=== PATIENT | male | born 1945 | race Caucasian/White ===

== ENCOUNTER 2016-11-13 12:10 | Inpatient (IN) | payer MEDICARE, OTHER ==
[~2016-11-13] VITALS: Ht 172.7 cm; Wt 65.0 kg
[~2016-11-13 12:10] MED LIST changes: -MECL25TA3 PO
[2016-11-13 13:09] LABS: BASO % 0 % (0-3); EOS % 0 % (0-3); HEMATOCRIT 39.2 % (39.0-53.0); HEMOGLOBIN 12.9 g/dL (13.0-17.5); LYMPH # 0.5 x10^3/uL (1.0-4.8); LYMPH % 6 % (24-48); MEAN CORPUSCULAR HEMOGLOBIN 29 pg (25-35); MEAN CORPUSCULAR HGB CONC 33 g/dL (31-37); MEAN CORPUSCULAR VOLUME 87 fL (79-100); MONO % 12 % (0-9); NEUT % 82 % (31-73); PLATELET COUNT 230 x10^3/uL (140-400); RED BLOOD COUNT 4.52 x10^6/uL (4.30-5.70); RED CELL DISTRIBUTION WIDTH 14.5 % (11.5-14.5)
[2016-11-13] MEDS ORDERED: MECLIZINE HCL 12.5 MG TABLET. PO ONE (13:15)
[2016-11-13 13:23] LABS: CALCIUM 8.6 mg/dL (8.5-10.1); CREATININE 1.3 mg/dL (0.7-1.3); GFR 54.3; POTASSIUM 3.5 mmol/L (3.5-5.1)
--- NOTE | 2016-11-13 13:33 | EKG ---
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
--- NOTE | 2016-11-13 13:36 | RAD ---
Indication: Dizziness. Axial imaging through the brain and cervical spine was performed without contrast. Sagittal and coronal reformations of the cervical spine were also performed. CT brain: The ventricles and sulci are within normal limits. No sulcal effacement, midline shift or hemorrhage is detected. The cisterns are patent. The visualized paranasal sinuses are clear. Impression: No acute intracranial process is detected. CT cervical spine: Curvature and alignment is normal. The prevertebral tissues are normal. No fracture or subluxation is identified. The odontoid is intact. Impression: No acute bony abnormality is detected. PQRS Compliance Statement: One or more of the following individualized dose reduction techniques were utilized for this examination: 1. Automated exposure control 2. Adjustment of the mA and/or kV according to patient size 3. Use of iterative reconstruction technique
--- NOTE | 2016-11-13 15:05 | PHYS DOC ---
Past Medical History Past Medical History: Diabetes-Type II, MS, Other Additional Past Medical Histor: back pain Past Surgical History: Angioplasty, Other Additional Past Surgical Histo: hernia surgery x 6, wrist surgery, hiatal hernia surgery Alcohol Use: None Drug Use: None Adult General Chief Complaint Chief Complaint: HYPOTENSION HPI HPI Patient is a 71 year old male who presents with severe intermittent dizziness/ lightheadedness has been worsening over the past 2 weeks. States that he is using hand crutches to assist ambulation today. His symptoms are sudden in onset , worse with sitting up or head movements, lasting seconds to minutes, improves with being still. He has spinning sensation and his blurry vision when he is symptomatic. He notes mild headache over the past 3 days. He also has recent rhinorrhea, nasal congestion, and dry cough. He denies fever or chills, numbness , tingling, weakness, nausea or vomiting, diarrhea, dysuria. Review of Systems Review of Systems Constitutional: Denies fever or chills [] Eyes: Denies change in visual acuity, redness, or eye pain [] HENT: Denies nasal congestion or sore throat [] Respiratory: Denies shortness of breath [] Cardiovascular: No additional information not addressed in HPI [] GI: Denies abdominal pain, nausea, vomiting, bloody stools or diarrhea [] : Denies dysuria or hematuria [] Musculoskeletal: Denies back pain or joint pain [] Integument: Denies rash or skin lesions [] Neurologic: Denies focal weakness or sensory changes [] Endocrine: Denies polyuria or polydipsia [] Current Medications Current Medications Current Medications Medications (Trade) Dose Ordered Sig/Ifeanyi Start Time Stop Time Status Last Admin Dose Admin Meclizine HCl (Antivert) 12.5 mg 1X ONCE 11/13/16 13:15 11/13/16 13:16 DC 11/13/16 13:32 12.5 MG Allergies Allergies Allergies Coded Allergies Type Severity Reaction Last Updated Verified ether Allergy Severe "N/V" 03/14/14 Yes Physical Exam Physical Exam Constitutional: Well developed, well nourished, no acute distress, non-toxic appearance. [] HENT: Normocephalic, atraumatic, bilateral external ears normal, oropharynx moist, no oral exudates, nose normal. [] Eyes: PERRLA, EOMI. [] Neck: Normal range of motion, supple. [] Cardiovascular:Heart rate regular rhythm [] Lungs & Thorax: Bilateral breath sounds clear to auscultation [] Abdomen: Bowel sounds normal, soft, no tenderness. [] Skin: Warm, dry, no erythema, no rash. [] Back: No tenderness, no CVA tenderness. [] Extremities: No tenderness, ROM intact, no edema. Ambulatory with a unsteady gait [] Neurologic: Alert and oriented X 3, normal motor function, normal sensory function, no focal deficits noted, cranial nerves II through XII intact, no nystagmus, no limb ataxia. [] Psychologic: Affect normal, judgement normal, mood normal. [] Current Patient Data Vital Signs Vital Signs Date Time Temp Pulse Resp B/P Pulse Ox O2 Delivery O2 Flow Rate FiO2 11/13/16 14:00 90 18 97/65 99 Room Air 11/13/16 12:19 97.9 97.9 Lab Values Laboratory Tests Test 11/13/16 12:28 White Blood Count 8.0x10^3/uL (4.0-11.0) Red Blood Count 4.52x10^6/uL (4.30-5.70) Hemoglobin 12.9g/dL (13.0-17.5) L Hematocrit 39.2% (39.0-53.0) Mean Corpuscular Volume 87fL (79-100) Mean Corpuscular Hemoglobin 29pg (25-35) Mean Corpuscular Hemoglobin Concent 33g/dL (31-37) Red Cell Distribution Width 14.5% (11.5-14.5) Platelet Count 230x10^3/uL (140-400) Neutrophils (%) (Auto) 82% (31-73) H Lymphocytes (%) (Auto) 6% (24-48) L Monocytes (%) (Auto) 12% (0-9) H Eosinophils (%) (Auto) 0% (0-3) Basophils (%) (Auto) 0% (0-3) Neutrophils # (Auto) 6.6x10^3uL (1.8-7.7) Lymphocytes # (Auto) 0.5x10^3/uL (1.0-4.8) L Monocytes # (Auto) 0.9x10^3/uL (0.0-1.1) Eosinophils # (Auto) 0.0x10^3/uL (0.0-0.7) Basophils # (Auto) 0.0x10^3/uL (0.0-0.2) Sodium Level 142mmol/L (136-145) Potassium Level 3.5mmol/L (3.5-5.1) Chloride Level 103mmol/L (98-107) Carbon Dioxide Level 28mmol/L (21-32) Anion Gap 11 (6-14) Blood Urea Nitrogen 14mg/dL (8-26) Creatinine 1.3mg/dL (0.7-1.3) Estimated GFR (Cockcroft-Gault) 54.3 Glucose Level 99mg/dL (70-99) Calcium Level 8.6mg/dL (8.5-10.1) Laboratory Tests 11/13/16 12:28 Laboratory Tests 11/13/16 12:28 EKG EKG EKG as interpreted by me as normal sinus rhythm, rate 94, no ST-T changes, normal intervals, no ectopy Radiology/Procedures Radiology/Procedures Chest xray as interpreted by me with no acute cardiopulmonary disease process Head CT without contrast Impression: No acute intracranial process is detected. CT cervical spine: Impression: No acute bony abnormality is detected. DICTATED and SIGNED BY: FLORY CARRERO MD DATE: 11/13/16 3218 Course & Med Decision Making Course & Med Decision Making Pertinent Labs and Imaging studies reviewed. (See chart for details) Workup is unremarkable. Still has symptoms of severe vertigo with trial of ambulation. He does not feel he can ambulate safely to return home. Will admit for symptom control and neurology evaluation. He was seen and examined with Dr. Mckeon at bedside, who agrees to admit. Dragon Disclaimer Dragon Disclaimer This electronic medical record was generated, in whole or in part, using a voice recognition dictation system. Departure Departure Impression: Primary Impression: Vertigo Disposition: ADMITTED INPATIENT Condition: STABLE Referrals: VICKY ACUNA Jr, MD (PCP) Roseanna TORRES MD Nov 13, 2016 15:05
[2016-11-13] MEDS ORDERED: ONDANSETRON PF 4 MG/2 ML VIAL. IV PRN (15:30)
[2016-11-13 16:15] VITALS: BP 114/91
--- NOTE | 2016-11-13 17:25 | ACF ---
Admission Forms Criteria VERTIGO Clinical Indications for Admission to Inpatient Care (Place 'X' for any and all applicable criteria): Admission is indicated for ANY ONE of the following(1)(2)(3)(4): [ ]I. Acute bacterial labyrinthitis [ ]II. A suspected etiology that requires admission for treatment [X]III. Inpatient admission required rather than observation care (Also use Vertigo: Observation Care as appropriate) because of ANY ONE of the following: [ ]a) Hemodynamic instability that is severe or persistent [X]b) Signs or symptoms that are severe or persistent (eg, vomiting , orthostasis, inability to ambulate) [ ]c) Cardiac arrhythmias of immediate concern [ ]d) Severe (new) neurologic findings requiring inpatient care as indicated by ANY ONE of the following(6)(7) [ ]1) Cerebral bleeding, ischemia, or vasospasm(8)(9) [ ]2) Increased intracranial pressure or hydrocephalus(10) (11)(12) [ ]3) Papilledema [ ]4) Cerebral edema [ ]5) Mass effect on CT scan [ ]e) Vomiting that is severe or persistent [ ]f) Continuous IV infusion of anticoagulation, platelet inhibitor, vasoactive, or antiarrhythmic medication [ ]g) Cerebral bleeding, hydrocephalus, or vasospasm monitoring(14) [ ]h) Increased intracranial pressure or cerebral edema monitoring [ ]i) Other condition, treatment or monitoring requiring inpatient admission [ ]IV. Cerebellar, brainstem, or cerebral ischemia or hemorrhage(5) Extended stay beyond goal length of stay may be needed for evaluating and treating a specific cause of dizziness, including(26): [ ]a) Head injury (27) ( Also use Traumatic Brain Injury, Nonsurgical Treatment guideline) [ ]b) New-onset vertebrobasilar vascular insufficiency(23) [ ]c) Acute Meniere disease with intractable symptoms [ ]d) Cardiac arrhythmias or conduction defects [ ]e) Acute neurologic event causing dizziness [ ]f) Myocardial ischemia [ ]g) Acute bacterial labyrinthitis(1) [ ]h) Severe acute vestibular neuronitis(18) The original [employer] content created by Dudley [employer] has been revised. The portions of the content which have been revised are identified through the use of italic text or in bold, and [employer] has neither reviewed nor approved the modified material. All other unmodified content is copyright [facility]. Please see references footnoted in the original [facility] edition 2016 Admission Criteria Met?: Yes NELLY SORIANO Nov 13, 2016 17:25
[2016-11-13 17:30] VITALS: BP 114/91
--- NOTE | 2016-11-13 17:56 | PDOC2 ---
NEUROLOGY CONSULT Date of Admission Date of Admission DATE: 11/13/16 TIME: 17:47 Reason for Consult Reason for Consult: IMPRESSION: Blurred vision. Dizziness. Light headedness. Gait instability. Headaches CAD Hx of [place] s/p angioplasty RECOMMENDATIONS/PLAN: ASA daily. Brain MRI w/o contrast. Lab: see orders. OT/PT Discussed with his at bedside. HISTORY OF THE PRESENT ILLNESS: 71-y-old male patient with above medical diseases developed symptoms of blurred vision, dizziness, light headedness, gait instability and headaches for about 3 days. His symptoms not resolving, but became more obvious especially trouble walking. PAST MEDICAL HISTORY: Please see above. PAST SURGERY HISTORY: Angioplasty Hernia Repair ALLERGY: Reviewed. MEDICATIONS: Refer to [facility] FAMILY HISTORY: Non contributory. SOCIAL HISTORY: Lives at home. Denies smoking, drinking, and illicit drug use. He stated he worked in [employer] for 40 years. REVIEW OF SYSTEMS: Constitutional: No malnutrition, weight loss, cachexia. Head: No traumatic brain or head injury. Skin: No edema, or rash. Ear: No infection, tinnitus. Eyes: No vision loss or color blindness. Nose: No bleeding or purulent discharges. Hearing: Hearing decrease. Neck: No injury. Cardiac: CAD, angioplasty Pulmonary: No COPD. GI: No GI ulcer, GI bleeding. Urinary/genital: No dysuria, hematuria, incontinence, urinary retention. Endocrinologic: No cousin face, craniofacial dysmorphism, polydactyly, goiter. Skeletomuscular: No muscular atrophy, deformity. Neurological: see HP. Psychiatric: Denies drug use/abuse. Otherwise, not [id number] review of systems. PHYSICAL EXAMINATION: General appearance is in mild acute distress. HEENT: Normocephalic and nontraumatic. Eyes, nose, ears, and throat are unremarkable. Neck is supple. No lymphadenopathy. No bruits are heard over the carotid artery. No crepitus. Cardiovascular: S1, S2, regular rate and rhythm. Pulmonary: Clear to auscultation bilaterally. Abdomen: Bowel sounds are positive. Extremities: No rash, lesions, or edema. No restriction of range of motion NEUROLOGICAL EXAMINATION: Alert Oriented to time, place and person. PERRL. EOMI. CN: no focal findings. Muscle tone: within normal. Muscle strength: 5 DTR: 2 Plantar reflex: Flexor response bilaterally Gait: not examined in bed. Sensory exam: no abnormal findings. No cerebellar signs elicited. F-T-N test fine. Current Medications Current Medications Current Medications Meclizine HCl (Antivert) 12.5 mg 1X ONCE PO Last administered on 11/13/16t 13: 32; Start 11/13/16 at 13:15; Stop 11/13/16 at 13:16; Status DC Ondansetron HCl (Zofran) 4 mg PRN Q8HRS PRN IV NAUSEA/VOMITING; Start 11/13/16 at 15:30; Stop 11/14/16 at 15:29 Acetaminophen (Tylenol) 650 mg PRN Q4HRS PRN PO FEVER; Start 11/13/16 at 15:30 ; Stop 11/14/16 at 15:29 Active Scripts Active Reported Aspirin 325 Mg Tablet 1 Tab PO DAILY [none] Allergies Allergies: Coded Allergies: ether (Verified Allergy, Severe, "N/V", 03/14/14) Vitals VITALS Vital Signs Date Time Temp Pulse Resp B/P Pulse Ox O2 Delivery O2 Flow Rate FiO2 11/13/16 17:32 Room Air 11/13/16 17:30 101.4 99 114/91 95 101.4 11/13/16 16:15 18 Labs Labs Laboratory Tests Test 11/13/16 12:28 White Blood Count 8.0x10^3/uL (4.0-11.0) Red Blood Count 4.52x10^6/uL (4.30-5.70) Hemoglobin 12.9g/dL (13.0-17.5) Hematocrit 39.2% (39.0-53.0) Mean Corpuscular Volume 87fL (79-100) Mean Corpuscular Hemoglobin 29pg (25-35) Mean Corpuscular Hemoglobin Concent 33g/dL (31-37) Red Cell Distribution Width 14.5% (11.5-14.5) Platelet Count 230x10^3/uL (140-400) Neutrophils (%) (Auto) 82% (31-73) Lymphocytes (%) (Auto) 6% (24-48) Monocytes (%) (Auto) 12% (0-9) Eosinophils (%) (Auto) 0% (0-3) Basophils (%) (Auto) 0% (0-3) Neutrophils # (Auto) 6.6x10^3uL (1.8-7.7) Lymphocytes # (Auto) 0.5x10^3/uL (1.0-4.8) Monocytes # (Auto) 0.9x10^3/uL (0.0-1.1) Eosinophils # (Auto) 0.0x10^3/uL (0.0-0.7) Basophils # (Auto) 0.0x10^3/uL (0.0-0.2) Sodium Level 142mmol/L (136-145) Potassium Level 3.5mmol/L (3.5-5.1) Chloride Level 103mmol/L (98-107) Carbon Dioxide Level 28mmol/L (21-32) Anion Gap 11 (6-14) Blood Urea Nitrogen 14mg/dL (8-26) Creatinine 1.3mg/dL (0.7-1.3) Estimated GFR (Cockcroft-Gault) 54.3 Glucose Level 99mg/dL (70-99) Calcium Level 8.6mg/dL (8.5-10.1) Creatine Kinase 74U/L (39-308) Thyroid Stimulating Hormone (TSH) 1.173uIU/mL (0.358-3.74) Laboratory Tests Test 11/13/16 12:28 White Blood Count 8.0x10^3/uL (4.0-11.0) Red Blood Count 4.52x10^6/uL (4.30-5.70) Hemoglobin 12.9g/dL (13.0-17.5) Hematocrit 39.2% (39.0-53.0) Mean Corpuscular Volume 87fL (79-100) Mean Corpuscular Hemoglobin 29pg (25-35) Mean Corpuscular Hemoglobin Concent 33g/dL (31-37) Red Cell Distribution Width 14.5% (11.5-14.5) Platelet Count 230x10^3/uL (140-400) Neutrophils (%) (Auto) 82% (31-73) Lymphocytes (%) (Auto) 6% (24-48) Monocytes (%) (Auto) 12% (0-9) Eosinophils (%) (Auto) 0% (0-3) Basophils (%) (Auto) 0% (0-3) Neutrophils # (Auto) 6.6x10^3uL (1.8-7.7) Lymphocytes # (Auto) 0.5x10^3/uL (1.0-4.8) Monocytes # (Auto) 0.9x10^3/uL (0.0-1.1) Eosinophils # (Auto) 0.0x10^3/uL (0.0-0.7) Basophils # (Auto) 0.0x10^3/uL (0.0-0.2) Sodium Level 142mmol/L (136-145) Potassium Level 3.5mmol/L (3.5-5.1) Chloride Level 103mmol/L (98-107) Carbon Dioxide Level 28mmol/L (21-32) Anion Gap 11 (6-14) Blood Urea Nitrogen 14mg/dL (8-26) Creatinine 1.3mg/dL (0.7-1.3) Estimated GFR (Cockcroft-Gault) 54.3 Glucose Level 99mg/dL (70-99) Calcium Level 8.6mg/dL (8.5-10.1) Creatine Kinase 74U/L (39-308) Thyroid Stimulating Hormone (TSH) 1.173uIU/mL (0.358-3.74) ALEXANDRA ONEIL MD Nov 13, 2016 17:56
[2016-11-13 19:10] VITALS: BP 105/39
[2016-11-13] MEDS: ASPIRIN 81 MG TAB.CHEW PO SCH (19:58)
[2016-11-13 23:44] VITALS: BP 111/65
[2016-11-14] VITALS (9 sets, daily range): BP systolic 93–128; BP diastolic 54–80
[2016-11-14] MEDS: ACETAMINOPHEN 325 MG TABLET. PO PRN ×2 (00:01→12:02)
--- NOTE | 2016-11-14 09:22 | RAD ---
BRAIN W/O CONTRAST Indication: HEADACHES, BLURRED VISION, UNSTEADY GAIT, NO SX HX, NO PRIORS Reason: Blurred vision. headache, gait problems, OK FOR A.M. PER DR ONEIL / Spl. Instructions: / History: TECHNIQUE: Axial diffusion weighted imaging was obtained. Additional sagittal T1, axial T1, axial FLAIR, and axial T2 weighted imaging of the brain was also performed. FINDINGS: There are scattered foci of FLAIR signal hyperintensity in the periventricular white matter which are nonspecific but most likely related to sequelae of chronic small vessel ischemic disease. No evidence of acute intracranial hemorrhage. No restricted diffusion to indicate acute infarct. No extra-axial fluid collections. No midline shift or mass effect. Ventricular size is appropriate. Midline structures have a normal anatomic configuration. Basal cisterns are patent. Arterial flow voids at the skull base and major dural venous sinuses are maintained. Globes and orbits are unremarkable. Paranasal sinuses and mastoid air cells are clear. IMPRESSION: Negative for acute or recent infarct. No acute intracranial abnormality. Electronically signed by: Ha Washburn (Nov 14, 2016 09:21:20)
[2016-11-14] MEDS: ASPIRIN 81 MG TAB.CHEW PO SCH (10:17)
[2016-11-14] MEDS: CALCIUM CARBONATE 500 MG TAB.CHEW PO SCH ×2 (11:30→16:51)
[2016-11-14] MEDS: CHOLECALCIFEROL (VITAMIN D3) 5,000 UNIT CAPSULE PO SCH (12:02)
--- NOTE | 2016-11-14 12:41 | PDOC1 ---
History and Physical Date of Admission Date of Admission DATE: 11/13/16 TIME: 14:20 Identification/Chief Complaint Chief Complaint Vertigo Source Source: Chart review, Patient History of Present Illness History of Present Illness Patient is a pleasant 71 year old male with history of CAD and DDD who presented from my office with hypotension and dizziness. He has been having episodes of dizziness that can last anywhere from 30 seconds to 1 hour for the past 2-3 weeks. Describes episodes as lightheadedness and spinning, worse with flexion and extension of the neck. He denies syncope, but frequently has to crawl on the floor and is unable to stand due to the severity of dizziness. He is using a wheelchair at home. Has had a bout of vertigo in the past. Since 11/12, he also notes having rhinorrhea and a dry, hacking cough occasionally productive of white sputum. Denies chest pain, dyspnea, nausea, vomiting, diarrhea. In the ED, a head and neck CT was performed, both were negative for acute abnormalities. Patient was having significant dizziness on ambulation and was admitted for further workup of dizziness. Past Medical History Cardiovascular: CAD, [place] Musculoskeletal: Other (DDD) Past Surgical History Past Surgical History angioplasty, hernia repair Current Problem List Problem List Problems Medical Problems: (1) Vertigo Status: Acute Problems: Current Medications Current Medications Current Medications Meclizine HCl (Antivert) 12.5 mg 1X ONCE PO Last administered on 11/13/16 13: 32; Start 11/13/16 at 13:15; Stop 11/13/16 at 13:16; Status DC Ondansetron HCl (Zofran) 4 mg PRN Q8HRS PRN IV NAUSEA/VOMITING; Start 11/13/16 at 15:30; Stop 11/14/16 at 15:29 Acetaminophen (Tylenol) 650 mg PRN Q4HRS PRN PO FEVER Last administered on 11/14 12:02; Start 11/13/16 at 15:30; Stop 11/14/16 at 15:29 Aspirin (Children'S Aspirin) 81 mg DAILYWBKFT PO Last administered on 10:17; Start 11/13/16 at 19:00 Vitamin D (Vitamin D3) 5,000 unit DAILY PO Last administered on 11/14/16 12:02 ; Start 11/14/16 at 11:00 Calcium Carbonate/ Glycine (Tums) 500 mg BIDWMEALS PO ; Start 11/14/16 at 11:30 Active Scripts Active Reported Aspirin 325 Mg Tablet 1 Tab PO DAILY [none] Allergies Allergies: Coded Allergies: ether (Verified Allergy, Severe, "N/V", 03/14/14) Physical Exam Physical Exam General: AAOx3, no acute distress HEENT: PERRLA, EOMI, no effusions behind TMs Heart: regular rate, normal S1, normal S2 Lungs: Diffuse mid glynn crackles Abdomen: soft, nontender, nondistended, bowel sounds present Neuro: CNII-XII intact, no ataxia noted Extremities: no pretibial edema, pulses +2/4 bilaterally all extremities Vitals Vitals Vital Signs Date Time Temp Pulse Resp B/P Pulse Ox O2 Delivery O2 Flow Rate FiO2 11/14/16 10:58 101.3 89 18 128/70 93 Room Air 101.3 Labs Labs Laboratory Tests Test 11/13/16 12:28 White Blood Count 8.0x10^3/uL (4.0-11.0) Red Blood Count 4.52x10^6/uL (4.30-5.70) Hemoglobin 12.9g/dL (13.0-17.5) Hematocrit 39.2% (39.0-53.0) Mean Corpuscular Volume 87fL (79-100) Mean Corpuscular Hemoglobin 29pg (25-35) Mean Corpuscular Hemoglobin Concent 33g/dL (31-37) Red Cell Distribution Width 14.5% (11.5-14.5) Platelet Count 230x10^3/uL (140-400) Neutrophils (%) (Auto) 82% (31-73) Lymphocytes (%) (Auto) 6% (24-48) Monocytes (%) (Auto) 12% (0-9) Eosinophils (%) (Auto) 0% (0-3) Basophils (%) (Auto) 0% (0-3) Neutrophils # (Auto) 6.6x10^3uL (1.8-7.7) Lymphocytes # (Auto) 0.5x10^3/uL (1.0-4.8) Monocytes # (Auto) 0.9x10^3/uL (0.0-1.1) Eosinophils # (Auto) 0.0x10^3/uL (0.0-0.7) Basophils # (Auto) 0.0x10^3/uL (0.0-0.2) Sodium Level 142mmol/L (136-145) Potassium Level 3.5mmol/L (3.5-5.1) Chloride Level 103mmol/L (98-107) Carbon Dioxide Level 28mmol/L (21-32) Anion Gap 11 (6-14) Blood Urea Nitrogen 14mg/dL (8-26) Creatinine 1.3mg/dL (0.7-1.3) Estimated GFR (Cockcroft-Gault) 54.3 Glucose Level 99mg/dL (70-99) Calcium Level 8.6mg/dL (8.5-10.1) Creatine Kinase 74U/L (39-308) Vitamin B12 Level 299pg/mL (211-946) 25-Hydroxy Vitamin D Total 21.0ng/mL (30.0-100.0) Thyroid Stimulating Hormone (TSH) 1.173uIU/mL (0.358-3.74) Laboratory Tests Test 11/13/16 12:28 White Blood Count 8.0x10^3/uL (4.0-11.0) Red Blood Count 4.52x10^6/uL (4.30-5.70) Hemoglobin 12.9g/dL (13.0-17.5) Hematocrit 39.2% (39.0-53.0) Mean Corpuscular Volume 87fL (79-100) Mean Corpuscular Hemoglobin 29pg (25-35) Mean Corpuscular Hemoglobin Concent 33g/dL (31-37) Red Cell Distribution Width 14.5% (11.5-14.5) Platelet Count 230x10^3/uL (140-400) Neutrophils (%) (Auto) 82% (31-73) Lymphocytes (%) (Auto) 6% (24-48) Monocytes (%) (Auto) 12% (0-9) Eosinophils (%) (Auto) 0% (0-3) Basophils (%) (Auto) 0% (0-3) Neutrophils # (Auto) 6.6x10^3uL (1.8-7.7) Lymphocytes # (Auto) 0.5x10^3/uL (1.0-4.8) Monocytes # (Auto) 0.9x10^3/uL (0.0-1.1) Eosinophils # (Auto) 0.0x10^3/uL (0.0-0.7) Basophils # (Auto) 0.0x10^3/uL (0.0-0.2) Sodium Level 142mmol/L (136-145) Potassium Level 3.5mmol/L (3.5-5.1) Chloride Level 103mmol/L (98-107) Carbon Dioxide Level 28mmol/L (21-32) Anion Gap 11 (6-14) Blood Urea Nitrogen 14mg/dL (8-26) Creatinine 1.3mg/dL (0.7-1.3) Estimated GFR (Cockcroft-Gault) 54.3 Glucose Level 99mg/dL (70-99) Calcium Level 8.6mg/dL (8.5-10.1) Creatine Kinase 74U/L (39-308) Vitamin B12 Level 299pg/mL (211-946) 25-Hydroxy Vitamin D Total 21.0ng/mL (30.0-100.0) Thyroid Stimulating Hormone (TSH) 1.173uIU/mL (0.358-3.74) VTE Prophylaxis Ordered VTE Prophylaxis Devices: No VTE Pharmacological Prophylaxi: Yes Assessment/Plan Assessment/Plan Likely peripheral vertigo with negative head/neck CT and history of upper respiratory symptoms. Will consult neurology for further workup. Patient febrile and with a productive cough . Will start on Levaquin 500mg IV Q 24 hours. RAQUEL JACKSON MD Nov 14, 2016 12:40
--- NOTE | 2016-11-14 14:30 | PDOC ---
PROGRESS NOTES Assessment Assessment Blurred vision. Dizziness. Light headedness. Gait instability. Headaches CAD Hx of [place] s/p angioplasty Vit D deficiency. No evidence of acute CVA this time. RECOMMENDATIONS/PLAN: ASA daily. Vit D and Ca++ supplement, further management per his PCP. Fasting lipids in a.m. Orths HR and BP. OT/PT Discussed with his at bedside on 11/13/16. HISTORY OF THE PRESENT ILLNESS: 71-y-old male patient with above medical diseases developed symptoms of blurred vision, dizziness, light headedness, gait instability and headaches for about 3 days. His symptoms not resolving, but became more obvious especially trouble walking. PAST MEDICAL HISTORY: Please see above. PAST SURGERY HISTORY: Angioplasty Hernia Repair ALLERGY: Reviewed. MEDICATIONS: Refer to [facility] FAMILY HISTORY: Non contributory. SOCIAL HISTORY: Lives at home. Denies smoking, drinking, and illicit drug use. He stated he worked in [employer] for 40 years. REVIEW OF SYSTEMS: Constitutional: No malnutrition, weight loss, cachexia. Head: No traumatic brain or head injury. Skin: No edema, or rash. Ear: No infection, tinnitus. Eyes: No vision loss or color blindness. Nose: No bleeding or purulent discharges. Hearing: Hearing decrease. Neck: No injury. Cardiac: CAD, angioplasty Pulmonary: No COPD. GI: No GI ulcer, GI bleeding. Urinary/genital: No dysuria, hematuria, incontinence, urinary retention. Endocrinologic: No cousin face, craniofacial dysmorphism, polydactyly, goiter. Skeletomuscular: No muscular atrophy, deformity. Neurological: see HP. Psychiatric: Denies drug use/abuse. Otherwise, not [id number] review of systems. PHYSICAL EXAMINATION: General appearance is in no acute distress. HEENT: Normocephalic and nontraumatic. Eyes, nose, ears, and throat are unremarkable. Neck is supple. No lymphadenopathy. No bruits are heard over the carotid artery. No crepitus. Cardiovascular: S1, S2, regular rate and rhythm. Pulmonary: Clear to auscultation bilaterally. Abdomen: Bowel sounds are positive. Extremities: No rash, lesions, or edema. No restriction of range of motion NEUROLOGICAL EXAMINATION: Alert Oriented to time, place and person. PERRL. EOMI. CN: no focal findings. Muscle tone: within normal. Muscle strength: 5- to 5 DTR: 2 Plantar reflex: Flexor response bilaterally Gait: not examined in bed. Sensory exam: no abnormal findings. No cerebellar signs elicited. F-T-N test fine. Objective Objective Vital Signs Date Time Temp Pulse Resp B/P Pulse Ox O2 Delivery O2 Flow Rate FiO2 11/14/16 10:58 101.3 89 18 128/70 93 Room Air 101.3 Intake and Output 11/14/16 07:00 Intake Total 200 ml Output Total 500 ml Balance -300 ml Intake Oral 200 ml Output Urine Total 500 ml Vitals Signs Vitals VS - Last 72 Hours, by Label Date Time Temp Pulse Resp B/P Pulse Ox O2 Delivery O2 Flow Rate FiO2 11/14/16 10:58 101.3 89 18 128/70 93 Room Air 101.3 11/14/16 07:30 Room Air 11/14/16 07:20 101.5 94 20 122/67 95 Room Air 101.5 11/14/16 03:30 98.9 86 20 103/64 94 Room Air 98.9 11/13/16 23:44 102.1 103 20 111/65 92 Room Air 102.1 11/13/16 20:00 Room Air 11/13/16 19:10 102.9 101 20 105/39 91 Room Air 102.9 11/13/16 17:32 Room Air 11/13/16 17:30 101.4 99 114/91 95 Room Air 101.4 11/13/16 16:15 101.4 99 18 114/91 95 Room Air 101.4 11/13/16 15:30 96 22 109/54 95 Room Air 11/13/16 15:00 92 20 99/51 95 Room Air 11/13/16 14:00 90 18 97/65 99 Room Air 11/13/16 13:30 90 18 119/79 98 Room Air 11/13/16 13:00 94 18 135/62 99 Room Air 11/13/16 12:19 97.9 101 22 121/60 96 Room Air 97.9 Medication Medications Current Medications Acetaminophen (Tylenol) 650 mg PRN Q4HRS PRN PO FEVER Last administered on 11/14t 12:02; Start 11/13/16 at 15:30; Stop 11/14/16 at 15:29 Aspirin (Children'S Aspirin) 81 mg DAILYWBKFT PO Last administered on 10:17; Start 11/13/16 at 19:00 Calcium Carbonate/ Glycine (Tums) 500 mg BIDWMEALS PO ; Start 11/14/16 at 11:30 Ondansetron HCl (Zofran) 4 mg PRN Q8HRS PRN IV NAUSEA/VOMITING; Start 11/13/16 at 15:30; Stop 11/14/16 at 15:29 Vitamin D (Vitamin D3) 5,000 unit DAILY PO Last administered on 11/14/16 12:02 ; Start 11/14/16 at 11:00 Comment Review of Relevant I have reviewed the following items rai (where applicable) has been applied. ALEXANDRA ONEIL MD Nov 14, 2016 14:30
[2016-11-15 03:40] VITALS: BP 106/73
[2016-11-15 07:10] LABS: CHOLESTEROL/HDL RATIO 2.5
[2016-11-15 07:36] VITALS: BP 114/67
[2016-11-15] MEDS: CALCIUM CARBONATE 500 MG TAB.CHEW PO SCH ×2 (09:38→16:34)
[2016-11-15] MEDS: ASPIRIN 81 MG TAB.CHEW PO SCH (09:38)
[2016-11-15] MEDS: CHOLECALCIFEROL (VITAMIN D3) 5,000 UNIT CAPSULE PO SCH (09:38)
[2016-11-15 11:42] VITALS: BP 128/75
--- NOTE | 2016-11-15 13:46 | PDOC ---
PROGRESS NOTES Subjective Subjective Patient has no new cardiac complaints. Objective Objective Vital Signs Date Time Temp Pulse Resp B/P Pulse Ox O2 Delivery O2 Flow Rate FiO2 11/15/16 11:42 98.1 98 20 128/75 97 Room Air 98.1 Intake and Output 11/15/16 07:00 Intake Total 1760 ml Output Total 1350 ml Balance 410 ml Intake Oral 1760 ml Output Urine Total 1350 ml Physical Exam Physical Exam No significant changes in cardiac exam. Assessment Assessment Problems Medical Problems: (1) Vertigo Status: Acute Plan Plan of Care Continue [facility]. Patient stable from a cardiac standpoint. The patient wants to go home today. I agreed with discharging the patient today. Comment Review of Relevant I have reviewed the following items rai (where applicable) has been applied. Labs Laboratory Tests Test 11/15/16 05:50 Triglycerides Level 55mg/dL (0-150) Cholesterol Level 127mg/dL (0-200) LDL Cholesterol, Calculated 65mg/dL (0-100) VLDL Cholesterol, Calculated 11mg/dL (0-40) HDL Cholesterol 51mg/dL (40-60) Cholesterol/HDL Ratio 2.5 Laboratory Tests Test 11/15/16 05:50 Triglycerides Level 55mg/dL (0-150) Cholesterol Level 127mg/dL (0-200) LDL Cholesterol, Calculated 65mg/dL (0-100) VLDL Cholesterol, Calculated 11mg/dL (0-40) HDL Cholesterol 51mg/dL (40-60) Cholesterol/HDL Ratio 2.5 Medications Current Medications Meclizine HCl (Antivert) 12.5 mg 1X ONCE PO Last administered on 11/13/16 13: 32; Start 11/13/16 at 13:15; Stop 11/13/16 at 13:16; Status DC Ondansetron HCl (Zofran) 4 mg PRN Q8HRS PRN IV NAUSEA/VOMITING; Start 11/13/16 at 15:30; Stop 11/14/16 at 15:29; Status DC Acetaminophen (Tylenol) 650 mg PRN Q4HRS PRN PO FEVER Last administered on 11/14 12:02; Start 11/13/16 at 15:30; Stop 11/14/16 at 15:29; Status DC Aspirin (Children'S Aspirin) 81 mg DAILYWBKFT PO Last administered on 09:38; Start 11/13/16 at 19:00 Vitamin D (Vitamin D3) 5,000 unit DAILY PO Last administered on 11/15/16 09:38 ; Start 11/14/16 at 11:00 Calcium Carbonate/ Glycine 500 mg 500 mg BIDWMEALS PO Last administered on 11/15 09:38; Start 11/14/16 at 11:30 Levofloxacin/ Dextrose (LEVAQUIN 500mg PREMIX) 100 ml @ 100 mls/hr Q24H IV Last administered on 11/14/16 16:51; Start 11/14/16 at 16:00 Active Scripts Active Reported Aspirin 325 Mg Tablet 1 Tab PO DAILY [none] Vitals/I & O Vital Sign - Last 24 Hours 11/14/16 11/14/16 11/14/16 11/14/16 14:58 16:00 16:02 16:04 Temp 98.5 98.5 Pulse 72 89 93 89 Resp 16 B/P 93/57 104/54 123/62 124/59 Pulse Ox 96 97 96 96 O2 Delivery Room Air 11/14/16 11/14/16 11/14/16 11/15/16 19:05 20:00 23:41 03:40 Temp 102.1 100.3 99.6 102.1 100.3 99.6 Pulse 94 99 96 Resp 20 20 20 B/P 124/80 107/64 106/73 Pulse Ox 93 91 91 O2 Delivery Room Air Room Air Room Air Room Air 11/15/16 11/15/16 11/15/16 07:36 08:00 11:42 Temp 99.7 98.1 99.7 98.1 Pulse 97 98 Resp 20 20 B/P 114/67 128/75 Pulse Ox 96 97 O2 Delivery Room Air Room Air Room Air Intake and Output 11/14/16 11/14/16 11/15/16 15:00 23:00 07:00 Intake Total 320 ml 1000 ml 440 ml Output Total 800 ml 550 ml Balance 320 ml 200 ml -110 ml RAQUEL JACKSON MD Nov 15, 2016 13:45
[2016-11-15 15:00] VITALS: BP 96/54
--- NOTE | 2016-11-15 15:45 | PDOC ---
PROGRESS NOTES Assessment Assessment Blurred vision. Dizziness. Light headedness. Gait instability. Headaches CAD Hx of [place] s/p angioplasty Vit D deficiency. No evidence of acute CVA this time. RECOMMENDATIONS/PLAN: Meclizine 25 mg tid Continue ASA daily. Vit D and Ca++ supplement, further management per his PCP. MRA or CTA if symptoms worse. See ENT See Dr. Ramos as outpatient for vertigo battery tests. OT/PT Discussed with his at bedside on 11/13/16. HISTORY OF THE PRESENT ILLNESS: 71-y-old male patient with above medical diseases developed symptoms of blurred vision, dizziness, light headedness, gait instability and headaches for about 3 days. His symptoms not resolving, but became more obvious especially trouble walking. PAST MEDICAL HISTORY: Please see above. PAST SURGERY HISTORY: Angioplasty Hernia Repair ALLERGY: Reviewed. MEDICATIONS: Refer to [facility] FAMILY HISTORY: Non contributory. SOCIAL HISTORY: Lives at home. Denies smoking, drinking, and illicit drug use. He stated he worked in [employer] for 40 years. REVIEW OF SYSTEMS: Constitutional: No malnutrition, weight loss, cachexia. Head: No traumatic brain or head injury. Skin: No edema, or rash. Ear: No infection, tinnitus. Eyes: No vision loss or color blindness. Nose: No bleeding or purulent discharges. Hearing: Hearing decrease. Neck: No injury. Cardiac: CAD, angioplasty Pulmonary: No COPD. GI: No GI ulcer, GI bleeding. Urinary/genital: No dysuria, hematuria, incontinence, urinary retention. Endocrinologic: No cousin face, craniofacial dysmorphism, polydactyly, goiter. Skeletomuscular: No muscular atrophy, deformity. Neurological: see HP. Psychiatric: Denies drug use/abuse. Otherwise, not -oyvjd review of systems. PHYSICAL EXAMINATION: General appearance is in no acute distress. HEENT: Normocephalic and nontraumatic. Eyes, nose, ears, and throat are unremarkable. Neck is supple. No lymphadenopathy. No bruits are heard over the carotid artery. No crepitus. Cardiovascular: S1, S2, regular rate and rhythm. Pulmonary: Clear to auscultation bilaterally. Abdomen: Bowel sounds are positive. Extremities: No rash, lesions, or edema. No restriction of range of motion NEUROLOGICAL EXAMINATION: Alert Oriented to time, place and person. PERRL. EOMI. CN: no focal findings. Muscle tone: within normal. Muscle strength: 5- to 5 DTR: 2 Plantar reflex: Flexor response bilaterally Gait: not examined in bed. Sensory exam: no abnormal findings. No cerebellar signs elicited. F-T-N test fine. Objective Objective Vital Signs Date Time Temp Pulse Resp B/P Pulse Ox O2 Delivery O2 Flow Rate FiO2 11/15/16 11:42 98.1 98 20 128/75 97 Room Air 98.1 Intake and Output 11/15/16 07:00 Intake Total 1760 ml Output Total 1350 ml Balance 410 ml Intake Oral 1760 ml Output Urine Total 1350 ml Vitals Signs Vitals VS - Last 72 Hours, by Label Date Time Temp Pulse Resp B/P Pulse Ox O2 Delivery O2 Flow Rate FiO2 11/15/16 11:42 98.1 98 20 128/75 97 Room Air 98.1 11/15/16 08:00 Room Air 11/15/16 07:36 99.7 97 20 114/67 96 Room Air 99.7 11/15/16 03:40 99.6 96 20 106/73 91 Room Air 99.6 11/14/16 23:41 100.3 99 20 107/64 91 Room Air 100.3 11/14/16 20:00 Room Air 11/14/16 19:05 102.1 94 20 124/80 93 Room Air 102.1 11/14/16 16:04 89 124/59 96 11/14/16 16:02 93 123/62 96 11/14/16 16:00 89 104/54 97 11/14/16 14:58 98.5 72 16 93/57 96 Room Air 98.5 11/14/16 10:58 101.3 89 18 128/70 93 Room Air 101.3 11/14/16 07:30 Room Air 11/14/16 07:20 101.5 94 20 122/67 95 Room Air 101.5 Laboratory Laboratory Laboratory Tests Test 11/15/16 05:50 Triglycerides Level 55mg/dL (0-150) Cholesterol Level 127mg/dL (0-200) LDL Cholesterol, Calculated 65mg/dL (0-100) VLDL Cholesterol, Calculated 11mg/dL (0-40) HDL Cholesterol 51mg/dL (40-60) Cholesterol/HDL Ratio 2.5 Medication Medications Current Medications Levofloxacin/ Dextrose (LEVAQUIN 500mg PREMIX) 100 ml @ 100 mls/hr Q24H IV Last administered on 11/14/16t 16:51; Start 11/14/16 at 16:00 Comment Review of Relevant I have reviewed the following items rai (where applicable) has been applied. ALEXANDRA ONEIL MD Nov 15, 2016 15:45
[2016-11-15] MEDS ORDERED: MECLIZINE HCL 12.5 MG TABLET. PO SCH (16:30)
[2016-11-15] MEDS ORDERED: MECL25TA3 PO (17:56)
--- NOTE | 2016-11-15 18:25 | PDOC3 ---
Discharge Summary* Date of Admission: Nov 13, 2016 Date of Discharge: Nov 15, 2016 Admitting Diagnosis Left-sided weakness Problems Medical Problems: (1) Vertigo Status: Acute Final Diagnosis Left-sided weakness Problems Medical Problems: (1) Vertigo Status: Acute CONSULTS Neurology Brief Hospital Course This patient is a 71-year-old gentleman with a known history of hypertension and heart disease that has had a previous CVA. The patient was at home and he had been having severe dizziness for over 3 days this To the point that he could not walk and he decided to go to my office and when he arrived there he was hypotensive and unable to walk complaining of left sided weakness therefore the patient was transferred emergently to the ER. After the patient arrived in the ER he was seen and evaluated and it was decided to admit him. The patient had a CT done which did not show any evidence of an acute CVA. Multiple tests were done please see the chart for that report. The neurologists were consulted and they saw the patient and ordered further tests. The patient was started on meclizine which helped with the dizziness and the neurologist felt that the patient had significant vertigo but no apparent evidence of an acute CVA. He had been coughing and the cough was productive and he had also been having a fever therefore the patient was started on Levaquin. Today the patient is doing better and I will discharge the patient at this time we'll send him home on his home meds and in addition to that we are going to send him home on meclizine and will continue to complete 7 days of the Levaquin 500 milligrams by mouth daily. The patient has been instructed with regards to diet activity medications and follow-up Scheduled Aspirin (Aspirin) 1 TAB PO DAILY (Reported) Meclizine Hcl (Meclizine Hcl) 1 TAB PO TID (Reported) Miscellaneous Medications ([none]) (Reported) Time Spent Total time spent with patient [] minutes for coordination of care, counseling, and education. RAQUEL JACKSON MD Nov 15, 2016 18:25
== END 2016-11-15 20:15 | disposition home or self-care (01) | DRG 149 ==
LOC: ER 12:10 → 6 SOUTH 14:20
PROVIDERS: ADMIT Internal Medicine Cardiovascular Disease; ATTEND Internal Medicine Cardiovascular Disease
DX: H81.399 Other peripheral vertigo, unspecified ear (principal); E11.9 Type 2 diabetes mellitus without complications; I10 Essential (primary) hypertension; I25.10 Atherosclerotic heart disease of native coronary artery without angina pectoris; E55.9 Vitamin D deficiency, unspecified; I95.9 Hypotension, unspecified; R51 Headache; M19.90 Unspecified osteoarthritis, unspecified site; M54.9 Dorsalgia, unspecified; I25.2 Old myocardial infarction; Z86.73 Personal history of transient ischemic attack (TIA), and cerebral infarction without residual deficits; Z98.61 Coronary angioplasty status; Z88.8 Allergy status to other drugs, medicaments and biological substances; Z79.82 Long term (current) use of aspirin
CPT/HCPCS: 36415; 70450; 70551; 72125; 80048; 80061; 82306; 82550; 82607; 84443; 85027; 93005; 93306; J1956; J8597; 99285-25

== ENCOUNTER → 2016-11-13 | Outpatient (CLI) | payer MEDICARE, OTHER ==
[2014-03-14 15:17] VITALS: BP 158/88
[~2016-11-13] MED LIST: AMOX1TAB61 PO; ASPI325T4 PO; BENZ100C PO; MECL25TA3 PO
--- NOTE | 2016-11-13 14:50 | CARD ---
APPROVED REPORT EXAM: Two-dimensional and M-mode echocardiogram with Doppler and color Doppler. Other Information Quality : GoodHR: 104bpm Rhythm : Tachycardia INDICATION Dizziness and Vertigo Dyspnea ADAIR 2D DIMENSIONS RVDd2.4 (2.9-3.5cm)Left Atrium(2D)2.5 (1.6-4.0cm) IVSd1.0 (0.7-1.1cm)Aortic Root(2D)2.9 (2.0-3.7cm) LVDd3.8 (3.9-5.9cm)LVOT Diameter2.4 (1.8-2.4cm) PWd1.0 (0.7-1.1cm)LVDs2.5 (2.5-4.0cm) FS (%) 34.3 %SV40.5 ml LVEF(%)64.0 (>50%) Aortic Valve AoV Peak Chang.137.9cm/sAoV VTI23.8cm AO Peak GR.7.6mmHgLVOT Peak Chang.113.7cm/s AO Mean GR.4mmHgAVA (VMAX)3.71cm2 Mitral Valve MV E Qmvvlwpl23.2cm/sMV E Peak Gr.5mmHg MV DECEL [id number] A Jatpuwjk443.4cm/s MV E Mean Gr.2mmHgE/A Ratio0.7 MV A [id number] Pulmonary Valve PV Peak Bojkliol29.6cm/s Pulmonary Vein S1 Jwuxzpat70.0cm/sD2 Bkfvwxhh08.3cm/s PVa [id number] LEFT VENTRICLE The left ventricle is normal size. There is normal left ventricular wall thickness. The left ventricu lar systolic function is normal and the ejection fraction is within normal range. The Ejection Fracti on is 64%. There is normal LV segmental wall motion. Transmitral Doppler flow pattern is Grade I-abno rmal relaxation pattern. RIGHT VENTRICLE The right ventricle is normal size. There is normal right ventricular wall thickness. The right ventr icular systolic function is normal. ATRIA The left atrium is moderately dilated. The right atrium size is normal. The interatrial septum is int act with no evidence for an atrial septal defect or patent foramen ovale as noted on 2-D or Doppler i maging. AORTIC VALVE The aortic valve is trileaflet and mildly sclerotic. Doppler and Color Flow revealed no significant a ortic valve regurgitation or stenosis. MITRAL VALVE Mitral annular calcification is mild. The mitral valve leaflets are thickened. There is no evidence o f mitral valve prolapse or stenosis. Doppler and Color Flow revealed trace mitral regurgitation. TRICUSPID VALVE The tricuspid valve is normal in structure and function. Doppler and Color Flow revealed no tricuspid valve regurgitation noted. PULMONIC VALVE The pulmonary valve is normal in structure and function. Doppler and Color Flow revealed no pulmonic valvular regurgitation. GREAT VESSELS The aortic root is normal in size. The ascending aorta is normal in size. The pulmonary artery is nor mal. The IVC is normal in size and collapses >50% with inspiration. PERICARDIAL EFFUSION There is no evidence of significant pericardial effusion. Critical Notification Critical Value: No <Conclusion> The left ventricular systolic function is normal and the ejection fraction is within normal range. The Ejection Fraction is 64%. Transmitral Doppler flow pattern is Grade I-abnormal relaxation pattern. The right ventricular systolic function is normal. The left atrium is moderately dilated. The right atrium size is normal. The aortic valve is trileaflet and mildly sclerotic. Doppler and Color Flow revealed no significant aortic valve regurgitation or stenosis. Doppler and Color Flow revealed trace mitral regurgitation. Mitral annular calcification is mild. The mitral valve leaflets are thickened. The tricuspid valve is normal in structure and function. The pulmonary valve is normal in structure and function. There is no evidence of significant pericardial effusion.
== END | disposition home or self-care (01) ==
LOC: ECHO 10:37
PROVIDERS: ATTEND Internal Medicine Cardiovascular Disease
DX: I25.119 Atherosclerotic heart disease of native coronary artery with unspecified angina pectoris (principal); R42 Dizziness and giddiness; R06.09 Other forms of dyspnea; I34.0 Nonrheumatic mitral (valve) insufficiency
CPT/HCPCS: 93306

== ENCOUNTER 2018-03-30 09:15 | Inpatient (IN) | payer MEDICARE, OTHER ==
[2018-03-30 09:31] LABS: POC GLUCOSE 93 mg/dL (70-99)
[2018-03-30] MEDS: IV NORMAL SALINE 1000ML BAG 1,000 ML IV ×3 (10:06→21:29)
[2018-03-30 10:27] LABS: ADD MAN DIFF? NO
[2018-03-30 10:37] LABS: ANION GAP 8 (6-14); BLOOD UREA NITROGEN 16 mg/dL (8-26); CARBON DIOXIDE 29 mmol/L (21-32); CHLORIDE 104 mmol/L (98-107); CREATININE 1.1 mg/dL (0.7-1.3); GFR 65.6; GLUCOSE 83 mg/dL (70-99); POTASSIUM 3.8 mmol/L (3.5-5.1); SODIUM 141 mmol/L (136-145)
[2018-03-30 10:52] LABS: BASO # 0.1 x10^3/uL (0.0-0.2); BASO % 1 % (0-3); EOS # 0.1 x10^3/uL (0.0-0.7); EOS % 1 % (0-3); HEMATOCRIT 39.2 % (39.0-53.0); HEMOGLOBIN 12.9 g/dL (13.0-17.5); LYMPH # 1.4 x10^3/uL (1.0-4.8); LYMPH % 19 % (24-48); MEAN CORPUSCULAR HEMOGLOBIN 28 pg (25-35); MEAN CORPUSCULAR HGB CONC 33 g/dL (31-37); MEAN CORPUSCULAR VOLUME 86 fL (79-100); MONO # 0.7 x10^3/uL (0.0-1.1); MONO % 9 % (0-9); NEUT # 5.1 x10^3uL (1.8-7.7); NEUT % 70 % (31-73); PLATELET COUNT 253 x10^3/uL (140-400); RED BLOOD COUNT 4.55 x10^6/uL (4.30-5.70); RED CELL DISTRIBUTION WIDTH 15.5 % (11.5-14.5); WHITE BLOOD COUNT 7.3 x10^3/uL (4.0-11.0)
[2018-03-30 11:18] LABS: INR 1.2 (0.8-1.1); PARTIAL THROMBOPLASTIN TIME 27 SEC (24-38); PROTHROMBIN TIME PATIENT 14.2 SEC (11.7-14.0)
[2018-03-30] MEDS: ONDANSETRON PF 4 MG/2 ML VIAL. IV ×2 (11:30→11:34)
[2018-03-30] MEDS: ASPIRIN CHEWABLE 81 MG TABLET. PO (11:30)
[2018-03-30] MEDS: MORPHINE SULFATE 2 MG/ML DISP.SYRIN. IV ×2 (11:31→11:36)
[2018-03-30] MEDS: ASPIRIN ENTERIC COATED 325 MG TABLET.DR. PO (12:00)
[2018-03-30] MEDS ORDERED: ACETAMINOPHEN 325 MG TABLET. PO (12:15)
[2018-03-30] MEDS ORDERED: ACETAMINOPHEN 650 MG SUPP.RECT. PR (12:15)
[2018-03-30] MEDS ORDERED: ASPIRIN 300 MG SUPP.RECT PR (12:15)
[2018-03-30] MEDS ORDERED: ACETAMINOPHEN 500 MG TABLET PO (13:00)
[2018-03-30] MEDS ORDERED: ONDANSETRON PF 4 MG/2 ML VIAL. IV (13:00)
[2018-03-30] MEDS: MECLIZINE HCL 12.5 MG TABLET. PO ×3 (14:00→21:00)
[2018-03-30] MEDS: ENOXAPARIN 40 MG/0.4 ML SYRINGE. SQ (15:27)
[2018-03-31 05:39] LABS: ADD MAN DIFF? NO
[2018-03-31 05:42] LABS: BASO # 0.1 x10^3/uL (0.0-0.2); BASO % 1 % (0-3); EOS # 0.1 x10^3/uL (0.0-0.7); EOS % 2 % (0-3); HEMATOCRIT 33.3 % (39.0-53.0); HEMOGLOBIN 11.2 g/dL (13.0-17.5); LYMPH # 1.5 x10^3/uL (1.0-4.8); LYMPH % 28 % (24-48); MEAN CORPUSCULAR HEMOGLOBIN 29 pg (25-35); MEAN CORPUSCULAR HGB CONC 34 g/dL (31-37); MEAN CORPUSCULAR VOLUME 86 fL (79-100); MONO # 0.5 x10^3/uL (0.0-1.1); MONO % 9 % (0-9); NEUT # 3.2 x10^3uL (1.8-7.7); NEUT % 60 % (31-73); PLATELET COUNT 195 x10^3/uL (140-400); RED BLOOD COUNT 3.89 x10^6/uL (4.30-5.70); RED CELL DISTRIBUTION WIDTH 15.6 % (11.5-14.5); WHITE BLOOD COUNT 5.4 x10^3/uL (4.0-11.0)
[2018-03-31 06:07] LABS: ANION GAP 9 (6-14); BLOOD UREA NITROGEN 16 mg/dL (8-26); CALCIUM 7.9 mg/dL (8.5-10.1); CARBON DIOXIDE 26 mmol/L (21-32); CHLORIDE 107 mmol/L (98-107); CHOLESTEROL 130 mg/dL (0-200); CREATININE 1.1 mg/dL (0.7-1.3); GFR 65.6; GLUCOSE 107 mg/dL (70-99); HDLC 39 mg/dL (40-60); LDLC 73 mg/dL (0-100); NON-HDL CHOLESTEROL 91 mg/dL (0-129); POTASSIUM 4.1 mmol/L (3.5-5.1); SODIUM 142 mmol/L (136-145); TRIGLYCERIDES 90 mg/dL (0-150); VLDLC 18 mg/dL (0-40)
[2018-03-31 06:20] LABS: CHOLESTEROL/HDL RATIO 3.3
[2018-03-31] MEDS: IV NORMAL SALINE 1000ML BAG 1,000 ML IV (07:19)
[2018-03-31] MEDS: ENOXAPARIN 40 MG/0.4 ML SYRINGE. SQ (08:35)
[2018-03-31] MEDS: ASPIRIN ENTERIC COATED 325 MG TABLET.DR. PO (08:35)
[2018-03-31] MEDS: MECLIZINE HCL 12.5 MG TABLET. PO ×3 (08:35→21:00)
[2018-04-01] MEDS: MECLIZINE HCL 12.5 MG TABLET. PO ×3 (09:00→12:54)
[2018-04-01] MEDS: ASPIRIN ENTERIC COATED 325 MG TABLET.DR. PO (10:05)
[2018-04-01] MEDS: BARIUM SULFATE 40% (APPLE) 148 GM PWD. PO (13:45)
[2018-04-01] MEDS: ENOXAPARIN 40 MG/0.4 ML SYRINGE. SQ (17:59)
[2018-04-01 22:04] LABS: POC GLUCOSE 106 mg/dL (70-99)
[2018-04-02] MEDS: ASPIRIN ENTERIC COATED 325 MG TABLET.DR. PO (10:39)
[2018-04-02] MEDS: ENOXAPARIN 40 MG/0.4 ML SYRINGE. SQ (12:42)
== END 2018-04-02 13:30 | disposition home or self-care (01) | DRG 65 ==
LOC: ER 09:15 → 6 SOUTH 11:25
PROVIDERS: Internal Medicine
DX: I63.9 Cerebral infarction, unspecified (principal); I69.354 Hemiplegia and hemiparesis following cerebral infarction affecting left non-dominant side; E78.00 Pure hypercholesterolemia, unspecified; K21.9 Gastro-esophageal reflux disease without esophagitis; I25.2 Old myocardial infarction; N40.0 Benign prostatic hyperplasia without lower urinary tract symptoms; I25.10 Atherosclerotic heart disease of native coronary artery without angina pectoris; I10 Essential (primary) hypertension; H93.19 Tinnitus, unspecified ear; E11.9 Type 2 diabetes mellitus without complications; R13.10 Dysphagia, unspecified; Z98.49 Cataract extraction status, unspecified eye; Z98.61 Coronary angioplasty status; Z82.49 Family history of ischemic heart disease and other diseases of the circulatory system; Z79.82 Long term (current) use of aspirin; Z87.891 Personal history of nicotine dependence
CPT/HCPCS: 36415; 70450; 70551; 72040; 74230; 80048; 80061; 82962; 85025; 85610; 85730; 92610-GN; 92611-GN; 93005; 93306; 93880; 96361; 96374; 96375; 96376; 97163-GP; 97166-GO; 97530-GP; 97535-GO; 99285; 99285-25; J1650; J2270; J2405; J7030; J8597

== ENCOUNTER → 2018-05-13 | Outpatient (CLI) | payer MEDICARE, OTHER ==
[2018-05-13 11:05] LABS: BLOOD UREA NITROGEN 20 mg/dL (8-26)
[2018-05-13 11:05] LABS: CREATININE 1.1 mg/dL (0.7-1.3); GFR 65.6
[2018-05-13] MEDS: GADOBUTROL 7.5 MMOL/7.5 ML VIAL IV (11:49)
== END | disposition home or self-care (01) ==
LOC: MRI 10:21
DX: M47.892 Other spondylosis, cervical region (principal); M48.02 Spinal stenosis, cervical region; M12.88 Other specific arthropathies, not elsewhere classified, other specified site; M25.78 Osteophyte, vertebrae; I67.82 Cerebral ischemia; E55.9 Vitamin D deficiency, unspecified; I10 Essential (primary) hypertension; E11.9 Type 2 diabetes mellitus without complications; E78.00 Pure hypercholesterolemia, unspecified; I25.10 Atherosclerotic heart disease of native coronary artery without angina pectoris; K21.9 Gastro-esophageal reflux disease without esophagitis; Z87.891 Personal history of nicotine dependence
CPT/HCPCS: 36415; 70553; 72141; 82565; 84520; A9585

== ENCOUNTER → 2018-05-28 | Outpatient (CLI) | payer MEDICARE, OTHER ==
[2018-04-02 11:00] VITALS: BP 131/72
[~2018-05-28] MED LIST changes: +ASPI-630 PO; -ASPI325T4 PO; +ASPI325T8 PO; +HEPARIN for IV BOLUS 10,000 UNIT/10 ML VIAL. ONE; +MECL25TA3 PO; +MIDAZOLAM HCL/PF 2 MG/2 ML VIAL. ONE; +NITROGLYCERIN 200 MCG/2 ML SYRINGE FOR CATH/VASC LAB. ONE; +OMEP20TA63 PO; +PROAIR HFA8.5 GM INH; +VERAPAMIL 5 MG/2 ML VIAL. ONE; +fentaNYL PF VIAL 100 MCG/2 ML VIAL ONE
--- NOTE | 2018-06-03 14:02 | EEG ---
DATE OF SERVICE: 05/28/2018 EEG NUMBER: [id number] OBJECTIVE: This is a 72-year-old male patient with history of seizure or seizure-like activity. EEG was requested to evaluate seizure activity. METHODS: Twenty electrodes were applied according to the international 10-20 electrode placement system. EKG monitoring, hyperventilation, intermittent photic stimulation, monopolar and bipolar montages are routinely utilized. The record was obtained on a digital system with video monitoring. FINDINGS: 1. Background: The patient was recorded in the awake, drowsy, and sleep states. The overall background amplitude is 5-15 microvolts. A posterior dominant rhythm of 8 Hz is observed with superimposed fast activity in the beta frequency. 2. Abnormalities: No specific epileptiform discharge or electrographic seizure is seen. No focal or diffuse slowing. 3. Activation: Hyperventilation was performed with good efforts and normal response. Intermittent photic stimulation was performed with photic driving. Photoparoxysmal response noted. No specific epileptiform discharge or electrographic seizure induced by hyperventilation or intermittent photic stimulation. IMPRESSION: This EEG is a borderline study for the awake, drowsy and sleep states. There is a superimposed fast activity in the beta frequency. Photoparoxysmal response noted. No focal, lateralizing, specific epileptiform discharge or electrographic seizure is seen. ALEXANDRA ONEIL MD DR: TREVOR/donald JOB#: [id number] / [id number] KATH
== END | disposition home or self-care (01) ==
LOC: RT 08:49
PROVIDERS: ATTEND Psychiatry & Neurology Neurology
DX: R56.9 Unspecified convulsions (principal); I25.2 Old myocardial infarction; E55.9 Vitamin D deficiency, unspecified; I10 Essential (primary) hypertension; E11.9 Type 2 diabetes mellitus without complications; E78.00 Pure hypercholesterolemia, unspecified; I25.10 Atherosclerotic heart disease of native coronary artery without angina pectoris; K21.9 Gastro-esophageal reflux disease without esophagitis; Z86.73 Personal history of transient ischemic attack (TIA), and cerebral infarction without residual deficits; Z82.49 Family history of ischemic heart disease and other diseases of the circulatory system
CPT/HCPCS: 95816

== ENCOUNTER → 2018-07-28 | Outpatient (CLI) | payer MEDICARE, OTHER ==
[2018-04-02 11:00] VITALS: BP 131/72
[~2018-07-28] MED LIST changes: -HEPARIN for IV BOLUS 10,000 UNIT/10 ML VIAL. ONE; -MIDAZOLAM HCL/PF 2 MG/2 ML VIAL. ONE; -NITROGLYCERIN 200 MCG/2 ML SYRINGE FOR CATH/VASC LAB. ONE; -VERAPAMIL 5 MG/2 ML VIAL. ONE; -fentaNYL PF VIAL 100 MCG/2 ML VIAL ONE
--- NOTE | 2018-07-29 09:46 | SLEEP ---
DATE OF STUDY: 07/28/2018 ATTENDING PHYSICIAN: Dr. Aditya Joseph. REFERRING PHYSICIAN: Dr. Therese Brown. The patient is 73 years old who weighs 135 pounds with a BMI of 22. The patient had a previous sleep study at [facility] 8 years ago and was positive for REENA, but could not wear CPAP. Another split night study was performed at [facility]. During the night study, the patient spent 431 minutes in bed and slept for 393 minutes with a sleep efficiency of 91%. Sleep latency was 8 minutes with a REM latency of 68 minutes. Overall, sleep architecture showed increased stage 1 and stage 2 sleep, normal slow wave and slightly reduced REM sleep, which was 13% of the total sleep time. During the initial diagnostic portion of the study, the patient slept for 158 minutes. During that time, there were 4 obstructive apneas, no mixed or central apneas and 86 hypopneas. The patient's apnea hypopnea index was 34 per hour, supine index 41 per hour and the REM index of 42 per hour. EKG monitoring revealed normal sinus rhythm, average heart rate was 69 beats per minute, no sustained arrhythmias were observed. PLMS were not seen. Nocturnal oximetry study revealed a mean oxygen saturation of 95% with the lowest of 86%. 1.8% of time oxygen saturation remained between 80% and 89%. The patient met the criteria for CPAP initiation. It was started at 5 cm water and titrated up to 7 cm water. At the final pressure, the patient slept for 136 minutes. The patient had supine sleep throughout and a short REM period was observed. The patient's AHI was reduced to 4 per hour due to few central apneas. The patient's oxygen saturation remained above 92%. The patient used small sized nasal pillows. IMPRESSION: 1. Severe sleep apnea-hypopnea syndrome at an AHI of 34 per hour. 2. No clinically significant nocturnal hypoxia. 3. No clinically significant PLMS. RECOMMENDATIONS: 1. CPAP at 7 cm water completely eliminated the patient's sleep apnea and should be used on a nightly basis. 2. Follow up in 4-6 weeks to assess compliance with CPAP and to document clinical improvement. 3. Avoid [employer] depressants. 4. Caution regarding driving until symptoms of sleep apnea resolve with the use of CPAP. YUNI ROBERTSON MD DR: VANDANA/donald JOB#: [id number] / [id number] THERESE Shetty MD, WILLIAM MD
== END | disposition home or self-care (01) ==
LOC: SLPLAB 18:31
PROVIDERS: ATTEND Internal Medicine Pulmonary Disease
DX: G47.33 Obstructive sleep apnea (adult) (pediatric) (principal); K21.9 Gastro-esophageal reflux disease without esophagitis; E11.9 Type 2 diabetes mellitus without complications; F17.200 Nicotine dependence, unspecified, uncomplicated; Z72.89 Other problems related to lifestyle; Z79.82 Long term (current) use of aspirin; Z79.899 Other long term (current) drug therapy
CPT/HCPCS: 95810

== ENCOUNTER → 2019-12-01 | Outpatient (CLI) | payer MEDICARE, OTHER ==
[2018-04-02 11:00] VITALS: BP 131/72
[~2019-12-01] MED LIST changes: +ALBU2.5V8 INH; +MECL-75 PO; -MECL25TA3 PO; -PROAIR HFA8.5 GM INH
--- NOTE | 2019-12-01 13:44 | RAD ---
CT HEAD WO CONTRAST Date: 12/01/2019 11:00 AM Clinical Indication: Headache Comparison: MRI 05/13/2018. CT 03/30/2018. Technique: 5 mm axial tomographic images were obtained of the head without contrast. These were viewed on brain and bone windows. One or more of the following dose reduction techniques were utilized: Automated exposure control (AEC), Adjustment of mA and/or kV according to patient size, Use of iterative reconstruction technique such as ASiR, CT scan done according to ALARA and image gently/image wisely Findings: Mild generalized cerebral and cerebellar volume loss. Mild nonspecific periventricular hypoattenuation, most commonly seen with chronic small vessel ischemic disease. Calcified atherosclerosis of the bilateral cavernous and paraclinoid internal carotid arteries and intracranial vertebral arteries. No intra- or extra-axial mass or fluid collection. No acute hemorrhage. The ventricles are normal in size, shape, and morphology. The baumann-white matter junction is normal. The subarachnoid cisterns are patent. The visualized paranasal sinuses are normal. The visualized portions of the orbits and globes are normal. The mastoid air cells are clear. The public relations topogram shows no lytic lesion or fracture. Impression: No acute intracranial process. Mild cerebral volume loss. Mild chronic small vessel ischemic disease. Electronically signed by: Linden Edwards MD (12/01/2019 1:41 PM) [id number]
== END | disposition home or self-care (01) ==
LOC: CT 14:14
PROVIDERS: ATTEND Family Medicine
DX: I67.82 Cerebral ischemia (principal); I65.23 Occlusion and stenosis of bilateral carotid arteries
CPT/HCPCS: 70450

== ENCOUNTER 2021-02-21 07:01 | Emergency (ER) | payer MEDICARE, OTHER ==
[2018-04-02 11:00] VITALS: BP 131/72
[~2021-02-21] VITALS: Ht 165.1 cm; Wt 160.0 kg
[2021-02-21] MEDS ORDERED: KETOROLAC 60 MG/2 ML VIAL. IM ONE (08:00)
[2021-02-21] MEDS ORDERED: METHOCARBAMOL 750 MG TABLET PO ONE (08:00)
--- NOTE | 2021-02-21 08:30 | ED.ADGEN ---
Past Medical History Past Medical History: GERD, High Cholesterol, [place], Vascular Disease Additional Past Medical Histor: ENLARGED PROSTATE WITH SURGERY Past Surgical History: Angioplasty Additional Past Surgical Histo: HIATAL HERNIA Smoking Status: Former Smoker Alcohol Use: None Drug Use: None General Adult EDM: Chief Complaint: BACK PAIN - NO INJURY HPI: HPI: Patient is a 75-year-old male who presents to the emergency room complaining of severe lower back pain that moves all the way through his back and into his legs . He states that it starts at his lower to mid back and moves all the way down. He states that he had an episode of this on Friday and Friday this week. He states that it went away on its own. He states it woke him from his sleep today. He has not been able to go back to sleep. He has been trying to get comfortable without any success. He denies any associated symptoms. He denies any bowel or bladder difficulties. He denies any kind of fevers. Review of Systems: Review of Systems: Complete ROS is negative unless otherwise documented in HPI Current Medications: Current Medications Medications (Trade) Dose Ordered Sig/Ifeanyi Start Time Stop Time Status Last Admin Dose Admin Ketorolac Tromethamine (Toradol Im) 60 mg 1X ONCE 02/21/21 08:00 02/21/21 08:01 DC 02/21/21 08:04 60 MG Methocarbamol (Robaxin) 750 mg 1X ONCE 02/21/21 08:00 02/21/21 08:01 DC 02/21/21 08:01 750 MG Allergies: Allergies: Allergies Coded Allergies Type Severity Reaction Last Updated Verified ether Allergy Severe "N/V" 03/14/14 Yes Physical Exam: PE: General: Awake, alert, NAD. Well Nourished, well hydrated. Cooperative HEENT: Atraumatic, EOMI, PERRL, airway patent, moist oral mucosa Neck: Supple, trachea midline Respiratory: CTA bilaterally, normal effort, no wheezing/crackles CV: RRR, no murmur, cap refill <2 GI: Soft, nondistended, nontender, no masses MSK: Lower thoracic through lumbar spine tenderness on palpation, no swelling, no skin changes Skin: Warm, dry, intact Neuro: A&O x3, speech NL, sensory and motor grossly intact, no focal deficits Psych: Normal affect, normal mood, not suicidal or homicidal Current Patient Data: Labs: Complete ROS is negative unless otherwise documented in HPI Vital Signs: Vital Signs Date Time Temp Pulse Resp B/P (MAP) Pulse Ox O2 Delivery O2 Flow Rate FiO2 02/21/21 07:08 98.6 80 16 114/68 (83) Room Air 98.6 EKG: EKG: [] Heart Score: C/O Chest Pain: N/A Risk Factors: Risk Factors: DM, Current or recent (<one month) smoker, HTN, HLP, family history of CAD, obesity. Risk Scores: Score 0 - 3: 2.5% MACE over next 6 weeks - Discharge Home Score 4 - 6: 20.3% MACE over next 6 weeks - Admit for Clinical Observation Score 7 - 10: 72.7% MACE over next 6 weeks - Early Invasive Strategies Radiology/Procedures: Radiology/Procedures: [] Course & Med Decision Making: Course & Med Decision Making Pertinent Labs and Imaging studies reviewed. (See chart for details) Patient is 75-year-old male presents to the emergency room complaining of new onset lower back pain. Patient does have a history of multiple strokes and heart attacks. Given this history there is concern that patient is a vasculopath and that his pain could be from a AAA. CT abdomen pelvis will be ordered to rule out a AAA and to evaluate the spine. Patient does not have any fever that would be suggestive of a spinal cord compression. He does not have any signs of cauda equina at this time. Patient will be given symptomatic care. CT is negative. Patient is feeling significantly better after medications. Patient's test results and vitals while in the ED were fully reviewed and discussed with the patient. Patient is stable and at this time does not need admission to the hospital. We have discussed strict return precautions and the importance of following up with their Primary Care Physician. Patient stated understanding and was given an opportunity to ask any questions. Patient is in agreement with plan. Edmund Disclaimer: Edmund Disclaimer: This electronic medical record was generated, in whole or in part, using a voice recognition dictation system. Departure Departure Impression: Primary Impression: Sciatica Disposition: HOME / SELF CARE / HOMELESS Condition: STABLE Referrals: UNKNOWN PCP NAME (PCP) Patient Instructions: Back Pain, Adult Scripts Methocarbamol (METHOCARBAMOL) 500 Mg Tablet 500 MG PO QID PRN for MUSCLE PAIN for 5 Days, #20 TAB Prov: GIANNA MCWILLIAMS MD 02/21/21 GIANNA MCWILLIAMS MD February 21, 2021 08:29
--- NOTE | 2021-02-21 10:00 | RAD ---
PQRS Compliance Statement: One or more of the following individualized dose reduction techniques were utilized for this examinat ion: 1. Automated exposure control 2. Adjustment of the mA and/or kV according to patient size 3. Use of iterative reconstruction technique CT ABDOMEN+PELVIS WO Clinical Indication: Reason: severe back pain, Comparison: CTA abdomen November 19, 2010. Technique: Helical CT imaging of the abdomen and pelvis is performed without IV or oral contrast. Findings: Evaluation of solid organs and bowel is limited without oral and IV contrast, decreasing sensitivity for detection of pathology. There is a 4 mm noncalcified nodule in the left lower lobe. There is a 5 mm noncalcified nodule in th e right middle lobe, image 10. There is coronary artery disease. Cardiac size is normal. There is a m oderate sized hiatal hernia, incompletely imaged. Calcified granulomas in the spleen. The liver, gallbladder, pancreas, and adrenal glands are normal. Moderate atherosclerotic calcification of the abdominal aorta and iliac arteries. There is no aneurys m. There is no hydronephrosis. There is no small bowel obstruction. The appendix is normal. There is scattered stool in the colon. M oderate descending and sigmoid colon diverticulosis. No colon wall thickening is identified. There is no abdominal adenopathy or free fluid. There is probable right inguinal hernia mesh. The urinary bladder is distended, otherwise normal. No pelvic free fluid is seen. Prostate and seminal vesicles are normal. There is old compression deformity at the superior endplate of T12. No significant central canal sten osis is identified. Lumbar spine alignment is maintained. IMPRESSION: 1. No acute abdominal or pelvic abnormality. 2. Moderate-sized hiatal hernia. 3. Moderate distal colon diverticulosis. 4. There are 2 subcentimeter noncalcified pulmonary nodules. Consider CT chest follow-up in 12 month s if patient has risk factors for lung malignancy, otherwise no follow-up is required per Fleischner Society guidelines. Electronically signed by: Jesus Burnett MD (02/21/2021 9:57 AM) [id number]
[2021-02-21] MEDS ORDERED: MAG HYDROX/ALUMINUM HYD/SIMETH 30 ML ORAL.SUSP PO ONE (10:15)
[2021-02-21] MEDS ORDERED: METH-561 PO (10:18)
== END 2021-02-21 10:35 | disposition home or self-care (01) ==
LOC: ER 07:01
DX: M54.40 Lumbago with sciatica, unspecified side (principal); E78.00 Pure hypercholesterolemia, unspecified; K21.9 Gastro-esophageal reflux disease without esophagitis; I25.2 Old myocardial infarction; Z87.891 Personal history of nicotine dependence; Z95.5 Presence of coronary angioplasty implant and graft; Z98.890 Other specified postprocedural states; Z88.8 Allergy status to other drugs, medicaments and biological substances
CPT/HCPCS: 74176; 96372; 99284; J1885

== ENCOUNTER 2022-01-29 17:53 | Inpatient (IN) | payer MEDICARE, OTHER ==
[~2022-01-29] VITALS: Ht 167.6 cm; Wt 50.9 kg
[~2022-01-29 17:53] MED LIST changes: +APIX5TAB PO; +ATOR20TA58 PO; +CARB1DRO9 OU; +FLUT16SP NS; +FURO40TA4 PO; +IPRA30SP NS; +METH-561 PO; +METH4TAB2 PO; +METO-239 PO; +MINE3.5O2 OU; +OMEP20CA16 PO
[2022-01-29] MEDS ORDERED: ASPIRIN CHEWABLE 81 MG TABLET. PO ONE (18:15)
--- NOTE | 2022-01-29 18:15 | PHYS DOC ---
Past Medical History Past Medical History: CAD, CHF, COPD, CVA, GERD, High Cholesterol, Hypert ension, [place], Vascular Disease Additional Past Medical Histor: SUDDEN CARDIAC Past Surgical History: Other Additional Past Surgical Histo: HERNIA, CATARACTS Smoking Status: Former Smoker Alcohol Use: None Drug Use: None General Adult EDM: Chief Complaint: SHORTNESS OF BREATH HPI: HPI: Patient is a 76-year-old male who presents today with shortness of air and chest pain. When I asked patient how long symptoms have been ongoing he said since the last time he was admitted to the hospital he has been having increased shortness of breath. After reviewing medical records from [facility] he was admitted in November 2021 with A. fib RVR and congestive heart failure, patient did bring comprehensive list of his medications with him he is on Eliquis on a daily basis for his atrial fib. Patient states he was also admitted to the [facility] and December 2021 for congestive heart failure. Patient's room air sat while I was in the room was 92% but he is quite tachypneic and has to stop frequently during the [id number] session to catch his breath. Review of Systems: Review of Systems: Constitutional: Denies fever or chills. [] Eyes: Denies change in visual acuity. [] HENT: Denies nasal congestion or sore throat. [] Respiratory: Shortness of breath denies cougH [] Cardiovascular: chest pain, denies edema. [] GI: Denies abdominal pain, nausea, vomiting, bloody stools or diarrhea. [] : Denies dysuria. [] Musculoskeletal: Denies back pain or joint pain. [] Integument: Denies rash. [] Neurologic: Denies headache, focal weakness or sensory changes. [] Endocrine: Denies polyuria or polydipsia. [] Lymphatic: Denies swollen glands. [] Psychiatric: Denies depression or anxiety. [] Heart Score: C/O Chest Pain: Yes HEART Score for Chest Pain: HEART Score for Chest Pain Response (Comments) Value History Highly Suspicious 2 ECG Normal 0 Age > 65 2 Risk Factors >3 Risk Factors or Hx CAD 2 Troponin < Normal Limit 0 Total 6 Risk Factors: Risk Factors: DM, Current or recent (<one month) smoker, HTN, HLP, family history of CAD, obesity. Risk Scores: Score 0 - 3: 2.5% MACE over next 6 weeks - Discharge Home Score 4 - 6: 20.3% MACE over next 6 weeks - Admit for Clinical Observation Score 7 - 10: 72.7% MACE over next 6 weeks - Early Invasive Strategies Current Medications: Home medications Albuterol nebulizer every 6 hours as needed Flomax 0.4 mg 2 times daily Albuterol inhaler every 4 hours as needed 2 puffs Eliquis 5 mg twice daily Aspirin 325 mg daily Atorvastatin 40 mg at bedtime Flonase nasal spray Lasix 40 mg daily Metoprolol half a tablet daily Prilosec 20 mg daily Spiriva daily Lisinopril daily Allergies: Allergies: Allergies Coded Allergies Type Severity Reaction Last Updated Verified ether Adverse Reaction Severe "N/V" 11/23/21 Yes Physical Exam: PE: Constitutional: Well developed, well nourished, moderate distress, non-toxic appearance. [] HENT: Normocephalic, atraumatic, bilateral external ears normal, oropharynx moist, no oral exudates, nose normal. [] Eyes: PERRLA, EOMI, conjunctiva normal, no discharge. [] Neck: Normal range of motion, no tenderness, supple, Cardiovascular:Heart rate irregular rhythm, 1+ pedal pulses Lungs & Thorax: Bilateral breath sounds diminished bilaterally, increased work of breathing Abdomen: Bowel sounds normal, soft, no tenderness, no masses, no pulsatile masses. [] Skin: Warm, dry, no erythema, no rash. [] Back: No tenderness, no CVA tenderness. [] Extremities: No tenderness, no cyanosis, no clubbing, ROM intact, no pedal edema Neurologic: Alert and oriented X 3, normal motor function, normal sensory function, no focal deficits noted. [] Psychologic: Affect normal, judgement normal, mood normal. [] Current Patient Data: Labs: Laboratory Tests Test 01/29/22 18:39 White Blood Count 10.6 x10^3/uL Red Blood Count 3.52 x10^6/uL Hemoglobin 9.7 g/dL Hematocrit 29.2 % Mean Corpuscular Volume 83 fL Mean Corpuscular Hemoglobin 28 pg Mean Corpuscular Hemoglobin Concent 33 g/dL Red Cell Distribution Width 16.0 % Platelet Count 274 x10^3/uL Neutrophils (%) (Auto) 79 % Lymphocytes (%) (Auto) 10 % Monocytes (%) (Auto) 9 % Eosinophils (%) (Auto) 1 % Basophils (%) (Auto) 1 % Neutrophils # (Auto) 8.4 x10^3/uL Lymphocytes # (Auto) 1.1 x10^3/uL Monocytes # (Auto) 1.0 x10^3/uL Eosinophils # (Auto) 0.1 x10^3/uL Basophils # (Auto) 0.1 x10^3/uL Prothrombin Time 15.9 SEC Prothromb Time International Ratio 1.3 Activated Partial Thromboplast Time 31 SEC Sodium Level 141 mmol/L Potassium Level 3.9 mmol/L Chloride Level 104 mmol/L Carbon Dioxide Level 26 mmol/L Anion Gap 11 Blood Urea Nitrogen 22 mg/dL Creatinine 1.3 mg/dL Estimated GFR (Cockcroft-Gault) 53.5 BUN/Creatinine Ratio 17 Glucose Level 139 mg/dL Calcium Level 8.6 mg/dL Magnesium Level 2.0 mg/dL Total Bilirubin 0.3 mg/dL Aspartate Amino Transf (AST/SGOT) 14 U/L Alanine Aminotransferase (ALT/SGPT) 19 U/L Alkaline Phosphatase 110 U/L Troponin I High Sensitivity 9 ng/L RF-Iuc-X-Type Natriuretic Peptide 2784 pg/mL Total Protein 6.8 g/dL Albumin 3.5 g/dL Albumin/Globulin Ratio 1.1 Current Medications Medications (Trade) Dose Ordered Sig/Ifeanyi Route PRN Reason Start Time Stop Time Status Last Admin Dose Admin Aspirin (Aspirin Chewable) 324 mg 1X ONCE PO 01/29/22 18:15 01/29/22 18:16 DC 01/29/22 18:30 Albuterol/ Ipratropium (Duoneb) 3 ml 1X ONCE NEB 01/29/22 19:45 01/29/22 19:46 DC 01/29/22 20:08 Iohexol (Omnipaque 350 Mg/ml) 75 ml 1X ONCE IV 01/29/22 19:45 01/29/22 19:46 DC 01/29/22 19:45 Vital Signs: Vital Signs Date Time Temp Pulse Resp B/P (MAP) Pulse Ox O2 Delivery O2 Flow Rate FiO2 01/29/22 20:09 97 Nasal Cannula 2.0 01/29/22 20:01 109 24 104/58 (73) 98 Nasal Cannula 4.0 01/29/22 19:31 113 24 112/68 (83) 95 Nasal Cannula 4.0 01/29/22 19:01 108 24 116/69 (85) 99 Nasal Cannula 4.0 01/29/22 18:31 116 24 125/71 (89) 95 Nasal Cannula 4.0 01/29/22 17:53 98.2 113 22 124/84 (97) 90 Room Air 98.2 Vital Signs Date Time Temp Pulse Resp B/P (MAP) Pulse Ox O2 Delivery O2 Flow Rate FiO2 01/29/22 17:53 98.2 113 22 124/84 (97) 90 Room Air 98.2 EKG: EKG: EKG done at [address] Billingsley at 1805 showed sinus tachycardia with PACs and PVCs noted, VT interval of 168 ms with a QTC of 456 ms at a rate of 113 no STEMI [] Radiology/Procedures: Radiology/Procedures: REASON: SOA PROCEDURE: PORTABLE CHEST 1V XR CHEST 1V Clinical Indication: Reason: SOA / Spl. Instructions: / History: Comparison: AP chest 11/23/2021. Findings: Cardiac size is stable. There is hiatal hernia. There are bilateral perihilar airspace and interstitial opacities that are worsened on the prior study. There are bibasilar airspace opacities. There is pulmonary vascular indistinctness. There is no pneumothorax. There are moderate bilateral pleural effusions, similar to prior study. No acute bone abnormality. IMPRESSION: 1. There are bilateral perihilar and basilar interstitial and alveolar opacities that may be pulmonary edema or pneumonia. 2. Moderate bilateral pleural effusions. Electronically signed by: Jesus Burnett MD (01/29/2022 8:07 PM) [facility] Course & Med Decision Making: Course & Med Decision Making Pertinent Labs and Imaging studies reviewed. (See chart for details) [address] Lambert and consulted with him regarding the patient's laboratory and radiological findings and he is agreeable to admitting the patient for CHF exacerbation and bilateral pleural effusions and shortness of air. I did speak to patient he is agreeable to being admitted as well. Dragon Disclaimer: Dragon Disclaimer: This electronic medical record was generated, in whole or in part, using a voice recognition dictation system. Departure Departure Impression: Primary Impression: Shortness of breath Additional Impressions: Congestive heart failure (CHF) Bilateral pleural effusion Disposition: 09 ADMITTED INPATIENT Admitting Physician: CECELIA Condition: GUARDED Referrals: UNKNOWN PCP NAME (PCP) PAYTON CARUSO APRN Jan 29, 2022 18:15
[2022-01-29 18:47] LABS: BASO # 0.1 x10^3/uL (0.0-0.2); BASO % 1 % (0-3); EOS # 0.1 x10^3/uL (0.0-0.7); EOS % 1 % (0-3); HEMATOCRIT 29.2 % (39.0-53.0); HEMOGLOBIN 9.7 g/dL (13.0-17.5); LYMPH # 1.1 x10^3/uL (1.0-4.8); LYMPH % 10 % (24-48); MEAN CORPUSCULAR HEMOGLOBIN 28 pg (25-35); MEAN CORPUSCULAR HGB CONC 33 g/dL (31-37); MEAN CORPUSCULAR VOLUME 83 fL (79-100); MONO % 9 % (0-9); NEUT # 8.4 x10^3/uL (1.8-7.7); NEUT % 79 % (31-73); PLATELET COUNT 274 x10^3/uL (140-400); RED BLOOD COUNT 3.52 x10^6/uL (4.30-5.70); WHITE BLOOD COUNT 10.6 x10^3/uL (4.0-11.0)
--- NOTE | 2022-01-29 18:48 | EKG ---
[facility] [address] [place] [address] Test Date: 2022-01-29 Test Time: 18:34:00 Pat Name: AMY BLANCAS Department: Room: Gender: M Resources Representative: : 1945 Requested By: PAYTON CARUSO Order Number: [id number] Reading MD: Alejandro Fowler Measurements Intervals [place] Rate: 113 P: 26 HI: 166 QRS: -22 QRSD: 100 T: 88 QT: 332 QTc: 455 Interpretive Statements SINUS TACHYCARDIA LEFTWARD AXIS LOW LIMB LEAD VOLTAGE T ABNORMALITY IN HIGH LATERAL LEADS ABNORMAL ECG Electronically Signed On 02-01-2022 13:39:02 CDT by Alejandro Fowler
[2022-01-29 18:59] LABS: PROTHROMBIN TIME PATIENT 15.9 SEC (11.7-14.0)
[2022-01-29 19:01] LABS: CALCIUM 8.6 mg/dL (8.5-10.1); CREATININE 1.3 mg/dL (0.7-1.3); GFR 53.5; POTASSIUM 3.9 mmol/L (3.5-5.1)
[2022-01-29 19:06] LABS: ALBUMIN 3.5 g/dL (3.4-5.0); ALBUMIN/GLOBULIN RATIO 1.1 (1.0-1.7); TOTAL BILIRUBIN 0.3 mg/dL (0.2-1.0); TOTAL PROTEIN 6.8 g/dL (6.4-8.2)
[2022-01-29] MEDS ORDERED: IOHEXOL 350 MG/ML 100 ML VIAL. IV ONE (19:45)
[2022-01-29] MEDS ORDERED: IPRATRPIUM/ALBUTEROL 0.5/2.5MG 3 ML NEBU. NEB ONE (19:45)
--- NOTE | 2022-01-29 20:09 | RAD ---
XR CHEST 1V Clinical Indication: Reason: SOA / Spl. Instructions: / History: Comparison: AP chest 11/23/2021. Findings: Cardiac size is stable. There is hiatal hernia. There are bilateral perihilar airspace and interstitial opacities that are wo rsened on the prior study. There are bibasilar airspace opacities. There is pulmonary vascular indist inctness. There is no pneumothorax. There are moderate bilateral pleural effusions, similar to prior study. No acute bone abnormality. IMPRESSION: 1. There are bilateral perihilar and basilar interstitial and alveolar opacities that may be pulmona ry edema or pneumonia. 2. Moderate bilateral pleural effusions. Electronically signed by: Jesus Burnett MD (01/29/2022 8:07 PM) [facility]
--- NOTE | 2022-01-29 20:59 | RAD ---
Exam: CT of chest with contrast INDICATION: Short of air TECHNIQUE: Sequential axial images through the chest obtained following the administration of 75 mL o f Isovue-370 IV contrast. Sagittal and coronal reformatted images were reconstructed from the axial d franki and reviewed. Exposure: One or more of the following in the visualized dose reduction techniques were utilized for this examination: 1. Automated exposure control 2. Adjustment of the MA and/or KV according to patient size 3. Use of iterative of reconstructive technique Comparisons: Chest x-ray same day FINDINGS: Visualized portions of the thyroid are unremarkable. Prominent and mildly enlarged bilateral hilar ly mph nodes are noted. Heart size is normal. No pericardial effusion. Mild coronary artery calcification. Thoracic aorta has normal course caliber. Pulmonary artery is not enlarged. No pulmonary embolus identified within the main, lobar or segmental pulmonary arteries. Airways are patent. Patchy consolidative changes noted at the lungs bilaterally. No pneumothorax. Moderate bilateral pleural effusions. Visualized upper abdomen is unremarkable. No suspicious osseous lesions or acute fractures. IMPRESSION: 1. No pulmonary embolus identified within the main, lobar or segmental pulmonary arteries. 2. Moderate bilateral pleural effusions. 3. Patchy consolidative changes lungs bilaterally favored to be infectious or inflammatory in etiolo gy. This appears improved in the upper lobes but increased in the lower lobes compared to study in [facility]. Electronically signed by: Ortiz Jaeger MD (01/29/2022 8:56 PM) YUN
[2022-01-29] MEDS ORDERED: guaiFENesin DM 200MG/20MG 10 ML SYRUP PO PRN (21:15)
[2022-01-29] MEDS ORDERED: ONDANSETRON PF 4 MG/2 ML VIAL. IVP PRN (21:15)
[2022-01-29] MEDS ORDERED: ACETAMINOPHEN 325 MG TABLET. PO PRN (21:15)
[2022-01-29] MEDS ORDERED: FUROSEMIDE 40 MG/4 ML VIAL. IVP ONE (21:30)
[2022-01-29 23:40] VITALS: BP 110/63
--- NOTE | 2022-01-29 23:54 | EKG ---
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
--- NOTE | 2022-01-29 23:58 | NUR ---
pt c/o chest pain dr gordon notified new orders received, will cont to monitor pt status and safety.pnrn
[2022-01-30] MEDS: MORPHINE SULFATE 2 MG/ML INJ. IVP PRN ×4 (00:07→13:11)
[2022-01-30 02:43] VITALS: BP 91/50
[2022-01-30 07:00] VITALS: BP 114/59
--- NOTE | 2022-01-30 08:50 | PDOC1 ---
History and Physical Date of Service: DOS: DATE: 01/30/22 TIME: 08:42 Chief Complaint: Chief Complain: Shortness of breath History of Present Illness: HPI: 76-year-old male with multiple comorbidities who comes in with shortness of breath and chest pain. Shortness of breath has been going on for for few days.Patient's room air sat while I was in the room was 92% but he is quite tachypneic and has to stop frequently during the [id number] session to catch his breath. Denies any fevers, abdominal pain, diarrhea, dysuria or syncope. Past Medical/Surgical History: PMH/PSH: Past Medical History: Diabetes mellitus type 2, REENA on CPAP, CAD, CHF, COPD, CVA, GERD, High Cholesterol, Hypertension, SD, Vascular Disease, sudden cardiac arrest Past Surgical History: HERNIA, CATARACTS Allergies: Allergies: Coded Allergies: ether (Verified Adverse Reaction, Severe, "N/V", 11/23/21) Family History: Family History: Reviewed and no relative findings in the chart Social History: Social History: Smoking Status: Former Smoker Alcohol Use: None Drug Use: None Current Medications: Current Medications Current Medications Aspirin (Aspirin Chewable) 324 mg 1X ONCE PO Last administered on 01/29/22at 18:30; Start 01/29/22 at 18:15; Stop 01/29/22 at 18:16; Status DC Albuterol/ Ipratropium (Duoneb) 3 ml 1X ONCE NEB Last administered on 01/29/22at 20:08; Start 01/29/22 at 19:45; Stop 01/29/22 at 19:46; Status DC Iohexol (Omnipaque 350 Mg/ml) 75 ml 1X ONCE IV Last administered on 01/29/22at 19:45; Start 01/29/22 at 19:45; Stop 01/29/22 at 19:46; Status DC Acetaminophen (Tylenol) 650 mg PRN Q6HRS PRN PO MILD PAIN / TEMP > 100.3'F; Start 01/29/22 at 21:15 Ondansetron HCl (Zofran) 4 mg PRN Q4HRS PRN IVP NAUSEA/VOMITING 1st choice; Start 01/29/22 at 21:15 Guaifenesin (Robitussin Dm) 10 ml PRN Q6HRS PRN PO COUGH; Start 01/29/22 at 21:15 Furosemide (Lasix) 40 mg 1X ONCE IVP Last administered on 01/29/22at 21:30; Start 01/29/22 at 21:30; Stop 01/29/22 at 21:31; Status DC Morphine Sulfate (Morphine Sulfate) 2 mg PRN Q6HRS PRN IVP SEVERE PAIN 7-10 Last administered on 01/30/22at 07:22; Start 01/30/22 at 00:00 Active Scripts Active Furosemide 40 Mg Tablet 1 Tab PO DAILY 30 Days Metoprolol Succinate ( Xl ) (Metoprolol Succinate) 25 Mg Tab.er.24h 25 Mg PO DAILY 30 Days Eliquis (Apixaban) 5 Mg Tablet 5 Mg PO BID 30 Days Reported Refresh Lacri-Lube Ointment (Mineral Oil/Petrolatum,White) 3.5 Gm Oint...g. 3.5 Gm OU DAILY Atorvastatin Calcium 20 Mg Tablet 2 Tab PO HS Omeprazole 20 Mg Capsule.dr 1 Cap PO DAILY Lubricating Plus (Carboxymethylcellulose Sodium) 1 Each Droperette 1 OU DAILY Fluticasone Propionate Nasal Roosevelt (Fluticasone Propionate) 16 Gm Roosevelt.susp 1 Sprays NS BID Proair Hfa Inhaler (Albuterol Sulfate) 8.5 Gm Hfa.aer.ad 1 Puff INH PRN Q6HRS PRN Aspirin 325 Mg Tablet 1 Tab PO DAILY ROS: Review of Systems Review of System REVIEW OF SYSTEMS: GENERAL: Denies weakness SKIN: No bruising, hair changes or rashes. EYES: No blurred, double or loss of vision. NOSE AND THROAT: No history of nosebleeds, hoarseness or sore throat. HEART: No history of palpitations, chest pain or shortness of breath on exertion. LUNGS: Positive for shortness of breath GASTROINTESTINAL: Denies changes in appetite, nausea, vomiting, diarrhea or constipation. GENITOURINARY: No history of frequency, urgency, hesitancy or nocturia. NEUROLOGIC: Denies history of numbness, tingling, or tremor. PSYCHIATRIC: No history of panic, anxiety or depression. ENDOCRINE: No history of heat or cold intolerance, polyuria or polydipsia. EXTREMITIES: Denies joint pain, pain on walking or stiffness. Physical Exam: Vital Signs: Vital Signs Date Time Temp Pulse Resp B/P (MAP) Pulse Ox O2 Delivery O2 Flow Rate FiO2 01/30/22 07:52 96 Nasal Cannula 2.0 01/30/22 07:00 98.7 112 17 114/59 (77) 98.7 Physcial Exam: General: Well developed, well nourished, no acute distress, well appearing HEENT: Pupils equally round and reactive to light, EOMI, no discharge, normal conjunctiva Neck: Supple, no nuchal rigidity, no JVD, trachea midline, no tenderness Cardiac: RRR, no murmurs, no gallops, no rubs Chest/Lungs: CTAB, no wheeze, no rhonchi, no crackles Abdomen: soft, non-distended, no guarding, no peritoneal signs, non-tender Back: No tenderness Extremities: no edema, pulses intact, non-tender,capillary refill <3 sec bilateral upper and lower extremities, Neuro: Alert and oriented x 4, no focal deficits, normal speech Labs: Labs: Laboratory Tests Test 01/29/22 18:39 01/29/22 20:53 01/30/22 01:15 White Blood Count 10.6 x10^3/uL (4.0-11.0) Red Blood Count 3.52 x10^6/uL (4.30-5.70) Hemoglobin 9.7 g/dL (13.0-17.5) Hematocrit 29.2 % (39.0-53.0) Mean Corpuscular Volume 83 fL (79-100) Mean Corpuscular Hemoglobin 28 pg (25-35) Mean Corpuscular Hemoglobin Concent 33 g/dL (31-37) Red Cell Distribution Width 16.0 % (11.5-14.5) Platelet Count 274 x10^3/uL (140-400) Neutrophils (%) (Auto) 79 % (31-73) Lymphocytes (%) (Auto) 10 % (24-48) Monocytes (%) (Auto) 9 % (0-9) Eosinophils (%) (Auto) 1 % (0-3) Basophils (%) (Auto) 1 % (0-3) Neutrophils # (Auto) 8.4 x10^3/uL (1.8-7.7) Lymphocytes # (Auto) 1.1 x10^3/uL (1.0-4.8) Monocytes # (Auto) 1.0 x10^3/uL (0.0-1.1) Eosinophils # (Auto) 0.1 x10^3/uL (0.0-0.7) Basophils # (Auto) 0.1 x10^3/uL (0.0-0.2) Prothrombin Time 15.9 SEC (11.7-14.0) Prothromb Time International Ratio 1.3 (0.8-1.1) Activated Partial Thromboplast Time 31 SEC (24-38) Sodium Level 141 mmol/L (136-145) Potassium Level 3.9 mmol/L (3.5-5.1) Chloride Level 104 mmol/L (98-107) Carbon Dioxide Level 26 mmol/L (21-32) Anion Gap 11 (6-14) Blood Urea Nitrogen 22 mg/dL (8-26) Creatinine 1.3 mg/dL (0.7-1.3) Estimated GFR (Cockcroft-Gault) 53.5 BUN/Creatinine Ratio 17 (6-20) Glucose Level 139 mg/dL (70-99) Calcium Level 8.6 mg/dL (8.5-10.1) Magnesium Level 2.0 mg/dL (1.8-2.4) Total Bilirubin 0.3 mg/dL (0.2-1.0) Aspartate Amino Transf (AST/SGOT) 14 U/L (15-37) Alanine Aminotransferase (ALT/SGPT) 19 U/L (16-63) Alkaline Phosphatase 110 U/L (46-116) Troponin I High Sensitivity 9 ng/L (4-75) 10 ng/L (4-75) 15 ng/L (4-75) GU-Vgw-U-Type Natriuretic Peptide 2784 pg/mL (0-449) Total Protein 6.8 g/dL (6.4-8.2) Albumin 3.5 g/dL (3.4-5.0) Albumin/Globulin Ratio 1.1 (1.0-1.7) Laboratory Tests Test 01/29/22 18:39 01/29/22 20:53 01/30/22 01:15 White Blood Count 10.6 x10^3/uL (4.0-11.0) Red Blood Count 3.52 x10^6/uL (4.30-5.70) Hemoglobin 9.7 g/dL (13.0-17.5) Hematocrit 29.2 % (39.0-53.0) Mean Corpuscular Volume 83 fL (79-100) Mean Corpuscular Hemoglobin 28 pg (25-35) Mean Corpuscular Hemoglobin Concent 33 g/dL (31-37) Red Cell Distribution Width 16.0 % (11.5-14.5) Platelet Count 274 x10^3/uL (140-400) Neutrophils (%) (Auto) 79 % (31-73) Lymphocytes (%) (Auto) 10 % (24-48) Monocytes (%) (Auto) 9 % (0-9) Eosinophils (%) (Auto) 1 % (0-3) Basophils (%) (Auto) 1 % (0-3) Neutrophils # (Auto) 8.4 x10^3/uL (1.8-7.7) Lymphocytes # (Auto) 1.1 x10^3/uL (1.0-4.8) Monocytes # (Auto) 1.0 x10^3/uL (0.0-1.1) Eosinophils # (Auto) 0.1 x10^3/uL (0.0-0.7) Basophils # (Auto) 0.1 x10^3/uL (0.0-0.2) Prothrombin Time 15.9 SEC (11.7-14.0) Prothromb Time International Ratio 1.3 (0.8-1.1) Activated Partial Thromboplast Time 31 SEC (24-38) Sodium Level 141 mmol/L (136-145) Potassium Level 3.9 mmol/L (3.5-5.1) Chloride Level 104 mmol/L (98-107) Carbon Dioxide Level 26 mmol/L (21-32) Anion Gap 11 (6-14) Blood Urea Nitrogen 22 mg/dL (8-26) Creatinine 1.3 mg/dL (0.7-1.3) Estimated GFR (Cockcroft-Gault) 53.5 BUN/Creatinine Ratio 17 (6-20) Glucose Level 139 mg/dL (70-99) Calcium Level 8.6 mg/dL (8.5-10.1) Magnesium Level 2.0 mg/dL (1.8-2.4) Total Bilirubin 0.3 mg/dL (0.2-1.0) Aspartate Amino Transf (AST/SGOT) 14 U/L (15-37) Alanine Aminotransferase (ALT/SGPT) 19 U/L (16-63) Alkaline Phosphatase 110 U/L (46-116) Troponin I High Sensitivity 9 ng/L (4-75) 10 ng/L (4-75) 15 ng/L (4-75) NK-Qhd-T-Type Natriuretic Peptide 2784 pg/mL (0-449) Total Protein 6.8 g/dL (6.4-8.2) Albumin 3.5 g/dL (3.4-5.0) Albumin/Globulin Ratio 1.1 (1.0-1.7) Images: Images PROCEDURE: PORTABLE CHEST 1V XR CHEST 1V Clinical Indication: Reason: SOA / Spl. Instructions: / History: Comparison: AP chest 11/23/2021. Findings: Cardiac size is stable. There is hiatal hernia. There are bilateral perihilar airspace and interstitial opacities that are worsened on the prior study. There are bibasilar airspace opacities. There is pulmonary vascular indistinctness. There is no pneumothorax. There are moderate bilateral pleural effusions, similar to prior study. No acute bone abnormality. IMPRESSION: 1. There are bilateral perihilar and basilar interstitial and alveolar opacities that may be pulmonary edema or pneumonia. 2. Moderate bilateral pleural effusions. PROCEDURE: CT ANGIOGRAPHY CHEST Exam: CT of chest with contrast INDICATION: Short of air TECHNIQUE: Sequential axial images through the chest obtained following the administration of 75 mL of Isovue-370 IV contrast. Sagittal and coronal reformatted images were reconstructed from the axial data and reviewed. Exposure: One or more of the following in the visualized dose reduction techniques were utilized for this examination: 1. Automated exposure control 2. Adjustment of the MA and/or KV according to patient size 3. Use of iterative of reconstructive technique Comparisons: Chest x-ray same day FINDINGS: Visualized portions of the thyroid are unremarkable. Prominent and mildly enl arged bilateral hilar lymph nodes are noted. Heart size is normal. No pericardial effusion. Mild coronary artery calcification. Thoracic aorta has normal course caliber. Pulmonary artery is not enlarged. No pulmonary embolus identified within the main, lobar or segmental pulmonary arteries. Airways are patent. Patchy consolidative changes noted at the lungs bilaterally. No pneumothorax. Moderate bilateral pleural effusions. Visualized upper abdomen is unremarkable. No suspicious osseous lesions or acute fractures. IMPRESSION: 1. No pulmonary embolus identified within the main, lobar or segmental pulmonary arteries. 2. Moderate bilateral pleural effusions. 3. Patchy consolidative changes lungs bilaterally favored to be infectious or inflammatory in etiology. This appears improved in the upper lobes but increased in the lower lobes compared to study in November. Assessment/Plan Assessment/Plan Acute hypoxic respiratory failure Bilateral pleural effusions Acute on chronic CHF exacerbation Costochondritis History of CHF with LVEF of 15 to 20% on echo 11/26/2021 History of CAD History of REENA History of dyslipidemia History of hypertension History of atrial fibrillation on Eliquis Admit to hospitalist service for further management Cardiology consult for CHF management Pulmonology consult for possible thoracentesis Hold anticoagulation for now patient's chart, labs, images were reviewed and discussed with RN Fluid and sodium restriction Lovenox for DVT prophylaxis Protonix GI prophylaxis ADA diet CODE STATUS full Discussed with RN and SW Disposition inpatient management as above DPOA: Shana Suazo Justifications for Admission Other Justification HENOK DE LA CRUZ MD Jan 30, 2022 08:50
[2022-01-30] MEDS ORDERED: LORazepam 0.5 MG TABLET PO PRN (09:00)
[2022-01-30] MEDS ORDERED: ONDANSETRON PF 4 MG/2 ML VIAL. IVP PRN (09:00)
[2022-01-30] MEDS ORDERED: PROCHLORPERAZINE 10 MG/2 ML VIAL. IV PRN (09:00)
[2022-01-30] MEDS ORDERED: DOCUSATE SODIUM 100 MG CAPSULE. PO PRN (09:00)
[2022-01-30] MEDS ORDERED: ENOXAPARIN 40 MG/0.4 ML SYRINGE. SQ SCH (09:00)
[2022-01-30] MEDS ORDERED: ACETAMINOPHEN 325 MG TABLET. PO PRN (09:00)
[2022-01-30] MEDS ORDERED: ZOLPIDEM 5 MG TABLET. PO PRN (09:00)
[2022-01-30] MEDS ORDERED: SENNOSIDES 8.6 MG TABLET PO PRN (09:00)
[2022-01-30] MEDS ORDERED: diphenhydrAMINE HCL 25 MG CAPSULE PO PRN (09:00)
[2022-01-30] MEDS ORDERED: DEXTROSE 50% 25 GM / 50ML DISP.SYRIN. IV PRN (09:00)
[2022-01-30] MEDS ORDERED: diphenhydrAMINE 50 MG/ML VIAL IVP PRN (09:00)
--- NOTE | 2022-01-30 10:04 | PDOC2 ---
EMILIE BENJAMIN WALKING DRAGLINE OPERATOR 01/30/22 1004: CARDIAC CONSULT DATE OF CONSULT Date of Consult DATE: 01/30/22 TIME: 09:51 REASON FOR CONSULT Reason for Consult: Acute CHF REFERRING PHYSICIAN Referring Physician: Dr. Connor SOURCE Source: Chart review, Patient HISTORY OF PRESENT ILLNESS HISTORY OF PRESENT ILLNESS This is a 76 yo male, with a history of severe CMP, who presented secondary to increasing shortness of breath and chest pain. Reports chronic dyspnea. Has progressively worsened. Reports intermittent pressure in his central chest and pain across his shoulder blades for which he attributes to arthritis. He denies any palpitations, dizziness, diaphoresis, or palpitations. Was seen by our service in November for acute on chronic systolic CHF. Was also admitted to the [facility] in early December for same. Reports primary rounding and backing machine operator, Dr. Mckeon is planning AICD implantation in the near future. PAST MEDICAL HISTORY Past Medical History Cardiovascular: AFIB, CAD, CHF, HTN, NE, Hyperlipidemia, Other (Possible cardiac arrest) Pulmonary: COPD GI: GERD Musculoskeletal: low back pain, arthritis Renal/: Benign prostatic enlarg. Endocrine: Diabetes PAST SURGICAL HISTORY Past Surgical History Cataract Removal, Hernia Repair, Other (Coronary stenting) FAMILY HISTORY Family History Heart Disease, High Cholesterol, Hypertension SOCIAL HISTORY Smoke: Quit ALCOHOL: none Drugs: None Lives: with Family CURRENT MEDICATIONS CURRENT MEDICATIONS Current Medications Medications (Trade) Dose Ordered Sig/Ifeanyi Route PRN Reason Start Time Stop Time Status Last Admin Dose Admin Aspirin (Aspirin Chewable) 324 mg 1X ONCE PO 01/29/22 18:15 01/29/22 18:16 DC 01/29/22 18:30 Albuterol/ Ipratropium (Duoneb) 3 ml 1X ONCE NEB 01/29/22 19:45 01/29/22 19:46 DC 01/29/22 20:08 Iohexol (Omnipaque 350 Mg/ml) 75 ml 1X ONCE IV 01/29/22 19:45 01/29/22 19:46 DC 01/29/22 19:45 Furosemide (Lasix) 40 mg 1X ONCE IVP 01/29/22 21:30 01/29/22 21:31 DC 01/29/22 21:30 Morphine Sulfate (Morphine Sulfate) 2 mg PRN Q6HRS PRN IVP SEVERE PAIN 7-10 01/30/22 00:00 01/30/22 07:22 ALLERGIES ALLERGIES: Coded Allergies: ether (Verified Adverse Reaction, Severe, "N/V", 11/23/21) ROS Review of System 14 point ROS conducted with pertinent positives noted above in HPI PHYSICAL EXAM General: Alert, Oriented X3, Cooperative, mild distress HEENT: Atraumatic Lungs: Other (diminished bases, upper crackles ) Heart: Other (sinus tachycardia ) Abdomen: Soft, No tenderness Extremities: No edema Skin: No significant lesion Neuro: Normal speech, Sensation intact Psych/Mental Status: Mental status NL, Mood NL MUSCULOSKELETAL: Osteoarthritic changes both hands VITALS/I&O VITALS/I&O: Vital Signs Date Time Temp Pulse Resp B/P (MAP) Pulse Ox O2 Delivery O2 Flow Rate FiO2 01/30/22 07:52 96 Nasal Cannula 2.0 01/30/22 07:00 98.7 112 17 114/59 (77) 98.7 I & O 01/29/22 01/29/22 01/30/22 15:00 23:00 07:00 Intake Total 200 ml Output Total 700 ml Balance -500 ml LABS Lab: Laboratory Tests Test 01/29/22 18:39 01/29/22 20:53 01/30/22 01:15 White Blood Count 10.6 x10^3/uL (4.0-11.0) Red Blood Count 3.52 x10^6/uL (4.30-5.70) L Hemoglobin 9.7 g/dL (13.0-17.5) L Hematocrit 29.2 % (39.0-53.0) L Mean Corpuscular Volume 83 fL (79-100) Mean Corpuscular Hemoglobin 28 pg (25-35) Mean Corpuscular Hemoglobin Concent 33 g/dL (31-37) Red Cell Distribution Width 16.0 % (11.5-14.5) H Platelet Count 274 x10^3/uL (140-400) Neutrophils (%) (Auto) 79 % (31-73) H Lymphocytes (%) (Auto) 10 % (24-48) L Monocytes (%) (Auto) 9 % (0-9) Eosinophils (%) (Auto) 1 % (0-3) Basophils (%) (Auto) 1 % (0-3) Neutrophils # (Auto) 8.4 x10^3/uL (1.8-7.7) H Lymphocytes # (Auto) 1.1 x10^3/uL (1.0-4.8) Monocytes # (Auto) 1.0 x10^3/uL (0.0-1.1) Eosinophils # (Auto) 0.1 x10^3/uL (0.0-0.7) Basophils # (Auto) 0.1 x10^3/uL (0.0-0.2) Prothrombin Time 15.9 SEC (11.7-14.0) H Prothrombin Time INR 1.3 (0.8-1.1) H Activated Partial Thromboplast Time 31 SEC (24-38) Sodium Level 141 mmol/L (136-145) Potassium Level 3.9 mmol/L (3.5-5.1) Chloride Level 104 mmol/L (98-107) Carbon Dioxide Level 26 mmol/L (21-32) Anion Gap 11 (6-14) Blood Urea Nitrogen 22 mg/dL (8-26) Creatinine 1.3 mg/dL (0.7-1.3) Estimated GFR (Cockcroft-Gault) 53.5 BUN/Creatinine Ratio 17 (6-20) Glucose Level 139 mg/dL (70-99) H Calcium Level 8.6 mg/dL (8.5-10.1) Magnesium Level 2.0 mg/dL (1.8-2.4) Total Bilirubin 0.3 mg/dL (0.2-1.0) Aspartate Amino Transferase (AST) 14 U/L (15-37) L Alanine Aminotransferase (ALT) 19 U/L (16-63) Alkaline Phosphatase 110 U/L (46-116) Troponin I High Sensitivity 9 ng/L (4-75) 10 ng/L (4-75) 15 ng/L (4-75) UB-Fnc-F-Type Natriuretic Peptide 2784 pg/mL (0-449) H Total Protein 6.8 g/dL (6.4-8.2) Albumin 3.5 g/dL (3.4-5.0) Albumin/Globulin Ratio 1.1 (1.0-1.7) Laboratory Tests 01/29/22 18:39 Laboratory Tests 01/29/22 18:39 ECHOCARDIOGRAM ECHOCARDIOGRAM <Conclusion> The Left Ventricle is borderline dilated. The ejection fraction is severely impaired. LV ejection fraction is 15-20%. There is severe global hypokinesis of the left ventricle. Doppler and Color Flow revealed no significant aortic regurgitation. There is no significant aortic valvular stenosis. Doppler and Color-flow revealed mild mitral regurgitation. Doppler and Color Flow revealed trace to mild tricuspid regurgitation. Estimated PAP 42 mmHg. The aortic root is mildly enlarged. DATE: 11/26/21 [id number] ASSESSMENT/PLAN ASSESSMENT/PLAN 1. Acute on chronic respiratory failure with a/c CHF and bilateral pleural effusion. ? PNA 2. Chest pain, mixed features; AMI ruled out. 3. Acute on chronic systolic CHF; s/p IV Lasix 4. Cardiomyopathy; Echo with severe LV dysfunction with EF 15-20%. Follows with [place] cardiology, Dr. Mckeon. Outpatient AICD reportedly planned 5. PAFIB with RVR; on metoprolol for rate control and Eliquis for stroke prophylaxis. 6. CAD s/p PCI 2007. No recent ischemic evaluation reported 7. Hypertension; low end 8. Hyperlipidemia; statin 9. Diabetes, II 10. Peripheral vascular disease. Patient denies claudication symptoms. 11. H/o CVA 12. Fevers Recommendations Diuresis with monitoring of renal function Resume metoprolol for rate control Hold Eliquis for possible thoracentesis HF optimization No ACEi/ARB for now with low end blood pressure Secondary prevention ASA/statin therapy Ongoing pulmonary optimization Discussed need for ischemic evaluation given history/risk factors, presentation, and recurrent CHF. Patient would like to consider through primary rounding and backing machine operator, Dr. Mckeon Supportive care ROSMERY VICKERS MD 01/30/22 2572: CARDIAC CONSULT ASSESSMENT/PLAN ASSESSMENT/PLAN Patient seen and examined. Agree with MACHINE SETTER SUPERVISOR's assessment and plan Continue diuresis for ac on chr systolic HF AF with RVR - agree with metoprolol for rate control - eliquis on hold for possible thoracentesis CP with atypical features - CAD clinically stable Consider ischemic evaluation as outpatient PAD stable Thank you for your consultation EMILIE BENJAMIN APRN Jan 30, 2022 10:04 ROSMERY VICKERS MD Jan 30, 2022 21:48
[2022-01-30 11:00] VITALS: BP 100/57
[2022-01-30] MEDS: DICLOFENAC SODIUM 1% TOPICAL GEL 100GM TUBE. TP SCH ×3 (11:00→23:01)
--- NOTE | 2022-01-30 11:12 | CONS ---
DATE OF CONSULTATION: 01/30/2022 ATTENDING PHYSICIAN: Sheldon Connor MD REASON FOR CONSULTATION: Respiratory failure. HISTORY OF PRESENT ILLNESS: The patient is a 76-year-old male with a history of cardiomyopathy with an ejection fraction of 15-20%. He is not on home oxygen. He has 30-40 years of tobacco use. He also used to drink alcohol as well, but has stayed away from it for the past 25 years. He was brought into the hospital with increasing shortness of breath. He denies any chest pain. He said he uses nebulizer 6 times without any improvement. No leg edema. No chest pain, no cough, no fever, no chills. The patient underwent evaluation in the Emergency Room and a CTA chest was performed, which was reviewed by me. There is moderate bilateral pleural effusions. They have been present since November and slightly increased on the left side. There is some compressive atelectasis of the lower lobes. Findings are all suggestive of congestive heart failure. The upper lobe infiltrates have improved since November. He is currently on oxygen at 2 liters. PAST MEDICAL HISTORY: History of atrial fibrillation, severe cardiomyopathy with an EF of 15-20%, history of CHF, hypertension, AR and history of cardiac arrest. History of COPD, GERD, BPH, and diabetes. PAST SURGICAL HISTORY: Cataracts and hernia repair. FAMILY HISTORY: Dyslipidemia. SOCIAL HISTORY: Smoked for 30-40 years before quitting 30 years ago. REVIEW OF SYSTEMS: A 12-point review of system obtained. Pertinent positives discussed in my present illness, otherwise noncontributory. All systems that were negative were reviewed as well. MEDICATIONS: All reviewed as listed in the MRAD including Lovenox as well as supportive meds. PHYSICAL EXAMINATION: VITAL SIGNS: Reviewed. T-max of 100.1. Blood pressure is 114/59, afebrile today, pulse ox 96% on 2 liters. NECK: Supple. LUNGS: With diminished breath sounds bilaterally. CARDIOVASCULAR: With a regular rate. ABDOMEN: Soft, obese. EXTREMITIES: With no pitting edema. LABORATORY DATA: Reviewed. White cell count 10.6, hemoglobin 9.7 and platelets are 274. BUN 22 and creatinine of 1.3. IMPRESSION: 1. Acute hypoxic respiratory failure secondary to acute on chronic systolic heart failure with bilateral pleural effusions. 2. Low-grade fever. Needs to rule out influenza and COVID. 3. Abnormal CT chest with bilateral pleural effusion, which has been persistent and moderate. The patient would benefit from thoracentesis. The effusion may have increased slightly since November CT chest. 4. 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 RECOMMENDATIONS: 1. Discussed with the patient that at this time, I would recommend doing thoracentesis, he is agreeable to that. Currently, Eliquis will be held today and Lovenox will be held as well. We will schedule his procedure tomorrow. 2. Continue present oxygen. 3. Rule out influenza and COVID. 4. Monitor fever curve. 5. Diuresis. 6. Cardiology recommendations. 7. Discussed with RN and Cardiology DELIMER. BRIAN DR: Tamera TID: [id number]
[2022-01-30] MEDS: METOPROLOL SUCC 24HR ER 25 MG TAB.ER.24H. PO SCH ×2 (11:27→13:11)
[2022-01-30] MEDS ORDERED: FUROSEMIDE 40 MG/4 ML VIAL. IVP ONE (11:30)
[2022-01-30] MEDS ORDERED: POTASSIUM CHLORIDE 20 MEQ TABLET.ER. PO ONE (11:30)
--- NOTE | 2022-01-30 13:29 | EKG ---
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
[2022-01-30 13:41] LABS: INFLUENZA A PATIENT NEGATIVE (NEGATIVE); INFLUENZA B PATIENT NEGATIVE (NEGATIVE)
[2022-01-30 15:00] VITALS: BP 97/59
--- NOTE | 2022-01-30 15:35 | NUR ---
SS following for discharge planning. SS reviewed pt chart and discussed with pt RN. Pt is from home with spouse and is currently requiring oxygen at two liters nasal canula. COVID19 negative. Pt has no home oxygen. Thoracentesis tomorrow. SS will continue to follow for discharge planning.
[2022-01-30] MEDS ORDERED: TAMS0.4C97 PO (18:31)
[2022-01-30 19:00] VITALS: BP 103/62
[2022-01-30] MEDS: FLUTICASONE 50MCG/NASAL SPRAY 16GM BOTTLE. NS SCH (21:50)
[2022-01-30] MEDS: ATORVASTATIN CALCIUM 20 MG TABLET PO SCH (21:50)
[2022-01-30] MEDS: TAMSULOSIN 0.4 MG CAP.ER.24H. PO SCH (21:52)
[2022-01-30 23:00] VITALS: BP 107/63
[2022-01-31] VITALS (16 sets, daily range): BP systolic 63–101; BP diastolic 45–60
[2022-01-31 06:01] LABS: CALCIUM 8.8 mg/dL (8.5-10.1); CREATININE 1.5 mg/dL (0.7-1.3); GFR 45.4; MAGNESIUM 2.1 mg/dL (1.8-2.4); PHOSPHORUS 3.7 mg/dL (2.6-4.7); POTASSIUM 3.9 mmol/L (3.5-5.1)
[2022-01-31 06:04] LABS: BASO # 0.1 x10^3/uL (0.0-0.2); BASO % 1 % (0-3); EOS # 0.1 x10^3/uL (0.0-0.7); EOS % 1 % (0-3); HEMATOCRIT 26.1 % (39.0-53.0); HEMOGLOBIN 8.5 g/dL (13.0-17.5); LYMPH # 1.3 x10^3/uL (1.0-4.8); LYMPH % 12 % (24-48); MEAN CORPUSCULAR HEMOGLOBIN 27 pg (25-35); MEAN CORPUSCULAR HGB CONC 33 g/dL (31-37); MEAN CORPUSCULAR VOLUME 83 fL (79-100); MONO # 1.3 x10^3/uL (0.0-1.1); MONO % 12 % (0-9); NEUT % 75 % (31-73); PLATELET COUNT 235 x10^3/uL (140-400); RED BLOOD COUNT 3.14 x10^6/uL (4.30-5.70); RED CELL DISTRIBUTION WIDTH 15.9 % (11.5-14.5); WHITE BLOOD COUNT 10.7 x10^3/uL (4.0-11.0)
[2022-01-31] MEDS: TAMSULOSIN 0.4 MG CAP.ER.24H. PO SCH ×2 (08:22→20:15)
[2022-01-31] MEDS: METOPROLOL SUCC 24HR ER 25 MG TAB.ER.24H. PO SCH (08:23)
[2022-01-31] MEDS: FLUTICASONE 50MCG/NASAL SPRAY 16GM BOTTLE. NS SCH ×2 (09:00→20:16)
[2022-01-31] MEDS: DICLOFENAC SODIUM 1% TOPICAL GEL 100GM TUBE. TP SCH ×2 (09:00→20:21)
--- NOTE | 2022-01-31 09:21 | PDOC ---
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 01/31/22 0921: CARDIO Progress Notes Date and Time Date of Service 01/31/22 Time of Evaluation 0920 Subjective Subjective: No Chest Pain, No Palpitations, No Dizziness, Other (breathing improved ) Vitals Vitals Vital Signs Date Time Temp Pulse Resp B/P (MAP) Pulse Ox O2 Delivery O2 Flow Rate FiO2 01/31/22 08:23 108 101/58 01/31/22 07:00 98.6 16 99 Nasal Cannula 2.0 98.6 Weight Weight [ ] Input and Output Intake and Output Intake and Output 01/31/22 07:00 Intake Total 605 ml Output Total 1350 ml Balance -745 ml Intake Oral 605 ml Output Urine Total 1350 ml # Voids 1 Laboratory Labs Laboratory Tests Test 01/30/22 13:06 01/31/22 04:15 Influenza Type A Antigen Negative (NEGATIVE) Influenza Type B Antigen Negative (NEGATIVE) SARS-CoV-2 Antigen (Rapid) Negative (NEGATIVE) White Blood Count 10.7 x10^3/uL (4.0-11.0) Red Blood Count 3.14 x10^6/uL (4.30-5.70) Hemoglobin 8.5 g/dL (13.0-17.5) Hematocrit 26.1 % (39.0-53.0) Mean Corpuscular Volume 83 fL (79-100) Mean Corpuscular Hemoglobin 27 pg (25-35) Mean Corpuscular Hemoglobin Concent 33 g/dL (31-37) Red Cell Distribution Width 15.9 % (11.5-14.5) Platelet Count 235 x10^3/uL (140-400) Neutrophils (%) (Auto) 75 % (31-73) Lymphocytes (%) (Auto) 12 % (24-48) Monocytes (%) (Auto) 12 % (0-9) Eosinophils (%) (Auto) 1 % (0-3) Basophils (%) (Auto) 1 % (0-3) Neutrophils # (Auto) 8.0 x10^3/uL (1.8-7.7) Lymphocytes # (Auto) 1.3 x10^3/uL (1.0-4.8) Monocytes # (Auto) 1.3 x10^3/uL (0.0-1.1) Eosinophils # (Auto) 0.1 x10^3/uL (0.0-0.7) Basophils # (Auto) 0.1 x10^3/uL (0.0-0.2) Sodium Level 139 mmol/L (136-145) Potassium Level 3.9 mmol/L (3.5-5.1) Chloride Level 102 mmol/L (98-107) Carbon Dioxide Level 29 mmol/L (21-32) Anion Gap 8 (6-14) Blood Urea Nitrogen 29 mg/dL (8-26) Creatinine 1.5 mg/dL (0.7-1.3) Estimated GFR (Cockcroft-Gault) 45.4 Glucose Level 120 mg/dL (70-99) Calcium Level 8.8 mg/dL (8.5-10.1) Phosphorus Level 3.7 mg/dL (2.6-4.7) Magnesium Level 2.1 mg/dL (1.8-2.4) Physical Exam HEENT: Neck Supple W Full Motion Chest: Symmetric LUNGS: Other (diminished bases) Heart: RRR (ST) Abdomen: Soft N/T Extremities: No Edema Neurology: alert, oriented, follow commands Assessment Assessment 1. Acute on chronic respiratory failure with a/c CHF and bilateral pleural e ffusion. improved s/p thoracentesis with 800cc off bilaterally. 2. Chest pain, mixed features; AMI ruled out. 3. Acute on chronic systolic CHF; s/p IV Lasix 4. Cardiomyopathy; Echo with severe LV dysfunction with EF 15-20%. Follows with [place] cardiology, Dr. Mckeon. Outpatient AICD reportedly planned 5. PAFIB with RVR; on metoprolol for rate control and Eliquis for stroke pr ophylaxis. 6. CAD s/p PCI 2007. No recent ischemic evaluation reported 7. Hypertension; low end 8. Hyperlipidemia; statin 9. Diabetes, II 10. Peripheral vascular disease. Patient denies claudication symptoms. 11. H/o CVA 12. ELVIS ; Cr ^ 1.5 13. Low-grade fevers Recommendations Will hold off on further aggressive diuresis with ^ Cr Continue metoprolol for rate control Resume Eliquis s/p thoracentesis HF optimization No ACEi/ARB for now with low end blood pressure Secondary prevention ASA/statin therapy Ongoing pulmonary optimization D/w Dr. Mckeon- he will arrange outpatient ischemic evaluation in near future. Supportive care Justicifation of Admission Dx: Justifications for Admission: Justification of Admission Dx: Yes ROSMERY VICKERS MD 01/31/221934: CARDIO Progress Notes Assessment Assessment Patient seen and examined. Agree with TUBING TESTER's assessment and plan Ac on chr systolic HF better compensated s/p thoracentesis with improvement in symptoms AF with RVR - agree with metoprolol for rate control and eliquis for stroke prophylaxis CP with atypical features - CAD clinically stable Consider ischemic evaluation as outpatient PAD stable EMILIE BENJAMIN APRN Jan 31, 2022 09:21 ROSMERY VICKERS MD Jan 31, 2022 19:35
--- NOTE | 2022-01-31 10:49 | RAD ---
Bilateral Thoracentesis 01/31/2022 9:42 AM Clinical History: Bilateral pleural effusion. Technique: Relative benefits risks and alternatives were discussed with the patient and/or their rep resentative. Written informed consent was obtained. The patient was placed in seated position. A lexa eout procedure was performed. Sonographic assessment demonstrates a large pleural effusion. A site for skin entry was selected, and subsequently prepped and draped using sterile barrier technique. 1% lidocaine without epinepherine was administered for local anesthesia to the skin and subcutaenous tissues. A 5 Amharic sheathed needle was passed into the right pleural space. Fluid was aspirated and the cath eter was connected to a vacuum. Approximately 800 cc of fluid were drained. The catheter was removed and adequate hemostasis was obtained. This process was performed and essentially identical fashion on the contralateral side and again 800 cc of fluid was removed. A sterile dressings were applied. The patient tolerated the procedure well, without complications. Impression: Bilateral thoracentesis, ultrasound-guided. 800 cc removed from each pleural space. Electronically signed by: Jose Francisco Farmer MD (01/31/2022 10:47 AM) [id number]
--- NOTE | 2022-01-31 11:51 | PDOC ---
[facility] PROGRESS NOTE Date of Service DOS: DATE: 01/31/22 TIME: 11:50 Chief Complaint Chief Complaint Assessment/Plan Acute hypoxic respiratory failure Bilateral pleural effusions status post thoracentesis 01/31/2022 Acute on chronic CHF exacerbation Costochondritis History of CHF with LVEF of 15 to 20% on echo 11/26/2021 History of CAD History of REENA History of dyslipidemia History of hypertension History of atrial fibrillation on Eliquis Admit to hospitalist service for further management Cardiology consult for CHF management Pulmonology consult for possible thoracentesis Hold anticoagulation for now patient's chart, labs, images were reviewed and discussed with RN Fluid and sodium restriction Lovenox for DVT prophylaxis Protonix GI prophylaxis ADA diet CODE STATUS full Discussed with RN and SW Disposition inpatient management as above DPOA: Shana Suazo History of Present Illness History of Present Illness 76-year-old male with multiple comorbidities who comes in with shortness of breath and chest pain. Shortness of breath has been going on for for few days.Patient's room air sat while I was in the room was 92% but he is quite tachypneic and has to stop frequently during the [id number] session to catch his breath. Denies any fevers, abdominal pain, diarrhea, dysuria or syncope. 01/31/2022 No acute events overnight. Patient seen examined bedside. Saturating 99% on 2 L nasal cannula. Patient had thoracentesis done this morning with 800 cc of fluid removed. Will await for fluid analysis. Patient's chart, labs, images were reviewed and discussed with RN Vitals/I&O Vitals/I&O: Vital Signs Date Time Temp Pulse Resp B/P (MAP) Pulse Ox O2 Delivery O2 Flow Rate FiO2 01/31/22 10:17 74 19 97/60 (72) 99 Nasal Cannula 2.0 01/31/22 07:00 98.6 98.6 I & O 01/30/22 01/30/22 01/31/22 15:00 23:00 07:00 Intake Total 0 ml 405 ml 200 ml Output Total 500 ml 850 ml Balance -500 ml -445 ml 200 ml Physical Exam General: Alert, Oriented X3, Cooperative, mild distress Heart: Other (sinus tachycardia ) Lungs: Clear Abdomen: Soft, No tenderness Extremities: No edema Skin: No significant lesion Labs Labs: Laboratory Tests Test 01/30/22 13:06 01/31/22 04:15 Influenza Type A Antigen Negative (NEGATIVE) Influenza Type B Antigen Negative (NEGATIVE) SARS-CoV-2 Antigen (Rapid) Negative (NEGATIVE) White Blood Count 10.7 x10^3/uL (4.0-11.0) Red Blood Count 3.14 x10^6/uL (4.30-5.70) Hemoglobin 8.5 g/dL (13.0-17.5) Hematocrit 26.1 % (39.0-53.0) Mean Corpuscular Volume 83 fL (79-100) Mean Corpuscular Hemoglobin 27 pg (25-35) Mean Corpuscular Hemoglobin Concent 33 g/dL (31-37) Red Cell Distribution Width 15.9 % (11.5-14.5) Platelet Count 235 x10^3/uL (140-400) Neutrophils (%) (Auto) 75 % (31-73) Lymphocytes (%) (Auto) 12 % (24-48) Monocytes (%) (Auto) 12 % (0-9) Eosinophils (%) (Auto) 1 % (0-3) Basophils (%) (Auto) 1 % (0-3) Neutrophils # (Auto) 8.0 x10^3/uL (1.8-7.7) Lymphocytes # (Auto) 1.3 x10^3/uL (1.0-4.8) Monocytes # (Auto) 1.3 x10^3/uL (0.0-1.1) Eosinophils # (Auto) 0.1 x10^3/uL (0.0-0.7) Basophils # (Auto) 0.1 x10^3/uL (0.0-0.2) Sodium Level 139 mmol/L (136-145) Potassium Level 3.9 mmol/L (3.5-5.1) Chloride Level 102 mmol/L (98-107) Carbon Dioxide Level 29 mmol/L (21-32) Anion Gap 8 (6-14) Blood Urea Nitrogen 29 mg/dL (8-26) Creatinine 1.5 mg/dL (0.7-1.3) Estimated GFR (Cockcroft-Gault) 45.4 Glucose Level 120 mg/dL (70-99) Calcium Level 8.8 mg/dL (8.5-10.1) Phosphorus Level 3.7 mg/dL (2.6-4.7) Magnesium Level 2.1 mg/dL (1.8-2.4) Assessment and Plan Assessmemt and Plan Problems Medical Problems: (1) Bilateral pleural effusion Status: Acute (2) Congestive heart failure (CHF) Status: Acute (3) Shortness of breath Status: Acute Comment Review of Relevant I have reviewed the following items rai (where applicable) has been applied. Medications: Current Medications Medications (Trade) Dose Ordered Sig/Ifeanyi Route PRN Reason Start Time Stop Time Status Last Admin Dose Admin Atorvastatin Calcium (Lipitor) 40 mg HS PO 01/30/22 21:00 01/30/22 21:50 Fluticasone Propionate (Flonase) 1 spray BID NS 01/30/22 21:00 01/30/22 21:50 Tamsulosin HCl (Flomax) 0.4 mg BID PO 01/30/22 21:00 01/31/22 08:22 Justifications for Admission Other Justification CHF exacerbation HENOK DE LA CRUZ MD Jan 31, 2022 11:51
--- NOTE | 2022-01-31 12:03 | PDOC ---
PULMONARY PROGRESS NOTES DATE: 01/31/22 TIME: 12:00 Subjective Denies any increased shortness of breath. Thoracentesis scheduled for today. Vitals Vital Signs Date Time Temp Pulse Resp B/P (MAP) Pulse Ox O2 Delivery O2 Flow Rate FiO2 01/31/22 10:17 74 19 97/60 (72) 99 Nasal Cannula 2.0 01/31/22 07:00 98.6 98.6 General: Alert, Oriented X4, No acute distress Lungs: Other (Decreased at the bases.) Cardiovascular: S1, S2 Abdomen: Soft, Non-tender Extremities: No Edema Labs Laboratory Tests Test 01/29/22 18:39 01/29/22 20:53 01/30/22 01:15 01/30/22 13:06 White Blood Count 10.6 x10^3/uL (4.0-11.0) Red Blood Count 3.52 x10^6/uL (4.30-5.70) Hemoglobin 9.7 g/dL (13.0-17.5) Hematocrit 29.2 % (39.0-53.0) Mean Corpuscular Volume 83 fL (79-100) Mean Corpuscular Hemoglobin 28 pg (25-35) Mean Corpuscular Hemoglobin Concent 33 g/dL (31-37) Red Cell Distribution Width 16.0 % (11.5-14.5) Platelet Count 274 x10^3/uL (140-400) Neutrophils (%) (Auto) 79 % (31-73) Lymphocytes (%) (Auto) 10 % (24-48) Monocytes (%) (Auto) 9 % (0-9) Eosinophils (%) (Auto) 1 % (0-3) Basophils (%) (Auto) 1 % (0-3) Neutrophils # (Auto) 8.4 x10^3/uL (1.8-7.7) Lymphocytes # (Auto) 1.1 x10^3/uL (1.0-4.8) Monocytes # (Auto) 1.0 x10^3/uL (0.0-1.1) Eosinophils # (Auto) 0.1 x10^3/uL (0.0-0.7) Basophils # (Auto) 0.1 x10^3/uL (0.0-0.2) Prothrombin Time 15.9 SEC (11.7-14.0) Prothromb Time International Ratio 1.3 (0.8-1.1) Activated Partial Thromboplast Time 31 SEC (24-38) Sodium Level 141 mmol/L (136-145) Potassium Level 3.9 mmol/L (3.5-5.1) Chloride Level 104 mmol/L (98-107) Carbon Dioxide Level 26 mmol/L (21-32) Anion Gap 11 (6-14) Blood Urea Nitrogen 22 mg/dL (8-26) Creatinine 1.3 mg/dL (0.7-1.3) Estimated GFR (Cockcroft-Gault) 53.5 BUN/Creatinine Ratio 17 (6-20) Glucose Level 139 mg/dL (70-99) Calcium Level 8.6 mg/dL (8.5-10.1) Magnesium Level 2.0 mg/dL (1.8-2.4) Total Bilirubin 0.3 mg/dL (0.2-1.0) Aspartate Amino Transf (AST/SGOT) 14 U/L (15-37) Alanine Aminotransferase (ALT/SGPT) 19 U/L (16-63) Alkaline Phosphatase 110 U/L (46-116) Troponin I High Sensitivity 9 ng/L (4-75) 10 ng/L (4-75) 15 ng/L (4-75) MG-Wcx-Z-Type Natriuretic Peptide 2784 pg/mL (0-449) Total Protein 6.8 g/dL (6.4-8.2) Albumin 3.5 g/dL (3.4-5.0) Albumin/Globulin Ratio 1.1 (1.0-1.7) Influenza Type A Antigen Negative (NEGATIVE) Influenza Type B Antigen Negative (NEGATIVE) SARS-CoV-2 Antigen (Rapid) Negative (NEGATIVE) Test 01/31/22 04:15 White Blood Count 10.7 x10^3/uL (4.0-11.0) Red Blood Count 3.14 x10^6/uL (4.30-5.70) Hemoglobin 8.5 g/dL (13.0-17.5) Hematocrit 26.1 % (39.0-53.0) Mean Corpuscular Volume 83 fL (79-100) Mean Corpuscular Hemoglobin 27 pg (25-35) Mean Corpuscular Hemoglobin Concent 33 g/dL (31-37) Red Cell Distribution Width 15.9 % (11.5-14.5) Platelet Count 235 x10^3/uL (140-400) Neutrophils (%) (Auto) 75 % (31-73) Lymphocytes (%) (Auto) 12 % (24-48) Monocytes (%) (Auto) 12 % (0-9) Eosinophils (%) (Auto) 1 % (0-3) Basophils (%) (Auto) 1 % (0-3) Neutrophils # (Auto) 8.0 x10^3/uL (1.8-7.7) Lymphocytes # (Auto) 1.3 x10^3/uL (1.0-4.8) Monocytes # (Auto) 1.3 x10^3/uL (0.0-1.1) Eosinophils # (Auto) 0.1 x10^3/uL (0.0-0.7) Basophils # (Auto) 0.1 x10^3/uL (0.0-0.2) Sodium Level 139 mmol/L (136-145) Potassium Level 3.9 mmol/L (3.5-5.1) Chloride Level 102 mmol/L (98-107) Carbon Dioxide Level 29 mmol/L (21-32) Anion Gap 8 (6-14) Blood Urea Nitrogen 29 mg/dL (8-26) Creatinine 1.5 mg/dL (0.7-1.3) Estimated GFR (Cockcroft-Gault) 45.4 Glucose Level 120 mg/dL (70-99) Calcium Level 8.8 mg/dL (8.5-10.1) Phosphorus Level 3.7 mg/dL (2.6-4.7) Magnesium Level 2.1 mg/dL (1.8-2.4) Laboratory Tests Test 01/30/22 13:06 01/31/22 04:15 Influenza Type A Antigen Negative (NEGATIVE) Influenza Type B Antigen Negative (NEGATIVE) SARS-CoV-2 Antigen (Rapid) Negative (NEGATIVE) White Blood Count 10.7 x10^3/uL (4.0-11.0) Red Blood Count 3.14 x10^6/uL (4.30-5.70) Hemoglobin 8.5 g/dL (13.0-17.5) Hematocrit 26.1 % (39.0-53.0) Mean Corpuscular Volume 83 fL (79-100) Mean Corpuscular Hemoglobin 27 pg (25-35) Mean Corpuscular Hemoglobin Concent 33 g/dL (31-37) Red Cell Distribution Width 15.9 % (11.5-14.5) Platelet Count 235 x10^3/uL (140-400) Neutrophils (%) (Auto) 75 % (31-73) Lymphocytes (%) (Auto) 12 % (24-48) Monocytes (%) (Auto) 12 % (0-9) Eosinophils (%) (Auto) 1 % (0-3) Basophils (%) (Auto) 1 % (0-3) Neutrophils # (Auto) 8.0 x10^3/uL (1.8-7.7) Lymphocytes # (Auto) 1.3 x10^3/uL (1.0-4.8) Monocytes # (Auto) 1.3 x10^3/uL (0.0-1.1) Eosinophils # (Auto) 0.1 x10^3/uL (0.0-0.7) Basophils # (Auto) 0.1 x10^3/uL (0.0-0.2) Sodium Level 139 mmol/L (136-145) Potassium Level 3.9 mmol/L (3.5-5.1) Chloride Level 102 mmol/L (98-107) Carbon Dioxide Level 29 mmol/L (21-32) Anion Gap 8 (6-14) Blood Urea Nitrogen 29 mg/dL (8-26) Creatinine 1.5 mg/dL (0.7-1.3) Estimated GFR (Cockcroft-Gault) 45.4 Glucose Level 120 mg/dL (70-99) Calcium Level 8.8 mg/dL (8.5-10.1) Phosphorus Level 3.7 mg/dL (2.6-4.7) Magnesium Level 2.1 mg/dL (1.8-2.4) Medications Active Scripts Medications Dose Route/Sig Max Daily Dose Days Date Category Flomax (Tamsulosin Hcl) 0.4 Mg Cap.er.24h 1 Cap PO BID 01/30/22 Reported Furosemide 40 Mg Tablet 1 Tab PO DAILY 30 11/26/21 Rx Metoprolol Succinate ( Xl ) (Metoprolol Succinate) 25 Mg Tab.er.24h 25 Mg PO DAILY 30 11/26/21 Rx Eliquis (Apixaban) 5 Mg Tablet 5 Mg PO BID 30 11/26/21 Rx Refresh Lacri-Lube Ointment (Mineral Oil/Petrolatum,White) 3.5 Gm Oint...g. 3.5 Gm OU DAILY 11/23/21 Reported Atorvastatin Calcium 20 Mg Tablet 2 Tab PO HS 11/23/21 Reported Omeprazole 20 Mg Capsule.dr 1 Cap PO DAILY 11/23/21 Reported Lubricating Plus (Carboxymethylcellulose Sodium) 1 Each Droperette 1 OU DAILY 11/23/21 Reported Fluticasone Propionate Nasal [place] (Fluticasone Propionate) 16 Gm [place].susp 1 Sprays NS BID 11/23/21 Reported Proair Hfa Inhaler (Albuterol Sulfate) 8.5 Gm Hfa.aer.ad 1 Puff INH PRN Q6HRS PRN 05/13/18 Reported Aspirin 325 Mg Tablet 1 Tab PO DAILY 05/22/15 Reported Impression . 1. Acute hypoxic respiratory failure secondary to acute on chronic systolic heart failure with bilateral pleural effusions. 2. Low-grade fever. Influenza and Covid negative. Likely secondary to pneumonia. 3. Abnormal CT chest with bilateral pleural effusion, which has been persistent and moderate. The patient would benefit from thoracentesis. The effusion may have increased slightly since November CT chest. 4. 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 Plan . RECOMMENDATIONS: 1. Scheduled for thoracentesis today. Anticoagulation with Eliquis on hold. 2. Continue present oxygen. 3. Ruled out for influenza and COVID. Bilateral lower lobe consolidation likely source of fever 4. Monitor fever curve. We will add empiric antibiotics. 5. Diuresis. 6. Cardiology recommendations. 7. Discussed with RN and Cardiology [employer]. YUNI ROBERTSON MD Jan 31, 2022 12:03
--- NOTE | 2022-01-31 12:57 | NUR ---
SS following up with discharge planning. SS reviewed pt chart and discussed with pt RN. Pt is currently requiring oxygen at two liters nasal canula. COVID19 negative. Pt has no home oxygen. Pulmonology and Cardiology following. Thoracentesis today. Pt on IV Rocephin. PT/OT recommended home independent. SS will continue to follow for discharge planning.
[2022-01-31] MEDS ORDERED: cefTRIAXone IV Push 1 GM VIAL. IVP SCH (13:00)
[2022-01-31] MEDS ORDERED: ANTI-COAG MONITOR BY PHARMACY. MC PRN (14:15)
[2022-01-31] MEDS: FUROSEMIDE 40 MG TABLET. PO SCH (16:25)
[2022-01-31] MEDS: LACTOBACILLUS RHAMNOSUS GG 1 CAPSULE. PO SCH (20:15)
[2022-01-31] MEDS: ATORVASTATIN CALCIUM 20 MG TABLET PO SCH (20:15)
[2022-01-31] MEDS ORDERED: APIXABAN 5 MG TABLET. PO SCH (21:00)
--- NOTE | 2022-01-31 23:09 | RAD ---
PQRS Compliance Statement: One or more of the following individualized dose reduction techniques were utilized for this examinat ion: 1. Automated exposure control 2. Adjustment of the mA and/or kV according to patient size 3. Use of iterative reconstruction technique CT HEAD WITHOUT CONTRAST History: Reason: code stroke;UNRESPONSIVE Comparison: CT head without contrast, December 01, 2019. Technique: Axial images are obtained of the head from the skull base through the vertex without IV co ntrast. Findings: No mass-effect, midline shift, extra-axial fluid collection, hemorrhage, or obvious acute infarction is identified. Basilar cisterns are patent. The ventricles and sulci are prominent, consistent with generalized cerebral atrophy. There is perive ntricular white matter hypoattenuation. This is a nonspecific finding but is commonly due to chronic small vessel ischemic disease. Bone windows demonstrate no acute calvarial abnormality. The visualized paranasal sinuses are clear. Mastoid air cells are well aerated. IMPRESSION: 1. No acute intracranial abnormality. 2. Generalized cerebral atrophy and periventricular white matter changes probably due to chronic sma ll vessel ischemic disease. FOR INTERNAL CODING PURPOSES Critical result: Findings discussed with patient's nurse on 6 S. at 01/31/2022 11:07 PM. RESULT CODE: (C) 1. Electronically signed by: Jesus Burnett MD (01/31/2022 11:07 PM) [facility]
[2022-01-31 23:35] LABS: CALCIUM 8.8 mg/dL (8.5-10.1); CREATININE 1.7 mg/dL (0.7-1.3); GFR 39.3; POTASSIUM 3.7 mmol/L (3.5-5.1)
[2022-02-01] VITALS (33 sets, daily range): BP systolic 66–158; BP diastolic 50–87
[2022-02-01] MEDS: NOREPINEPHRINE VIAL 8 MG in IV DEXTROSE 5% 250 ML IV PRN ×3 (00:30→21:21)
--- NOTE | 2022-02-01 01:06 | RAD ---
EXAM: AP View of the chest DATE: 01/31/2022 11:56 PM INDICATION: Reason: Sudden SOA / Spl. Instructions: / History: COMPARISON: 01/29/2022 FINDINGS: Mild cardiomegaly. Aorta is tortuous. Diffuse bilateral parenchymal airspace opacities, progressed co mpared to 01/29/2022. Trace pleural effusions. No pneumothorax. IMPRESSION: 1. Progressing bilateral parenchymal opacities compared to 01/29/2022 Electronically signed by: Garo Miller MD (02/01/2022 1:03 AM) EDUARDO
--- NOTE | 2022-02-01 01:19 | NUR ---
Rapid Response: While walking to rapid response 6S staff called a code stroke on the same pt. Upon arrival to room pt not responding to staff, or noxious stimuli. Eyes are open and pt having long periods of apnea. Initial BP 66/51 HR 114, SPO2 98%. This nurse and RT took pt to CT. Radiologist called results with nothing acute noted. Pt back in room and he became alert asking what happened and c/o chest pain. EKG ordered, and labs. EKG nothing acute, Troponin 79. Dr. Knutson notified of pts condition orders received to give a fluid bolus and to transfer to ICU if bp not better for pressors. Pt continues to go in and out of consciousness and stops breathing each time. Pt bagged several times and he would wake up during bagging and ask what is going on. Bipap placed on pt to help with respiratory rate. Dr Salazar also notified of code stroke called and pt condition. No new orders received. Pt transferred to room 114. Addendum: 02/01/22 at 0139 by DAVID LOCK RN Amended: Links added.
--- NOTE | 2022-02-01 01:47 | NUR ---
At approx. 2300 this nurse checked on pt. Pt was sitting up in his bed, watching tv. When asked, pt stated he was "doing fine". 5-10 minutes later, pt used call button to summon nsg. Pt stated that he could not breathe and had removed his nasal cannula. Nsg then put his nasal cannula back on and took pt's vital signs. Pt suddenly slumped down and became non responsive. Nsg immediately called for assistance from the charge nurse and a code stroke was called. Pt was taken to CT which resulted negative for acute changes. Pt would repeatedly lose conciousness, stop breathing for approximately 10-20 seconds, then gasp for air. Nsg contacted Dr. Knutson. Orders placed for 500mls NS bolus X2 (if 1st not effective), then transfer to ICU if condition does not improve. Dr. Salazar consulted and no further orders given. Pt was placed on bipap. Pt's was contacted and kept updated on pt's status. After 1000mls of NS pt had not improved. BP was 65/45, hr- 115. Pt transferred to ICU, report given. Pt's was contacted and informed of transfer.
[2022-02-01 02:17] LABS: BASE EXCESS ABG -2 mmol/L (-3-3); HCO3 ABG 21 mmol/L (21-28); PCO2 ABG 30 mmHg (35-46); PO2 ABG 127 mmHg (65-108); SAT O2 ABG 98 % (92-99)
[2022-02-01 02:18] LABS: FIO2 ABG 40 (5L NC)
[2022-02-01 02:58] LABS: BASO % 0 % (0-3); EOS % 0 % (0-3); HEMATOCRIT 27.4 % (39.0-53.0); HEMOGLOBIN 8.8 g/dL (13.0-17.5); LYMPH # 0.7 x10^3/uL (1.0-4.8); LYMPH % 5 % (24-48); MEAN CORPUSCULAR HEMOGLOBIN 27 pg (25-35); MEAN CORPUSCULAR HGB CONC 32 g/dL (31-37); MEAN CORPUSCULAR VOLUME 84 fL (79-100); MONO # 0.9 x10^3/uL (0.0-1.1); MONO % 7 % (0-9); NEUT # 11.9 x10^3/uL (1.8-7.7); NEUT % 88 % (31-73); PLATELET COUNT 286 x10^3/uL (140-400); RED BLOOD COUNT 3.28 x10^6/uL (4.30-5.70); RED CELL DISTRIBUTION WIDTH 16.2 % (11.5-14.5); WHITE BLOOD COUNT 13.6 x10^3/uL (4.0-11.0)
[2022-02-01 03:09] LABS: CALCIUM 8.4 mg/dL (8.5-10.1); CREATININE 1.8 mg/dL (0.7-1.3); GFR 36.8; MAGNESIUM 2.2 mg/dL (1.8-2.4); POTASSIUM 4.3 mmol/L (3.5-5.1)
[2022-02-01] MEDS ORDERED: HEPARIN 25,000UTS/250ML PREMIX 250 ML IV PRN (04:15)
[2022-02-01] MEDS ORDERED: HEPARIN for IV BOLUS 10,000 UNIT/10 ML VIAL. IV PRN ×2 (04:15→04:30)
[2022-02-01] MEDS: HEPARIN 25,000UTS/250ML PREMIX 250 ML IV PRN (04:43)
[2022-02-01] MEDS: MORPHINE SULFATE 2 MG/ML INJ. IVP PRN (04:50)
--- NOTE | 2022-02-01 05:22 | EKG ---
[facility] [address] [place] [address] Test Date: 2022-02-01 Test Time: 05:22:02 Pat Name: AMY BLANCAS Department: Room: 114 1 Gender: M Line Repairer: YANIV : 1945 Requested By: HENOK DE LA CRUZ Order Number: [id number] Reading MD: Melquiades Bertrand MD Measurements Intervals [place] Rate: 110 P: 41 SC: 164 QRS: -28 QRSD: 98 T: 75 QT: 340 QTc: 466 Interpretive Statements SINUS TACHYCARDIA PAC INFERIOR INFARCT, OLD Electronically Signed On 02-01-2022 12:03:09 CDT by Melquiades Bertrand MD
--- NOTE | 2022-02-01 07:15 | NUR ---
Pt brought to ICU at 0007 from 6S. Pt was brought up on 6L NC, going in and out of apnea several times and gasping for air when breathing resumed after sternal rubs. Pt was put on bipap and Levo was started, pt did not lose consciousness once levo was started. Pt alert to self at time of admission but within the hour pt became more alert and responsive . Pt sats maintained >95% and pt was put on 3L with Etco2 monitor for apnea. Troponin of [address] Knutson who ordered a repeat EKG and heparin gtt.
--- NOTE | 2022-02-01 07:25 | PDOC ---
PULMONARY PROGRESS NOTES DATE: 02/01/22 TIME: 07:20 Subjective Status post bilateral thoracentesis at 01/31/2022 Patient became lethargic and less responsive and was having apneic episodes last night. Code stroke was called. CT head reportedly negative. Patient also became hypotensive. Currently on low-dose Levophed. Responds to commands. Vitals Vital Signs Date Time Temp Pulse Resp B/P (MAP) Pulse Ox O2 Delivery O2 Flow Rate FiO2 02/01/22 06:00 109 21 66/52 (57) 100 Nasal Cannula 3.0 02/01/22 04:00 97.7 97.7 General: No acute distress, Lethargic Lungs: Other (Decreased at the bases.) Cardiovascular: S1, S2 Abdomen: Soft, Non-tender Extremities: No Edema Skin: Warm Labs Laboratory Tests Test 01/30/22 13:06 01/31/22 04:15 01/31/22 22:27 01/31/22 23:15 Influenza Type A Antigen Negative (NEGATIVE) Influenza Type B Antigen Negative (NEGATIVE) SARS-CoV-2 Antigen (Rapid) Negative (NEGATIVE) White Blood Count 10.7 x10^3/uL (4.0-11.0) Red Blood Count 3.14 x10^6/uL (4.30-5.70) Hemoglobin 8.5 g/dL (13.0-17.5) Hematocrit 26.1 % (39.0-53.0) Mean Corpuscular Volume 83 fL (79-100) Mean Corpuscular Hemoglobin 27 pg (25-35) Mean Corpuscular Hemoglobin Concent 33 g/dL (31-37) Red Cell Distribution Width 15.9 % (11.5-14.5) Platelet Count 235 x10^3/uL (140-400) Neutrophils (%) (Auto) 75 % (31-73) Lymphocytes (%) (Auto) 12 % (24-48) Monocytes (%) (Auto) 12 % (0-9) Eosinophils (%) (Auto) 1 % (0-3) Basophils (%) (Auto) 1 % (0-3) Neutrophils # (Auto) 8.0 x10^3/uL (1.8-7.7) Lymphocytes # (Auto) 1.3 x10^3/uL (1.0-4.8) Monocytes # (Auto) 1.3 x10^3/uL (0.0-1.1) Eosinophils # (Auto) 0.1 x10^3/uL (0.0-0.7) Basophils # (Auto) 0.1 x10^3/uL (0.0-0.2) Sodium Level 139 mmol/L (136-145) 135 mmol/L (136-145) Potassium Level 3.9 mmol/L (3.5-5.1) 3.7 mmol/L (3.5-5.1) Chloride Level 102 mmol/L (98-107) 100 mmol/L (98-107) Carbon Dioxide Level 29 mmol/L (21-32) 27 mmol/L (21-32) Anion Gap 8 (6-14) 8 (6-14) Blood Urea Nitrogen 29 mg/dL (8-26) 36 mg/dL (8-26) Creatinine 1.5 mg/dL (0.7-1.3) 1.7 mg/dL (0.7-1.3) Estimated GFR (Cockcroft-Gault) 45.4 39.3 Glucose Level 120 mg/dL (70-99) 190 mg/dL (70-99) Calcium Level 8.8 mg/dL (8.5-10.1) 8.8 mg/dL (8.5-10.1) Phosphorus Level 3.7 mg/dL (2.6-4.7) Magnesium Level 2.1 mg/dL (1.8-2.4) Glucose (Fingerstick) 161 mg/dL (70-99) Lactic Acid Level 2.8 mmol/L (0.4-2.0) Troponin I High Sensitivity 79 ng/L (4-75) Test 02/01/22 02:10 02/01/22 02:45 O2 Saturation 98 % (92-99) Arterial Blood pH 7.47 (7.35-7.45) Arterial Blood pCO2 at Patient Temp 30 mmHg (35-46) Arterial Blood pO2 at Patient Temp 127 mmHg (65-108) Arterial Blood HCO3 21 mmol/L (21-28) Arterial Blood Base Excess -2 mmol/L (-3-3) FiO2 40 (5l nc) White Blood Count 13.6 x10^3/uL (4.0-11.0) Red Blood Count 3.28 x10^6/uL (4.30-5.70) Hemoglobin 8.8 g/dL (13.0-17.5) Hematocrit 27.4 % (39.0-53.0) Mean Corpuscular Volume 84 fL (79-100) Mean Corpuscular Hemoglobin 27 pg (25-35) Mean Corpuscular Hemoglobin Concent 32 g/dL (31-37) Red Cell Distribution Width 16.2 % (11.5-14.5) Platelet Count 286 x10^3/uL (140-400) Neutrophils (%) (Auto) 88 % (31-73) Lymphocytes (%) (Auto) 5 % (24-48) Monocytes (%) (Auto) 7 % (0-9) Eosinophils (%) (Auto) 0 % (0-3) Basophils (%) (Auto) 0 % (0-3) Neutrophils # (Auto) 11.9 x10^3/uL (1.8-7.7) Lymphocytes # (Auto) 0.7 x10^3/uL (1.0-4.8) Monocytes # (Auto) 0.9 x10^3/uL (0.0-1.1) Eosinophils # (Auto) 0.0 x10^3/uL (0.0-0.7) Basophils # (Auto) 0.0 x10^3/uL (0.0-0.2) Sodium Level 136 mmol/L (136-145) Potassium Level 4.3 mmol/L (3.5-5.1) Chloride Level 101 mmol/L (98-107) Carbon Dioxide Level 23 mmol/L (21-32) Anion Gap 12 (6-14) Blood Urea Nitrogen 39 mg/dL (8-26) Creatinine 1.8 mg/dL (0.7-1.3) Estimated GFR (Cockcroft-Gault) 36.8 Glucose Level 181 mg/dL (70-99) Lactic Acid Level 2.1 mmol/L (0.4-2.0) Calcium Level 8.4 mg/dL (8.5-10.1) Magnesium Level 2.2 mg/dL (1.8-2.4) Troponin I High Sensitivity 616 ng/L (4-75) Laboratory Tests Test 01/31/22 22:27 01/31/22 23:15 4/15/22 02:10 02/01/22 02:45 Glucose (Fingerstick) 161 mg/dL (70-99) Sodium Level 135 mmol/L (136-145) 136 mmol/L (136-145) Potassium Level 3.7 mmol/L (3.5-5.1) 4.3 mmol/L (3.5-5.1) Chloride Level 100 mmol/L (98-107) 101 mmol/L (98-107) Carbon Dioxide Level 27 mmol/L (21-32) 23 mmol/L (21-32) Anion Gap 8 (6-14) 12 (6-14) Blood Urea Nitrogen 36 mg/dL (8-26) 39 mg/dL (8-26) Creatinine 1.7 mg/dL (0.7-1.3) 1.8 mg/dL (0.7-1.3) Estimated GFR (Cockcroft-Gault) 39.3 36.8 Glucose Level 190 mg/dL (70-99) 181 mg/dL (70-99) Lactic Acid Level 2.8 mmol/L (0.4-2.0) 2.1 mmol/L (0.4-2.0) Calcium Level 8.8 mg/dL (8.5-10.1) 8.4 mg/dL (8.5-10.1) Troponin I High Sensitivity 79 ng/L (4-75) 616 ng/L (4-75) O2 Saturation 98 % (92-99) Arterial Blood pH 7.47 (7.35-7.45) Arterial Blood pCO2 at Patient Temp 30 mmHg (35-46) Arterial Blood pO2 at Patient Temp 127 mmHg (65-108) Arterial Blood HCO3 21 mmol/L (21-28) Arterial Blood Base Excess -2 mmol/L (-3-3) FiO2 40 (5l nc) White Blood Count 13.6 x10^3/uL (4.0-11.0) Red Blood Count 3.28 x10^6/uL (4.30-5.70) Hemoglobin 8.8 g/dL (13.0-17.5) Hematocrit 27.4 % (39.0-53.0) Mean Corpuscular Volume 84 fL (79-100) Mean Corpuscular Hemoglobin 27 pg (25-35) Mean Corpuscular Hemoglobin Concent 32 g/dL (31-37) Red Cell Distribution Width 16.2 % (11.5-14.5) Platelet Count 286 x10^3/uL (140-400) Neutrophils (%) (Auto) 88 % (31-73) Lymphocytes (%) (Auto) 5 % (24-48) Monocytes (%) (Auto) 7 % (0-9) Eosinophils (%) (Auto) 0 % (0-3) Basophils (%) (Auto) 0 % (0-3) Neutrophils # (Auto) 11.9 x10^3/uL (1.8-7.7) Lymphocytes # (Auto) 0.7 x10^3/uL (1.0-4.8) Monocytes # (Auto) 0.9 x10^3/uL (0.0-1.1) Eosinophils # (Auto) 0.0 x10^3/uL (0.0-0.7) Basophils # (Auto) 0.0 x10^3/uL (0.0-0.2) Magnesium Level 2.2 mg/dL (1.8-2.4) Medications Active Scripts Medications Dose Route/Sig Max Daily Dose Days Date Category Flomax (Tamsulosin Hcl) 0.4 Mg Cap.er.24h 1 Cap PO BID 01/30/22 Reported Furosemide 40 Mg Tablet 1 Tab PO DAILY 30 11/26/21 Rx Metoprolol Succinate ( Xl ) (Metoprolol Succinate) 25 Mg Tab.er.24h 25 Mg PO DAILY 30 11/26/21 Rx Eliquis (Apixaban) 5 Mg Tablet 5 Mg PO BID 30 11/26/21 Rx Refresh Lacri-Lube Ointment (Mineral Oil/Petrolatum,White) 3.5 Gm Oint...g. 3.5 Gm OU DAILY 11/23/21 Reported Atorvastatin Calcium 20 Mg Tablet 2 Tab PO HS 11/23/21 Reported Omeprazole 20 Mg Capsule.dr 1 Cap PO DAILY 11/23/21 Reported Lubricating Plus (Carboxymethylcellulose Sodium) 1 Each Droperette 1 OU DAILY 11/23/21 Reported Fluticasone Propionate Nasal [place] (Fluticasone Propionate) 16 Gm [place].susp 1 Sprays NS BID 11/23/21 Reported Proair Hfa Inhaler (Albuterol Sulfate) 8.5 Gm Hfa.aer.ad 1 Puff INH PRN Q6HRS PRN 05/13/18 Reported Aspirin 325 Mg Tablet 1 Tab PO DAILY 05/22/15 Reported Comments Chest x-ray reviewed 02/01/2022. Diffuse bilateral interstitial infiltrates Impression . 1. Acute hypoxic respiratory failure secondary to acute on chronic systolic heart failure with bilateral pleural effusions. 2. Low-grade fever. Influenza and Covid negative. Likely secondary to pneumonia. Currently on Rocephin. Would benefit from broadening the antibiotic. 3. Abnormal CT chest with bilateral pleural effusion, which has been persistent and moderate. Status post bilateral thoracentesis 01/31/2022 4. 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 5. Hypertension. Status post 1 L of IV fluid. With chest x-ray worsening, would avoid further IV fluids. 6. Encephalopathy, likely contributed by hypotension. CT head negative. Patient also received 1 dose of IV morphine which may have contributed as well. Plan . RECOMMENDATIONS: 1. Status post thoracentesis. Follow pleural fluid analysis. Restarted on Eliquis. 2. Continue present oxygen. As needed BiPAP. 3. Ruled out for influenza and COVID. Pneumonia is likely possibility for the source of fever. Started on Rocephin. Will broaden the antibiotic and changed to Zosyn. 4. Avoid any benzos and narcotics. 5. Hold off diuresis. Obtain proBNP. Obtain pro calcitonin as well 6. Cardiology recommendations. 7. Discussed with resident care manager rn time 30 minutes YUNI ROBERTSON MD Feb 01, 2022 07:25
[2022-02-01] MEDS ORDERED: PIP/TAZO PER PHARMACY MC PRN (07:30)
--- NOTE | 2022-02-01 07:36 | EKG ---
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
[2022-02-01] MEDS: PIPERACILLIN/TAZOBACTAM 3.375 GM in IV NORMAL SALINE 50ML 50 ML IV SCH ×4 (07:58→23:24)
[2022-02-01] MEDS: TAMSULOSIN 0.4 MG CAP.ER.24H. PO SCH ×2 (09:00→21:19)
[2022-02-01] MEDS: DICLOFENAC SODIUM 1% TOPICAL GEL 100GM TUBE. TP SCH ×2 (09:00→21:20)
[2022-02-01] MEDS: LACTOBACILLUS RHAMNOSUS GG 1 CAPSULE. PO SCH ×2 (09:00→21:19)
[2022-02-01] MEDS: FLUTICASONE 50MCG/NASAL SPRAY 16GM BOTTLE. NS SCH ×2 (09:00→21:20)
[2022-02-01] MEDS: FUROSEMIDE 40 MG TABLET. PO SCH (09:00)
[2022-02-01] MEDS: METOPROLOL SUCC 24HR ER 25 MG TAB.ER.24H. PO SCH (09:00)
--- NOTE | 2022-02-01 10:18 | PDOC2 ---
NEUROLOGY CONSULT Date of Service DOS: DATE: 02/01/22 TIME: 10:09 Reason for Consult Reason for Consult: Possible seizure/stroke symptoms Referring Physician Referring Physician: Dr. Knutson Source Source: Chart review, Patient History of Present Illness History of Present Illness The patient is a 76-year-old right-handed male admitted 01/29 for heart failure and pleural effusion. He had thoracentesis yesterday. Last night he became lethargic and kept having apneic episodes. He also had hypotension. The nurse called me. Patient had had a normal head CT. He was not having any convulsive activity. On the other hand, his troponin was markedly elevated. Patient has a history of sleep apnea and a history of posttraumatic stress disorder causing severe nightmares. I saw him in [address] Burkett saw him in 2018 for syncopal episodes. At that time she worked him up with brain MRI, 05/13/18 and EEG, 05/28/18, both negative. Cervical MRI showed degenerative changes. He feels back to himself this morning. Past Medical History Cardiovascular: AFIB, CAD, CHF, HTN, Hyperlipidemia Pulmonary: Other (Sleep apnea) Psych: Anxiety, Other (Post traumatic stress disorder) Musculoskeletal: low back pain ENT: Other (Tinnitus) Renal/: Benign prostatic enlarg. Endocrine: Diabetes Past Surgical History Past Surgical History: Cataract Removal, Hernia Repair ([facility]), Other (Coronary angioplasty, wrist) Family History Family History: CAD Social History Social History , ex-smoker, no alcohol Current Medications Current Medications Current Medications Aspirin (Aspirin Chewable) 324 mg 1X ONCE PO Last administered on 01/29/22at 18:30; Start 01/29/22 at 18:15; Stop 01/29/22 at 18:16; Status DC Albuterol/ Ipratropium (Duoneb) 3 ml 1X ONCE NEB Last administered on 01/29/22at 20:08; Start 01/29/22 at 19:45; Stop 01/29/22 at 19:46; Status DC Iohexol (Omnipaque 350 Mg/ml) 75 ml 1X ONCE IV Last administered on 01/29/22at 19:45; Start 01/29/22 at 19:45; Stop 01/29/22 at 19:46; Status DC Acetaminophen (Tylenol) 650 mg PRN Q6HRS PRN PO MILD PAIN / TEMP > 100.3'F; Start 01/29/22 at 21:15 Ondansetron HCl (Zofran) 4 mg PRN Q4HRS PRN IVP NAUSEA/VOMITING 1st choice; Start 01/29/22 at 21:15 Guaifenesin (Robitussin Dm) 10 ml PRN Q6HRS PRN PO COUGH; Start 01/29/22 at 21:15 Furosemide (Lasix) 40 mg 1X ONCE IVP Last administered on 01/29/22at 21:30; Start 01/29/22 at 21:30; Stop 01/29/22 at 21:31; Status DC Morphine Sulfate (Morphine Sulfate) 2 mg PRN Q6HRS PRN IVP SEVERE PAIN 7-10 Last administered on 02/01/22at 04:50; Start 01/30/22 at 00:00 Sennosides (Senna) 17.2 mg PRN BID PRN PO CONSTIPATION; Start 01/30/22 at 09:00 Docusate Sodium (Colace) 100 mg PRN DAILY PRN PO HARD STOOLS; Start 01/30/22 at 09:00 Ondansetron HCl (Zofran) 4 mg PRN Q6HRS PRN IVP NAUSEA/VOMITING, 1st CHOICE; Start 01/30/22 at 09:00 Dextrose (Dextrose 50%-Water Syringe) 12.5 gm PRN Q15MIN PRN IV SEE COMMENTS; Start 01/30/22 at 09:00 Acetaminophen (Tylenol) 650 mg PRN Q4HRS PRN PO TEMP OVER 100.4F OR MILD PAIN; Start 01/30/22 at 09:00 Lorazepam (Ativan) 0.5 mg PRN Q6HRS PRN PO ANXIETY / AGITATION; Start 01/30/22 at 09:00 Lorazepam (Ativan Inj) 0.25 mg PRN Q4HRS PRN IV ANXIETY / AGITATION; Start 01/30/22 at 09:00 Enoxaparin Sodium (Lovenox 40mg Syringe) 40 mg Q24H SQ ; Start 01/30/22 at 09:00; Stop 01/30/22 at 11:01; Status DC Prochlorperazine Edisylate (Compazine) 10 mg PRN Q6HRS PRN IV NAUSEA/VOMITING, 2nd CHOICE; Start 01/30/22 at 09:00 Diphenhydramine HCl (Benadryl) 25 mg PRN Q6HRS PRN IVP ITCHING; Start 01/30/22 at 09:00 Diphenhydramine HCl (Benadryl) 25 mg PRN Q6HRS PRN PO ITCHING; Start 01/30/22 at 09:00 Diphenhydramine HCl (Benadryl) 25 mg PRN QHS PRN PO INSOMNIA, 1st CHOICE; Sta rt 01/30/22 at 09:00 Zolpidem Tartrate (Ambien) 2.5 mg PRN QHS PRN PO INSOMNIA, 2nd CHOICE; Start 01/30/22 at 09:00 Atorvastatin Calcium (Lipitor) 40 mg HS PO Last administered on 01/31/22at 20:15; Start 01/30/22 at 21:00 Metoprolol Succinate (Toprol Xl) 25 mg DAILY PO Last administered on 01/31/22at 08:23; Start 01/30/22 at 10:30 Diclofenac Sodium (Voltaren) 1 karey BID TP Last administered on 01/31/22at 20:21; Start 01/30/22 at 11:00 Furosemide (Lasix) 40 mg 1X ONCE IVP Last administered on 01/30/22at 11:33; Start 01/30/22 at 11:30; Stop 01/30/22 at 11:31; Status DC Potassium Chloride (Klor-Con) 20 meq 1X ONCE PO Last administered on 01/30/22at 11:33; Start 01/30/22 at 11:30; Stop 01/30/22 at 11:31; Status DC Fluticasone Propionate (Flonase) 1 spray BID NS Last administered on 01/31/22at 20:16; Start 01/30/22 at 21:00 Tamsulosin HCl (Flomax) 0.4 mg BID PO Last administered on 01/31/22at 20:15; Start 01/30/22 at 21:00 Ceftriaxone Sodium (Rocephin) 1 gm Q24H IVP Last administered on 01/31/22at 12:44; Start 01/31/22 at 13:00; Stop 02/01/22 at 07:17; Status DC Apixaban (Eliquis) 5 mg BID PO ; Start 01/31/22 at 21:00 Furosemide (Lasix) 40 mg DAILY PO Last administered on 01/31/22at 16:25; Start 01/31/22 at 14:00 Info (Anti-Coagulation Monitoring By Pharmacy) 1 each PRN DAILY PRN MC PER PROTOCOL; Start 01/31/22 at 14:15 Lactobacillus Rhamnosus (Culturelle) 1 cap BID PO Last administered on 01/31/22at 20:15; Start 01/31/22 at 21:00 Norepinephrine Bitartrate 8 mg/ Dextrose 258 ml @ 11.262 mls/ hr CONT PRN IV PER PROTOCOL Last administered on 02/01/22at 00:30; Start 02/01/22 at 00:00 Heparin Sodium/ Dextrose 250 ml @ 6.984 mls/ hr CONT PRN IV PER PROTOCOL; Start 02/01/22 at 04:15; Stop 02/01/22 at 04:28; Status DC Heparin Sodium (Porcine) (Heparin Sodium) 1,450 unit PRN Q6HRS PRN IV FOR UFH LEVEL LESS THAN 0.2; Start 02/01/22 at 04:15; Stop 02/01/22 at 04:28; Status DC Heparin Sodium/ Dextrose 250 ml @ 6.984 mls/ hr CONT PRN IV PER PROTOCOL Last administered on 02/01/22at 04:43; Start 02/01/22 at 04:30 Heparin Sodium (Porcine) (Heparin Sodium) 1,450 unit PRN Q6HRS PRN IV FOR PTT < 40; Start 02/01/22 at 04:30 Piperacillin Sod/ Tazobactam Sod (Zosyn Per Pharmacy) 1 each PRN DAILY PRN MC SEE COMMENTS; Start 02/01/22 at 07:30 Piperacillin Sod/ Tazobactam Sod 3.375 gm/Sodium Chloride 50 ml @ 100 mls/hr Q6HRS IV Last administered on 02/01/22at 07:58; Start 02/01/22 at 07:30 Active Scripts Active Furosemide 40 Mg Tablet 1 Tab PO DAILY 30 Days Metoprolol Succinate ( Xl ) (Metoprolol Succinate) 25 Mg Tab.er.24h 25 Mg PO DAILY 30 Days Eliquis (Apixaban) 5 Mg Tablet 5 Mg PO BID 30 Days Reported Flomax (Tamsulosin Hcl) 0.4 Mg Cap.er.24h 1 Cap PO BID Refresh Lacri-Lube Ointment (Mineral Oil/Petrolatum,White) 3.5 Gm Oint...g. 3.5 Gm OU DAILY Atorvastatin Calcium 20 Mg Tablet 2 Tab PO HS Omeprazole 20 Mg Capsule.dr 1 Cap PO DAILY Lubricating Plus (Carboxymethylcellulose Sodium) 1 Each Droperette 1 OU DAILY Fluticasone Propionate Nasal [place] (Fluticasone Propionate) 16 Gm [place].susp 1 Sprays NS BID Proair Hfa Inhaler (Albuterol Sulfate) 8.5 Gm Hfa.aer.ad 1 Puff INH PRN Q6HRS PRN Aspirin 325 Mg Tablet 1 Tab PO DAILY Allergies Allergies: Coded Allergies: ether (Verified Adverse Reaction, Severe, "N/V", 11/23/21) ROS Review of System Negative for fever, chills, weight loss, chest pain, indigestion, hematochezia, melena. Positive for dyspnea and dysuria. Full 14-point review of systems is negative. Physical Exam Physical Examination General: Well-developed, well-nourished white male in no acute distress HEENT: Normocephalic andatraumatic. Temporal arteriespulsatile and nontender. Neck: Supple without bruit, no meningismus Musculoskeletal: Stability:see neurologic. Gait exam:see neurologic. Tone:see neurologic.Strength:see neurologic. Neurological: Mental Status:intact, orientation, memory, attention span/concentration, language, fund of knowledge normal. Cranial Nerves:Pupils equal and reactive to light, extraocular movements areintact, visual glynn are full to confrontation. Facial sensation is normal. There is no facial asymmetry. Vestibulo-ocular reflex is intact. Palate elevates and tongue protrudes in mi dline. All other cranial related problems are negative except as mentioned before.Reflexes:2+ and symmetric with flexor plantar responses. Motor:5/5 strength with normal tone and bulk. Coordination:Finger-nose finger is normal. Rapid alternating movements and fine finger movements are intact. Gait:not tested. Sensory:Normal pinprick, vibration, light touch, proprioception. Vitals VITALS Vital Signs Date Time Temp Pulse Resp B/P (MAP) Pulse Ox O2 Delivery O2 Flow Rate FiO2 02/01/22 08:34 100 Nasal Cannula 2.0 02/01/22 06:00 109 21 66/52 (57) 02/01/22 04:00 97.7 97.7 Labs Labs Laboratory Tests Test 01/30/22 13:06 01/31/22 04:15 01/31/22 22:27 01/31/22 23:15 Influenza Type A Antigen Negative (NEGATIVE) Influenza Type B Antigen Negative (NEGATIVE) SARS-CoV-2 Antigen (Rapid) Negative (NEGATIVE) White Blood Count 10.7 x10^3/uL (4.0-11.0) Red Blood Count 3.14 x10^6/uL (4.30-5.70) Hemoglobin 8.5 g/dL (13.0-17.5) Hematocrit 26.1 % (39.0-53.0) Mean Corpuscular Volume 83 fL (79-100) Mean Corpuscular Hemoglobin 27 pg (25-35) Mean Corpuscular Hemoglobin Concent 33 g/dL (31-37) Red Cell Distribution Width 15.9 % (11.5-14.5) Platelet Count 235 x10^3/uL (140-400) Neutrophils (%) (Auto) 75 % (31-73) Lymphocytes (%) (Auto) 12 % (24-48) Monocytes (%) (Auto) 12 % (0-9) Eosinophils (%) (Auto) 1 % (0-3) Basophils (%) (Auto) 1 % (0-3) Neutrophils # (Auto) 8.0 x10^3/uL (1.8-7.7) Lymphocytes # (Auto) 1.3 x10^3/uL (1.0-4.8) Monocytes # (Auto) 1.3 x10^3/uL (0.0-1.1) Eosinophils # (Auto) 0.1 x10^3/uL (0.0-0.7) Basophils # (Auto) 0.1 x10^3/uL (0.0-0.2) Sodium Level 139 mmol/L (136-145) 135 mmol/L (136-145) Potassium Level 3.9 mmol/L (3.5-5.1) 3.7 mmol/L (3.5-5.1) Chloride Level 102 mmol/L (98-107) 100 mmol/L (98-107) Carbon Dioxide Level 29 mmol/L (21-32) 27 mmol/L (21-32) Anion Gap 8 (6-14) 8 (6-14) Blood Urea Nitrogen 29 mg/dL (8-26) 36 mg/dL (8-26) Creatinine 1.5 mg/dL (0.7-1.3) 1.7 mg/dL (0.7-1.3) Estimated GFR (Cockcroft-Gault) 45.4 39.3 Glucose Level 120 mg/dL (70-99) 190 mg/dL (70-99) Calcium Level 8.8 mg/dL (8.5-10.1) 8.8 mg/dL (8.5-10.1) Phosphorus Level 3.7 mg/dL (2.6-4.7) Magnesium Level 2.1 mg/dL (1.8-2.4) Glucose (Fingerstick) 161 mg/dL (70-99) Lactic Acid Level 2.8 mmol/L (0.4-2.0) Troponin I High Sensitivity 79 ng/L (4-75) Test 02/01/22 02:10 02/01/22 02:45 O2 Saturation 98 % (92-99) Arterial Blood pH 7.47 (7.35-7.45) Arterial Blood pCO2 at Patient Temp 30 mmHg (35-46) Arterial Blood pO2 at Patient Temp 127 mmHg (65-108) Arterial Blood HCO3 21 mmol/L (21-28) Arterial Blood Base Excess -2 mmol/L (-3-3) FiO2 40 (5l nc) White Blood Count 13.6 x10^3/uL (4.0-11.0) Red Blood Count 3.28 x10^6/uL (4.30-5.70) Hemoglobin 8.8 g/dL (13.0-17.5) Hematocrit 27.4 % (39.0-53.0) Mean Corpuscular Volume 84 fL (79-100) Mean Corpuscular Hemoglobin 27 pg (25-35) Mean Corpuscular Hemoglobin Concent 32 g/dL (31-37) Red Cell Distribution Width 16.2 % (11.5-14.5) Platelet Count 286 x10^3/uL (140-400) Neutrophils (%) (Auto) 88 % (31-73) Lymphocytes (%) (Auto) 5 % (24-48) Monocytes (%) (Auto) 7 % (0-9) Eosinophils (%) (Auto) 0 % (0-3) Basophils (%) (Auto) 0 % (0-3) Neutrophils # (Auto) 11.9 x10^3/uL (1.8-7.7) Lymphocytes # (Auto) 0.7 x10^3/uL (1.0-4.8) Monocytes # (Auto) 0.9 x10^3/uL (0.0-1.1) Eosinophils # (Auto) 0.0 x10^3/uL (0.0-0.7) Basophils # (Auto) 0.0 x10^3/uL (0.0-0.2) Sodium Level 136 mmol/L (136-145) Potassium Level 4.3 mmol/L (3.5-5.1) Chloride Level 101 mmol/L (98-107) Carbon Dioxide Level 23 mmol/L (21-32) Anion Gap 12 (6-14) Blood Urea Nitrogen 39 mg/dL (8-26) Creatinine 1.8 mg/dL (0.7-1.3) Estimated GFR (Cockcroft-Gault) 36.8 Glucose Level 181 mg/dL (70-99) Lactic Acid Level 2.1 mmol/L (0.4-2.0) Calcium Level 8.4 mg/dL (8.5-10.1) Magnesium Level 2.2 mg/dL (1.8-2.4) Troponin I High Sensitivity 616 ng/L (4-75) Laboratory Tests Test 01/31/22 22:27 01/31/22 23:15 02/01/22 02:10 02/01/22 02:45 Glucose (Fingerstick) 161 mg/dL (70-99) Sodium Level 135 mmol/L (136-145) 136 mmol/L (136-145) Potassium Level 3.7 mmol/L (3.5-5.1) 4.3 mmol/L (3.5-5.1) Chloride Level 100 mmol/L (98-107) 101 mmol/L (98-107) Carbon Dioxide Level 27 mmol/L (21-32) 23 mmol/L (21-32) Anion Gap 8 (6-14) 12 (6-14) Blood Urea Nitrogen 36 mg/dL (8-26) 39 mg/dL (8-26) Creatinine 1.7 mg/dL (0.7-1.3) 1.8 mg/dL (0.7-1.3) Estimated GFR (Cockcroft-Gault) 39.3 36.8 Glucose Level 190 mg/dL (70-99) 181 mg/dL (70-99) Lactic Acid Level 2.8 mmol/L (0.4-2.0) 2.1 mmol/L (0.4-2.0) Calcium Level 8.8 mg/dL (8.5-10.1) 8.4 mg/dL (8.5-10.1) Troponin I High Sensitivity 79 ng/L (4-75) 616 ng/L (4-75) O2 Saturation 98 % (92-99) Arterial Blood pH 7.47 (7.35-7.45) Arterial Blood pCO2 at Patient Temp 30 mmHg (35-46) Arterial Blood pO2 at Patient Temp 127 mmHg (65-108) Arterial Blood HCO3 21 mmol/L (21-28) Arterial Blood Base Excess -2 mmol/L (-3-3) FiO2 40 (5l nc) White Blood Count 13.6 x10^3/uL (4.0-11.0) Red Blood Count 3.28 x10^6/uL (4.30-5.70) Hemoglobin 8.8 g/dL (13.0-17.5) Hematocrit 27.4 % (39.0-53.0) Mean Corpuscular Volume 84 fL (79-100) Mean Corpuscular Hemoglobin 27 pg (25-35) Mean Corpuscular Hemoglobin Concent 32 g/dL (31-37) Red Cell Distribution Width 16.2 % (11.5-14.5) Platelet Count 286 x10^3/uL (140-400) Neutrophils (%) (Auto) 88 % (31-73) Lymphocytes (%) (Auto) 5 % (24-48) Monocytes (%) (Auto) 7 % (0-9) Eosinophils (%) (Auto) 0 % (0-3) Basophils (%) (Auto) 0 % (0-3) Neutrophils # (Auto) 11.9 x10^3/uL (1.8-7.7) Lymphocytes # (Auto) 0.7 x10^3/uL (1.0-4.8) Monocytes # (Auto) 0.9 x10^3/uL (0.0-1.1) Eosinophils # (Auto) 0.0 x10^3/uL (0.0-0.7) Basophils # (Auto) 0.0 x10^3/uL (0.0-0.2) Magnesium Level 2.2 mg/dL (1.8-2.4) Images Images CT HEAD WITHOUT CONTRAST, 01/31 History: Reason: code stroke;UNRESPONSIVE Comparison: CT head without contrast, December 01, 2019. Technique: Axial images are obtained of the head from the skull base through the vertex without IV contrast. Findings: No mass-effect, midline shift, extra-axial fluid collection, hemorrhage, or obvious acute infarction is identified. Basilar cisterns are patent. The ventricles and sulci are prominent, consistent with generalized cerebral atrophy. There is periventricular white matter hypoattenuation. This is a nonspecific finding but is commonly due to chronic small vessel ischemic dis ease. Bone windows demonstrate no acute calvarial abnormality. The visualized paranasal sinuses are clear. Mastoid air cells are well aerated. IMPRESSION: 1. No acute intracranial abnormality. 2. Generalized cerebral atrophy and periventricular white matter changes probably due to chronic small vessel ischemic disease. Assessment/Plan Assessment/Plan Impression: Based on the nurse's description, the patient was most likely having Bernard- Barraza respiration from his heart failure and hypotension. Add to this his history of sleep apnea. Also interesting is his history of nightmares and sleep issues, he says that he has had trouble like this before when he is falling asleep. I do not see any evidence that he has had a stroke, transient ischemic attack, or seizure. He has been fully worked up for this in the past. Recommendations: No additional neurological studies needed Treatment of medical issues. Thank you for letting me help with the patient's care. SHYANN JOHNSON MD Feb 01, 2022 10:18
--- NOTE | 2022-02-01 12:07 | PDOC ---
CARDIOLOGY PROGRESS NOTE SUBJECTIVE: Overnight had resp problems. Concern for stroke, negative CT head, evaluated by neuro Today denies any dyspnea but requiring significant pressors. Trop increased to 14 OBJECTIVE: Vital Signs/I&O: Vital Signs Date Time Temp Pulse Resp B/P (MAP) Pulse Ox O2 Delivery O2 Flow Rate FiO2 02/01/22 08:34 100 Nasal Cannula 2.0 02/01/22 06:00 109 21 66/52 (57) 02/01/22 04:00 97.7 97.7 I & O 01/31/22 01/31/22 02/01/22 14:59 22:59 06:59 Intake Total 180 ml 100 ml 73.17 ml Output Total 1600 ml Balance -1420 ml 100 ml 73.17 ml Objective: a/o x 3. NAD No edema. RRR, no m/r/g. 2+ radial pulses. Non-focal neuro exam. CURRENT MEDICATIONS: Eliquis held Hep gtt Lasix IV Levophed gtt Atorvastatin Toprol - Held DIAGNOSTIC TESTING: EKG demonstrates SR with LBBB, prior inferior infarct Tele with frequent PVC's and NSVT Lab reviewed, Cr 1.8, Hgb stable Labs: Laboratory Tests 02/01/22 02:45 Laboratory Tests Test 01/31/22 22:27 01/31/22 23:15 02/01/22 02:10 02/01/22 02:45 Glucose (Fingerstick) 161 mg/dL (70-99) H Sodium Level 135 mmol/L (136-145) L 136 mmol/L (136-145) Potassium Level 3.7 mmol/L (3.5-5.1) 4.3 mmol/L (3.5-5.1) Chloride Level 100 mmol/L (98-107) 101 mmol/L (98-107) Carbon Dioxide Level 27 mmol/L (21-32) 23 mmol/L (21-32) Anion Gap 8 (6-14) 12 (6-14) Blood Urea Nitrogen 36 mg/dL (8-26) H 39 mg/dL (8-26) H Creatinine 1.7 mg/dL (0.7-1.3) H 1.8 mg/dL (0.7-1.3) H Estimated GFR (Cockcroft-Gault) 39.3 36.8 Glucose Level 190 mg/dL (70-99) H 181 mg/dL (70-99) H Lactic Acid Level 2.8 mmol/L (0.4-2.0) H 2.1 mmol/L (0.4-2.0) H Calcium Level 8.8 mg/dL (8.5-10.1) 8.4 mg/dL (8.5-10.1) L Troponin I High Sensitivity 79 ng/L (4-75) H 616 ng/L (4-75) H O2 Saturation 98 % (92-99) Arterial Blood pH 7.47 (7.35-7.45) H Arterial Blood pCO2 at Patient Temp 30 mmHg (35-46) L Arterial Blood pO2 at Patient Temp 127 mmHg (65-108) H Arterial Blood HCO3 21 mmol/L (21-28) Arterial Blood Base Excess -2 mmol/L (-3-3) FiO2 40 (5l nc) White Blood Count 13.6 x10^3/uL (4.0-11.0) H Red Blood Count 3.28 x10^6/uL (4.30-5.70) L Hemoglobin 8.8 g/dL (13.0-17.5) L Hematocrit 27.4 % (39.0-53.0) L Mean Corpuscular Volume 84 fL (79-100) Mean Corpuscular Hemoglobin 27 pg (25-35) Mean Corpuscular Hemoglobin Concent 32 g/dL (31-37) Red Cell Distribution Width 16.2 % (11.5-14.5) H Platelet Count 286 x10^3/uL (140-400) Neutrophils (%) (Auto) 88 % (31-73) H Lymphocytes (%) (Auto) 5 % (24-48) L Monocytes (%) (Auto) 7 % (0-9) Eosinophils (%) (Auto) 0 % (0-3) Basophils (%) (Auto) 0 % (0-3) Neutrophils # (Auto) 11.9 x10^3/uL (1.8-7.7) H Lymphocytes # (Auto) 0.7 x10^3/uL (1.0-4.8) L Monocytes # (Auto) 0.9 x10^3/uL (0.0-1.1) Eosinophils # (Auto) 0.0 x10^3/uL (0.0-0.7) Basophils # (Auto) 0.0 x10^3/uL (0.0-0.2) Procalcitonin 0.74 ng/mL (0.00-0.10) H Test 02/01/22 10:59 Activated Partial Thromboplast Time 36 SEC (24-38) Troponin I High Sensitivity 04469 ng/L (4-75) H ASSESSMENT: 1. Ischemic CMP 2. Cardiogenic shock 3. NSTEMI, trop of 14 4. Acute on chronic resp failure PLAN: 1. Continue present therapy 2. Plan for microbiology laboratory manager to evaluate his coronary anatomy and right heart cath given significant troponin elevation. Justicifation of Admission Dx: Justifications for Admission: Justification of Admission Dx: Yes PRIYA MATSON MD Feb 01, 2022 12:07
[2022-02-01] MEDS ORDERED: HEPARIN for ARTERIAL LINE 1,500 ML ONE (12:13)
[2022-02-01] MEDS ORDERED: IODIXANOL 320 MG/ML 100 ML VIAL. ONE (12:13)
[2022-02-01] MEDS ORDERED: LIDOCAINE 1% PF 2 ML VIAL. ONE (12:13)
--- NOTE | 2022-02-01 12:32 | RAD ---
XR CHEST 1V History: Reason: CENTRAL LINE PLACEMENT. WILL CALL WHEN READY / Spl. Instructions: / History: Comparison: February 01, 2022 Findings: Interval placement right IJ central line with tip projecting over the right atrium. Diffuse interstit ial thickening with ill-defined opacities, decreased compared to prior. Small bilateral pleural effus ions, unchanged. No pneumothorax. Impression: 1. Interval placement right IJ central line. No pneumothorax. 2. Diffuse interstitial thickening with ill-defined opacities, decreased compared to prior. Electronically signed by: Champ Izaguirre DO (02/01/2022 12:29 PM) [id number]
[2022-02-01] MEDS ORDERED: HEPARIN for IV BOLUS 10,000 UNIT/10 ML VIAL. ONE (12:40)
[2022-02-01] MEDS ORDERED: NITROGLYCERIN 200 MCG/2 ML SYRINGE FOR CATH/VASC LAB. ONE (12:40)
[2022-02-01] MEDS ORDERED: MIDAZOLAM HCL/PF 2 MG/2 ML VIAL. ONE (12:40)
[2022-02-01] MEDS ORDERED: fentaNYL PF VIAL 100 MCG/2 ML VIAL ONE (12:40)
[2022-02-01] MEDS ORDERED: VERAPAMIL 5 MG/2 ML VIAL. ONE (12:40)
--- NOTE | 2022-02-01 12:49 | RAD ---
Procedure: Placement of right internal jugular triple-lumen central venous catheter with ultrasound meredith amador. Sterility: All elements of maximal sterile barrier technique including the use of a cap, mask, steril e gown, sterile gloves, large sterile sheet, appropriate hand hygiene, and 2% chlorhexidine for cutan eous antisepsis (or acceptable alternative antiseptic per current guidelines) were followed for this procedure. Consent: The procedure was explained in its entirety to the patient or the patients designated repres entative by a member of the treatment team, including a discussion of the risks, benefits and commonl y accepted alternatives to the procedure, as well as the expected consequences of no therapy whatsoev er. Discussion of the risks included, but was not limited to, those that are most frequent and thos e that are rare but possibly severe or life-threatening, as well as the possibility of unforeseen com plications. Technique and Findings: Following informed consent, the patient was prepped and draped in the usual s terile fashion. Ultrasound interrogation of the right neck revealed patency and compressibility of t he right internal jugular vein. A 21-gauge micropuncture was then used to gain access to this vein u nder ultrasound guidance. A hard copy ultrasound image was recorded. A guidewire was advanced centra lly over which, following dilatation a triple-lumen central venous catheter was placed. The new dave ter was found to flush and aspirate normally. The catheter was secured in place. Sterile dressings we re applied. No immediate complications were identified. IMPRESSION: Placement of a a right internal jugular triple-lumen central venous catheter Electronically signed by: Jose Francisco Farmer MD (02/01/2022 12:47 PM) [id number]
[2022-02-01] MEDS ORDERED: LIDOCAINE 1% PF 2 ML VIAL. INJ ONE (13:00)
[2022-02-01] MEDS ORDERED: HEPARIN for IV BOLUS 10,000 UNIT/10 ML VIAL. IART ONE (13:00)
[2022-02-01] MEDS ORDERED: IODIXANOL 320 MG/ML 100 ML VIAL. IART ONE (13:00)
[2022-02-01] MEDS ORDERED: VERAPAMIL 5 MG/2 ML VIAL. IART ONE (13:00)
[2022-02-01] MEDS ORDERED: NITROGLYCERIN 200 MCG/2 ML SYRINGE FOR CATH/VASC LAB. IART ONE (13:00)
[2022-02-01] MEDS ORDERED: CONTRAST GIVEN. MC PRN (13:00)
[2022-02-01] MEDS ORDERED: LIDOCAINE 1% Multi-Dose 20 ML VIAL. ONE (13:06)
[2022-02-01] MEDS ORDERED: LIDOCAINE 1% Multi-Dose 20 ML VIAL. INJ ONE (13:45)
--- NOTE | 2022-02-01 14:16 | PDOC ---
[facility] PROGRESS NOTE Date of Service DOS: DATE: 02/01/22 TIME: 14:14 Chief Complaint Chief Complaint Assessment/Plan Acute hypoxic respiratory failure Bilateral pleural effusions status post thoracentesis 01/31/2022 Acute on chronic CHF exacerbation Costochondritis History of CHF with LVEF of 15 to 20% on echo 11/26/2021 History of CAD History of REENA History of dyslipidemia History of hypertension History of atrial fibrillation on Eliquis Admit to hospitalist service for further management Cardiology consult for CHF management Pulmonology consult for possible thoracentesis Hold anticoagulation for now patient's chart, labs, images were reviewed and discussed with RN Fluid and sodium restriction Lovenox for DVT prophylaxis Protonix GI prophylaxis ADA diet CODE STATUS full Discussed with RN and SW Disposition inpatient management as above DPOA: Shana Gabriele History of Present Illness History of Present Illness 76-year-old male with multiple comorbidities who comes in with shortness of breath and chest pain. Shortness of breath has been going on for for few days.Patient's room air sat while I was in the room was 92% but he is quite tachypneic and has to stop frequently during the [id number] session to catch his breath. Denies any fevers, abdominal pain, diarrhea, dysuria or syncope. 01/31/2022 No acute events overnight. Patient seen examined bedside. Saturating 99% on 2 L nasal cannula. Patient had thoracentesis done this morning with 800 cc of fluid removed. Will await for fluid analysis. Patient's chart, labs, images were reviewed and discussed with RN 02/01: Afebrile. S/P bilateral thoracentesis yesterday. Patient was moved down to the ICU after having apneic event. Code stroke was was called and neurology consulted. No concerns for CVA, per neurology. Patient will be taken to the [facility] today to have been intra-aortic balloon pump placed. Discussed with RN. Vitals/I&O Vitals/I&O: Vital Signs Date Time Temp Pulse Resp B/P (MAP) Pulse Ox O2 Delivery O2 Flow Rate FiO2 02/01/22 13:56 90 23 100 Nasal Cannula 3.0 02/01/22 13:40 159/110 02/01/22 04:00 97.7 97.7 I & O 01/31/22 01/31/22 02/01/22 15:00 23:00 07:00 Intake Total 180 ml 100 ml 73.17 ml Output Total 1600 ml Balance -1420 ml 100 ml 73.17 ml Physical Exam General: Alert, Oriented X3, Cooperative, mild distress Heart: Other (sinus tachycardia ) Lungs: Other (Decreased at the bases.) Abdomen: Soft, No tenderness Extremities: No edema Skin: No significant lesion Labs Labs: Laboratory Tests Test 01/31/22 22:27 01/31/22 23:15 02/01/22 02:10 02/01/22 02:45 Glucose (Fingerstick) 161 mg/dL (70-99) Sodium Level 135 mmol/L (136-145) 136 mmol/L (136-145) Potassium Level 3.7 mmol/L (3.5-5.1) 4.3 mmol/L (3.5-5.1) Chloride Level 100 mmol/L (98-107) 101 mmol/L (98-107) Carbon Dioxide Level 27 mmol/L (21-32) 23 mmol/L (21-32) Anion Gap 8 (6-14) 12 (6-14) Blood Urea Nitrogen 36 mg/dL (8-26) 39 mg/dL (8-26) Creatinine 1.7 mg/dL (0.7-1.3) 1.8 mg/dL (0.7-1.3) Estimated GFR (Cockcroft-Gault) 39.3 36.8 Glucose Level 190 mg/dL (70-99) 181 mg/dL (70-99) Lactic Acid Level 2.8 mmol/L (0.4-2.0) 2.1 mmol/L (0.4-2.0) Calcium Level 8.8 mg/dL (8.5-10.1) 8.4 mg/dL (8.5-10.1) Troponin I High Sensitivity 79 ng/L (4-75) 616 ng/L (4-75) O2 Saturation 98 % (92-99) Arterial Blood pH 7.47 (7.35-7.45) Arterial Blood pCO2 at Patient Temp 30 mmHg (35-46) Arterial Blood pO2 at Patient Temp 127 mmHg (65-108) Arterial Blood HCO3 21 mmol/L (21-28) Arterial Blood Base Excess -2 mmol/L (-3-3) FiO2 40 (5l nc) White Blood Count 13.6 x10^3/uL (4.0-11.0) Red Blood Count 3.28 x10^6/uL (4.30-5.70) Hemoglobin 8.8 g/dL (13.0-17.5) Hematocrit 27.4 % (39.0-53.0) Mean Corpuscular Volume 84 fL (79-100) Mean Corpuscular Hemoglobin 27 pg (25-35) Mean Corpuscular Hemoglobin Concent 32 g/dL (31-37) Red Cell Distribution Width 16.2 % (11.5-14.5) Platelet Count 286 x10^3/uL (140-400) Neutrophils (%) (Auto) 88 % (31-73) Lymphocytes (%) (Auto) 5 % (24-48) Monocytes (%) (Auto) 7 % (0-9) Eosinophils (%) (Auto) 0 % (0-3) Basophils (%) (Auto) 0 % (0-3) Neutrophils # (Auto) 11.9 x10^3/uL (1.8-7.7) Lymphocytes # (Auto) 0.7 x10^3/uL (1.0-4.8) Monocytes # (Auto) 0.9 x10^3/uL (0.0-1.1) Eosinophils # (Auto) 0.0 x10^3/uL (0.0-0.7) Basophils # (Auto) 0.0 x10^3/uL (0.0-0.2) Magnesium Level 2.2 mg/dL (1.8-2.4) KM-Lpv-T-Type Natriuretic Peptide 58287 pg/mL (0-449) Procalcitonin 0.74 ng/mL (0.00-0.10) Test 02/01/22 10:59 Activated Partial Thromboplast Time 36 SEC (24-38) Troponin I High Sensitivity 85541 ng/L (4-75) Assessment and Plan Assessmemt and Plan Problems Medical Problems: (1) Bilateral pleural effusion Status: Acute (2) Congestive heart failure (CHF) Status: Acute (3) Shortness of breath Status: Acute Comment Review of Relevant I have reviewed the following items rai (where applicable) has been applied. Medications: Current Medications Medications (Trade) Dose Ordered Sig/Ifeanyi Route PRN Reason Start Time Stop Time Status Last Admin Dose Admin Lactobacillus Rhamnosus (Culturelle) 1 cap BID PO 01/31/22 21:00 01/31/22 20:15 Norepinephrine Bitartrate 8 mg/ Dextrose 258 ml @ 11.262 mls/ hr CONT PRN IV PER PROTOCOL 02/01/22 00:00 02/01/22 13:11 Heparin Sodium/ Dextrose 250 ml @ 6.984 mls/ hr CONT PRN IV PER PROTOCOL 02/01/22 04:30 02/01/22 04:43 Piperacillin Sod/ Tazobactam Sod 3.375 gm/Sodium Chloride 50 ml @ 100 mls/hr Q6HRS IV 02/01/22 07:30 02/01/22 07:58 Nitroglycerin (Nitroglycerin) 200 mcg 1X ONCE IART 02/01/22 13:00 02/01/22 13:01 DC 02/01/22 13:39 Verapamil HCl (Verapamil) 2.5 mg 1X ONCE IART 02/01/22 13:00 02/01/22 13:01 DC 02/01/22 13:40 Heparin Sodium (Porcine) (Heparin Sodium) 2,500 unit 1X ONCE IART 02/01/22 13:00 02/01/22 13:01 DC 02/01/22 13:38 Heparin Sodium/ Sodium Chloride (HEPARIN for ARTERIAL LINE FLUSH) 1,000 unit 1X ONCE IART 02/01/22 13:00 02/01/22 13:01 DC 02/01/22 13:33 Heparin Sodium/ Sodium Chloride (HEPARIN for ARTERIAL LINE FLUSH) 1,000 unit 1X ONCE IART 02/01/22 13:00 02/01/22 13:01 DC 02/01/22 13:33 Iodixanol (Visipaque 320) 100 ml 1X ONCE IART 02/01/22 13:00 02/01/22 13:01 DC 02/01/22 13:33 Lidocaine HCl (Xylocaine-Mpf 1% 2ml Vial) 2 ml 1X ONCE INJ 02/01/22 13:00 02/01/22 13:01 DC 02/01/22 13:34 Heparin Sodium (Porcine) (Heparin 5,000 Units/1,000ml NS) 5,000 unit 1X ONCE IV 02/01/22 13:15 02/01/22 13:16 DC 02/01/22 13:15 Lidocaine HCl (Lidocaine 1% 20ml Vial) 20 ml 1X ONCE INJ 02/01/22 13:45 02/01/22 13:46 DC 02/01/22 13:45 Justifications for Admission Other Justification CHF exacerbation VIJI OSEI MD Feb 01, 2022 14:16
[2022-02-01] MEDS ORDERED: TIOT4MIS3 IH (15:21)
--- NOTE | 2022-02-01 16:52 | NUR ---
This RN called Dr. Baires to discuss heparin gtt and aPTT levels. Patient still having bleeding issues from radial access site and according to titration protocol patients heparing gtt was to be bolused and rate increased. Dr. baires instructed this rn not to follow protocol at this time and recheck aptt in 6 hours and reevaluate at that time.
--- NOTE | 2022-02-01 17:50 | CARD ---
MR#: [id number] Date of Study: 02/01/2022 Ordering Physician: PRIYA MATSON, Referring Physician: PRIYA MATSON, Tech: RT Amelia(R) APPROVED REPORT Technologist: RT Amelia(R) Nurse: May Lyons RN Procedure(s) performed: Fluoro time: 3.4 min dose: 23 gycm2 contrast: 20cc visi no sedation Left heart catheterization, coronary angiography Intra-aortic balloon pump placement for cardiogenic shock INDICATION The indication(s) include : non-STEMI . [facility] Clinical Frailty Scale [facility] Clinical Frailty Scale: Severely Frail Heart Failure Heart Failure: Yes If Yes, Newly Diagnosed: No If Yes, HF Type: Diastolic Systolic If Yes, NYHA Class: Class III CASE TECHNIQUE IV conscious sedation was used throughout procedure with appropriate monitoring and was performed in the presence of a registered nurse who was an independent trained observer other than the physician p erforming the procedure. During this case, Fluoroscopy and low osmolar contrast were used for imaging . Specimen(s) Removed: N/A Estimated Blood loss: 10 cc's. PROCEDURE NARRATIVE Clinical information: 76-year-old male presented to the hospital with heart failure and underwent diuresis and removal of f luid via thoracenteses. Earlier this afternoon he was found to have worsening cardiogenic shock, non sustained VT, chest discomfort and an elevated troponin of 14. In this setting he was urgently taken to the catheterization laboratory for further evaluation and treatment. Procedure details: The right groin and right wrist were prepped and draped in usual sterile fashion. Under 1% lidocaine local anesthesia a 6 Marshallese sheath was placed in the right radial artery. Next diagnostic angiograp hy was performed with a 6 Marshallese TIG catheter. Left ventricular end-diastolic pressure was obtained with a pigtail catheter and a pullback was performed. Findings: Aorta 80/60 LVEDP 35 mmHg No LV to aortic pullback gradient Coronary angiography: Left main is a moderate caliber vessel with mild luminal irregularities LAD is a heavily calcified small caliber vessel with a proximal to mid sequential 90% stenosis. Left circumflex is a moderate caliber nondominant vessel with mild diffuse irregularities OM1 is a small caliber vessel with normal angiographic appearance OM 2 is a small caliber vessel with long proximal to mid 70% stenosis RCA is a large-caliber dominant vessel with sequential proximal to mid 50 to 90% stenoses. Intervertebral pump placement: Given the patient's cardiac shock, requirement of vasopressor therapy and severe three-vessel coronar y artery disease a decision was made to place a mechanical circulatory support device to help augment cardiac flow. The right groin was infiltrated with 1% lidocaine local anesthesia and via ultrasound guidance a 6 Marshallese sheath was placed in the right common femoral artery. Next, a 7.5 Marshallese intra- aortic balloon pump sheath was placed through which a 7.5 Marshallese balloon pump was placed in the desce nding thoracic aorta with appropriate one-to-one augmentation. The patient was continued on Levophed and heparin drips. At case completion the right groin sheath was sutured to the skin and the radial sheath was removed a nd hemostasis was achieved via a Ermias radial band. No acute complications. Conclusion 1. Cardiogenic shock with acute on chronic systolic and diastolic heart failure 2. Severe three-vessel coronary artery disease 3. Successful placement of a 7.5 Marshallese 40 cc Intermedic balloon pump for cardiac shock Recommendations 1. Continue medication optimization. Given the patient's renal failure and significant cardiomyopat hy with three-vessel coronary artery disease further intervention was deferred today in an effort to discuss the risks and benefits of high risk PCI with the patient's family and the patient's primary c ardiologist Dr. Mckeon Signed by : Priya Matson, Electronically Approved : 02/01/2022 17:49:28
[2022-02-01] MEDS: diphenhydrAMINE HCL 25 MG CAPSULE PO PRN (21:20)
[2022-02-01] MEDS: ATORVASTATIN CALCIUM 20 MG TABLET PO SCH (21:20)
[2022-02-02] VITALS (28 sets, daily range): BP systolic 102–146; BP diastolic 44–81
[2022-02-02] MEDS: PIPERACILLIN/TAZOBACTAM 3.375 GM in IV NORMAL SALINE 50ML 50 ML IV SCH ×3 (05:30→18:30)
[2022-02-02] MEDS: MORPHINE SULFATE 2 MG/ML INJ. IVP PRN (05:30)
[2022-02-02 06:32] LABS: BASO # 0.1 x10^3/uL (0.0-0.2); BASO % 1 % (0-3); EOS # 0.3 x10^3/uL (0.0-0.7); EOS % 3 % (0-3); HEMATOCRIT 25.9 % (39.0-53.0); HEMOGLOBIN 8.4 g/dL (13.0-17.5); LYMPH # 1.4 x10^3/uL (1.0-4.8); LYMPH % 13 % (24-48); MEAN CORPUSCULAR HEMOGLOBIN 27 pg (25-35); MEAN CORPUSCULAR HGB CONC 32 g/dL (31-37); MEAN CORPUSCULAR VOLUME 82 fL (79-100); MONO # 1.1 x10^3/uL (0.0-1.1); MONO % 11 % (0-9); NEUT # 7.3 x10^3/uL (1.8-7.7); NEUT % 72 % (31-73); PLATELET COUNT 243 x10^3/uL (140-400); RED BLOOD COUNT 3.14 x10^6/uL (4.30-5.70); RED CELL DISTRIBUTION WIDTH 16.1 % (11.5-14.5); WHITE BLOOD COUNT 10.2 x10^3/uL (4.0-11.0)
[2022-02-02 06:37] LABS: CALCIUM 8.3 mg/dL (8.5-10.1); CREATININE 1.6 mg/dL (0.7-1.3); GFR 42.1; MAGNESIUM 2.1 mg/dL (1.8-2.4); POTASSIUM 3.4 mmol/L (3.5-5.1)
[2022-02-02] MEDS ORDERED: POTASSIUM CHLORIDE 20 MEQ TABLET.ER. PO ONE (07:30)
[2022-02-02] MEDS: METOPROLOL SUCC 24HR ER 25 MG TAB.ER.24H. PO SCH (07:34)
[2022-02-02] MEDS: LACTOBACILLUS RHAMNOSUS GG 1 CAPSULE. PO SCH ×2 (07:59→21:02)
[2022-02-02] MEDS: FUROSEMIDE 40 MG TABLET. PO SCH (08:00)
[2022-02-02] MEDS: FLUTICASONE 50MCG/NASAL SPRAY 16GM BOTTLE. NS SCH ×2 (08:01→21:02)
[2022-02-02] MEDS: DICLOFENAC SODIUM 1% TOPICAL GEL 100GM TUBE. TP SCH ×2 (08:03→21:03)
[2022-02-02] MEDS: TAMSULOSIN 0.4 MG CAP.ER.24H. PO SCH ×2 (09:00→21:02)
--- NOTE | 2022-02-02 10:30 | PDOC ---
CARDIOLOGY PROGRESS NOTE SUBJECTIVE: Patient remains in good spirits. He denies any current chest pain or dyspnea. I am unclear if he has insight into his severe cardiomyopathy and medical problems. OBJECTIVE: Vital Signs/I&O: Vital Signs Date Time Temp Pulse Resp B/P (MAP) Pulse Ox O2 Delivery O2 Flow Rate FiO2 02/02/22 10:00 107 19 131/74 100 Nasal Cannula 2.0 02/02/22 08:00 98.5 98.5 I & O 02/01/22 02/01/22 02/02/22 15:00 23:00 07:00 Intake Total 0 ml 170 ml 819 ml Output Total 0 ml 0 ml Balance 0 ml 170 ml 819 ml Objective: GEN.: No apparent distress. Alert and oriented. HEENT: Head is normocephalic, atraumatic NECK: Supple. LUNGS: Clear to auscultation. HEART: RRR, S1, S2 present. Peripheral pulses intact ABDOMEN: Soft, nontender. Positive bowel sounds. EXTREMITIES: Without any cyanosis. Dopplerable pulses bilaterally NEUROLOGIC: Normal speech, normal tone PSYCHIATRIC: Normal affect, normal mood. SKIN: No ulcerations Right groin access site is clean, dry and intact. CURRENT MEDICATIONS: Heparin drip, Levophed drip, atorvastatin DIAGNOSTIC TESTING: Laboratory studies reviewed, creatinine 1.6 and stable Hemoglobin 8.4 Labs: Laboratory Tests 02/02/22 05:25 Laboratory Tests Test 02/01/22 10:59 02/01/22 16:00 02/01/22 22:05 02/02/22 05:25 Activated Partial Thromboplast Time 36 SEC (24-38) 37 SEC (24-38) 35 SEC (24-38) 35 SEC (24-38) Troponin I High Sensitivity 81397 ng/L (4-75) H White Blood Count 10.2 x10^3/uL (4.0-11.0) Red Blood Count 3.14 x10^6/uL (4.30-5.70) L Hemoglobin 8.4 g/dL (13.0-17.5) L Hematocrit 25.9 % (39.0-53.0) L Mean Corpuscular Volume 82 fL (79-100) Mean Corpuscular Hemoglobin 27 pg (25-35) Mean Corpuscular Hemoglobin Concent 32 g/dL (31-37) Red Cell Distribution Width 16.1 % (11.5-14.5) H Platelet Count 243 x10^3/uL (140-400) Neutrophils (%) (Auto) 72 % (31-73) Lymphocytes (%) (Auto) 13 % (24-48) L Monocytes (%) (Auto) 11 % (0-9) H Eosinophils (%) (Auto) 3 % (0-3) Basophils (%) (Auto) 1 % (0-3) Neutrophils # (Auto) 7.3 x10^3/uL (1.8-7.7) Lymphocytes # (Auto) 1.4 x10^3/uL (1.0-4.8) Monocytes # (Auto) 1.1 x10^3/uL (0.0-1.1) Eosinophils # (Auto) 0.3 x10^3/uL (0.0-0.7) Basophils # (Auto) 0.1 x10^3/uL (0.0-0.2) Sodium Level 137 mmol/L (136-145) Potassium Level 3.4 mmol/L (3.5-5.1) L Chloride Level 102 mmol/L (98-107) Carbon Dioxide Level 26 mmol/L (21-32) Anion Gap 9 (6-14) Blood Urea Nitrogen 40 mg/dL (8-26) H Creatinine 1.6 mg/dL (0.7-1.3) H Estimated GFR (Cockcroft-Gault) 42.1 Glucose Level 132 mg/dL (70-99) H Calcium Level 8.3 mg/dL (8.5-10.1) L ASSESSMENT: 1. Ischemic cardiomyopathy with cardiogenic shock 2. Non-STEMI 3. Dyslipidemia 4. Prior history of CVA 5. Prior history of paroxysmal atrial fibrillation PLAN: 1. Continue heparin drip. Continue present medications and try to wean Levophed. Patient appears to be fairly euvolemic after insertion of balloon pump with good urine output and stable creatinine 2. We will discussed with family regarding possibility of high risk PCI and the risks and benefits. I have already spoken to his primary before school babysitter Dr. Mckeon. 3. Initiate Plavix therapy and continue heparin. After his PCI he could then be transition to Plavix and Eliquis. Continue present therapy and we will follow along closely. Justicifation of Admission Dx: Justifications for Admission: Justification of Admission Dx: Yes PRIYA MATSON MD Feb 02, 2022 10:30
[2022-02-02] MEDS: NOREPINEPHRINE VIAL 8 MG in IV DEXTROSE 5% 250 ML IV PRN (10:31)
[2022-02-02] MEDS ORDERED: CLOPIDOGREL BISULFATE 75 MG TABLET PO ONE (10:45)
--- NOTE | 2022-02-02 10:48 | PDOC ---
PULMONARY PROGRESS NOTES DATE: 02/02/22 TIME: 10:44 Subjective Patient denies any shortness of breath. Remains on nasal cannula. Status post cardiac cath. Severe three-vessel coronary artery disease and severe cardiomyopathy with an EF of 15%. Status post intra-aortic balloon pump. Status post bilateral thoracentesis at 01/31/2022 Vitals Vital Signs Date Time Temp Pulse Resp B/P (MAP) Pulse Ox O2 Delivery O2 Flow Rate FiO2 02/02/22 10:00 107 19 131/74 100 Nasal Cannula 2.0 02/02/22 08:00 98.5 98.5 General: Alert, No acute distress Lungs: Other (Decreased at the bases.) Cardiovascular: S1, S2 Abdomen: Soft, Non-tender Extremities: No Edema Skin: Warm Labs Laboratory Tests Test 01/31/22 22:27 01/31/22 23:15 02/01/22 02:10 02/01/22 02:45 Glucose (Fingerstick) 161 mg/dL (70-99) Sodium Level 135 mmol/L (136-145) 136 mmol/L (136-145) Potassium Level 3.7 mmol/L (3.5-5.1) 4.3 mmol/L (3.5-5.1) Chloride Level 100 mmol/L (98-107) 101 mmol/L (98-107) Carbon Dioxide Level 27 mmol/L (21-32) 23 mmol/L (21-32) Anion Gap 8 (6-14) 12 (6-14) Blood Urea Nitrogen 36 mg/dL (8-26) 39 mg/dL (8-26) Creatinine 1.7 mg/dL (0.7-1.3) 1.8 mg/dL (0.7-1.3) Estimated GFR (Cockcroft-Gault) 39.3 36.8 Glucose Level 190 mg/dL (70-99) 181 mg/dL (70-99) Lactic Acid Level 2.8 mmol/L (0.4-2.0) 2.1 mmol/L (0.4-2.0) Calcium Level 8.8 mg/dL (8.5-10.1) 8.4 mg/dL (8.5-10.1) Troponin I High Sensitivity 79 ng/L (4-75) 616 ng/L (4-75) O2 Saturation 98 % (92-99) Arterial Blood pH 7.47 (7.35-7.45) Arterial Blood pCO2 at Patient Temp 30 mmHg (35-46) Arterial Blood pO2 at Patient Temp 127 mmHg (65-108) Arterial Blood HCO3 21 mmol/L (21-28) Arterial Blood Base Excess -2 mmol/L (-3-3) FiO2 40 (5l nc) White Blood Count 13.6 x10^3/uL (4.0-11.0) Red Blood Count 3.28 x10^6/uL (4.30-5.70) Hemoglobin 8.8 g/dL (13.0-17.5) Hematocrit 27.4 % (39.0-53.0) Mean Corpuscular Volume 84 fL (79-100) Mean Corpuscular Hemoglobin 27 pg (25-35) Mean Corpuscular Hemoglobin Concent 32 g/dL (31-37) Red Cell Distribution Width 16.2 % (11.5-14.5) Platelet Count 286 x10^3/uL (140-400) Neutrophils (%) (Auto) 88 % (31-73) Lymphocytes (%) (Auto) 5 % (24-48) Monocytes (%) (Auto) 7 % (0-9) Eosinophils (%) (Auto) 0 % (0-3) Basophils (%) (Auto) 0 % (0-3) Neutrophils # (Auto) 11.9 x10^3/uL (1.8-7.7) Lymphocytes # (Auto) 0.7 x10^3/uL (1.0-4.8) Monocytes # (Auto) 0.9 x10^3/uL (0.0-1.1) Eosinophils # (Auto) 0.0 x10^3/uL (0.0-0.7) Basophils # (Auto) 0.0 x10^3/uL (0.0-0.2) Magnesium Level 2.2 mg/dL (1.8-2.4) XD-Lgb-L-Type Natriuretic Peptide 26524 pg/mL (0-449) Procalcitonin 0.74 ng/mL (0.00-0.10) Test 02/01/22 10:59 02/01/22 16:00 02/01/22 22:05 02/02/22 05:25 Activated Partial Thromboplast Time 36 SEC (24-38) 37 SEC (24-38) 35 SEC (24-38) 35 SEC (24-38) Troponin I High Sensitivity 83495 ng/L (4-75) White Blood Count 10.2 x10^3/uL (4.0-11.0) Red Blood Count 3.14 x10^6/uL (4.30-5.70) Hemoglobin 8.4 g/dL (13.0-17.5) Hematocrit 25.9 % (39.0-53.0) Mean Corpuscular Volume 82 fL (79-100) Mean Corpuscular Hemoglobin 27 pg (25-35) Mean Corpuscular Hemoglobin Concent 32 g/dL (31-37) Red Cell Distribution Width 16.1 % (11.5-14.5) Platelet Count 243 x10^3/uL (140-400) Neutrophils (%) (Auto) 72 % (31-73) Lymphocytes (%) (Auto) 13 % (24-48) Monocytes (%) (Auto) 11 % (0-9) Eosinophils (%) (Auto) 3 % (0-3) Basophils (%) (Auto) 1 % (0-3) Neutrophils # (Auto) 7.3 x10^3/uL (1.8-7.7) Lymphocytes # (Auto) 1.4 x10^3/uL (1.0-4.8) Monocytes # (Auto) 1.1 x10^3/uL (0.0-1.1) Eosinophils # (Auto) 0.3 x10^3/uL (0.0-0.7) Basophils # (Auto) 0.1 x10^3/uL (0.0-0.2) Sodium Level 137 mmol/L (136-145) Potassium Level 3.4 mmol/L (3.5-5.1) Chloride Level 102 mmol/L (98-107) Carbon Dioxide Level 26 mmol/L (21-32) Anion Gap 9 (6-14) Blood Urea Nitrogen 40 mg/dL (8-26) Creatinine 1.6 mg/dL (0.7-1.3) Estimated GFR (Cockcroft-Gault) 42.1 Glucose Level 132 mg/dL (70-99) Calcium Level 8.3 mg/dL (8.5-10.1) Magnesium Level 2.1 mg/dL (1.8-2.4) Laboratory Tests Test 02/01/22 10:59 02/01/22 16:00 02/01/22 22:05 02/02/22 05:25 Activated Partial Thromboplast Time 36 SEC (24-38) 37 SEC (24-38) 35 SEC (24-38) 35 SEC (24-38) Troponin I High Sensitivity 52045 ng/L (4-75) White Blood Count 10.2 x10^3/uL (4.0-11.0) Red Blood Count 3.14 x10^6/uL (4.30-5.70) Hemoglobin 8.4 g/dL (13.0-17.5) Hematocrit 25.9 % (39.0-53.0) Mean Corpuscular Volume 82 fL (79-100) Mean Corpuscular Hemoglobin 27 pg (25-35) Mean Corpuscular Hemoglobin Concent 32 g/dL (31-37) Red Cell Distribution Width 16.1 % (11.5-14.5) Platelet Count 243 x10^3/uL (140-400) Neutrophils (%) (Auto) 72 % (31-73) Lymphocytes (%) (Auto) 13 % (24-48) Monocytes (%) (Auto) 11 % (0-9) Eosinophils (%) (Auto) 3 % (0-3) Basophils (%) (Auto) 1 % (0-3) Neutrophils # (Auto) 7.3 x10^3/uL (1.8-7.7) Lymphocytes # (Auto) 1.4 x10^3/uL (1.0-4.8) Monocytes # (Auto) 1.1 x10^3/uL (0.0-1.1) Eosinophils # (Auto) 0.3 x10^3/uL (0.0-0.7) Basophils # (Auto) 0.1 x10^3/uL (0.0-0.2) Sodium Level 137 mmol/L (136-145) Potassium Level 3.4 mmol/L (3.5-5.1) Chloride Level 102 mmol/L (98-107) Carbon Dioxide Level 26 mmol/L (21-32) Anion Gap 9 (6-14) Blood Urea Nitrogen 40 mg/dL (8-26) Creatinine 1.6 mg/dL (0.7-1.3) Estimated GFR (Cockcroft-Gault) 42.1 Glucose Level 132 mg/dL (70-99) Calcium Level 8.3 mg/dL (8.5-10.1) Magnesium Level 2.1 mg/dL (1.8-2.4) Medications Active Scripts Medications Dose Route/Sig Max Daily Dose Days Date Category Flomax (Tamsulosin Hcl) 0.4 Mg Cap.er.24h 1 Cap PO BID 01/30/22 Reported Furosemide 40 Mg Tablet 1 Tab PO DAILY 30 11/26/21 Rx Metoprolol Succinate ( Xl ) (Metoprolol Succinate) 25 Mg Tab.er.24h 25 Mg PO DAILY 30 11/26/21 Rx Eliquis (Apixaban) 5 Mg Tablet 5 Mg PO BID 30 11/26/21 Rx Refresh Lacri-Lube Ointment (Mineral Oil/Petrolatum,White) 3.5 Gm Oint...g. 3.5 Gm OU DAILY 11/23/21 Reported Atorvastatin Calcium 20 Mg Tablet 2 Tab PO HS 11/23/21 Reported Omeprazole 20 Mg Capsule.dr 1 Cap PO DAILY 11/23/21 Reported Lubricating Plus (Carboxymethylcellulose Sodium) 1 Each Droperette 1 OU DAILY 11/23/21 Reported Fluticasone Propionate Nasal [place] (Fluticasone Propionate) 16 Gm [place].susp 1 Sprays NS BID 11/23/21 Reported Proair Hfa Inhaler (Albuterol Sulfate) 8.5 Gm Hfa.aer.ad 1 Puff INH PRN Q6HRS PRN 05/13/18 Reported Aspirin 325 Mg Tablet 1 Tab PO DAILY 05/22/15 Reported Comments Chest x-ray reviewed 02/01/2022. Diffuse bilateral interstitial infiltrates Impression . 1. Acute hypoxic respiratory failure secondary to acute on chronic systolic heart failure with bilateral pleural effusions. Status post thoracentesis 01/31/2022 2. Low-grade fever. Influenza and Covid negative. Likely secondary to pneumonia. Currently on antibiotics 3. Abnormal CT chest with bilateral pleural effusion, which has been persistent and moderate. Status post bilateral thoracentesis 01/31/2022 4. 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 5. Hypertension. Status post 1 L of IV fluid. With chest x-ray worsening, would avoid further IV fluids. 6. Encephalopathy, likely contributed by hypotension. CT head negative. Patient also received 1 dose of IV morphine which may have contributed as well. 7. Status post cardiac cath. Severe three-vessel coronary artery disease and severe cardiomyopathy. Status post intra-aortic balloon pump. 8. Cardiogenic shock. Cardiac cath report. Conclusion 1. Cardiogenic shock with acute on chronic systolic and diastolic heart failure 2. Severe three-vessel coronary artery disease 3. Successful placement of a 7.5 Chinese 40 cc Intermedic balloon pump for cardiac shock Recommendations 1. Continue medication optimization. 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 Mckeon Signed by : Melquiades Bertrand, Electronically Approved : 02/01/2022 17:49:28 Plan . Updated 02/02/2022 1. Pulmonary status stable. On nasal cannula. Status post thoracentesis. Follow pleural fluid analysis. Restarted on Eliquis. 2. Continue present oxygen. As needed BiPAP. 3. Ruled out for influenza and COVID. Pneumonia is likely possibility for the source of fever. On antibiotics. 4. Status post cardiac cath. Currently on intra-aortic balloon pump. Severe cardiomyopathy and severe three-vessel coronary artery disease. Cardiology to consider PCI Friday. 5. Normal pro calcitonin 6. Cardiology recommendations. 7. Discussed with foster care case manager time 35 minutes RECOMMENDATIONS: 1. Status post thoracentesis. Follow pleural fluid analysis. Restarted on Eliquis. 2. Continue present oxygen. As needed BiPAP. 3. Ruled out for influenza and COVID. Pneumonia is likely possibility for the source of fever. Started on Rocephin. Will broaden the antibiotic and changed to Zosyn. 4. Avoid any benzos and narcotics. 5. Hold off diuresis. Obtain proBNP. Obtain pro calcitonin as well 6. Cardiology recommendations. 7. Discussed with foster care case manager time 30 minutes YUNI ROBERTSON MD Feb 02, 2022 10:48
[2022-02-02] MEDS: HEPARIN 25,000UTS/250ML PREMIX 250 ML IV PRN (11:04)
--- NOTE | 2022-02-02 12:55 | PDOC ---
PROGRESS NOTES Date of Service DATE: 02/02/22 TIME: 12:53 Assessment Problems Medical Problems: (1) Bilateral pleural effusion Status: Acute (2) Congestive heart failure (CHF) Status: Acute (3) Shortness of breath Status: Acute Event on 01/31 was Bernard-Barraza respiration from his heart failure and hypotension. Add to this his history of sleep apnea. Also interesting is his history of nightmares and sleep issues, he says that he has had trouble like this before when he is falling asleep. I do not see any evidence that he has had a stroke, transient ischemic attack, or seizure. He has been fully worked up for this in the past. No additional spells Plan No additional neurological studies needed Treatment of medical issues. Agree with cardiology plans for catheterization on 02/04 Subjective Denies pain Objective Vital Signs Date Time Temp Pulse Resp B/P (MAP) Pulse Ox O2 Delivery O2 Flow Rate FiO2 02/02/22 12:00 98.8 104 24 117/52 100 Nasal Cannula 2.0 98.8 Intake and Output 02/02/22 07:00 Intake Total 989 ml Output Total 0 ml Balance 989 ml Intake Oral 120 ml IV Total 869 ml Output Urine Total 0 ml PHYSICAL EXAM Alert. Oriented to time, place and person. PERRL. EOMI. CN: no focal findings. Muscle tone: normal. Muscle strength: 5/5 DTR: 2+ Plantar reflex: Flexor Gait: not examined in bed. Sensory exam: no abnormal findings. No cerebellar signs elicited. Review of Relevant I have reviewed the following items rai (where applicable) has been applied. Labs Laboratory Tests Test 01/31/22 22:27 01/31/22 23:15 02/01/22 02:10 02/01/22 02:45 Glucose (Fingerstick) 161 mg/dL (70-99) Sodium Level 135 mmol/L (136-145) 136 mmol/L (136-145) Potassium Level 3.7 mmol/L (3.5-5.1) 4.3 mmol/L (3.5-5.1) Chloride Level 100 mmol/L (98-107) 101 mmol/L (98-107) Carbon Dioxide Level 27 mmol/L (21-32) 23 mmol/L (21-32) Anion Gap 8 (6-14) 12 (6-14) Blood Urea Nitrogen 36 mg/dL (8-26) 39 mg/dL (8-26) Creatinine 1.7 mg/dL (0.7-1.3) 1.8 mg/dL (0.7-1.3) Estimated GFR (Cockcroft-Gault) 39.3 36.8 Glucose Level 190 mg/dL (70-99) 181 mg/dL (70-99) Lactic Acid Level 2.8 mmol/L (0.4-2.0) 2.1 mmol/L (0.4-2.0) Calcium Level 8.8 mg/dL (8.5-10.1) 8.4 mg/dL (8.5-10.1) Troponin I High Sensitivity 79 ng/L (4-75) 616 ng/L (4-75) O2 Saturation 98 % (92-99) Arterial Blood pH 7.47 (7.35-7.45) Arterial Blood pCO2 at Patient Temp 30 mmHg (35-46) Arterial Blood pO2 at Patient Temp 127 mmHg (65-108) Arterial Blood HCO3 21 mmol/L (21-28) Arterial Blood Base Excess -2 mmol/L (-3-3) FiO2 40 (5l nc) White Blood Count 13.6 x10^3/uL (4.0-11.0) Red Blood Count 3.28 x10^6/uL (4.30-5.70) Hemoglobin 8.8 g/dL (13.0-17.5) Hematocrit 27.4 % (39.0-53.0) Mean Corpuscular Volume 84 fL (79-100) Mean Corpuscular Hemoglobin 27 pg (25-35) Mean Corpuscular Hemoglobin Concent 32 g/dL (31-37) Red Cell Distribution Width 16.2 % (11.5-14.5) Platelet Count 286 x10^3/uL (140-400) Neutrophils (%) (Auto) 88 % (31-73) Lymphocytes (%) (Auto) 5 % (24-48) Monocytes (%) (Auto) 7 % (0-9) Eosinophils (%) (Auto) 0 % (0-3) Basophils (%) (Auto) 0 % (0-3) Neutrophils # (Auto) 11.9 x10^3/uL (1.8-7.7) Lymphocytes # (Auto) 0.7 x10^3/uL (1.0-4.8) Monocytes # (Auto) 0.9 x10^3/uL (0.0-1.1) Eosinophils # (Auto) 0.0 x10^3/uL (0.0-0.7) Basophils # (Auto) 0.0 x10^3/uL (0.0-0.2) Magnesium Level 2.2 mg/dL (1.8-2.4) VF-Phe-G-Type Natriuretic Peptide 37304 pg/mL (0-449) Procalcitonin 0.74 ng/mL (0.00-0.10) Test 02/01/22 10:59 02/01/22 16:00 02/01/22 22:05 02/02/22 05:25 Activated Partial Thromboplast Time 36 SEC (24-38) 37 SEC (24-38) 35 SEC (24-38) 35 SEC (24-38) Troponin I High Sensitivity 57236 ng/L (4-75) White Blood Count 10.2 x10^3/uL (4.0-11.0) Red Blood Count 3.14 x10^6/uL (4.30-5.70) Hemoglobin 8.4 g/dL (13.0-17.5) Hematocrit 25.9 % (39.0-53.0) Mean Corpuscular Volume 82 fL (79-100) Mean Corpuscular Hemoglobin 27 pg (25-35) Mean Corpuscular Hemoglobin Concent 32 g/dL (31-37) Red Cell Distribution Width 16.1 % (11.5-14.5) Platelet Count 243 x10^3/uL (140-400) Neutrophils (%) (Auto) 72 % (31-73) Lymphocytes (%) (Auto) 13 % (24-48) Monocytes (%) (Auto) 11 % (0-9) Eosinophils (%) (Auto) 3 % (0-3) Basophils (%) (Auto) 1 % (0-3) Neutrophils # (Auto) 7.3 x10^3/uL (1.8-7.7) Lymphocytes # (Auto) 1.4 x10^3/uL (1.0-4.8) Monocytes # (Auto) 1.1 x10^3/uL (0.0-1.1) Eosinophils # (Auto) 0.3 x10^3/uL (0.0-0.7) Basophils # (Auto) 0.1 x10^3/uL (0.0-0.2) Sodium Level 137 mmol/L (136-145) Potassium Level 3.4 mmol/L (3.5-5.1) Chloride Level 102 mmol/L (98-107) Carbon Dioxide Level 26 mmol/L (21-32) Anion Gap 9 (6-14) Blood Urea Nitrogen 40 mg/dL (8-26) Creatinine 1.6 mg/dL (0.7-1.3) Estimated GFR (Cockcroft-Gault) 42.1 Glucose Level 132 mg/dL (70-99) Calcium Level 8.3 mg/dL (8.5-10.1) Magnesium Level 2.1 mg/dL (1.8-2.4) Laboratory Tests Test 02/01/22 16:00 02/01/22 22:05 02/02/22 05:25 Activated Partial Thromboplast Time 37 SEC (24-38) 35 SEC (24-38) 35 SEC (24-38) White Blood Count 10.2 x10^3/uL (4.0-11.0) Red Blood Count 3.14 x10^6/uL (4.30-5.70) Hemoglobin 8.4 g/dL (13.0-17.5) Hematocrit 25.9 % (39.0-53.0) Mean Corpuscular Volume 82 fL (79-100) Mean Corpuscular Hemoglobin 27 pg (25-35) Mean Corpuscular Hemoglobin Concent 32 g/dL (31-37) Red Cell Distribution Width 16.1 % (11.5-14.5) Platelet Count 243 x10^3/uL (140-400) Neutrophils (%) (Auto) 72 % (31-73) Lymphocytes (%) (Auto) 13 % (24-48) Monocytes (%) (Auto) 11 % (0-9) Eosinophils (%) (Auto) 3 % (0-3) Basophils (%) (Auto) 1 % (0-3) Neutrophils # (Auto) 7.3 x10^3/uL (1.8-7.7) Lymphocytes # (Auto) 1.4 x10^3/uL (1.0-4.8) Monocytes # (Auto) 1.1 x10^3/uL (0.0-1.1) Eosinophils # (Auto) 0.3 x10^3/uL (0.0-0.7) Basophils # (Auto) 0.1 x10^3/uL (0.0-0.2) Sodium Level 137 mmol/L (136-145) Potassium Level 3.4 mmol/L (3.5-5.1) Chloride Level 102 mmol/L (98-107) Carbon Dioxide Level 26 mmol/L (21-32) Anion Gap 9 (6-14) Blood Urea Nitrogen 40 mg/dL (8-26) Creatinine 1.6 mg/dL (0.7-1.3) Estimated GFR (Cockcroft-Gault) 42.1 Glucose Level 132 mg/dL (70-99) Calcium Level 8.3 mg/dL (8.5-10.1) Magnesium Level 2.1 mg/dL (1.8-2.4) Microbiology 01/31/22 Gram Stain - Final, Resulted 01/31/22 Aerobic and Anaerobic Culture - Preliminary, Resulted Medications Current Medications Aspirin (Aspirin Chewable) 324 mg 1X ONCE PO Last administered on 01/29/22at 18:30; Start 01/29/22 at 18:15; Stop 01/29/22 at 18:16; Status DC Albuterol/ Ipratropium (Duoneb) 3 ml 1X ONCE NEB Last administered on 01/29/22at 20:08; Start 01/29/22 at 19:45; Stop 01/29/22 at 19:46; Status DC Iohexol (Omnipaque 350 Mg/ml) 75 ml 1X ONCE IV Last administered on 01/29/22at 19:45; Start 01/29/22 at 19:45; Stop 01/29/22 at 19:46; Status DC Acetaminophen (Tylenol) 650 mg PRN Q6HRS PRN PO MILD PAIN / TEMP > 100.3'F; Start 01/29/22 at 21:15; Stop 02/01/22 at 10:53; Status DC Ondansetron HCl (Zofran) 4 mg PRN Q4HRS PRN IVP NAUSEA/VOMITING 1st choice; Start 01/29/22 at 21:15 Guaifenesin (Robitussin Dm) 10 ml PRN Q6HRS PRN PO COUGH; Start 01/29/22 at 21:15 Furosemide (Lasix) 40 mg 1X ONCE IVP Last administered on 01/29/22at 21:30; Start 01/29/22 at 21:30; Stop 01/29/22 at 21:31; Status DC Morphine Sulfate (Morphine Sulfate) 2 mg PRN Q6HRS PRN IVP SEVERE PAIN 7-10 Last administered on 02/02/22at 05:30; Start 01/30/22 at 00:00 Sennosides (Senna) 17.2 mg PRN BID PRN PO CONSTIPATION; Start 01/30/22 at 09:00 Docusate Sodium (Colace) 100 mg PRN DAILY PRN PO HARD STOOLS; Start 01/30/22 at 09:00 Ondansetron HCl (Zofran) 4 mg PRN Q6HRS PRN IVP NAUSEA/VOMITING, 1st CHOICE; Start 01/30/22 at 09:00 Dextrose (Dextrose 50%-Water Syringe) 12.5 gm PRN Q15MIN PRN IV SEE COMMENTS; Start 01/30/22 at 09:00 Acetaminophen (Tylenol) 650 mg PRN Q4HRS PRN PO TEMP OVER 100.4F OR MILD PAIN; Start 01/30/22 at 09:00 Lorazepam (Ativan) 0.5 mg PRN Q6HRS PRN PO ANXIETY / AGITATION; Start 01/30/22 at 09:00 Lorazepam (Ativan Inj) 0.25 mg PRN Q4HRS PRN IV ANXIETY / AGITATION; Start 01/30/22 at 09:00 Enoxaparin Sodium (Lovenox 40mg Syringe) 40 mg Q24H SQ ; Start 01/30/22 at 09:00; Stop 01/30/22 at 11:01; Status DC Prochlorperazine Edisylate (Compazine) 10 mg PRN Q6HRS PRN IV NAUSEA/VOMITING, 2nd CHOICE; Start 01/30/22 at 09:00 Diphenhydramine HCl (Benadryl) 25 mg PRN Q6HRS PRN IVP ITCHING; Start 01/30/22 at 09:00 Diphenhydramine HCl (Benadryl) 25 mg PRN Q6HRS PRN PO ITCHING; Start 01/30/22 at 09:00 Diphenhydramine HCl (Benadryl) 25 mg PRN QHS PRN PO INSOMNIA, 1st CHOICE Last administered on 02/01/22at 21:20; Start 01/30/22 at 09:00 Zolpidem Tartrate (Ambien) 2.5 mg PRN QHS PRN PO INSOMNIA, 2nd CHOICE; Start 01/30/22 at 09:00 Atorvastatin Calcium (Lipitor) 40 mg HS PO Last administered on 02/01/22 21:20; Start 01/30/22 at 21:00 Metoprolol Succinate (Toprol Xl) 25 mg DAILY PO Last administered on 01/31/22 08:23; Start 01/30/22 at 10:30 Diclofenac Sodium (Voltaren) 1 karey BID TP Last administered on 02/02/22 08:03; Start 01/30/22 at 11:00 Furosemide (Lasix) 40 mg 1X ONCE IVP Last administered on 01/30/22 11:33; Start 01/30/22 at 11:30; Stop 01/30/22 at 11:31; Status DC Potassium Chloride (Klor-Con) 20 meq 1X ONCE PO Last administered on 01/30/22 11:33; Start 01/30/22 at 11:30; Stop 01/30/22 at 11:31; Status DC Fluticasone Propionate (Flonase) 1 spray BID NS Last administered on 02/02/22 08:01; Start 01/30/22 at 21:00 Tamsulosin HCl (Flomax) 0.4 mg BID PO Last administered on 02/02/22 09:00; Start 01/30/22 at 21:00 Ceftriaxone Sodium (Rocephin) 1 gm Q24H IVP Last administered on 01/31/22at 12:44; Start 01/31/22 at 13:00; Stop 02/01/22 at 07:17; Status DC Apixaban (Eliquis) 5 mg BID PO ; Start 01/31/22 at 21:00; Stop 02/01/22 at 10:52; Status DC Furosemide (Lasix) 40 mg DAILY PO Last administered on 4/16/22at 08:00; Start 01/31/22 at 14:00 Info (Anti-Coagulation Monitoring By Pharmacy) 1 each PRN DAILY PRN MC PER PROTOCOL; Start 01/31/22 at 14:15 Lactobacillus Rhamnosus (Culturelle) 1 cap BID PO Last administered on 02/02/22at 07:59; Start 01/31/22 at 21:00 Norepinephrine Bitartrate 8 mg/ Dextrose 258 ml @ 11.262 mls/ hr CONT PRN IV PER PROTOCOL Last administered on 02/02/22at 10:31; Start 02/01/22 at 00:00 Heparin Sodium/ Dextrose 250 ml @ 6.984 mls/ hr CONT PRN IV PER PROTOCOL; Start 02/01/22 at 04:15; Stop 02/01/22 at 04:28; Status DC Heparin Sodium (Porcine) (Heparin Sodium) 1,450 unit PRN Q6HRS PRN IV FOR UFH LEVEL LESS THAN 0.2; Start 02/01/22 at 04:15; Stop 02/01/22 at 04:28; Status DC Heparin Sodium/ Dextrose 250 ml @ 6.984 mls/ hr CONT PRN IV PER PROTOCOL Last administered on 02/02/22at 11:04; Start 02/01/22 at 04:30 Heparin Sodium (Porcine) (Heparin Sodium) 1,450 unit PRN Q6HRS PRN IV FOR PTT < 40 Last administered on 02/01/22at 23:24; Start 02/01/22 at 04:30 Piperacillin Sod/ Tazobactam Sod (Zosyn Per Pharmacy) 1 each PRN DAILY PRN MC S EE COMMENTS; Start 02/01/22 at 07:30 Piperacillin Sod/ Tazobactam Sod 3.375 gm/Sodium Chloride 50 ml @ 100 mls/hr Q6HRS IV Last administered on 02/02/22at 11:39; Start 02/01/22 at 07:30 Dobutamine HCl/ Dextrose 250 ml @ 4.073 mls/ hr CONT PRN IV SEE I/O RECORD; Start 02/01/22 at 10:30 Lidocaine HCl (Xylocaine-Mpf 1% 2ml Vial) 2 ml STK-MED ONCE .ROUTE ; Start 02/01/22 at 12:13; Stop 02/01/22 at 12:13; Status DC Iodixanol (Visipaque 320) 100 ml STK-MED ONCE .ROUTE ; Start 02/01/22 at 12:13; Stop 02/01/22 at 12:13; Status DC Heparin Sodium/ Sodium Chloride 1,500 ml @ As Directed STK-MED ONCE .ROUTE ; Start 02/01/22 at 12:13; Stop 02/01/22 at 12:14; Status DC Fentanyl Citrate (Fentanyl 2ml Vial) 100 mcg STK-MED ONCE .ROUTE ; Start 02/01/22 at 12:40; Stop 02/01/22 at 12:40; Status DC Midazolam HCl (Versed) 2 mg STK-MED ONCE .ROUTE ; Start 02/01/22 at 12:40; Stop 02/01/22 at 12:40; Status DC Heparin Sodium (Porcine) (Heparin Sodium) 10,000 unit STK-MED ONCE .ROUTE ; Start 02/01/22 at 12:40; Stop 02/01/22 at 12:40; Status DC Verapamil HCl (Verapamil) 5 mg STK-MED ONCE .ROUTE ; Start 02/01/22 at 12:40; Stop 02/01/22 at 12:40; Status DC Nitroglycerin (Nitroglycerin) 200 mcg STK-MED ONCE .ROUTE ; Start 02/01/22 at 12:40; Stop 02/01/22 at 12:41; Status DC Nitroglycerin (Nitroglycerin) 200 mcg 1X ONCE IART Last administered on 02/01/22at 13:39; Start 02/01/22 at 13:00; Stop 02/01/22 at 13:01; Status DC Verapamil HCl (Verapamil) 2.5 mg 1X ONCE IART Last administered on 02/01/22at 13:40; Start 02/01/22 at 13:00; Stop 02/01/22 at 13:01; Status DC Heparin Sodium (Porcine) (Heparin Sodium) 2,500 unit 1X ONCE IART Last administered on 02/01/22at 13:38; Start 02/01/22 at 13:00; Stop 02/01/22 at 13:01; Status DC Heparin Sodium/ Sodium Chloride (HEPARIN for ARTERIAL LINE FLUSH) 1,000 unit 1X ONCE IART Last administered on 02/01/22at 13:33; Start 02/01/22 at 13:00; Stop 02/01/22 at 13:01; Status DC Heparin Sodium/ Sodium Chloride (HEPARIN for ARTERIAL LINE FLUSH) 1,000 unit 1X ONCE IART Last administered on 02/01/22at 13:33; Start 02/01/22 at 13:00; Stop 02/01/22 at 13:01; Status DC Iodixanol (Visipaque 320) 100 ml 1X ONCE IART Last administered on 02/01/22at 13:33; Start 02/01/22 at 13:00; Stop 02/01/22 at 13:01; Status DC Lidocaine HCl (Xylocaine-Mpf 1% 2ml Vial) 2 ml 1X ONCE INJ Last administered on 02/01/22at 13:34; Start 02/01/22 at 13:00; Stop 02/01/22 at 13:01; Status DC Info (CONTRAST GIVEN -- Rx MONITORING) 1 each PRN DAILY PRN MC SEE COMMENTS; Start 02/01/22 at 13:00; Stop 02/03/22 at 12:59 Lidocaine HCl (Lidocaine 1% 20ml Vial) 20 ml STK-MED ONCE .ROUTE ; Start 02/01/22 at 13:06; Stop 02/01/22 at 13:06; Status DC Heparin Sodium (Porcine) (Heparin 5,000 Units/1,000ml NS) 5,000 unit 1X ONCE IV Last administered on 02/01/22at 13:15; Start 02/01/22 at 13:15; Stop 02/01/22 at 13:16; Status DC Lidocaine HCl (Lidocaine 1% 20ml Vial) 20 ml 1X ONCE INJ Last administered on 02/01/22at 13:45; Start 02/01/22 at 13:45; Stop 02/01/22 at 13:46; Status DC Potassium Chloride (Klor-Con) 40 meq 1X ONCE PO Last administered on 02/02/22at 08:00; Start 02/02/22 at 07:30; Stop 02/02/22 at 07:32; Status DC Clopidogrel Bisulfate (Plavix) 75 mg DAILYWBKFT PO ; Start 02/03/22 at 08:00 Clopidogrel Bisulfate (Plavix) 300 mg 1X ONCE PO Last administered on 02/02/22at 10:49; Start 02/02/22 at 10:45; Stop 02/02/22 at 10:46; Status DC Active Scripts Active Furosemide 40 Mg Tablet 1 Tab PO DAILY 30 Days Metoprolol Succinate ( Xl ) (Metoprolol Succinate) 25 Mg Tab.er.24h 25 Mg PO DAILY 30 Days Eliquis (Apixaban) 5 Mg Tablet 5 Mg PO BID 30 Days Reported Stiolto Respimat Inhal [place] (Tiotropium Br/Olodaterol HCl) 4 Gm Mist.inhal 4 Gm IH HS Flomax (Tamsulosin Hcl) 0.4 Mg Cap.er.24h 1 Cap PO BID Refresh Lacri-Lube Ointment (Mineral Oil/Petrolatum,White) 3.5 Gm Oint...g. 3.5 Gm OU DAILY Atorvastatin Calcium 20 Mg Tablet 2 Tab PO HS Omeprazole 20 Mg Capsule.dr 1 Cap PO DAILY Lubricating Plus (Carboxymethylcellulose Sodium) 1 Each Droperette 1 OU DAILY Proair Hfa Inhaler (Albuterol Sulfate) 8.5 Gm Hfa.aer.ad 1 Puff INH PRN Q6HRS PRN Aspirin 325 Mg Tablet 1 Tab PO DAILY Vitals/I & O Vital Sign - Last 24 Hours 02/01/22 02/01/22 02/01/22 02/01/22 13:00 13:40 13:56 14:00 Pulse 108 92 90 90 Resp 20 23 18 B/P (MAP) 96/63 (74) 159/110 137/81 (99) Pulse Ox 100 100 100 O2 Delivery Nasal Cannula Nasal Cannula Nasal Cannula O2 Flow Rate 3.0 3.0 3.0 02/01/22 02/01/22 02/01/22 02/01/22 14:00 14:00 15:00 15:00 Pulse 101 115 98 101 Resp 20 18 18 20 B/P (MAP) 158/57 150/71 (97) 158/87 (110) 158/87 Pulse Ox 100 95 100 100 O2 Delivery Nasal Cannula Nasal Cannula Nasal Cannula Nasal Cannula O2 Flow Rate 3.0 3.0 3.0 3.0 02/01/22 02/01/22 02/01/22 02/01/22 16:00 16:00 16:00 16:15 Pulse 92 92 92 Resp 20 18 20 B/P (MAP) 147/79 147/79 (101) 145/78 Pulse Ox 100 100 100 O2 Delivery Nasal Cannula Nasal Cannula Nasal Cannula Nasal Cannula O2 Flow Rate 3.0 3.0 3.0 3.0 02/01/22 02/01/22 02/01/22 02/01/22 16:15 16:30 16:30 17:00 Pulse 92 92 100 92 Resp 18 18 20 18 B/P (MAP) 147/79 (101) 147/79 (101) 152/81 147/79 (101) Pulse Ox 100 100 100 100 O2 Delivery Nasal Cannula Nasal Cannula Nasal Cannula Nasal Cannula O2 Flow Rate 3.0 3.0 3.0 3.0 02/01/22 02/01/22 02/01/22 02/01/22 17:00 18:00 18:00 18:15 Pulse 104 92 99 105 Resp 12 18 16 18 B/P (MAP) 152/85 147/79 (101) 124/63 139/67 Pulse Ox 100 100 100 100 O2 Delivery Nasal Cannula Nasal Cannula Nasal Cannula Nasal Cannula O2 Flow Rate 3.0 3.0 3.0 3.0 02/01/22 02/01/22 02/01/22 02/01/22 19:00 20:00 20:00 21:00 Temp 97.5 98.4 97.5 98.4 Pulse 105 97 92 Resp 38 17 14 B/P (MAP) 138/71 132/60 123/60 Pulse Ox 100 100 100 O2 Delivery Nasal Cannula Nasal Cannula Nasal Cannula Nasal Cannula O2 Flow Rate 3.0 3.0 3.0 3.0 02/01/22 02/01/22 02/02/22 02/02/22 22:00 23:00 00:00 00:00 Temp 98.2 98.2 Pulse 98 97 100 Resp 22 16 15 B/P (MAP) 124/66 117/61 117/64 Pulse Ox 100 93 98 O2 Delivery Nasal Cannula Nasal Cannula Nasal Cannula Nasal Cannula O2 Flow Rate 3.0 3.0 3.0 3.0 02/02/22 02/02/22 02/02/22 02/02/22 01:00 02:00 02:39 03:00 Pulse 87 99 98 Resp 14 10 19 B/P (MAP) 127/63 118/69 118/64 Pulse Ox 100 100 99 98 O2 Delivery Nasal Cannula Nasal Cannula Nasal Cannula Nasal Cannula O2 Flow Rate 3.0 3.0 2.0 3.0 02/02/22 02/02/22 02/02/22 02/02/22 04:00 04:00 05:00 05:30 Temp 98.2 98.2 Pulse 90 94 Resp B/P (MAP) 124/62 122/67 Pulse Ox 100 99 100 O2 Delivery Nasal Cannula Nasal Cannula Nasal Cannula Nasal Cannula O2 Flow Rate 3.0 3.0 3.0 3.0 02/02/22 02/02/22 02/02/22 02/02/22 06:00 06:00 07:00 08:00 Pulse 87 84 Resp 09 30 16 B/P (MAP) 136/75 110/57 Pulse Ox 100 100 100 O2 Delivery Nasal Cannula Nasal Cannula Nasal Cannula Nasal Cannula O2 Flow Rate 3.0 3.0 3.0 2.0 02/02/22 02/02/22 02/02/22 02/02/22 08:00 09:00 09:30 10:00 Temp 98.5 98.5 Pulse 90 101 111 107 Resp B/P (MAP) 108/53 135/81 128/73 131/74 Pulse Ox 99 98 100 100 O2 Delivery Nasal Cannula Nasal Cannula Nasal Cannula Nasal Cannula O2 Flow Rate 3.0 2.0 2.0 2.0 02/02/22 02/02/22 02/02/22 11:00 12:00 12:00 Temp 98.8 98.8 Pulse 100 104 Resp 20 24 B/P (MAP) 124/64 117/52 Pulse Ox 100 100 O2 Delivery Nasal Cannula Nasal Cannula Nasal Cannula O2 Flow Rate 2.0 2.0 2.0 Intake and Output 02/01/22 02/01/22 02/02/22 15:00 23:00 07:00 Intake Total 0 ml 170 ml 819 ml Output Total 0 ml 0 ml Balance 0 ml 170 ml 819 ml Justicifation of Admission Dx: Justifications for Admission: Justification of Admission Dx: Yes SHYANN JOHNSON MD Feb 02, 2022 12:55
--- NOTE | 2022-02-02 14:31 | PDOC ---
[facility] PROGRESS NOTE Date of Service DOS: DATE: 02/02/22 TIME: 14:28 Chief Complaint Chief Complaint Assessment/Plan Acute hypoxic respiratory failure Bilateral pleural effusions status post thoracentesis 01/31/2022 Acute on chronic CHF exacerbation Costochondritis History of CHF with LVEF of 15 to 20% on echo 11/26/2021 History of CAD History of REENA History of dyslipidemia History of hypertension History of atrial fibrillation on Eliquis Admit to hospitalist service for further management Cardiology consult for CHF management Pulmonology consult for possible thoracentesis Hold anticoagulation for now patient's chart, labs, images were reviewed and discussed with RN Fluid and sodium restriction Lovenox for DVT prophylaxis Protonix GI prophylaxis ADA diet CODE STATUS full Discussed with RN and SW Disposition inpatient management as above DPOA: Shana Gabriele History of Present Illness History of Present Illness 76-year-old male with multiple comorbidities who comes in with shortness of breath and chest pain. Shortness of breath has been going on for for few days.Patient's room air sat while I was in the room was 92% but he is quite tachypneic and has to stop frequently during the [id number] session to catch his breath. Denies any fevers, abdominal pain, diarrhea, dysuria or syncope. 01/31/2022 No acute events overnight. Patient seen examined bedside. Saturating 99% on 2 L nasal cannula. Patient had thoracentesis done this morning with 800 cc of fluid removed. Will await for fluid analysis. Patient's chart, labs, images were reviewed and discussed with RN 02/01: Afebrile. S/P bilateral thoracentesis yesterday. Patient was moved down to the ICU after having apneic event. Code stroke was was called and neurology consulted. No concerns for CVA, per neurology. Patient will be taken to the [facility] today to have been intra-aortic balloon pump placed. Discussed with RN. 02/02: Patient seen in ICU. He has no complaints of chest pain, appears to be in good spirits. He is scheduled for high risk PCI on Friday; discussed with son at bedside. He remains on heparin gtt and Levophed. Vitals/I&O Vitals/I&O: Vital Signs Date Time Temp Pulse Resp B/P (MAP) Pulse Ox O2 Delivery O2 Flow Rate FiO2 02/02/22 14:00 110 22 125/60 100 Nasal Cannula 2.0 02/02/22 12:00 98.8 98.8 I & O 02/01/22 02/01/22 02/02/22 15:00 23:00 07:00 Intake Total 0 ml 170 ml 819 ml Output Total 0 ml 0 ml Balance 0 ml 170 ml 819 ml Physical Exam General: Alert, Oriented X3, Cooperative, mild distress Heart: Other (sinus tachycardia ) Lungs: Other (Decreased at the bases.) Abdomen: Soft, No tenderness Extremities: No edema Skin: No significant lesion Labs Labs: Laboratory Tests Test 02/01/22 16:00 02/01/22 22:05 02/02/22 05:25 Activated Partial Thromboplast Time 37 SEC (24-38) 35 SEC (24-38) 35 SEC (24-38) White Blood Count 10.2 x10^3/uL (4.0-11.0) Red Blood Count 3.14 x10^6/uL (4.30-5.70) Hemoglobin 8.4 g/dL (13.0-17.5) Hematocrit 25.9 % (39.0-53.0) Mean Corpuscular Volume 82 fL (79-100) Mean Corpuscular Hemoglobin 27 pg (25-35) Mean Corpuscular Hemoglobin Concent 32 g/dL (31-37) Red Cell Distribution Width 16.1 % (11.5-14.5) Platelet Count 243 x10^3/uL (140-400) Neutrophils (%) (Auto) 72 % (31-73) Lymphocytes (%) (Auto) 13 % (24-48) Monocytes (%) (Auto) 11 % (0-9) Eosinophils (%) (Auto) 3 % (0-3) Basophils (%) (Auto) 1 % (0-3) Neutrophils # (Auto) 7.3 x10^3/uL (1.8-7.7) Lymphocytes # (Auto) 1.4 x10^3/uL (1.0-4.8) Monocytes # (Auto) 1.1 x10^3/uL (0.0-1.1) Eosinophils # (Auto) 0.3 x10^3/uL (0.0-0.7) Basophils # (Auto) 0.1 x10^3/uL (0.0-0.2) Sodium Level 137 mmol/L (136-145) Potassium Level 3.4 mmol/L (3.5-5.1) Chloride Level 102 mmol/L (98-107) Carbon Dioxide Level 26 mmol/L (21-32) Anion Gap 9 (6-14) Blood Urea Nitrogen 40 mg/dL (8-26) Creatinine 1.6 mg/dL (0.7-1.3) Estimated GFR (Cockcroft-Gault) 42.1 Glucose Level 132 mg/dL (70-99) Calcium Level 8.3 mg/dL (8.5-10.1) Magnesium Level 2.1 mg/dL (1.8-2.4) Assessment and Plan Assessmemt and Plan Problems Medical Problems: (1) Bilateral pleural effusion Status: Acute (2) Congestive heart failure (CHF) Status: Acute (3) Shortness of breath Status: Acute Comment Review of Relevant I have reviewed the following items rai (where applicable) has been applied. Medications: Current Medications Medications (Trade) Dose Ordered Sig/Ifeanyi Route PRN Reason Start Time Stop Time Status Last Admin Dose Admin Potassium Chloride (Klor-Con) 40 meq 1X ONCE PO 02/02/22 07:30 02/02/22 07:32 DC 02/02/22 08:00 Clopidogrel Bisulfate (Plavix) 300 mg 1X ONCE PO 02/02/22 10:45 02/02/22 10:46 DC 02/02/22 10:49 Justifications for Admission Other Justification CHF exacerbation VIJI OSEI MD Feb 02, 2022 14:31
--- NOTE | 2022-02-02 16:13 | RAD ---
Exam performed: One view chest HISTORY: Abnormal chest x-ray. DATE OF SERVICE: 02/02/2022. COMPARISON: One view chest from 02/01/2022. Portable view chest findings and impression: Heart size and mediastinal silhouette is stable. Pulmonary vascularity is congested. A right IJ centr al line, similar in position. Ongoing bilateral pulmonary infiltrates are seen, slightly worsening in the left upper lobe. There is no pleural effusion or pneumothorax. Electronically signed by: Berna Kee MD (02/02/2022 4:11 PM) [facility]
[2022-02-02] MEDS: ATORVASTATIN CALCIUM 20 MG TABLET PO SCH (21:03)
[2022-02-03] VITALS (26 sets, daily range): BP systolic 81–127; BP diastolic 44–63
[2022-02-03] MEDS: PIPERACILLIN/TAZOBACTAM 3.375 GM in IV NORMAL SALINE 50ML 50 ML IV SCH ×5 (05:57→23:30)
[2022-02-03] MEDS: METOPROLOL SUCC 24HR ER 25 MG TAB.ER.24H. PO SCH (09:00)
[2022-02-03] MEDS: FLUTICASONE 50MCG/NASAL SPRAY 16GM BOTTLE. NS SCH ×2 (09:33→20:48)
[2022-02-03] MEDS: CLOPIDOGREL BISULFATE 75 MG TABLET PO SCH (09:33)
[2022-02-03] MEDS: TAMSULOSIN 0.4 MG CAP.ER.24H. PO SCH ×2 (09:33→20:47)
[2022-02-03] MEDS: LACTOBACILLUS RHAMNOSUS GG 1 CAPSULE. PO SCH ×2 (09:33→20:47)
[2022-02-03] MEDS: FUROSEMIDE 40 MG TABLET. PO SCH (09:33)
[2022-02-03] MEDS: DICLOFENAC SODIUM 1% TOPICAL GEL 100GM TUBE. TP SCH ×2 (09:34→20:48)
--- NOTE | 2022-02-03 10:00 | PDOC ---
PULMONARY PROGRESS NOTES DATE: 02/03/22 TIME: 09:57 Subjective Patient denies any shortness of breath. Remains on nasal cannula. Status post cardiac cath. Severe three-vessel coronary artery disease and severe cardiomyopathy with an EF of 15%. Status post intra-aortic balloon pump. Status post bilateral thoracentesis at 01/31/2022 Vitals Vital Signs Date Time Temp Pulse Resp B/P (MAP) Pulse Ox O2 Delivery O2 Flow Rate FiO2 02/03/22 08:00 Room Air 02/03/22 06:00 81 12 102/55 97 02/03/22 04:00 98.9 98.9 02/02/22 17:00 2.0 General: Alert, No acute distress Lungs: Other (Decreased at the bases.) Cardiovascular: S1, S2 Abdomen: Soft, Non-tender Extremities: No Edema Skin: Warm Labs Laboratory Tests Test 02/01/22 10:59 02/01/22 16:00 02/01/22 22:05 02/02/22 05:25 Activated Partial Thromboplast Time 36 SEC (24-38) 37 SEC (24-38) 35 SEC (24-38) 35 SEC (24-38) Troponin I High Sensitivity 23767 ng/L (4-75) White Blood Count 10.2 x10^3/uL (4.0-11.0) Red Blood Count 3.14 x10^6/uL (4.30-5.70) Hemoglobin 8.4 g/dL (13.0-17.5) Hematocrit 25.9 % (39.0-53.0) Mean Corpuscular Volume 82 fL (79-100) Mean Corpuscular Hemoglobin 27 pg (25-35) Mean Corpuscular Hemoglobin Concent 32 g/dL (31-37) Red Cell Distribution Width 16.1 % (11.5-14.5) Platelet Count 243 x10^3/uL (140-400) Neutrophils (%) (Auto) 72 % (31-73) Lymphocytes (%) (Auto) 13 % (24-48) Monocytes (%) (Auto) 11 % (0-9) Eosinophils (%) (Auto) 3 % (0-3) Basophils (%) (Auto) 1 % (0-3) Neutrophils # (Auto) 7.3 x10^3/uL (1.8-7.7) Lymphocytes # (Auto) 1.4 x10^3/uL (1.0-4.8) Monocytes # (Auto) 1.1 x10^3/uL (0.0-1.1) Eosinophils # (Auto) 0.3 x10^3/uL (0.0-0.7) Basophils # (Auto) 0.1 x10^3/uL (0.0-0.2) Sodium Level 137 mmol/L (136-145) Potassium Level 3.4 mmol/L (3.5-5.1) Chloride Level 102 mmol/L (98-107) Carbon Dioxide Level 26 mmol/L (21-32) Anion Gap 9 (6-14) Blood Urea Nitrogen 40 mg/dL (8-26) Creatinine 1.6 mg/dL (0.7-1.3) Estimated GFR (Cockcroft-Gault) 42.1 Glucose Level 132 mg/dL (70-99) Calcium Level 8.3 mg/dL (8.5-10.1) Magnesium Level 2.1 mg/dL (1.8-2.4) Test 02/03/22 04:10 Activated Partial Thromboplast Time 62 SEC (24-38) Laboratory Tests Test 02/03/22 04:10 Activated Partial Thromboplast Time 62 SEC (24-38) Medications Active Scripts Medications Dose Route/Sig Max Daily Dose Days Date Category Flomax (Tamsulosin Hcl) 0.4 Mg Cap.er.24h 1 Cap PO BID 01/30/22 Reported Furosemide 40 Mg Tablet 1 Tab PO DAILY 30 11/26/21 Rx Metoprolol Succinate ( Xl ) (Metoprolol Succinate) 25 Mg Tab.er.24h 25 Mg PO DAILY 30 11/26/21 Rx Eliquis (Apixaban) 5 Mg Tablet 5 Mg PO BID 30 11/26/21 Rx Refresh Lacri-Lube Ointment (Mineral Oil/Petrolatum,White) 3.5 Gm Oint...g. 3.5 Gm OU DAILY 11/23/21 Reported Atorvastatin Calcium 20 Mg Tablet 2 Tab PO HS 11/23/21 Reported Omeprazole 20 Mg Capsule.dr 1 Cap PO DAILY 11/23/21 Reported Lubricating Plus (Carboxymethylcellulose Sodium) 1 Each Droperette 1 OU DAILY 11/23/21 Reported Fluticasone Propionate Nasal [place] (Fluticasone Propionate) 16 Gm [place].susp 1 Sprays NS BID 11/23/21 Reported Proair Hfa Inhaler (Albuterol Sulfate) 8.5 Gm Hfa.aer.ad 1 Puff INH PRN Q6HRS PRN 05/13/18 Reported Aspirin 325 Mg Tablet 1 Tab PO DAILY 05/22/15 Reported Comments Chest x-ray reviewed 02/02/2022. Evidence of interstitial edema. Chest x-ray reviewed 02/01/2022. Diffuse bilateral interstitial infiltrates Impression . 1. Acute hypoxic respiratory failure secondary to acute on chronic systolic heart failure with bilateral pleural effusions. Status post thoracentesis 01/31/2022 2. Low-grade fever. Influenza and Covid negative. Cannot exclude pneumonia. Currently on antibiotics 3. Abnormal CT chest with bilateral pleural effusion, which has been persistent and moderate. Status post bilateral thoracentesis 01/31/2022 4. 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 5. Hypotension. Status post 1 L of IV fluid. With chest x-ray worsening, would avoid further IV fluids. 6. Encephalopathy, likely contributed by hypotension. CT head negative. Completely resolved. 7. Status post cardiac cath. Severe three-vessel coronary artery disease and severe cardiomyopathy. Status post intra-aortic balloon pump. 8. Cardiogenic shock. Cardiac cath report. Conclusion 1. Cardiogenic shock with acute on chronic systolic and diastolic heart failure 2. Severe three-vessel coronary artery disease 3. Successful placement of a 7.5 Armenian 40 cc Intermedic balloon pump for cardiac shock Recommendations 1. Continue medication optimization. Given the patient's renal failure and significant cardiomyopathy with three-vessel coronary artery disease further intervention was deferred today in an effort to discuss the risks and benefits of high risk PCI with the patient's family and the patient's primary loan officer assistant Dr. Mckeon Signed by : Melquiades Bertrand, Electronically Approved : 02/01/2022 17:49:28 Plan . Updated 02/03/2022 1. Pulmonary status stable. On nasal cannula. Status post thoracentesis. Follow pleural fluid analysis. Eliquis on hold. On heparin per protocol. 2. Continue present oxygen. As needed BiPAP. 3. Ruled out for influenza and COVID. Pneumonia is likely possibility for the source of fever. On antibiotics. Clinically improving 4. Status post cardiac cath. Currently on intra-aortic balloon pump. Severe cardiomyopathy and severe three-vessel coronary artery disease. Cardiology to consider PCI Friday. 5. Normal pro calcitonin 6. Cardiology recommendations. 7. Discussed with RN Updated 02/02/2022 1. Pulmonary status stable. On nasal cannula. Status post thoracentesis. Fo llow pleural fluid analysis. Restarted on Eliquis. 2. Continue present oxygen. As needed BiPAP. 3. Ruled out for influenza and COVID. Pneumonia is likely possibility for the source of fever. On antibiotics. 4. Status post cardiac cath. Currently on intra-aortic balloon pump. Severe cardiomyopathy and severe three-vessel coronary artery disease. Cardiology to consider PCI Friday. 5. Normal pro calcitonin 6. Cardiology recommendations. 7. Discussed with neonatal intensive care nurse time 35 minutes RECOMMENDATIONS: 1. Status post thoracentesis. Follow pleural fluid analysis. Restarted on Eliquis. 2. Continue present oxygen. As needed BiPAP. 3. Ruled out for influenza and COVID. Pneumonia is likely possibility for the source of fever. Started on Rocephin. Will broaden the antibiotic and changed to Zosyn. 4. Avoid any benzos and narcotics. 5. Hold off diuresis. Obtain proBNP. Obtain pro calcitonin as well 6. Cardiology recommendations. 7. Discussed with neonatal intensive care nurse time 30 minutes YUNI ROBERTSON MD Feb 03, 2022 10:00
--- NOTE | 2022-02-03 11:44 | PDOC ---
[facility] PROGRESS NOTE Date of Service DOS: DATE: 02/03/22 TIME: 11:43 Chief Complaint Chief Complaint Assessment/Plan Acute hypoxic respiratory failure Bilateral pleural effusions status post thoracentesis 01/31/2022 Acute on chronic CHF exacerbation Costochondritis History of CHF with LVEF of 15 to 20% on echo 11/26/2021 History of CAD History of REENA History of dyslipidemia History of hypertension History of atrial fibrillation on Eliquis Admit to hospitalist service for further management Cardiology consult for CHF management Pulmonology consult for possible thoracentesis Hold anticoagulation for now patient's chart, labs, images were reviewed and discussed with RN Fluid and sodium restriction Lovenox for DVT prophylaxis Protonix GI prophylaxis ADA diet CODE STATUS full Discussed with RN and SW Disposition inpatient management as above DPOA: Shana Gabriele History of Present Illness History of Present Illness 76-year-old male with multiple comorbidities who comes in with shortness of breath and chest pain. Shortness of breath has been going on for for few days.Patient's room air sat while I was in the room was 92% but he is quite tachypneic and has to stop frequently during the [id number] session to catch his breath. Denies any fevers, abdominal pain, diarrhea, dysuria or syncope. 01/31/2022 No acute events overnight. Patient seen examined bedside. Saturating 99% on 2 L nasal cannula. Patient had thoracentesis done this morning with 800 cc of fluid removed. Will await for fluid analysis. Patient's chart, labs, images were reviewed and discussed with RN 02/01: Afebrile. S/P bilateral thoracentesis yesterday. Patient was moved down to the ICU after having apneic event. Code stroke was was called and neurology consulted. No concerns for CVA, per neurology. Patient will be taken to the [facility] today to have been intra-aortic balloon pump placed. Discussed with RN. 02/02: Patient seen in ICU. He has no complaints of chest pain, appears to be in good spirits. He is scheduled for high risk PCI on Friday; discussed with son at bedside. He remains on heparin gtt and Levophed. 02/03: Afebrile. Currently resting calmly in bed without complaints. He is off Levophed. Plan is for high risk PCI on Friday. Discussed with RN. Vitals/I&O Vitals/I&O: Vital Signs Date Time Temp Pulse Resp B/P (MAP) Pulse Ox O2 Delivery O2 Flow Rate FiO2 02/03/22 11:00 88 16 122/61 98 Room Air 02/03/22 07:00 98.9 98.9 02/02/22 17:00 2.0 I & O 02/02/22 02/02/22 02/03/22 15:00 23:00 07:00 Intake Total 120 ml 953 ml 551 ml Output Total 1200 ml 1050 ml 385 ml Balance -1080 ml -97 ml 166 ml Physical Exam General: Alert, Oriented X3, Cooperative, No acute distress Heart: Other (sinus tachycardia ) Lungs: Other (Decreased at the bases.) Abdomen: Soft, No tenderness Extremities: No edema Skin: No significant lesion Labs Labs: Laboratory Tests Test 02/03/22 04:10 02/03/22 10:00 Activated Partial Thromboplast Time 62 SEC (24-38) 55 SEC (24-38) Assessment and Plan Assessmemt and Plan Problems Medical Problems: (1) Bilateral pleural effusion Status: Acute (2) Congestive heart failure (CHF) Status: Acute (3) Shortness of breath Status: Acute Comment Review of Relevant I have reviewed the following items rai (where applicable) has been applied. Medications: Current Medications Medications (Trade) Dose Ordered Sig/Ifeanyi Route PRN Reason Start Time Stop Time Status Last Admin Dose Admin Clopidogrel Bisulfate (Plavix) 75 mg [id number] PO 02/03/22 08:00 02/03/22 09:33 Justifications for Admission Other Justification CHF exacerbation VIJI OSEI MD Feb 03, 2022 11:44
[2022-02-03 12:00] LABS: BASO # 0.1 x10^3/uL (0.0-0.2); BASO % 1 % (0-3); EOS # 0.3 x10^3/uL (0.0-0.7); EOS % 4 % (0-3); HEMATOCRIT 24.9 % (39.0-53.0); HEMOGLOBIN 8.1 g/dL (13.0-17.5); LYMPH # 0.8 x10^3/uL (1.0-4.8); LYMPH % 12 % (24-48); MEAN CORPUSCULAR HEMOGLOBIN 27 pg (25-35); MEAN CORPUSCULAR HGB CONC 33 g/dL (31-37); MEAN CORPUSCULAR VOLUME 82 fL (79-100); MONO # 0.6 x10^3/uL (0.0-1.1); MONO % 10 % (0-9); NEUT # 4.6 x10^3/uL (1.8-7.7); NEUT % 73 % (31-73); PLATELET COUNT 143 x10^3/uL (140-400); RED BLOOD COUNT 3.04 x10^6/uL (4.30-5.70); RED CELL DISTRIBUTION WIDTH 16.2 % (11.5-14.5); WHITE BLOOD COUNT 6.3 x10^3/uL (4.0-11.0)
[2022-02-03 12:17] LABS: CALCIUM 8.4 mg/dL (8.5-10.1); CREATININE 1.4 mg/dL (0.7-1.3); GFR 49.1; POTASSIUM 3.5 mmol/L (3.5-5.1)
--- NOTE | 2022-02-03 12:20 | PDOC ---
CARDIOLOGY PROGRESS NOTE SUBJECTIVE: No new events overnight. patient in good spirits this morning Levophed able to be stopped this morning. OBJECTIVE: Vital Signs/I&O: Vital Signs Date Time Temp Pulse Resp B/P (MAP) Pulse Ox O2 Delivery O2 Flow Rate FiO2 02/03/22 11:00 88 16 122/61 98 Room Air 02/03/22 07:00 98.9 98.9 02/02/22 17:00 2.0 I & O 02/02/22 02/02/22 02/03/22 15:00 23:00 07:00 Intake Total 120 ml 953 ml 551 ml Output Total 1200 ml 1050 ml 385 ml Balance -1080 ml -97 ml 166 ml Objective: GEN.: No apparent distress. Alert and oriented. HEENT: Head is normocephalic, atraumatic NECK: Supple. LUNGS: Clear to auscultation. HEART: RRR, S1, S2 present. Peripheral pulses intact ABDOMEN: Soft, nontender. Positive bowel sounds. EXTREMITIES: Without any cyanosis. NEUROLOGIC: Normal speech, normal tone PSYCHIATRIC: Normal affect, normal mood. SKIN: No ulcerations CURRENT MEDICATIONS: plavix hep gtt lasix 40mg daily atorvastatin 40mg daily toprol XL 25mg daily DIAGNOSTIC TESTING: No new testing. Labs pending Labs: Laboratory Tests 02/03/22 11:40 Laboratory Tests Test 02/03/22 04:10 02/03/22 10:00 02/03/22 11:40 Activated Partial Thromboplast Time 62 SEC (24-38) H 55 SEC (24-38) H White Blood Count 6.3 x10^3/uL (4.0-11.0) Red Blood Count 3.04 x10^6/uL (4.30-5.70) L Hemoglobin 8.1 g/dL (13.0-17.5) L Hematocrit 24.9 % (39.0-53.0) L Mean Corpuscular Volume 82 fL (79-100) Mean Corpuscular Hemoglobin 27 pg (25-35) Mean Corpuscular Hemoglobin Concent 33 g/dL (31-37) Red Cell Distribution Width 16.2 % (11.5-14.5) H Platelet Count 143 x10^3/uL (140-400) Neutrophils (%) (Auto) 73 % (31-73) Lymphocytes (%) (Auto) 12 % (24-48) L Monocytes (%) (Auto) 10 % (0-9) H Eosinophils (%) (Auto) 4 % (0-3) H Basophils (%) (Auto) 1 % (0-3) Neutrophils # (Auto) 4.6 x10^3/uL (1.8-7.7) Lymphocytes # (Auto) 0.8 x10^3/uL (1.0-4.8) L Monocytes # (Auto) 0.6 x10^3/uL (0.0-1.1) Eosinophils # (Auto) 0.3 x10^3/uL (0.0-0.7) Basophils # (Auto) 0.1 x10^3/uL (0.0-0.2) ASSESSMENT: 1. Cardiogenic shock and ischemic CMP. Improved. 2. CAD 3. ELVIS PLAN: 1. Plan for high risk PCI tomorrow for multivessel coronary disease. Again discussed with Dr. Mckeon (patient's primary investigation specialist) and family and patient. They all understand risks/benefits and are willing to proceed. Will discuss with Dr. Fowler regarding timing and greens laborer availability Justicifation of Admission Dx: Justifications for Admission: Justification of Admission Dx: Yes PRIYA MATSON MD Feb 03, 2022 12:20
[2022-02-03] MEDS: HEPARIN 25,000UTS/250ML PREMIX 250 ML IV PRN (16:59)
--- NOTE | 2022-02-03 17:00 | NUR ---
Pt stable, no events throughout day. IABP in place-site clean dry and intact. Pt alert and oriented x4, bilateral pulses intact. no pain present-patient repositioned. Vital sign stable-remain off levophed.
[2022-02-03] MEDS: diphenhydrAMINE HCL 25 MG CAPSULE PO PRN (20:47)
[2022-02-03] MEDS: ATORVASTATIN CALCIUM 20 MG TABLET PO SCH (20:48)
[2022-02-04] VITALS (24 sets, daily range): BP systolic 92–139; BP diastolic 49–77
[2022-02-04 05:26] LABS: HEMATOCRIT 24.2 % (39.0-53.0); HEMOGLOBIN 7.8 g/dL (13.0-17.5); RED BLOOD COUNT 2.97 x10^6/uL (4.30-5.70); WHITE BLOOD COUNT 7.4 x10^3/uL (4.0-11.0)
[2022-02-04] MEDS: PIPERACILLIN/TAZOBACTAM 3.375 GM in IV NORMAL SALINE 50ML 50 ML IV SCH ×4 (05:56→23:52)
--- NOTE | 2022-02-04 08:33 | PDOC ---
PROGRESS NOTES Date of Service DATE: 02/04/22 TIME: 08:32 Assessment Problems Medical Problems: (1) Bilateral pleural effusion Status: Acute (2) Congestive heart failure (CHF) Status: Acute (3) Shortness of breath Status: Acute Event on 01/31 was Bernard-Barraza respiration from his heart failure and hypotension. Add to this his history of sleep apnea. Also interesting is his history of nightmares and sleep issues, he says that he has had trouble like this before when he is falling asleep. I do not see any evidence that he has had a stroke, transient ischemic attack, or seizure. He has been fully worked up for this in the past. No additional spells Plan No additional neurological studies needed Treatment of medical issues. Subjective No complaints Objective Vital Signs Date Time Temp Pulse Resp B/P (MAP) Pulse Ox O2 Delivery O2 Flow Rate FiO2 02/04/22 06:00 79 14 139/66 96 Room Air 02/04/22 04:00 98.4 98.4 Intake and Output 02/04/22 07:00 Intake Total 920 ml Output Total 1085 ml Balance -165 ml Intake Oral 605 ml IV Total 315 ml Output Urine Total 1085 ml PHYSICAL EXAM Alert. Oriented to time, place and person. PERRL. EOMI. CN: no focal findings. Muscle tone: normal. Muscle strength: 5/5 DTR: 2+ Plantar reflex: Flexor Gait: not examined in bed. Sensory exam: no abnormal findings. No cerebellar signs elicited. Review of Relevant I have reviewed the following items rai (where applicable) has been applied. Labs Laboratory Tests Test 02/03/22 04:10 02/03/22 10:00 02/03/22 11:40 02/03/22 17:08 Activated Partial Thromboplast Time 62 SEC (24-38) 55 SEC (24-38) 69 SEC (24-38) White Blood Count 6.3 x10^3/uL (4.0-11.0) Red Blood Count 3.04 x10^6/uL (4.30-5.70) Hemoglobin 8.1 g/dL (13.0-17.5) Hematocrit 24.9 % (39.0-53.0) Mean Corpuscular Volume 82 fL (79-100) Mean Corpuscular Hemoglobin 27 pg (25-35) Mean Corpuscular Hemoglobin Concent 33 g/dL (31-37) Red Cell Distribution Width 16.2 % (11.5-14.5) Platelet Count 143 x10^3/uL (140-400) Neutrophils (%) (Auto) 73 % (31-73) Lymphocytes (%) (Auto) 12 % (24-48) Monocytes (%) (Auto) 10 % (0-9) Eosinophils (%) (Auto) 4 % (0-3) Basophils (%) (Auto) 1 % (0-3) Neutrophils # (Auto) 4.6 x10^3/uL (1.8-7.7) Lymphocytes # (Auto) 0.8 x10^3/uL (1.0-4.8) Monocytes # (Auto) 0.6 x10^3/uL (0.0-1.1) Eosinophils # (Auto) 0.3 x10^3/uL (0.0-0.7) Basophils # (Auto) 0.1 x10^3/uL (0.0-0.2) Sodium Level 139 mmol/L (136-145) Potassium Level 3.5 mmol/L (3.5-5.1) Chloride Level 103 mmol/L (98-107) Carbon Dioxide Level 28 mmol/L (21-32) Anion Gap 8 (6-14) Blood Urea Nitrogen 31 mg/dL (8-26) Creatinine 1.4 mg/dL (0.7-1.3) Estimated GFR (Cockcroft-Gault) 49.1 Glucose Level 156 mg/dL (70-99) Calcium Level 8.4 mg/dL (8.5-10.1) Test 02/03/22 23:05 02/04/22 05:15 Activated Partial Thromboplast Time 89 SEC (24-38) 92 SEC (24-38) White Blood Count 7.4 x10^3/uL (4.0-11.0) Red Blood Count 2.97 x10^6/uL (4.30-5.70) Hemoglobin 7.8 g/dL (13.0-17.5) Hematocrit 24.2 % (39.0-53.0) Mean Corpuscular Volume 82 fL (79-100) Mean Corpuscular Hemoglobin 27 pg (25-35) Mean Corpuscular Hemoglobin Concent 32 g/dL (31-37) Red Cell Distribution Width 16.0 % (11.5-14.5) Platelet Count 135 x10^3/uL (140-400) Laboratory Tests Test 02/03/22 10:00 02/03/22 11:40 02/03/22 17:08 02/03/22 23:05 Activated Partial Thromboplast Time 55 SEC (24-38) 69 SEC (24-38) 89 SEC (24-38) White Blood Count 6.3 x10^3/uL (4.0-11.0) Red Blood Count 3.04 x10^6/uL (4.30-5.70) Hemoglobin 8.1 g/dL (13.0-17.5) Hematocrit 24.9 % (39.0-53.0) Mean Corpuscular Volume 82 fL (79-100) Mean Corpuscular Hemoglobin 27 pg (25-35) Mean Corpuscular Hemoglobin Concent 33 g/dL (31-37) Red Cell Distribution Width 16.2 % (11.5-14.5) Platelet Count 143 x10^3/uL (140-400) Neutrophils (%) (Auto) 73 % (31-73) Lymphocytes (%) (Auto) 12 % (24-48) Monocytes (%) (Auto) 10 % (0-9) Eosinophils (%) (Auto) 4 % (0-3) Basophils (%) (Auto) 1 % (0-3) Neutrophils # (Auto) 4.6 x10^3/uL (1.8-7.7) Lymphocytes # (Auto) 0.8 x10^3/uL (1.0-4.8) Monocytes # (Auto) 0.6 x10^3/uL (0.0-1.1) Eosinophils # (Auto) 0.3 x10^3/uL (0.0-0.7) Basophils # (Auto) 0.1 x10^3/uL (0.0-0.2) Sodium Level 139 mmol/L (136-145) Potassium Level 3.5 mmol/L (3.5-5.1) Chloride Level 103 mmol/L (98-107) Carbon Dioxide Level 28 mmol/L (21-32) Anion Gap 8 (6-14) Blood Urea Nitrogen 31 mg/dL (8-26) Creatinine 1.4 mg/dL (0.7-1.3) Estimated GFR (Cockcroft-Gault) 49.1 Glucose Level 156 mg/dL (70-99) Calcium Level 8.4 mg/dL (8.5-10.1) Test 02/04/22 05:15 White Blood Count 7.4 x10^3/uL (4.0-11.0) Red Blood Count 2.97 x10^6/uL (4.30-5.70) Hemoglobin 7.8 g/dL (13.0-17.5) Hematocrit 24.2 % (39.0-53.0) Mean Corpuscular Volume 82 fL (79-100) Mean Corpuscular Hemoglobin 27 pg (25-35) Mean Corpuscular Hemoglobin Concent 32 g/dL (31-37) Red Cell Distribution Width 16.0 % (11.5-14.5) Platelet Count 135 x10^3/uL (140-400) Activated Partial Thromboplast Time 92 SEC (24-38) Microbiology 01/31/22 Gram Stain - Final, Resulted 01/31/22 Aerobic and Anaerobic Culture - Preliminary, Resulted Medications Current Medications Aspirin (Aspirin Chewable) 324 mg 1X ONCE PO Last administered on 01/29/22at 18:30; Start 01/29/22 at 18:15; Stop 01/29/22 at 18:16; Status DC Albuterol/ Ipratropium (Duoneb) 3 ml 1X ONCE NEB Last administered on 01/29/22at 20:08; Start 01/29/22 at 19:45; Stop 01/29/22 at 19:46; Status DC Iohexol (Omnipaque 350 Mg/ml) 75 ml 1X ONCE IV Last administered on 01/29/22at 19:45; Start 01/29/22 at 19:45; Stop 01/29/22 at 19:46; Status DC Acetaminophen (Tylenol) 650 mg PRN Q6HRS PRN PO MILD PAIN / TEMP > 100.3'F; St art 01/29/22 at 21:15; Stop 02/01/22 at 10:53; Status DC Ondansetron HCl (Zofran) 4 mg PRN Q4HRS PRN IVP NAUSEA/VOMITING 1st choice; Start 01/29/22 at 21:15; Stop 02/02/22 at 16:07; Status DC Guaifenesin (Robitussin Dm) 10 ml PRN Q6HRS PRN PO COUGH; Start 01/29/22 at 21:15 Furosemide (Lasix) 40 mg 1X ONCE IVP Last administered on 01/29/22at 21:30; Start 01/29/22 at 21:30; Stop 01/29/22 at 21:31; Status DC Morphine Sulfate (Morphine Sulfate) 2 mg PRN Q6HRS PRN IVP SEVERE PAIN 7-10 Last administered on 02/02/22at 05:30; Start 01/30/22 at 00:00 Sennosides (Senna) 17.2 mg PRN BID PRN PO CONSTIPATION; Start 01/30/22 at 09:00 Docusate Sodium (Colace) 100 mg PRN DAILY PRN PO HARD STOOLS; Start 01/30/22 at 09:00 Ondansetron HCl (Zofran) 4 mg PRN Q6HRS PRN IVP NAUSEA/VOMITING, 1st CHOICE; Start 01/30/22 at 09:00 Dextrose (Dextrose 50%-Water Syringe) 12.5 gm PRN Q15MIN PRN IV SEE COMMENTS; Start 01/30/22 at 09:00 Acetaminophen (Tylenol) 650 mg PRN Q4HRS PRN PO TEMP OVER 100.4F OR MILD PAIN; Start 01/30/22 at 09:00 Lorazepam (Ativan) 0.5 mg PRN Q6HRS PRN PO ANXIETY / AGITATION; Start 01/30/22 at 09:00 Lorazepam (Ativan Inj) 0.25 mg PRN Q4HRS PRN IV ANXIETY / AGITATION; Start 01/30/22 at 09:00 Enoxaparin Sodium (Lovenox 40mg Syringe) 40 mg Q24H SQ ; Start 01/30/22 at 09:00; Stop 01/30/22 at 11:01; Status DC Prochlorperazine Edisylate (Compazine) 10 mg PRN Q6HRS PRN IV NAUSEA/VOMITING, 2nd CHOICE; Start 01/30/22 at 09:00 Diphenhydramine HCl (Benadryl) 25 mg PRN Q6HRS PRN IVP ITCHING; Start 01/30/22 at 09:00 Diphenhydramine HCl (Benadryl) 25 mg PRN Q6HRS PRN PO ITCHING; Start 01/30/22 at 09:00 Diphenhydramine HCl (Benadryl) 25 mg PRN QHS PRN PO INSOMNIA, 1st CHOICE Last administered on 02/03/22at 20:47; Start 01/30/22 at 09:00 Zolpidem Tartrate (Ambien) 2.5 mg PRN QHS PRN PO INSOMNIA, 2nd CHOICE; Start 01/30/22 at 09:00 Atorvastatin Calcium (Lipitor) 40 mg HS PO Last administered on 02/03/22at 20:48; Start 01/30/22 at 21:00 Metoprolol Succinate (Toprol Xl) 25 mg DAILY PO Last administered on 01/31/22at 08:23; Start 01/30/22 at 10:30 Diclofenac Sodium (Voltaren) 1 karey BID TP Last administered on 02/03/22 20:48; Start 01/30/22 at 11:00 Furosemide (Lasix) 40 mg 1X ONCE IVP Last administered on 01/30/22 11:33; Start 01/30/22 at 11:30; Stop 01/30/22 at 11:31; Status DC Potassium Chloride (Klor-Con) 20 meq 1X ONCE PO Last administered on 01/30/22at 11:33; Start 01/30/22 at 11:30; Stop 01/30/22 at 11:31; Status DC Fluticasone Propionate (Flonase) 1 spray BID NS Last administered on 02/03/22at 20:48; Start 01/30/22 at 21:00 Tamsulosin HCl (Flomax) 0.4 mg BID PO Last administered on 02/03/22 20:47; Start 01/30/22 at 21:00 Ceftriaxone Sodium (Rocephin) 1 gm Q24H IVP Last administered on 01/31/22at 12:44; Start 01/31/22 at 13:00; Stop 02/01/22 at 07:17; Status DC Apixaban (Eliquis) 5 mg BID PO ; Start 01/31/22 at 21:00; Stop 02/01/22 at 10:52; Status DC Furosemide (Lasix) 40 mg DAILY PO Last administered on 02/03/22at 09:33; Start 01/31/22 at 14:00 Info (Anti-Coagulation Monitoring By Pharmacy) 1 each PRN DAILY PRN MC PER PROTOCOL; Start 01/31/22 at 14:15 Lactobacillus Rhamnosus (Culturelle) 1 cap BID PO Last administered on 02/03/22at 20:47; Start 01/31/22 at 21:00 Norepinephrine Bitartrate 8 mg/ Dextrose 258 ml @ 11.262 mls/ hr CONT PRN IV PER PROTOCOL Last administered on 02/02/22at 10:31; Start 02/01/22 at 00:00 Heparin Sodium/ Dextrose 250 ml @ 6.984 mls/ hr CONT PRN IV PER PROTOCOL; Start 02/01/22 at 04:15; Stop 02/01/22 at 04:28; Status DC Heparin Sodium (Porcine) (Heparin Sodium) 1,450 unit PRN Q6HRS PRN IV FOR UFH LEVEL LESS THAN 0.2; Start 02/01/22 at 04:15; Stop 02/01/22 at 04:28; Status DC Heparin Sodium/ Dextrose 250 ml @ 6.984 mls/ hr CONT PRN IV PER PROTOCOL Last administered on 02/03/22at 16:59; Start 02/01/22 at 04:30 Heparin Sodium (Porcine) (Heparin Sodium) 1,450 unit PRN Q6HRS PRN IV FOR PTT < 40 Last administered on 02/01/22at 23:24; Start 02/01/22 at 04:30 Piperacillin Sod/ Tazobactam Sod (Zosyn Per Pharmacy) 1 each PRN DAILY PRN MC SEE COMMENTS; Start 02/01/22 at 07:30 Piperacillin Sod/ Tazobactam Sod 3.375 gm/Sodium Chloride 50 ml @ 100 mls/hr Q6HRS IV Last administered on 02/04/22at 05:56; Start 02/01/22 at 07:30 Dobutamine HCl/ Dextrose 250 ml @ 4.073 mls/ hr CONT PRN IV SEE I/O RECORD; Start 02/01/22 at 10:30 Lidocaine HCl (Xylocaine-Mpf 1% 2ml Vial) 2 ml STK-MED ONCE .ROUTE ; Start 02/01/22 at 12:13; Stop 02/01/22 at 12:13; Status DC Iodixanol (Visipaque 320) 100 ml STK-MED ONCE .ROUTE ; Start 02/01/22 at 12:13; Stop 02/01/22 at 12:13; Status DC Heparin Sodium/ Sodium Chloride 1,500 ml @ As Directed STK-MED ONCE .ROUTE ; Start 02/01/22 at 12:13; Stop 02/01/22 at 12:14; Status DC Fentanyl Citrate (Fentanyl 2ml Vial) 100 mcg STK-MED ONCE .ROUTE ; Start 02/01/22 at 12:40; Stop 02/01/22 at 12:40; Status DC Midazolam HCl (Versed) 2 mg STK-MED ONCE .ROUTE ; Start 02/01/22 at 12:40; Stop 02/01/22 at 12:40; Status DC Heparin Sodium (Porcine) (Heparin Sodium) 10,000 unit STK-MED ONCE .ROUTE ; Start 02/01/22 at 12:40; Stop 02/01/22 at 12:40; Status DC Verapamil HCl (Verapamil) 5 mg STK-MED ONCE .ROUTE ; Start 02/01/22 at 12:40; Stop 02/01/22 at 12:40; Status DC Nitroglycerin (Nitroglycerin) 200 mcg STK-MED ONCE .ROUTE ; Start 02/01/22 at 12:40; Stop 02/01/22 at 12:41; Status DC Nitroglycerin (Nitroglycerin) 200 mcg 1X ONCE IART Last administered on 02/01/22at 13:39; Start 02/01/22 at 13:00; Stop 02/01/22 at 13:01; Status DC Verapamil HCl (Verapamil) 2.5 mg 1X ONCE IART Last administered on 02/01/22at 13:40; Start 02/01/22 at 13:00; Stop 02/01/22 at 13:01; Status DC Heparin Sodium (Porcine) (Heparin Sodium) 2,500 unit 1X ONCE IART Last administered on 02/01/22at 13:38; Start 02/01/22 at 13:00; Stop 02/01/22 at 13:01; Status DC Heparin Sodium/ Sodium Chloride (HEPARIN for ARTERIAL LINE FLUSH) 1,000 unit 1X ONCE IART Last administered on 02/01/22at 13:33; Start 02/01/22 at 13:00; Stop 02/01/22 at 13:01; Status DC Heparin Sodium/ Sodium Chloride (HEPARIN for ARTERIAL LINE FLUSH) 1,000 unit 1X ONCE IART Last administered on 02/01/22at 13:33; Start 02/01/22 at 13:00; Stop 02/01/22 at 13:01; Status DC Iodixanol (Visipaque 320) 100 ml 1X ONCE IART Last administered on 02/01/22at 13:33; Start 02/01/22 at 13:00; Stop 02/01/22 at 13:01; Status DC Lidocaine HCl (Xylocaine-Mpf 1% 2ml Vial) 2 ml 1X ONCE INJ Last administered on 02/01/22at 13:34; Start 02/01/22 at 13:00; Stop 02/01/22 at 13:01; Status DC Info (CONTRAST GIVEN -- Rx MONITORING) 1 each PRN DAILY PRN MC SEE COMMENTS; Start 02/01/22 at 13:00; Stop 02/03/22 at 12:59; Status DC Lidocaine HCl (Lidocaine 1% 20ml Vial) 20 ml STK-MED ONCE .ROUTE ; Start 02/01/22 at 13:06; Stop 02/01/22 at 13:06; Status DC Heparin Sodium (Porcine) (Heparin 5,000 Units/1,000ml NS) 5,000 unit 1X ONCE IV Last administered on 02/01/22at 13:15; Start 02/01/22 at 13:15; Stop 02/01/22 at 13:16; Status DC Lidocaine HCl (Lidocaine 1% 20ml Vial) 20 ml 1X ONCE INJ Last administered on 02/01/22at 13:45; Start 02/01/22 at 13:45; Stop 02/01/22 at 13:46; Status DC Potassium Chloride (Klor-Con) 40 meq 1X ONCE PO Last administered on 02/02/22at 08:00; Start 02/02/22 at 07:30; Stop 02/02/22 at 07:32; Status DC Clopidogrel Bisulfate (Plavix) 75 mg DAILYWBKFT PO Last administered on at 09:33; Start 02/03/22 at 08:00 Clopidogrel Bisulfate (Plavix) 300 mg 1X ONCE PO Last administered on 02/02/22at 10:49; Start 02/02/22 at 10:45; Stop 02/02/22 at 10:46; Status DC Active Scripts Active Furosemide 40 Mg Tablet 1 Tab PO DAILY 30 Days Metoprolol Succinate ( Xl ) (Metoprolol Succinate) 25 Mg Tab.er.24h 25 Mg PO DAILY 30 Days Eliquis (Apixaban) 5 Mg Tablet 5 Mg PO BID 30 Days Reported Stiolto Respimat Inhal [place] (Tiotropium Br/Olodaterol HCl) 4 Gm Mist.inhal 4 Gm IH HS Flomax (Tamsulosin Hcl) 0.4 Mg Cap.er.24h 1 Cap PO BID Refresh Lacri-Lube Ointment (Mineral Oil/Petrolatum,White) 3.5 Gm Oint...g. 3.5 Gm OU DAILY Atorvastatin Calcium 20 Mg Tablet 2 Tab PO HS Omeprazole 20 Mg Capsule.dr 1 Cap PO DAILY Lubricating Plus (Carboxymethylcellulose Sodium) 1 Each Droperette 1 OU DAILY Proair Hfa Inhaler (Albuterol Sulfate) 8.5 Gm Hfa.aer.ad 1 Puff INH PRN Q6HRS PRN Aspirin 325 Mg Tablet 1 Tab PO DAILY Vitals/I & O Vital Sign - Last 24 Hours 02/03/22 02/03/22 02/03/22 02/03/22 09:00 10:00 11:00 12:00 Temp 98.6 98.6 Pulse 86 88 88 88 Resp 16 B/P (MAP) 103/59 110/56 122/61 81/49 Pulse Ox 98 99 98 98 O2 Delivery Room Air Room Air Room Air Room Air 02/03/22 02/03/22 02/03/22 02/03/22 12:00 13:00 14:00 15:00 Pulse 96 92 89 Resp 16 B/P (MAP) 127/56 110/57 103/44 Pulse Ox 99 99 99 O2 Delivery Room Air Room Air Room Air Room Air 02/03/22 02/03/22 02/03/22 02/03/22 16:00 16:00 17:00 18:00 Temp 98.6 98.6 Pulse 88 86 83 Resp 16 B/P (MAP) 81/49 95/49 104/50 Pulse Ox 98 99 99 O2 Delivery Room Air Room Air Room Air Room Air 02/03/22 02/03/22 02/03/22 02/03/22 19:00 20:00 20:00 21:00 Temp 98.4 98.4 Pulse 83 92 96 Resp 24 B/P (MAP) 116/63 118/53 119/56 Pulse Ox 96 99 96 O2 Delivery Room Air Room Air Room Air Room Air 02/03/22 02/03/22 02/04/22 02/04/22 22:00 23:00 00:00 00:00 Temp 98.1 98.1 Pulse 95 81 80 Resp 18 B/P (MAP) 105/52 105/49 105/54 Pulse Ox 92 93 96 O2 Delivery Room Air Room Air Room Air Room Air 02/04/22 02/04/22 02/04/22 02/04/22 01:00 02:00 03:00 04:00 Temp 98.4 98.4 Pulse 84 81 81 73 Resp 12 21 16 10 B/P (MAP) 102/56 102/59 112/56 108/56 Pulse Ox 100 94 97 98 O2 Delivery Room Air Room Air Room Air Room Air 02/04/22 02/04/22 02/04/22 04:00 05:00 06:00 Pulse 82 79 Resp 18 14 B/P (MAP) 115/52 139/66 Pulse Ox 98 96 O2 Delivery Room Air Room Air Room Air Intake and Output 02/03/22 02/03/22 02/04/22 15:00 23:00 07:00 Intake Total 415 ml 290 ml 215 ml Output Total 135 ml 650 ml 300 ml Balance 280 ml -360 ml -85 ml Justicifation of Admission Dx: Justifications for Admission: Justification of Admission Dx: Yes SHYANN JOHNSON MD Feb 04, 2022 08:33
[2022-02-04] MEDS: FUROSEMIDE 40 MG TABLET. PO SCH (08:34)
[2022-02-04] MEDS: METOPROLOL SUCC 24HR ER 25 MG TAB.ER.24H. PO SCH (08:34)
[2022-02-04] MEDS: CLOPIDOGREL BISULFATE 75 MG TABLET PO SCH (08:48)
[2022-02-04] MEDS: FLUTICASONE 50MCG/NASAL SPRAY 16GM BOTTLE. NS SCH ×2 (08:49→21:38)
[2022-02-04] MEDS: DICLOFENAC SODIUM 1% TOPICAL GEL 100GM TUBE. TP SCH ×2 (08:49→21:32)
--- NOTE | 2022-02-04 10:16 | PDOC ---
PULMONARY PROGRESS NOTES DATE: 02/04/22 TIME: 10:15 Subjective Patient denies any shortness of breath. Remains on nasal cannula. Status post cardiac cath. Severe three-vessel coronary artery disease and severe cardiomyopathy with an EF of 15%. Status post intra-aortic balloon pump. Status post bilateral thoracentesis at 01/31/2022 Vitals Vital Signs Date Time Temp Pulse Resp B/P (MAP) Pulse Ox O2 Delivery O2 Flow Rate FiO2 02/04/22 10:00 79 16 114/53 97 Room Air 02/04/22 08:00 98.3 98.3 General: Alert, No acute distress Lungs: Other (Decreased at the bases.) Cardiovascular: S1, S2 Abdomen: Soft, Non-tender Extremities: No Edema Skin: Warm Labs Laboratory Tests Test 02/03/22 04:10 02/03/22 10:00 02/03/22 11:40 02/03/22 17:08 Activated Partial Thromboplast Time 62 SEC (24-38) 55 SEC (24-38) 69 SEC (24-38) White Blood Count 6.3 x10^3/uL (4.0-11.0) Red Blood Count 3.04 x10^6/uL (4.30-5.70) Hemoglobin 8.1 g/dL (13.0-17.5) Hematocrit 24.9 % (39.0-53.0) Mean Corpuscular Volume 82 fL (79-100) Mean Corpuscular Hemoglobin 27 pg (25-35) Mean Corpuscular Hemoglobin Concent 33 g/dL (31-37) Red Cell Distribution Width 16.2 % (11.5-14.5) Platelet Count 143 x10^3/uL (140-400) Neutrophils (%) (Auto) 73 % (31-73) Lymphocytes (%) (Auto) 12 % (24-48) Monocytes (%) (Auto) 10 % (0-9) Eosinophils (%) (Auto) 4 % (0-3) Basophils (%) (Auto) 1 % (0-3) Neutrophils # (Auto) 4.6 x10^3/uL (1.8-7.7) Lymphocytes # (Auto) 0.8 x10^3/uL (1.0-4.8) Monocytes # (Auto) 0.6 x10^3/uL (0.0-1.1) Eosinophils # (Auto) 0.3 x10^3/uL (0.0-0.7) Basophils # (Auto) 0.1 x10^3/uL (0.0-0.2) Sodium Level 139 mmol/L (136-145) Potassium Level 3.5 mmol/L (3.5-5.1) Chloride Level 103 mmol/L (98-107) Carbon Dioxide Level 28 mmol/L (21-32) Anion Gap 8 (6-14) Blood Urea Nitrogen 31 mg/dL (8-26) Creatinine 1.4 mg/dL (0.7-1.3) Estimated GFR (Cockcroft-Gault) 49.1 Glucose Level 156 mg/dL (70-99) Calcium Level 8.4 mg/dL (8.5-10.1) Test 02/03/22 23:05 02/04/22 05:15 Activated Partial Thromboplast Time 89 SEC (24-38) 92 SEC (24-38) White Blood Count 7.4 x10^3/uL (4.0-11.0) Red Blood Count 2.97 x10^6/uL (4.30-5.70) Hemoglobin 7.8 g/dL (13.0-17.5) Hematocrit 24.2 % (39.0-53.0) Mean Corpuscular Volume 82 fL (79-100) Mean Corpuscular Hemoglobin 27 pg (25-35) Mean Corpuscular Hemoglobin Concent 32 g/dL (31-37) Red Cell Distribution Width 16.0 % (11.5-14.5) Platelet Count 135 x10^3/uL (140-400) Laboratory Tests Test 02/03/22 11:40 02/03/22 17:08 02/03/22 23:05 02/04/22 05:15 White Blood Count 6.3 x10^3/uL (4.0-11.0) 7.4 x10^3/uL (4.0-11.0) Red Blood Count 3.04 x10^6/uL (4.30-5.70) 2.97 x10^6/uL (4.30-5.70) Hemoglobin 8.1 g/dL (13.0-17.5) 7.8 g/dL (13.0-17.5) Hematocrit 24.9 % (39.0-53.0) 24.2 % (39.0-53.0) Mean Corpuscular Volume 82 fL (79-100) 82 fL (79-100) Mean Corpuscular Hemoglobin 27 pg (25-35) 27 pg (25-35) Mean Corpuscular Hemoglobin Concent 33 g/dL (31-37) 32 g/dL (31-37) Red Cell Distribution Width 16.2 % (11.5-14.5) 16.0 % (11.5-14.5) Platelet Count 143 x10^3/uL (140-400) 135 x10^3/uL (140-400) Neutrophils (%) (Auto) 73 % (31-73) Lymphocytes (%) (Auto) 12 % (24-48) Monocytes (%) (Auto) 10 % (0-9) Eosinophils (%) (Auto) 4 % (0-3) Basophils (%) (Auto) 1 % (0-3) Neutrophils # (Auto) 4.6 x10^3/uL (1.8-7.7) Lymphocytes # (Auto) 0.8 x10^3/uL (1.0-4.8) Monocytes # (Auto) 0.6 x10^3/uL (0.0-1.1) Eosinophils # (Auto) 0.3 x10^3/uL (0.0-0.7) Basophils # (Auto) 0.1 x10^3/uL (0.0-0.2) Sodium Level 139 mmol/L (136-145) Potassium Level 3.5 mmol/L (3.5-5.1) Chloride Level 103 mmol/L (98-107) Carbon Dioxide Level 28 mmol/L (21-32) Anion Gap 8 (6-14) Blood Urea Nitrogen 31 mg/dL (8-26) Creatinine 1.4 mg/dL (0.7-1.3) Estimated GFR (Cockcroft-Gault) 49.1 Glucose Level 156 mg/dL (70-99) Calcium Level 8.4 mg/dL (8.5-10.1) Activated Partial Thromboplast Time 69 SEC (24-38) 89 SEC (24-38) 92 SEC (24-38) Medications Active Scripts Medications Dose Route/Sig Max Daily Dose Days Date Category Flomax (Tamsulosin Hcl) 0.4 Mg Cap.er.24h 1 Cap PO BID 01/30/22 Reported Furosemide 40 Mg Tablet 1 Tab PO DAILY 30 11/26/21 Rx Metoprolol Succinate ( Xl ) (Metoprolol Succinate) 25 Mg Tab.er.24h 25 Mg PO DAILY 30 11/26/21 Rx Eliquis (Apixaban) 5 Mg Tablet 5 Mg PO BID 30 11/26/21 Rx Refresh Lacri-Lube Ointment (Mineral Oil/Petrolatum,White) 3.5 Gm Oint...g. 3.5 Gm OU DAILY 11/23/21 Reported Atorvastatin Calcium 20 Mg Tablet 2 Tab PO HS 11/23/21 Reported Omeprazole 20 Mg Capsule.dr 1 Cap PO DAILY 11/23/21 Reported Lubricating Plus (Carboxymethylcellulose Sodium) 1 Each Droperette 1 OU DAILY 11/23/21 Reported Fluticasone Propionate Nasal [place] (Fluticasone Propionate) 16 Gm [place].susp 1 Sprays NS BID 11/23/21 Reported Proair Hfa Inhaler (Albuterol Sulfate) 8.5 Gm Hfa.aer.ad 1 Puff INH PRN Q6HRS PRN 05/13/18 Reported Aspirin 325 Mg Tablet 1 Tab PO DAILY 05/22/15 Reported Comments Chest x-ray reviewed 02/02/2022. Evidence of interstitial edema. Chest x-ray reviewed 02/01/2022. Diffuse bilateral interstitial infiltrates Impression . 1. Acute hypoxic respiratory failure secondary to acute on chronic systolic heart failure with bilateral pleural effusions. Status post thoracentesis 01/31/2022 2. Low-grade fever. Influenza and Covid negative. Cannot exclude pneumonia. Currently on antibiotics 3. Abnormal CT chest with bilateral pleural effusion, which has been persistent and moderate. Status post bilateral thoracentesis 01/31/2022 4. 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 5. Hypotension. Status post 1 L of IV fluid. With chest x-ray worsening, w ould avoid further IV fluids. 6. Encephalopathy, likely contributed by hypotension. CT head negative. Completely resolved. 7. Status post cardiac cath. Severe three-vessel coronary artery disease and severe cardiomyopathy. Status post intra-aortic balloon pump. 8. Cardiogenic shock. Cardiac cath report. Conclusion 1. Cardiogenic shock with acute on chronic systolic and diastolic heart failure 2. Severe three-vessel coronary artery disease 3. Successful placement of a 7.5 [place] 40 cc Inter[employer] balloon pump for cardiac shock Recommendations 1. Continue medication optimization. 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 Mckeon Signed by : Melquiades Bertrand, Electronically Approved : 02/01/2022 17:49:28 Plan . Updated 02/04/2022 1. Pulmonary status stable. On room air. Status post thoracentesis. Follow pleural fluid analysis. Eliquis on hold. On heparin per protocol. 2. Continue present oxygen. 3. Ruled out for influenza and COVID. Pneumonia is likely possibility for the source of fever. On antibiotics. Clinically improving 4. Status post cardiac cath. Currently on intra-aortic balloon pump. Severe cardiomyopathy and severe three-vessel coronary artery disease. Cardiology to consider PCI later today. 5. Normal pro calcitonin 6. Cardiology recommendations. 7. Discussed with RN Updated 02/03/2022 1. Pulmonary status stable. On nasal cannula. Status post thoracentesis. Follow pleural fluid analysis. Eliquis on hold. On heparin per protocol. 2. Continue present oxygen. As needed BiPAP. 3. Ruled out for influenza and COVID. Pneumonia is likely possibility for the source of fever. On antibiotics. Clinically improving 4. Status post cardiac cath. Currently on intra-aortic balloon pump. Severe cardiomyopathy and severe three-vessel coronary artery disease. Cardiology to consider PCI Friday. 5. Normal pro calcitonin 6. Cardiology recommendations. 7. Discussed with YUNI IYER MD Feb 04, 2022 10:16
[2022-02-04] MEDS: HEPARIN 25,000UTS/250ML PREMIX 250 ML IV PRN (13:42)
[2022-02-04] MEDS ORDERED: LIDOCAINE 1% Multi-Dose 20 ML VIAL. ONE (14:05)
[2022-02-04] MEDS ORDERED: IODIXANOL 320 MG/ML 100 ML VIAL. ONE ×2 (14:05→15:57)
[2022-02-04] MEDS ORDERED: fentaNYL PF VIAL 100 MCG/2 ML VIAL ONE (14:17)
[2022-02-04] MEDS ORDERED: MIDAZOLAM HCL/PF 2 MG/2 ML VIAL. ONE (14:17)
--- NOTE | 2022-02-04 14:52 | PDOC ---
[facility] [facility] PROGRESS NOTE Date of Service DOS: DATE: 02/04/22 TIME: 14:51 Chief Complaint Chief Complaint Assessment/Plan Acute hypoxic respiratory failure Bilateral pleural effusions status post thoracentesis 01/31/2022 Acute on chronic CHF exacerbation Costochondritis History of CHF with LVEF of 15 to 20% on echo 11/26/2021 History of CAD History of REENA History of dyslipidemia History of hypertension History of atrial fibrillation on Eliquis Admit to hospitalist service for further management Cardiology consult for CHF management Pulmonology consult for possible thoracentesis Hold anticoagulation for now patient's chart, labs, images were reviewed and discussed with RN Fluid and sodium restriction Lovenox for DVT prophylaxis Protonix GI prophylaxis ADA diet CODE STATUS full Discussed with RN and SW Disposition inpatient management as above DPOA: Shana Suazo History of Present Illness History of Present Illness 76-year-old male with multiple comorbidities who comes in with shortness of breath and chest pain. Shortness of breath has been going on for for few days.Patient's room air sat while I was in the room was 92% but he is quite tachypneic and has to stop frequently during the [id number] session to catch his breath. Denies any fevers, abdominal pain, diarrhea, dysuria or syncope. 01/31/2022 No acute events overnight. Patient seen examined bedside. Saturating 99% on 2 L nasal cannula. Patient had thoracentesis done this morning with 800 cc of fluid removed. Will await for fluid analysis. Patient's chart, labs, images were reviewed and discussed with RN 02/01: Afebrile. S/P bilateral thoracentesis yesterday. Patient was moved down to the ICU after having apneic event. Code stroke was was called and neurology consulted. No concerns for CVA, per neurology. Patient will be taken to the Utilization Review Specialist today to have been intra-aortic balloon pump placed. Discussed with RN. 02/02: Patient seen in ICU. He has no complaints of chest pain, appears to be in good spirits. He is scheduled for high risk PCI on Friday; discussed with son at bedside. He remains on heparin gtt and Levophed. 02/03: Afebrile. Currently resting calmly in bed without complaints. He is off Levophed. Plan is for high risk PCI on Friday. Discussed with RN. 4/18: Patient with no complaints today, denies chest pain. Remains in good spirits. Cardiology to perform high risk PCI today. Discussed with RN. Vitals/I&O Vitals/I&O: Vital Signs Date Time Temp Pulse Resp B/P (MAP) Pulse Ox O2 Delivery O2 Flow Rate FiO2 02/04/22 14:00 77 18 111/58 98 Room Air 02/04/22 12:00 97.9 97.9 I & O 02/03/22 02/03/22 02/04/22 15:00 23:00 07:00 Intake Total 415 ml 290 ml 215 ml Output Total 135 ml 650 ml 300 ml Balance 280 ml -360 ml -85 ml Physical Exam General: Alert, Oriented X3, Cooperative, No acute distress Heart: Other (sinus tachycardia ) Lungs: Other (Decreased at the bases.) Abdomen: Soft, No tenderness Extremities: No edema Skin: No significant lesion Labs Labs: Laboratory Tests Test 02/03/22 17:08 02/03/22 23:05 02/04/22 05:15 Activated Partial Thromboplast Time 69 SEC (24-38) 89 SEC (24-38) 92 SEC (24-38) White Blood Count 7.4 x10^3/uL (4.0-11.0) Red Blood Count 2.97 x10^6/uL (4.30-5.70) Hemoglobin 7.8 g/dL (13.0-17.5) Hematocrit 24.2 % (39.0-53.0) Mean Corpuscular Volume 82 fL (79-100) Mean Corpuscular Hemoglobin 27 pg (25-35) Mean Corpuscular Hemoglobin Concent 32 g/dL (31-37) Red Cell Distribution Width 16.0 % (11.5-14.5) Platelet Count 135 x10^3/uL (140-400) Assessment and Plan Assessmemt and Plan Problems Medical Problems: (1) Bilateral pleural effusion Status: Acute (2) Congestive heart failure (CHF) Status: Acute (3) Shortness of breath Status: Acute Comment Review of Relevant I have reviewed the following items rai (where applicable) has been applied. Justifications for Admission Other Justification CHF exacerbation VIJI OSEI MD Feb 04, 2022 14:52
[2022-02-04] MEDS ORDERED: IODIXANOL 320 MG/ML 100 ML VIAL. IART ONE (15:00)
[2022-02-04] MEDS ORDERED: MIDAZOLAM HCL/PF 2 MG/2 ML VIAL. IV ONE (15:00)
[2022-02-04] MEDS ORDERED: LIDOCAINE 1% Multi-Dose 20 ML VIAL. INJ ONE (15:00)
[2022-02-04] MEDS ORDERED: fentaNYL PF VIAL 100 MCG/2 ML VIAL IV ONE (15:00)
[2022-02-04] MEDS ORDERED: CONTRAST GIVEN. MC PRN (15:15)
[2022-02-04] MEDS ORDERED: BIVALIRUDIN 250 MG VIAL. IVP ONE ×2 (15:16→15:30)
[2022-02-04] MEDS ORDERED: NITROGLYCERIN 200 MCG/2 ML SYRINGE FOR CATH/VASC LAB. IART ONE (15:45)
[2022-02-04] MEDS: LACTOBACILLUS RHAMNOSUS GG 1 CAPSULE. PO SCH ×2 (18:12→21:32)
[2022-02-04] MEDS: TAMSULOSIN 0.4 MG CAP.ER.24H. PO SCH ×2 (18:12→21:32)
--- NOTE | 2022-02-04 20:19 | NUR ---
Nursing Note: Left venous and Arterial sheaths removed after 20-25 minutes of manual pressure. Pt tolerated well.
[2022-02-04] MEDS: ATORVASTATIN CALCIUM 20 MG TABLET PO SCH (21:32)
[2022-02-04] MEDS: diphenhydrAMINE HCL 25 MG CAPSULE PO PRN (21:32)
[2022-02-05] VITALS (23 sets, daily range): BP systolic 92–135; BP diastolic 51–75
[2022-02-05 06:12] LABS: BASO # 0.1 x10^3/uL (0.0-0.2); BASO % 1 % (0-3); EOS # 0.3 x10^3/uL (0.0-0.7); EOS % 3 % (0-3); HEMATOCRIT 25.7 % (39.0-53.0); HEMOGLOBIN 8.4 g/dL (13.0-17.5); LYMPH # 0.9 x10^3/uL (1.0-4.8); LYMPH % 9 % (24-48); MEAN CORPUSCULAR HEMOGLOBIN 27 pg (25-35); MEAN CORPUSCULAR HGB CONC 33 g/dL (31-37); MEAN CORPUSCULAR VOLUME 81 fL (79-100); MONO # 0.9 x10^3/uL (0.0-1.1); MONO % 9 % (0-9); NEUT # 7.7 x10^3/uL (1.8-7.7); NEUT % 79 % (31-73); PLATELET COUNT 139 x10^3/uL (140-400); RED BLOOD COUNT 3.15 x10^6/uL (4.30-5.70); RED CELL DISTRIBUTION WIDTH 15.9 % (11.5-14.5); WHITE BLOOD COUNT 9.7 x10^3/uL (4.0-11.0)
[2022-02-05] MEDS: PIPERACILLIN/TAZOBACTAM 3.375 GM in IV NORMAL SALINE 50ML 50 ML IV SCH ×3 (06:14→17:17)
[2022-02-05 06:15] LABS: CALCIUM 8.4 mg/dL (8.5-10.1); CREATININE 1.2 mg/dL (0.7-1.3); GFR 58.7; POTASSIUM 3.6 mmol/L (3.5-5.1)
[2022-02-05 06:27] LABS: PROTHROMBIN TIME PATIENT 15.8 SEC (11.7-14.0)
--- NOTE | 2022-02-05 08:04 | PDOC ---
PULMONARY PROGRESS NOTES DATE: 02/05/22 TIME: 08:04 Subjective Patient off of oxygen supplementation No new complaints Status post cardiac cath. Severe three-vessel coronary artery disease and severe cardiomyopathy with an EF of 15%. Status post intra-aortic balloon pump. Status post bilateral thoracentesis at 01/31/2022 Vitals Vital Signs Date Time Temp Pulse Resp B/P (MAP) Pulse Ox O2 Delivery O2 Flow Rate FiO2 02/05/22 07:00 79 18 103/58 98 Room Air 02/05/22 05:00 98.8 98.8 02/04/22 18:00 2.0 ROS: No Nausea, No Chest Pain, No Abdominal Pain, No Increase Cough General: Alert, No acute distress Lungs: Other (Decreased at the bases.) Cardiovascular: S1, S2 Abdomen: Soft, Non-tender Extremities: No Edema Skin: Warm Labs Laboratory Tests Test 02/03/22 10:00 02/03/22 11:40 02/03/22 17:08 02/03/22 23:05 Activated Partial Thromboplast Time 55 SEC (24-38) 69 SEC (24-38) 89 SEC (24-38) White Blood Count 6.3 x10^3/uL (4.0-11.0) Red Blood Count 3.04 x10^6/uL (4.30-5.70) Hemoglobin 8.1 g/dL (13.0-17.5) Hematocrit 24.9 % (39.0-53.0) Mean Corpuscular Volume 82 fL (79-100) Mean Corpuscular Hemoglobin 27 pg (25-35) Mean Corpuscular Hemoglobin Concent 33 g/dL (31-37) Red Cell Distribution Width 16.2 % (11.5-14.5) Platelet Count 143 x10^3/uL (140-400) Neutrophils (%) (Auto) 73 % (31-73) Lymphocytes (%) (Auto) 12 % (24-48) Monocytes (%) (Auto) 10 % (0-9) Eosinophils (%) (Auto) 4 % (0-3) Basophils (%) (Auto) 1 % (0-3) Neutrophils # (Auto) 4.6 x10^3/uL (1.8-7.7) Lymphocytes # (Auto) 0.8 x10^3/uL (1.0-4.8) Monocytes # (Auto) 0.6 x10^3/uL (0.0-1.1) Eosinophils # (Auto) 0.3 x10^3/uL (0.0-0.7) Basophils # (Auto) 0.1 x10^3/uL (0.0-0.2) Sodium Level 139 mmol/L (136-145) Potassium Level 3.5 mmol/L (3.5-5.1) Chloride Level 103 mmol/L (98-107) Carbon Dioxide Level 28 mmol/L (21-32) Anion Gap 8 (6-14) Blood Urea Nitrogen 31 mg/dL (8-26) Creatinine 1.4 mg/dL (0.7-1.3) Estimated GFR (Cockcroft-Gault) 49.1 Glucose Level 156 mg/dL (70-99) Calcium Level 8.4 mg/dL (8.5-10.1) Test 02/04/22 05:15 02/05/22 05:30 White Blood Count 7.4 x10^3/uL (4.0-11.0) 9.7 x10^3/uL (4.0-11.0) Red Blood Count 2.97 x10^6/uL (4.30-5.70) 3.15 x10^6/uL (4.30-5.70) Hemoglobin 7.8 g/dL (13.0-17.5) 8.4 g/dL (13.0-17.5) Hematocrit 24.2 % (39.0-53.0) 25.7 % (39.0-53.0) Mean Corpuscular Volume 82 fL (79-100) 81 fL (79-100) Mean Corpuscular Hemoglobin 27 pg (25-35) 27 pg (25-35) Mean Corpuscular Hemoglobin Concent 32 g/dL (31-37) 33 g/dL (31-37) Red Cell Distribution Width 16.0 % (11.5-14.5) 15.9 % (11.5-14.5) Platelet Count 135 x10^3/uL (140-400) 139 x10^3/uL (140-400) Activated Partial Thromboplast Time 92 SEC (24-38) 35 SEC (24-38) Neutrophils (%) (Auto) 79 % (31-73) Lymphocytes (%) (Auto) 9 % (24-48) Monocytes (%) (Auto) 9 % (0-9) Eosinophils (%) (Auto) 3 % (0-3) Basophils (%) (Auto) 1 % (0-3) Neutrophils # (Auto) 7.7 x10^3/uL (1.8-7.7) Lymphocytes # (Auto) 0.9 x10^3/uL (1.0-4.8) Monocytes # (Auto) 0.9 x10^3/uL (0.0-1.1) Eosinophils # (Auto) 0.3 x10^3/uL (0.0-0.7) Basophils # (Auto) 0.1 x10^3/uL (0.0-0.2) Prothrombin Time 15.8 SEC (11.7-14.0) Prothromb Time International Ratio 1.3 (0.8-1.1) Sodium Level 139 mmol/L (136-145) Potassium Level 3.6 mmol/L (3.5-5.1) Chloride Level 103 mmol/L (98-107) Carbon Dioxide Level 26 mmol/L (21-32) Anion Gap 10 (6-14) Blood Urea Nitrogen 22 mg/dL (8-26) Creatinine 1.2 mg/dL (0.7-1.3) Estimated GFR (Cockcroft-Gault) 58.7 Glucose Level 94 mg/dL (70-99) Calcium Level 8.4 mg/dL (8.5-10.1) Laboratory Tests Test 02/05/22 05:30 White Blood Count 9.7 x10^3/uL (4.0-11.0) Red Blood Count 3.15 x10^6/uL (4.30-5.70) Hemoglobin 8.4 g/dL (13.0-17.5) Hematocrit 25.7 % (39.0-53.0) Mean Corpuscular Volume 81 fL (79-100) Mean Corpuscular Hemoglobin 27 pg (25-35) Mean Corpuscular Hemoglobin Concent 33 g/dL (31-37) Red Cell Distribution Width 15.9 % (11.5-14.5) Platelet Count 139 x10^3/uL (140-400) Neutrophils (%) (Auto) 79 % (31-73) Lymphocytes (%) (Auto) 9 % (24-48) Monocytes (%) (Auto) 9 % (0-9) Eosinophils (%) (Auto) 3 % (0-3) Basophils (%) (Auto) 1 % (0-3) Neutrophils # (Auto) 7.7 x10^3/uL (1.8-7.7) Lymphocytes # (Auto) 0.9 x10^3/uL (1.0-4.8) Monocytes # (Auto) 0.9 x10^3/uL (0.0-1.1) Eosinophils # (Auto) 0.3 x10^3/uL (0.0-0.7) Basophils # (Auto) 0.1 x10^3/uL (0.0-0.2) Prothrombin Time 15.8 SEC (11.7-14.0) Prothromb Time International Ratio 1.3 (0.8-1.1) Activated Partial Thromboplast Time 35 SEC (24-38) Sodium Level 139 mmol/L (136-145) Potassium Level 3.6 mmol/L (3.5-5.1) Chloride Level 103 mmol/L (98-107) Carbon Dioxide Level 26 mmol/L (21-32) Anion Gap 10 (6-14) Blood Urea Nitrogen 22 mg/dL (8-26) Creatinine 1.2 mg/dL (0.7-1.3) Estimated GFR (Cockcroft-Gault) 58.7 Glucose Level 94 mg/dL (70-99) Calcium Level 8.4 mg/dL (8.5-10.1) Medications Active Scripts Medications Dose Route/Sig Max Daily Dose Days Date Category Flomax (Tamsulosin Hcl) 0.4 Mg Cap.er.24h 1 Cap PO BID 01/30/22 Reported Furosemide 40 Mg Tablet 1 Tab PO DAILY 30 11/26/21 Rx Metoprolol Succinate ( Xl ) (Metoprolol Succinate) 25 Mg Tab.er.24h 25 Mg PO DAILY 30 11/26/21 Rx Eliquis (Apixaban) 5 Mg Tablet 5 Mg PO BID 30 11/26/21 Rx Refresh Lacri-Lube Ointment (Mineral Oil/Petrolatum,White) 3.5 Gm Oint...g. 3.5 Gm OU DAILY 11/23/21 Reported Atorvastatin Calcium 20 Mg Tablet 2 Tab PO HS 11/23/21 Reported Omeprazole 20 Mg Capsule.dr 1 Cap PO DAILY 11/23/21 Reported Lubricating Plus (Carboxymethylcellulose Sodium) 1 Each Droperette 1 OU DAILY 11/23/21 Reported Fluticasone Propionate Nasal [place] (Fluticasone Propionate) 16 Gm [place].susp 1 Sprays NS BID 11/23/21 Reported Proair Hfa Inhaler (Albuterol Sulfate) 8.5 Gm Hfa.aer.ad 1 Puff INH PRN Q6HRS PRN 05/13/18 Reported Aspirin 325 Mg Tablet 1 Tab PO DAILY 05/22/15 Reported Comments Chest x-ray reviewed 02/02/2022. Evidence of interstitial edema. Chest x-ray reviewed 02/01/2022. Diffuse bilateral interstitial infiltrates Impression . 1. Acute hypoxic respiratory failure secondary to acute on chronic systolic heart failure with bilateral pleural effusions. Status post thoracentesis 01/31/2022 2. Low-grade fever. Influenza and Covid negative. Possible pneumonia 3. Abnormal CT chest with bilateral pleural effusion, which has been persistent and moderate. Status post bilateral thoracentesis 01/31/2022 4. 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 5. Hypotensin secondary to cardiogenic shock 6. Encephalopathy, multifactorial 7. Status post cardiac cath. Severe three-vessel coronary artery disease and severe cardiomyopathy. Status post intra-aortic balloon pump. 8. Cardiogenic shock. Cardiac cath report. Conclusion 1. Cardiogenic shock with acute on chronic systolic and diastolic heart failure 2. Severe three-vessel coronary artery disease 3. Successful placement of a 7.5 Azeri 40 cc Intermedic balloon pump for cardiac shock Recommendations 1. Continue medication optimization. 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 Mckeon Signed by : Melquiades Bertrand, Electronically Approved : 02/01/2022 17:49:28 Plan . Updated 02/05 Continue current support Intra-aortic balloon pump per cardiology Patient off of oxygen Continue empiric antibiotics Updated 02/04/2022 1. Pulmonary status stable. On room air. Status post thoracentesis. Follow pleural fluid analysis. Eliquis on hold. On heparin per protocol. 2. Continue present oxygen. 3. Ruled out for influenza and COVID. Pneumonia is likely possibility for the source of fever. On antibiotics. Clinically improving 4. Status post cardiac cath. Currently on intra-aortic balloon pump. Severe cardiomyopathy and severe three-vessel coronary artery disease. Cardiology to consider PCI later today. 5. Normal pro calcitonin 6. Cardiology recommendations. 7. Discussed with SHAHANA SOTO MD Feb 05, 2022 08:04
--- NOTE | 2022-02-05 08:47 | CARD ---
MR#: [id number] Date of Study: 02/04/2022 Ordering Physician: ROSMERY FOWLER, Referring Physician: ROSMERY FOWLER, Tech: RT Francisca(R) APPROVED REPORT Technologist: RT Francisca(R) Nurse: Kayla Munson RN Procedure(s) performed: 1. Left heart catheterization and selective coronary angiography 2. Successful high risk orbital atherectomy/PTCA/drug-eluting stents placement to the left anterior descending and right coronary arteries 3. Successful PTCA/drug-eluting stent placement to the second obtuse marginal branch of left circumf cesar artery 4. Insertion of temporary transvenous pacemaker with removal at the end of procedure FLUORO TIME: 34.4 MIN DOSE: 147 Gycm2 Contrast: 197ml Mod Sed: 125 Min INDICATION The indication(s) include : 76-year-old male with non-STEMI and cardiogenic shock was recently found to have severe three-vessel coronary artery disease on cardiac catheterization 02/01/2022 and underwen t aortic balloon pump for hemodynamic support. He was deemed a poor candidate for coronary artery byp ass surgery and hence presented today for high risk multivessel atherectomy/PCI/stents placement.. CASE TECHNIQUE IV conscious sedation was used throughout procedure with appropriate monitoring and was performed in the presence of a registered nurse who was an independent trained observer other than the physician p erforming the procedure. During this case, Fluoroscopy and low osmolar contrast were used for imaging . Specimen(s) Removed: No Estimated Blood loss: 20 cc's. PROCEDURE NARRATIVE After explaining the risk, benefits and alternative options, informed consent was obtained. Patient was brought to the cardiac Director Group Sales and his left groin was prepped and draped in the usual fashion. 20 cc of 2% lidocaine was infiltrated to the skin and subcutaneous tissues for local anesthesia. Art erial and venous accesses were obtained in the left common femoral artery and vein respectively and 6 and 5 Yemeni sheaths inserted. A 5 Yemeni temporary transvenous pacemaker wire was then advanced un rody fluoroscopic guidance, the tip was positioned in the right ventricular apex and was turned on for backup support during atherectomy. The left main coronary artery was engaged with a 6 Yemeni XB 3.5 guide catheter and selective angiogr aphy was performed that confirmed the previously described 90% stenosis in the proximal to mid segmen t of left anterior descending artery and 70 to 80% stenosis involving the second obtuse marginal bran ch of left circumflex artery. The stenosis in the left anterior descending artery was crossed with a 0.014 inch Asahi Prowater guidewire which was then exchanged over a quick cross microcatheter to the Viper wire. Multiple orbital atherectomy passes were then performed within the lesion using Easy Eye mondback 1.25 orbital atherectomy catheter. This was then predilated with a 2.5 x 15 mm Sapphire II Pro balloon. Following this, this was successfully treated with a 2.5 x 22 mm resolute Tai drug-elu ting stent. Follow-up angiography showed resolution of the stenosis to 0% with SAYRA-3 distal flow. S ubsequently, the stenosis in the second obtuse marginal branch of left circumflex artery was crossed with the Asahi Prowater guidewire. This was predilated with a 2.0 x 12 mm sapphire pro balloon. The lesion was then treated successfully with a 2.25 x 15 mm resolute Tai drug-eluting stent. Follow-u p angiography showed resolution of the stenosis to 0% with SAYRA-3 distal flow. The right coronary artery was then engaged with a 6 Yemeni JR4 guide catheter. Selective angiography confirmed the previously described tandem 90% stenosis involving the mid segment. These lesions wer e crossed with the Asahi Prowater guidewire which was then exchanged over the quick cross microcathet er to the Viper wire. Multiple orbital atherectomy passes were then performed using the PathoQuestb ack 1.25 orbital atherectomy catheter. The lesions were then dilated with a 2.5 x 15 mm sapphire pro balloon. Following this, they were successfully treated with a 2.75 x 30 mm resolute Tai drug-elut ing stent. Follow-up angiography showed resolution of the stenosis to 0% with SAYRA-3 distal flow. T he temporary transvenous pacemaker was then successfully removed. The balloon pump was left in place since blood pressure was borderline with plans for removal in 24 hours. We could not use closure de vice for achieving hemostasis due to high bifurcation. Since we used Angiomax for the intervention, we will remove the arterial and venous lines in 2 to 3 hours and achieve hemostasis with manual compr ession. Patient tolerated the procedure well. There were no immediate complications. Conclusion 1. Severe three-vessel coronary artery disease and cardiogenic shock needing intra-aortic balloon pu mp for hemodynamic support 2. Successful high risk orbital atherectomy/PCI/drug-eluting stents placement to left anterior desce nding and right coronary arteries 3. Successful PCI/drug-eluting stent placement to second obtuse marginal branch of left circumflex a rtery 4. Insertion of temporary transvenous pacemaker with removal at the end of procedure Recommendations 1. Aspirin 325 mg daily for 1 month followed by 81 mg daily 2. Plavix 75 mg daily 3. Plan for removal of intra-aortic balloon pump if hemodynamically stable in 24 hours 4. Cardiovascular risk factor modification and cardiac rehabilitation referral at discharge Signed by : Rosmery Fowler, Electronically Approved : 02/05/2022 08:46:51
[2022-02-05] MEDS: TAMSULOSIN 0.4 MG CAP.ER.24H. PO SCH ×2 (09:20→21:13)
[2022-02-05] MEDS: DICLOFENAC SODIUM 1% TOPICAL GEL 100GM TUBE. TP SCH ×3 (09:20→21:14)
[2022-02-05] MEDS: FLUTICASONE 50MCG/NASAL SPRAY 16GM BOTTLE. NS SCH ×2 (09:20→21:14)
[2022-02-05] MEDS: METOPROLOL SUCC 24HR ER 25 MG TAB.ER.24H. PO SCH (09:21)
[2022-02-05] MEDS: FUROSEMIDE 40 MG TABLET. PO SCH (09:22)
[2022-02-05] MEDS: CLOPIDOGREL BISULFATE 75 MG TABLET PO SCH (09:22)
[2022-02-05] MEDS: LACTOBACILLUS RHAMNOSUS GG 1 CAPSULE. PO SCH ×2 (09:22→21:13)
[2022-02-05] MEDS ORDERED: POTASSIUM BICARB 20 MEQ EFFERVESCENT TABLET. PEG ONE (11:00)
--- NOTE | 2022-02-05 11:53 | PDOC4 ---
PROCEDURE Procedure PROCEDURE Successful percutaneous removal of intra-aortic balloon pump INDICATIONS Cardiogenic shock s/p intra-aortic balloon pump with hemodynamic improvement after multivessel PCI/stents placement, presently off pressors PROCEDURAL DETAILS Patient's right groin was prepped and draped in the usual fashion. The intra- aortic balloon pump was turned off and after making sure the patient was hemodynamically stable, this was successfully removed. Hemostasis was achieved using manual compression. Patient tolerated the procedure well. There were no immediate complications. ROSMERY VICKERS MD Feb 05, 2022 11:53
--- NOTE | 2022-02-05 14:43 | PDOC ---
[employer] PROGRESS NOTE Date of Service DOS: DATE: 02/05/22 TIME: 14:39 Chief Complaint Chief Complaint Assessment/Plan Severe three-vessel CAD found on [facility] 02/01/2022 and underwent IABP support. Status post high risk PCI on 02/04/2022 with atherectomy and ELADIO stent placement to LAD and RCA, ELADIO to OM2 of LCA Temporary transvenous pacer Acute hypoxic respiratory failure Bilateral pleural effusions status post bilateral thoracentesis 01/31/2022, Acute on chronic CHF exacerbation Costochondritis History of CHF with LVEF of 15 to 20% on echo 11/26/2021 History of CAD History of REENA History of dyslipidemia History of hypertension History of atrial fibrillation on Eliquis Admit to hospitalist service for further management Cardiology consult for CHF management Pulmonology consult for possible thoracentesis Hold anticoagulation for now patient's chart, labs, images were reviewed and discussed with RN Fluid and sodium restriction Lovenox for DVT prophylaxis Protonix GI prophylaxis ADA diet CODE STATUS full Discussed with RN and SW Disposition inpatient management as above DPOA: Shana Suazo History of Present Illness History of Present Illness 76-year-old male with multiple comorbidities who comes in with shortness of breath and chest pain. Shortness of breath has been going on for for few days.Patient's room air sat while I was in the room was 92% but he is quite tachypneic and has to stop frequently during the [id number] session to catch his breath. Denies any fevers, abdominal pain, diarrhea, dysuria or syncope. 01/31/2022 No acute events overnight. Patient seen examined bedside. Saturating 99% on 2 L nasal cannula. Patient had thoracentesis done this morning with 800 cc of fluid removed. Will await for fluid analysis. Patient's chart, labs, images were reviewed and discussed with RN 02/01: Afebrile. S/P bilateral thoracentesis yesterday. Patient was moved down to the ICU after having apneic event. Code stroke was was called and neurology consulted. No concerns for CVA, per neurology. Patient will be taken to the [facility] today to have been intra-aortic balloon pump placed. Discussed with RN. 02/02: Patient seen in ICU. He has no complaints of chest pain, appears to be in good spirits. He is scheduled for high risk PCI on Friday; discussed with son at bedside. He remains on heparin gtt and Levophed. 02/03: Afebrile. Currently resting calmly in bed without complaints. He is off Levophed. Plan is for high risk PCI on Friday. Discussed with RN. 02/04: Patient with no complaints today, denies chest pain. Remains in good spirits. Cardiology to perform high risk PCI today. Discussed with RN. 02/05/2022 No acute events overnight. Patient seen examined bedside. AF and VSS while on IABP. Tolerated procedure well. Plan for IABP removal today. Optimization of cardiac medication with cardiology. Patient's chart, labs, images were reviewed and discussed with RN Vitals/I&O Vitals/I&O: Vital Signs Date Time Temp Pulse Resp B/P (MAP) Pulse Ox O2 Delivery O2 Flow Rate FiO2 02/05/22 13:00 77 16 100/55 100 Room Air 02/05/22 12:00 98.5 98.5 02/04/22 18:00 2.0 I & O 02/04/22 02/04/22 02/05/22 15:00 23:00 07:00 Intake Total 50 ml 50 ml 50 ml Output Total 425 ml 1540 ml 295 ml Balance -375 ml -1490 ml -245 ml Physical Exam General: Alert, Oriented X3, Cooperative, No acute distress Heart: Regular rate, Other (sinus tachycardia ) Lungs: Other (Decreased at the bases.) Abdomen: Soft, No tenderness Extremities: No clubbing, No edema Skin: No rashes, No significant lesion Labs Labs: Laboratory Tests Test 02/05/22 05:30 White Blood Count 9.7 x10^3/uL (4.0-11.0) Red Blood Count 3.15 x10^6/uL (4.30-5.70) Hemoglobin 8.4 g/dL (13.0-17.5) Hematocrit 25.7 % (39.0-53.0) Mean Corpuscular Volume 81 fL (79-100) Mean Corpuscular Hemoglobin 27 pg (25-35) Mean Corpuscular Hemoglobin Concent 33 g/dL (31-37) Red Cell Distribution Width 15.9 % (11.5-14.5) Platelet Count 139 x10^3/uL (140-400) Neutrophils (%) (Auto) 79 % (31-73) Lymphocytes (%) (Auto) 9 % (24-48) Monocytes (%) (Auto) 9 % (0-9) Eosinophils (%) (Auto) 3 % (0-3) Basophils (%) (Auto) 1 % (0-3) Neutrophils # (Auto) 7.7 x10^3/uL (1.8-7.7) Lymphocytes # (Auto) 0.9 x10^3/uL (1.0-4.8) Monocytes # (Auto) 0.9 x10^3/uL (0.0-1.1) Eosinophils # (Auto) 0.3 x10^3/uL (0.0-0.7) Basophils # (Auto) 0.1 x10^3/uL (0.0-0.2) Prothrombin Time 15.8 SEC (11.7-14.0) Prothromb Time International Ratio 1.3 (0.8-1.1) Activated Partial Thromboplast Time 35 SEC (24-38) Sodium Level 139 mmol/L (136-145) Potassium Level 3.6 mmol/L (3.5-5.1) Chloride Level 103 mmol/L (98-107) Carbon Dioxide Level 26 mmol/L (21-32) Anion Gap 10 (6-14) Blood Urea Nitrogen 22 mg/dL (8-26) Creatinine 1.2 mg/dL (0.7-1.3) Estimated GFR (Cockcroft-Gault) 58.7 Glucose Level 94 mg/dL (70-99) Calcium Level 8.4 mg/dL (8.5-10.1) Magnesium Level 2.0 mg/dL (1.8-2.4) Assessment and Plan Assessmemt and Plan Problems Medical Problems: (1) Bilateral pleural effusion Status: Acute (2) Congestive heart failure (CHF) Status: Acute (3) Shortness of breath Status: Acute Comment Review of Relevant I have reviewed the following items rai (where applicable) has been applied. Medications: Current Medications Medications (Trade) Dose Ordered Sig/Ifeanyi Route PRN Reason Start Time Stop Time Status Last Admin Dose Admin Heparin Sodium/ Sodium Chloride (HEPARIN for ARTERIAL LINE FLUSH) 1,000 unit 1X ONCE IART 02/04/22 15:00 02/04/22 15:02 DC 02/04/22 15:00 Heparin Sodium/ Sodium Chloride (HEPARIN for ARTERIAL LINE FLUSH) 1,000 unit 1X ONCE IART 02/04/22 15:00 02/04/22 15:02 DC 02/04/22 15:00 Midazolam HCl (Versed) 2 mg 1X ONCE IV 02/04/22 15:00 02/04/22 15:02 DC 02/04/22 14:52 Fentanyl Citrate (Fentanyl 2ml Vial) 100 mcg 1X ONCE IV 02/04/22 15:00 02/04/22 15:02 DC 02/04/22 14:52 Iodixanol (Visipaque 320) 100 ml 1X ONCE IART 02/04/22 15:00 02/04/22 15:02 DC 02/04/22 16:44 Lidocaine HCl (Lidocaine 1% 20ml Vial) 20 ml 1X ONCE INJ 02/04/22 15:00 02/04/22 15:02 DC 02/04/22 14:57 Bivalirudin (Angiomax) 250 mg 1X ONCE IVP 02/04/22 15:30 02/04/22 15:31 DC 02/04/22 15:18 Nitroglycerin (Nitroglycerin) 200 mcg 1X ONCE IART 02/04/22 15:45 02/04/22 15:46 DC 02/04/22 15:45 Potassium Bicarbonate (Potassium Effervescent Tablet) 20 meq 1X ONCE PEG 02/05/22 11:00 02/05/22 11:01 DC 02/05/22 10:45 Justifications for Admission Other Justification CHF exacerbation HENOK DE LA CRUZ MD Feb 05, 2022 14:43
--- NOTE | 2022-02-05 19:10 | PDOC ---
PROGRESS NOTES Date of Service: DATE: 02/05/22 TIME: 19:05 Subjective Subjective Denied any CP or SOA Objective Objective Vital Signs Date Time Temp Pulse Resp B/P (MAP) Pulse Ox O2 Delivery O2 Flow Rate FiO2 02/05/22 18:00 91 18 98/58 99 Room Air 02/05/22 16:00 98.6 98.6 02/04/22 18:00 2.0 Intake and Output 02/05/22 07:00 Intake Total 150 ml Output Total 2260 ml Balance -2110 ml IV Total 150 ml Output Urine Total 2260 ml # Bowel Movements 1 Physical Exam Abdomen: Soft, No tenderness Heart: Regular rate, Other (sinus tachycardia ) Extremities: No clubbing, No edema General: Alert, Oriented X3, Cooperative, No acute distress HEENT: Atraumatic Lungs: Other (diminished bases, upper crackles ) Neuro: Normal speech, Sensation intact Psych/Mental Status: Mental status NL, Mood NL Skin: No rashes, No significant lesion Assessment Assessment 1. Acute on chronic respiratory failure with a/c CHF and bilateral pleural effusion. Improved and much better compensated 2. NSTEMI - 3v CAD s/p successful atherectomy PCI/ELADIO to LAD, RCA and PCI/ELADIO to LCX, CP free. Continue DAPT and current secondary prevention measures 3. Acute on chronic systolic CHF; better compensated with diuresis 4. Cardiogenic shock: Echo with severe LV dysfunction with EF 15-20%. Improved and off pressors. IABP removed successfully. Continue GDT and repeat echo in 3 mos to evaluate need for ICD implantation 5. PAFIB presently SR 6. Hypertension; controlled 7. Hyperlipidemia; statin 8. Diabetes, II: per IM 9. Peripheral vascular disease. Clinically stable 10. H/o CVA Plan Plan of Care Problems Medical Problems: (1) Bilateral pleural effusion Status: Acute (2) Congestive heart failure (CHF) Status: Acute (3) Shortness of breath Status: Acute Comment Review of Relevant I have reviewed the following items rai (where applicable) has been applied. Labs Laboratory Tests Test 02/05/22 05:30 White Blood Count 9.7 x10^3/uL (4.0-11.0) Red Blood Count 3.15 x10^6/uL (4.30-5.70) Hemoglobin 8.4 g/dL (13.0-17.5) Hematocrit 25.7 % (39.0-53.0) Mean Corpuscular Volume 81 fL (79-100) Mean Corpuscular Hemoglobin 27 pg (25-35) Mean Corpuscular Hemoglobin Concent 33 g/dL (31-37) Red Cell Distribution Width 15.9 % (11.5-14.5) Platelet Count 139 x10^3/uL (140-400) Neutrophils (%) (Auto) 79 % (31-73) Lymphocytes (%) (Auto) 9 % (24-48) Monocytes (%) (Auto) 9 % (0-9) Eosinophils (%) (Auto) 3 % (0-3) Basophils (%) (Auto) 1 % (0-3) Neutrophils # (Auto) 7.7 x10^3/uL (1.8-7.7) Lymphocytes # (Auto) 0.9 x10^3/uL (1.0-4.8) Monocytes # (Auto) 0.9 x10^3/uL (0.0-1.1) Eosinophils # (Auto) 0.3 x10^3/uL (0.0-0.7) Basophils # (Auto) 0.1 x10^3/uL (0.0-0.2) Prothrombin Time 15.8 SEC (11.7-14.0) Prothromb Time International Ratio 1.3 (0.8-1.1) Activated Partial Thromboplast Time 35 SEC (24-38) Sodium Level 139 mmol/L (136-145) Potassium Level 3.6 mmol/L (3.5-5.1) Chloride Level 103 mmol/L (98-107) Carbon Dioxide Level 26 mmol/L (21-32) Anion Gap 10 (6-14) Blood Urea Nitrogen 22 mg/dL (8-26) Creatinine 1.2 mg/dL (0.7-1.3) Estimated GFR (Cockcroft-Gault) 58.7 Glucose Level 94 mg/dL (70-99) Calcium Level 8.4 mg/dL (8.5-10.1) Magnesium Level 2.0 mg/dL (1.8-2.4) Microbiology 01/31/22 Gram Stain - Final, Complete 01/31/22 Aerobic and Anaerobic Culture - Final, Complete Medications Current Medications Potassium Bicarbonate (Potassium Effervescent Tablet) 20 meq 1X ONCE PEG Last administered on 02/05/22at 10:45; Start 02/05/22 at 11:00; Stop 02/05/22 at 11:01; Status DC Vitals/I & O Vital Sign - Last 24 Hours 02/04/22 02/04/22 02/04/22 02/04/22 20:00 20:21 21:00 22:00 Temp 98.0 98.0 Pulse 78 78 81 Resp 18 18 18 B/P (MAP) 115/56 128/70 117/53 Pulse Ox 99 98 99 O2 Delivery Room Air Room Air Room Air Room Air 02/04/22 02/05/22 02/05/22 02/05/22 23:00 00:00 00:00 01:00 Temp 97.6 97.6 Pulse 82 73 79 Resp 18 18 18 B/P (MAP) 119/62 121/64 131/62 Pulse Ox 95 99 95 O2 Delivery Room Air Room Air Room Air Room Air 02/05/22 02/05/22 02/05/22 02/05/22 02:00 03:00 04:15 05:00 Temp 98.8 98.8 Pulse 78 74 80 Resp 18 18 18 B/P (MAP) 113/56 122/63 112/60 Pulse Ox 95 100 98 O2 Delivery Room Air Room Air Room Air Room Air 02/05/22 02/05/22 02/05/22 02/05/22 06:00 07:00 08:00 08:00 Temp 98.5 98.5 Pulse 80 79 74 Resp 18 18 20 B/P (MAP) 112/66 103/58 111/66 Pulse Ox 97 98 99 O2 Delivery Room Air Room Air Room Air Room Air 02/05/22 02/05/22 02/05/22 02/05/22 09:00 09:21 10:00 11:00 Pulse 88 87 84 77 Resp 21 B/P (MAP) 135/67 135/67 127/75 125/71 Pulse Ox 100 100 100 O2 Delivery Room Air Room Air Room Air 02/05/22 02/05/22 02/05/22 02/05/22 11:45 12:00 12:00 12:15 Temp 98.5 98.5 Pulse 92 96 92 Resp 14 17 B/P (MAP) 95/56 107/62 100/51 Pulse Ox 100 100 100 O2 Delivery Room Air Room Air Room Air Room Air 02/05/22 02/05/22 02/05/22 02/05/22 12:30 13:00 13:30 14:00 Pulse 96 92 92 96 Resp 21 16 18 16 B/P (MAP) 102/62 100/55 92/56 94/57 Pulse Ox 100 100 100 100 O2 Delivery Room Air Room Air Room Air Room Air 02/05/22 02/05/22 02/05/22 02/05/22 14:00 15:00 16:00 16:00 Temp 98.6 98.6 Pulse 92 93 96 Resp 18 18 18 B/P (MAP) 92/58 96/54 96/66 Pulse Ox 99 97 98 O2 Delivery Room Air Room Air Room Air Room Air 02/05/22 02/05/22 17:00 18:00 Pulse 88 91 Resp 18 18 B/P (MAP) 102/55 98/58 Pulse Ox 99 99 O2 Delivery Room Air Room Air Intake and Output 02/04/22 02/04/22 02/05/22 15:00 23:00 07:00 Intake Total 50 ml 50 ml 50 ml Output Total 425 ml 1540 ml 295 ml Balance -375 ml -1490 ml -245 ml ROSMERY VICKERS MD Feb 05, 2022 19:10
[2022-02-05] MEDS: ATORVASTATIN CALCIUM 20 MG TABLET PO SCH (21:14)
[2022-02-06] MEDS: PIPERACILLIN/TAZOBACTAM 3.375 GM in IV NORMAL SALINE 50ML 50 ML IV SCH ×2 (00:26→06:59)
[2022-02-06 04:00] VITALS: BP 93/57
[2022-02-06 07:02] LABS: HEMATOCRIT 26.7 % (39.0-53.0); HEMOGLOBIN 8.7 g/dL (13.0-17.5); RED BLOOD COUNT 3.27 x10^6/uL (4.30-5.70); RED CELL DISTRIBUTION WIDTH 16.1 % (11.5-14.5); WHITE BLOOD COUNT 9.4 x10^3/uL (4.0-11.0)
[2022-02-06 08:00] VITALS: BP 99/60
--- NOTE | 2022-02-06 08:45 | PDOC ---
PROGRESS NOTES Date of Service DATE: 02/06/22 TIME: 08:44 Assessment Problems Medical Problems: (1) Bilateral pleural effusion Status: Acute (2) Congestive heart failure (CHF) Status: Acute (3) Shortness of breath Status: Acute Event on 01/31 was Bernard-Barraza respiration from his heart failure and hypotension. Add to this his history of sleep apnea. Also interesting is his history of nightmares and sleep issues, he says that he has had trouble like this before when he is falling asleep. I do not see any evidence that he has had a stroke, transient ischemic attack, or seizure. He has been fully worked up for this in the past. No additional spells Plan No additional neurological studies needed Neurology signs off Treatment of medical issues. Subjective No complaints Objective Vital Signs Date Time Temp Pulse Resp B/P (MAP) Pulse Ox O2 Delivery O2 Flow Rate FiO2 02/06/22 04:00 97.9 91 20 93/57 (69) 98 Room Air 97.9 Intake and Output 02/06/22 07:00 Intake Total 1070 ml Output Total 1055 ml Balance 15 ml Intake Oral 970 ml IV Total 100 ml Output Urine Total 1055 ml # Bowel Movements 1 PHYSICAL EXAM Alert. Oriented to time, place and person. PERRL. EOMI. CN: no focal findings. Muscle tone: normal. Muscle strength: 5/5 DTR: 2+ Plantar reflex: Flexor Gait: not examined in bed. Sensory exam: no abnormal findings. No cerebellar signs elicited. Review of Relevant I have reviewed the following items rai (where applicable) has been applied. Labs Laboratory Tests Test 02/05/22 05:30 02/06/22 05:02 White Blood Count 9.7 x10^3/uL (4.0-11.0) 9.4 x10^3/uL (4.0-11.0) Red Blood Count 3.15 x10^6/uL (4.30-5.70) 3.27 x10^6/uL (4.30-5.70) Hemoglobin 8.4 g/dL (13.0-17.5) 8.7 g/dL (13.0-17.5) Hematocrit 25.7 % (39.0-53.0) 26.7 % (39.0-53.0) Mean Corpuscular Volume 81 fL (79-100) 82 fL (79-100) Mean Corpuscular Hemoglobin 27 pg (25-35) 27 pg (25-35) Mean Corpuscular Hemoglobin Concent 33 g/dL (31-37) 33 g/dL (31-37) Red Cell Distribution Width 15.9 % (11.5-14.5) 16.1 % (11.5-14.5) Platelet Count 139 x10^3/uL (140-400) 164 x10^3/uL (140-400) Neutrophils (%) (Auto) 79 % (31-73) Lymphocytes (%) (Auto) 9 % (24-48) Monocytes (%) (Auto) 9 % (0-9) Eosinophils (%) (Auto) 3 % (0-3) Basophils (%) (Auto) 1 % (0-3) Neutrophils # (Auto) 7.7 x10^3/uL (1.8-7.7) Lymphocytes # (Auto) 0.9 x10^3/uL (1.0-4.8) Monocytes # (Auto) 0.9 x10^3/uL (0.0-1.1) Eosinophils # (Auto) 0.3 x10^3/uL (0.0-0.7) Basophils # (Auto) 0.1 x10^3/uL (0.0-0.2) Prothrombin Time 15.8 SEC (11.7-14.0) Prothromb Time International Ratio 1.3 (0.8-1.1) Activated Partial Thromboplast Time 35 SEC (24-38) Sodium Level 139 mmol/L (136-145) Potassium Level 3.6 mmol/L (3.5-5.1) Chloride Level 103 mmol/L (98-107) Carbon Dioxide Level 26 mmol/L (21-32) Anion Gap 10 (6-14) Blood Urea Nitrogen 22 mg/dL (8-26) Creatinine 1.2 mg/dL (0.7-1.3) Estimated GFR (Cockcroft-Gault) 58.7 Glucose Level 94 mg/dL (70-99) Calcium Level 8.4 mg/dL (8.5-10.1) Magnesium Level 2.0 mg/dL (1.8-2.4) Laboratory Tests Test 02/06/22 05:02 White Blood Count 9.4 x10^3/uL (4.0-11.0) Red Blood Count 3.27 x10^6/uL (4.30-5.70) Hemoglobin 8.7 g/dL (13.0-17.5) Hematocrit 26.7 % (39.0-53.0) Mean Corpuscular Volume 82 fL (79-100) Mean Corpuscular Hemoglobin 27 pg (25-35) Mean Corpuscular Hemoglobin Concent 33 g/dL (31-37) Red Cell Distribution Width 16.1 % (11.5-14.5) Platelet Count 164 x10^3/uL (140-400) Microbiology 01/31/22 Gram Stain - Final, Complete 01/31/22 Aerobic and Anaerobic Culture - Final, Complete Medications Current Medications Aspirin (Aspirin Chewable) 324 mg 1X ONCE PO Last administered on 01/29/22at 18:30; Start 01/29/22 at 18:15; Stop 01/29/22 at 18:16; Status DC Albuterol/ Ipratropium (Duoneb) 3 ml 1X ONCE NEB Last administered on 01/29/22at 20:08; Start 01/29/22 at 19:45; Stop 01/29/22 at 19:46; Status DC Iohexol (Omnipaque 350 Mg/ml) 75 ml 1X ONCE IV Last administered on 01/29/22at 19:45; Start 01/29/22 at 19:45; Stop 01/29/22 at 19:46; Status DC Acetaminophen (Tylenol) 650 mg PRN Q6HRS PRN PO MILD PAIN / TEMP > 100.3'F; Start 01/29/22 at 21:15; Stop 02/01/22 at 10:53; Status DC Ondansetron HCl (Zofran) 4 mg PRN Q4HRS PRN IVP NAUSEA/VOMITING 1st choice; Start 01/29/22 at 21:15; Stop 02/02/22 at 16:07; Status DC Guaifenesin (Robitussin Dm) 10 ml PRN Q6HRS PRN PO COUGH; Start 01/29/22 at 21:15 Furosemide (Lasix) 40 mg 1X ONCE IVP Last administered on 01/29/22at 21:30; Start 01/29/22 at 21:30; Stop 01/29/22 at 21:31; Status DC Morphine Sulfate (Morphine Sulfate) 2 mg PRN Q6HRS PRN IVP SEVERE PAIN 7-10 Last administered on 02/02/22at 05:30; Start 01/30/22 at 00:00 Sennosides (Senna) 17.2 mg PRN BID PRN PO CONSTIPATION; Start 01/30/22 at 09:00 Docusate Sodium (Colace) 100 mg PRN DAILY PRN PO HARD STOOLS; Start 01/30/22 at 09:00 Ondansetron HCl (Zofran) 4 mg PRN Q6HRS PRN IVP NAUSEA/VOMITING, 1st CHOICE; Start 01/30/22 at 09:00 Dextrose (Dextrose 50%-Water Syringe) 12.5 gm PRN Q15MIN PRN IV SEE COMMENTS; Start 01/30/22 at 09:00 Acetaminophen (Tylenol) 650 mg PRN Q4HRS PRN PO TEMP OVER 100.4F OR MILD PAIN; Start 01/30/22 at 09:00 Lorazepam (Ativan) 0.5 mg PRN Q6HRS PRN PO ANXIETY / AGITATION Last administered on 02/05/22at 12:22; Start 01/30/22 at 09:00 Lorazepam (Ativan Inj) 0.25 mg PRN Q4HRS PRN IV ANXIETY / AGITATION; Start 01/30/22 at 09:00 Enoxaparin Sodium (Lovenox 40mg Syringe) 40 mg Q24H SQ ; Start 01/30/22 at 09:00; Stop 01/30/22 at 11:01; Status DC Prochlorperazine Edisylate (Compazine) 10 mg PRN Q6HRS PRN IV NAUSEA/VOMITING, 2nd CHOICE; Start 01/30/22 at 09:00 Diphenhydramine HCl (Benadryl) 25 mg PRN Q6HRS PRN IVP ITCHING; Start 01/30/22 at 09:00 Diphenhydramine HCl (Benadryl) 25 mg PRN Q6HRS PRN PO ITCHING; Start 01/30/22 at 09:00 Diphenhydramine HCl (Benadryl) 25 mg PRN QHS PRN PO INSOMNIA, 1st CHOICE Last administered on 02/04/22 21:32; Start 01/30/22 at 09:00 Zolpidem Tartrate (Ambien) 2.5 mg PRN QHS PRN PO INSOMNIA, 2nd CHOICE; Start 01/30/22 at 09:00 Atorvastatin Calcium (Lipitor) 40 mg HS PO Last administered on 02/05/22 21:14; Start 01/30/22 at 21:00 Metoprolol Succinate (Toprol Xl) 25 mg DAILY PO Last administered on 02/05/22 09:21; Start 01/30/22 at 10:30 Diclofenac Sodium (Voltaren) 1 karey BID TP Last administered on 02/05/22 21:14; Start 01/30/22 at 11:00 Furosemide (Lasix) 40 mg 1X ONCE IVP Last administered on 01/30/22 11:33; Start 01/30/22 at 11:30; Stop 01/30/22 at 11:31; Status DC Potassium Chloride (Klor-Con) 20 meq 1X ONCE PO Last administered on 01/30/22 11:33; Start 01/30/22 at 11:30; Stop 01/30/22 at 11:31; Status DC Fluticasone Propionate (Flonase) 1 spray BID NS Last administered on 02/05/22 21:14; Start 01/30/22 at 21:00 Tamsulosin HCl (Flomax) 0.4 mg BID PO Last administered on 02/05/22 21:13; Start 01/30/22 at 21:00 Ceftriaxone Sodium (Rocephin) 1 gm Q24H IVP Last administered on 01/31/22at 12:44; Start 01/31/22 at 13:00; Stop 02/01/22 at 07:17; Status DC Apixaban (Eliquis) 5 mg BID PO ; Start 01/31/22 at 21:00; Stop 02/01/22 at 10:52; Status DC Furosemide (Lasix) 40 mg DAILY PO Last administered on 02/05/22 09:22; Start 01/31/22 at 14:00 Info (Anti-Coagulation Monitoring By Pharmacy) 1 each PRN DAILY PRN MC PER PROTOCOL; Start 01/31/22 at 14:15 Lactobacillus Rhamnosus (Culturelle) 1 cap BID PO Last administered on 4/19/22at 21:13; Start 01/31/22 at 21:00 Norepinephrine Bitartrate 8 mg/ Dextrose 258 ml @ 11.262 mls/ hr CONT PRN IV PER PROTOCOL Last administered on 02/02/22at 10:31; Start 02/01/22 at 00:00 Heparin Sodium/ Dextrose 250 ml @ 6.984 mls/ hr CONT PRN IV PER PROTOCOL; Start 02/01/22 at 04:15; Stop 02/01/22 at 04:28; Status DC Heparin Sodium (Porcine) (Heparin Sodium) 1,450 unit PRN Q6HRS PRN IV FOR UFH LEVEL LESS THAN 0.2; Start 02/01/22 at 04:15; Stop 02/01/22 at 04:28; Status DC Heparin Sodium/ Dextrose 250 ml @ 6.984 mls/ hr CONT PRN IV PER PROTOCOL Last administered on 02/04/22at 13:42; Start 02/01/22 at 04:30 Heparin Sodium (Porcine) (Heparin Sodium) 1,450 unit PRN Q6HRS PRN IV FOR PTT < 40 Last administered on 02/01/22at 23:24; Start 02/01/22 at 04:30 Piperacillin Sod/ Tazobactam Sod (Zosyn Per Pharmacy) 1 each PRN DAILY PRN MC SEE COMMENTS; Start 02/01/22 at 07:30 Piperacillin Sod/ Tazobactam Sod 3.375 gm/Sodium Chloride 50 ml @ 100 mls/hr Q6HRS IV Last administered on 02/06/22at 06:59; Start 02/01/22 at 07:30 Dobutamine HCl/ Dextrose 250 ml @ 4.073 mls/ hr CONT PRN IV SEE I/O RECORD; Start 02/01/22 at 10:30 Lidocaine HCl (Xylocaine-Mpf 1% 2ml Vial) 2 ml STK-MED ONCE .ROUTE ; Start 02/01/22 at 12:13; Stop 02/01/22 at 12:13; Status DC Iodixanol (Visipaque 320) 100 ml STK-MED ONCE .ROUTE ; Start 02/01/22 at 12:13; Stop 02/01/22 at 12:13; Status DC Heparin Sodium/ Sodium Chloride 1,500 ml @ As Directed STK-MED ONCE .ROUTE ; Start 02/01/22 at 12:13; Stop 02/01/22 at 12:14; Status DC Fentanyl Citrate (Fentanyl 2ml Vial) 100 mcg STK-MED ONCE .ROUTE ; Start 02/01/22 at 12:40; Stop 02/01/22 at 12:40; Status DC Midazolam HCl (Versed) 2 mg STK-MED ONCE .ROUTE ; Start 02/01/22 at 12:40; Stop 02/01/22 at 12:40; Status DC Heparin Sodium (Porcine) (Heparin Sodium) 10,000 unit STK-MED ONCE .ROUTE ; Start 02/01/22 at 12:40; Stop 02/01/22 at 12:40; Status DC Verapamil HCl (Verapamil) 5 mg STK-MED ONCE .ROUTE ; Start 02/01/22 at 12:40; Stop 02/01/22 at 12:40; Status DC Nitroglycerin (Nitroglycerin) 200 mcg STK-MED ONCE .ROUTE ; Start 02/01/22 at 12:40; Stop 02/01/22 at 12:41; Status DC Nitroglycerin (Nitroglycerin) 200 mcg 1X ONCE IART Last administered on 02/01/22at 13:39; Start 02/01/22 at 13:00; Stop 02/01/22 at 13:01; Status DC Verapamil HCl (Verapamil) 2.5 mg 1X ONCE IART Last administered on 02/01/22at 13:40; Start 02/01/22 at 13:00; Stop 02/01/22 at 13:01; Status DC Heparin Sodium (Porcine) (Heparin Sodium) 2,500 unit 1X ONCE IART Last administered on 02/01/22at 13:38; Start 02/01/22 at 13:00; Stop 02/01/22 at 13:01; Status DC Heparin Sodium/ Sodium Chloride (HEPARIN for ARTERIAL LINE FLUSH) 1,000 unit 1X ONCE IART Last administered on 02/01/22at 13:33; Start 02/01/22 at 13:00; Stop 02/01/22 at 13:01; Status DC Heparin Sodium/ Sodium Chloride (HEPARIN for ARTERIAL LINE FLUSH) 1,000 unit 1X ONCE IART Last administered on 02/01/22at 13:33; Start 02/01/22 at 13:00; Stop 02/01/22 at 13:01; Status DC Iodixanol (Visipaque 320) 100 ml 1X ONCE IART Last administered on 02/01/22at 13:33; Start 02/01/22 at 13:00; Stop 02/01/22 at 13:01; Status DC Lidocaine HCl (Xylocaine-Mpf 1% 2ml Vial) 2 ml 1X ONCE INJ Last administered on 02/01/22at 13:34; Start 02/01/22 at 13:00; Stop 02/01/22 at 13:01; Status DC Info (CONTRAST GIVEN -- Rx MONITORING) 1 each PRN DAILY PRN MC SEE COMMENTS; Start 02/01/22 at 13:00; Stop 02/03/22 at 12:59; Status DC Lidocaine HCl (Lidocaine 1% 20ml Vial) 20 ml STK-MED ONCE .ROUTE ; Start 02/01/22 at 13:06; Stop 02/01/22 at 13:06; Status DC Heparin Sodium (Porcine) (Heparin 5,000 Units/1,000ml NS) 5,000 unit 1X ONCE IV Last administered on 02/01/22at 13:15; Start 02/01/22 at 13:15; Stop 02/01/22 at 13:16; Status DC Lidocaine HCl (Lidocaine 1% 20ml Vial) 20 ml 1X ONCE INJ Last administered on 02/01/22at 13:45; Start 02/01/22 at 13:45; Stop 02/01/22 at 13:46; Status DC Potassium Chloride (Klor-Con) 40 meq 1X ONCE PO Last administered on 02/02/22at 08:00; Start 02/02/22 at 07:30; Stop 02/02/22 at 07:32; Status DC Clopidogrel Bisulfate (Plavix) 75 mg DAILYWBKFT PO Last administered on 02/05/22at 09:22; Start 02/03/22 at 08:00 Clopidogrel Bisulfate (Plavix) 300 mg 1X ONCE PO Last administered on 02/02/22at 10:49; Start 02/02/22 at 10:45; Stop 02/02/22 at 10:46; Status DC Iodixanol (Visipaque 320) 100 ml STK-MED ONCE .ROUTE ; Start 02/04/22 at 14:05; Stop 02/04/22 at 14:05; Status DC Lidocaine HCl (Lidocaine 1% 20ml Vial) 20 ml STK-MED ONCE .ROUTE ; Start 02/04/22 at 14:05; Stop 02/04/22 at 14:05; Status DC Heparin Sodium/ Sodium Chloride 500 ml @ As Directed STK-MED ONCE .ROUTE ; Start 02/04/22 at 14:05; Stop 02/04/22 at 14:05; Status DC Fentanyl Citrate (Fentanyl 2ml Vial) 100 mcg STK-MED ONCE .ROUTE ; Start 02/04/22 at 14:17; Stop 02/04/22 at 14:17; Status DC Midazolam HCl (Versed) 2 mg STK-MED ONCE .ROUTE ; Start 02/04/22 at 14:17; Stop 02/04/22 at 14:17; Status DC Heparin Sodium/ Sodium Chloride (HEPARIN for ARTERIAL LINE FLUSH) 1,000 unit 1X ONCE IART Last administered on 02/04/22at 15:00; Start 02/04/22 at 15:00; Stop 02/04/22 at 15:02; Status DC Heparin Sodium/ Sodium Chloride (HEPARIN for ARTERIAL LINE FLUSH) 1,000 unit 1X ONCE IART Last administered on 02/04/22at 15:00; Start 02/04/22 at 15:00; Stop 02/04/22 at 15:02; Status DC Midazolam HCl (Versed) 2 mg 1X ONCE IV Last administered on 02/04/22at 14:52; Start 02/04/22 at 15:00; Stop 02/04/22 at 15:02; Status DC Fentanyl Citrate (Fentanyl 2ml Vial) 100 mcg 1X ONCE IV Last administered on 02/04/22at 14:52; Start 02/04/22 at 15:00; Stop 02/04/22 at 15:02; Status DC Iodixanol (Visipaque 320) 100 ml 1X ONCE IART Last administered on 02/04/22at 16:44; Start 02/04/22 at 15:00; Stop 02/04/22 at 15:02; Status DC Lidocaine HCl (Lidocaine 1% 20ml Vial) 20 ml 1X ONCE INJ Last administered on 02/04/22at 14:57; Start 02/04/22 at 15:00; Stop 02/04/22 at 15:02; Status DC Info (CONTRAST GIVEN -- Rx MONITORING) 1 each PRN DAILY PRN MC SEE COMMENTS; Start 02/04/22 at 15:15; Stop 02/06/22 at 15:14 Bivalirudin (Angiomax) 250 mg STK-MED ONCE IVP ; Start 02/04/22 at 15:16; Stop 02/04/22 at 15:17; Status DC Bivalirudin (Angiomax) 250 mg 1X ONCE IVP Last administered on 02/04/22at 15:18; Start 02/04/22 at 15:30; Stop 02/04/22 at 15:31; Status DC Nitroglycerin (Nitroglycerin) 200 mcg 1X ONCE IART Last administered on 02/04/22at 15:45; Start 02/04/22 at 15:45; Stop 02/04/22 at 15:46; Status DC Iodixanol (Visipaque 320) 100 ml STK-MED ONCE .ROUTE ; Start 02/04/22 at 15:57; Stop 02/04/22 at 15:58; Status DC Heparin Sodium/ Sodium Chloride 500 ml @ As Directed STK-MED ONCE .ROUTE ; Start 02/04/22 at 16:35; Stop 02/04/22 at 16:35; Status DC Potassium Bicarbonate (Potassium Effervescent Tablet) 20 meq 1X ONCE PEG Last administered on 02/05/22at 10:45; Start 02/05/22 at 11:00; Stop 02/05/22 at 11:01; Status DC Active Scripts Active Furosemide 40 Mg Tablet 1 Tab PO DAILY 30 Days Metoprolol Succinate ( Xl ) (Metoprolol Succinate) 25 Mg Tab.er.24h 25 Mg PO DAILY 30 Days Eliquis (Apixaban) 5 Mg Tablet 5 Mg PO BID 30 Days Reported Stiolto Respimat Inhal [place] (Tiotropium Br/Olodaterol HCl) 4 Gm Mist.inhal 4 Gm IH HS Flomax (Tamsulosin Hcl) 0.4 Mg Cap.er.24h 1 Cap PO BID Refresh Lacri-Lube Ointment (Mineral Oil/Petrolatum,White) 3.5 Gm Oint...g. 3.5 Gm OU DAILY Atorvastatin Calcium 20 Mg Tablet 2 Tab PO HS Omeprazole 20 Mg Capsule.dr 1 Cap PO DAILY Lubricating Plus (Carboxymethylcellulose Sodium) 1 Each Droperette 1 OU DAILY Proair Hfa Inhaler (Albuterol Sulfate) 8.5 Gm Hfa.aer.ad 1 Puff INH PRN Q6HRS PRN Aspirin 325 Mg Tablet 1 Tab PO DAILY Vitals/I & O Vital Sign - Last 24 Hours 02/05/22 02/05/22 02/05/22 02/05/22 09:00 09:21 10:00 11:00 Pulse 88 87 84 77 Resp B/P (MAP) 135/67 135/67 127/75 125/71 Pulse Ox 100 100 100 O2 Delivery Room Air Room Air Room Air 02/05/22 02/05/22 02/05/22 02/05/22 11:45 12:00 12:00 12:15 Temp 98.5 98.5 Pulse 92 96 92 Resp 14 17 B/P (MAP) 95/56 107/62 100/51 Pulse Ox 100 100 100 O2 Delivery Room Air Room Air Room Air Room Air 02/05/22 02/05/22 02/05/22 02/05/22 12:30 13:00 13:30 14:00 Pulse 96 92 92 96 Resp 16 18 16 B/P (MAP) 102/62 100/55 92/56 94/57 Pulse Ox 100 100 100 100 O2 Delivery Room Air Room Air Room Air Room Air 02/05/22 02/05/22 02/05/22 02/05/22 14:00 15:00 16:00 16:00 Temp 98.6 98.6 Pulse 92 93 96 Resp 18 18 B/P (MAP) 92/58 96/54 96/66 Pulse Ox 99 97 98 O2 Delivery Room Air Room Air Room Air Room Air 02/05/22 02/05/22 02/05/22 02/05/22 17:00 18:00 20:00 20:00 Temp 98.2 98.2 Pulse 88 91 85 Resp B/P (MAP) 102/55 98/58 99/52 (68) Pulse Ox 99 99 99 O2 Delivery Room Air Room Air Room Air Room Air 02/06/22 04:00 Temp 97.9 97.9 Pulse 91 Resp 20 B/P (MAP) 93/57 (69) Pulse Ox 98 O2 Delivery Room Air Intake and Output 02/05/22 02/05/22 02/06/22 15:00 23:00 07:00 Intake Total 270 ml 480 ml 320 ml Output Total 255 ml 475 ml 325 ml Balance 15 ml 5 ml -5 ml Justicifation of Admission Dx: Justifications for Admission: Justification of Admission Dx: Yes SHYANN JOHNSON MD Feb 06, 2022 08:45
[2022-02-06] MEDS: FUROSEMIDE 40 MG TABLET. PO SCH (09:00)
--- NOTE | 2022-02-06 09:42 | PDOC ---
PULMONARY PROGRESS NOTES DATE: 02/06/22 TIME: 09:42 Subjective Patient had intra-aortic balloon pump discontinued yesterday Not more short of air patient off of oxygen supplementation No new complaints Status post cardiac cath. Severe three-vessel coronary artery disease and severe cardiomyopathy with an EF of 15%. Status post intra-aortic balloon pump. Status post bilateral thoracentesis at 01/31/2022 Vitals Vital Signs Date Time Temp Pulse Resp B/P (MAP) Pulse Ox O2 Delivery O2 Flow Rate FiO2 02/06/22 04:00 97.9 91 20 93/57 (69) 98 Room Air 97.9 ROS: No Nausea, No Chest Pain, No Abdominal Pain, No Increase Cough General: Alert, No acute distress Lungs: Other (Decreased at the bases.) Cardiovascular: S1, S2 Abdomen: Soft, Non-tender Extremities: No Edema Skin: Warm Labs Laboratory Tests Test 02/05/22 05:30 02/06/22 05:02 White Blood Count 9.7 x10^3/uL (4.0-11.0) 9.4 x10^3/uL (4.0-11.0) Red Blood Count 3.15 x10^6/uL (4.30-5.70) 3.27 x10^6/uL (4.30-5.70) Hemoglobin 8.4 g/dL (13.0-17.5) 8.7 g/dL (13.0-17.5) Hematocrit 25.7 % (39.0-53.0) 26.7 % (39.0-53.0) Mean Corpuscular Volume 81 fL (79-100) 82 fL (79-100) Mean Corpuscular Hemoglobin 27 pg (25-35) 27 pg (25-35) Mean Corpuscular Hemoglobin Concent 33 g/dL (31-37) 33 g/dL (31-37) Red Cell Distribution Width 15.9 % (11.5-14.5) 16.1 % (11.5-14.5) Platelet Count 139 x10^3/uL (140-400) 164 x10^3/uL (140-400) Neutrophils (%) (Auto) 79 % (31-73) Lymphocytes (%) (Auto) 9 % (24-48) Monocytes (%) (Auto) 9 % (0-9) Eosinophils (%) (Auto) 3 % (0-3) Basophils (%) (Auto) 1 % (0-3) Neutrophils # (Auto) 7.7 x10^3/uL (1.8-7.7) Lymphocytes # (Auto) 0.9 x10^3/uL (1.0-4.8) Monocytes # (Auto) 0.9 x10^3/uL (0.0-1.1) Eosinophils # (Auto) 0.3 x10^3/uL (0.0-0.7) Basophils # (Auto) 0.1 x10^3/uL (0.0-0.2) Prothrombin Time 15.8 SEC (11.7-14.0) Prothromb Time International Ratio 1.3 (0.8-1.1) Activated Partial Thromboplast Time 35 SEC (24-38) Sodium Level 139 mmol/L (136-145) Potassium Level 3.6 mmol/L (3.5-5.1) Chloride Level 103 mmol/L (98-107) Carbon Dioxide Level 26 mmol/L (21-32) Anion Gap 10 (6-14) Blood Urea Nitrogen 22 mg/dL (8-26) Creatinine 1.2 mg/dL (0.7-1.3) Estimated GFR (Cockcroft-Gault) 58.7 Glucose Level 94 mg/dL (70-99) Calcium Level 8.4 mg/dL (8.5-10.1) Magnesium Level 2.0 mg/dL (1.8-2.4) Laboratory Tests Test 02/06/22 05:02 White Blood Count 9.4 x10^3/uL (4.0-11.0) Red Blood Count 3.27 x10^6/uL (4.30-5.70) Hemoglobin 8.7 g/dL (13.0-17.5) Hematocrit 26.7 % (39.0-53.0) Mean Corpuscular Volume 82 fL (79-100) Mean Corpuscular Hemoglobin 27 pg (25-35) Mean Corpuscular Hemoglobin Concent 33 g/dL (31-37) Red Cell Distribution Width 16.1 % (11.5-14.5) Platelet Count 164 x10^3/uL (140-400) Medications Active Scripts Medications Dose Route/Sig Max Daily Dose Days Date Category Flomax (Tamsulosin Hcl) 0.4 Mg Cap.er.24h 1 Cap PO BID 01/30/22 Reported Furosemide 40 Mg Tablet 1 Tab PO DAILY 30 11/26/21 Rx Metoprolol Succinate ( Xl ) (Metoprolol Succinate) 25 Mg Tab.er.24h 25 Mg PO DAILY 30 11/26/21 Rx Eliquis (Apixaban) 5 Mg Tablet 5 Mg PO BID 30 11/26/21 Rx Refresh Lacri-Lube Ointment (Mineral Oil/Petrolatum,White) 3.5 Gm Oint...g. 3.5 Gm OU DAILY 11/23/21 Reported Atorvastatin Calcium 20 Mg Tablet 2 Tab PO HS 11/23/21 Reported Omeprazole 20 Mg Capsule.dr 1 Cap PO DAILY 11/23/21 Reported Lubricating Plus (Carboxymethylcellulose Sodium) 1 Each Droperette 1 OU DAILY 11/23/21 Reported Fluticasone Propionate Nasal [place] (Fluticasone Propionate) 16 Gm [place].susp 1 Sprays NS BID 11/23/21 Reported Proair Hfa Inhaler (Albuterol Sulfate) 8.5 Gm Hfa.aer.ad 1 Puff INH PRN Q6HRS PRN 05/13/18 Reported Aspirin 325 Mg Tablet 1 Tab PO DAILY 05/22/15 Reported Comments Chest x-ray reviewed 02/02/2022. Evidence of interstitial edema. Chest x-ray reviewed 02/01/2022. Diffuse bilateral interstitial infiltrates Impression . 1. Acute hypoxic respiratory failure secondary to acute on chronic systolic heart failure with bilateral pleural effusions. Status post thoracentesis 01/31/2022 2. Low-grade fever. Influenza and Covid negative. Possible pneumonia 3. Abnormal CT chest with bilateral pleural effusion, which has been persistent and moderate. Status post bilateral thoracentesis 01/31/2022 4. 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 5. Hypotensin secondary to cardiogenic shock 6. Encephalopathy, multifactorial 7. Status post cardiac cath. Severe three-vessel coronary artery disease and severe cardiomyopathy. Status post intra-aortic balloon pump. 8. Cardiogenic shock. Cardiac cath report. Conclusion 1. Cardiogenic shock with acute on chronic systolic and diastolic heart failure 2. Severe three-vessel coronary artery disease 3. Successful placement of a 7.5 [place] 40 cc Intermedic balloon pump for cardiac shock Recommendations 1. Continue medication optimization. Given the patient's renal failure and significant cardiomyopathy with three-vessel coronary artery disease further intervention was deferred today in an effort to discuss the risks and benefits of high risk PCI with the patient's family and the patient's primary list of first job ideas Dr. Mckeon Signed by : Melquiades Bertrand, Electronically Approved : 02/01/2022 17:49:28 Plan . Updated 02/06 Off of oxygen supplementation All cultures negative, pleural fluid Will discontinue antibiotics Follow cardiology input Updated 02/05 Continue current support Intra-aortic balloon pump per cardiology Patient off of oxygen Continue empiric antibiotics Updated 02/04/2022 1. Pulmonary status stable. On room air. Status post thoracentesis. Follow pleuralfluid analysis. Eliquis on hold. On heparin per protocol. 2. Continue present oxygen. 3. Ruled out for influenza and COVID. Pneumonia is likely possibility for the source of fever. On antibiotics. Clinically improving 4. Status post cardiac cath. Currently on intra-aortic balloon pump. Severe cardiomyopathy and severe three-vessel coronary artery disease. Cardiology to consider PCI later today. 5. Normal pro calcitonin 6. Cardiology recommendations. 7. Discussed with SHAHANA SOTO MD Feb 06, 2022 09:42
--- NOTE | 2022-02-06 10:53 | PDOC ---
[employer] PROGRESS NOTE Date of Service DOS: DATE: 02/06/22 TIME: 10:52 Chief Complaint Chief Complaint Assessment/Plan Severe three-vessel CAD found on [facility] 02/01/2022 and underwent IABP support. Status post high risk PCI on 02/04/2022 with atherectomy and ELADIO stent placement to LAD and RCA, ELADIO to OM2 of LCA Temporary transvenous pacer Acute hypoxic respiratory failure Bilateral pleural effusions status post bilateral thoracentesis 01/31/2022, Acute on chronic CHF exacerbation Costochondritis History of CHF with LVEF of 15 to 20% on echo 11/26/2021 History of CAD History of REENA History of dyslipidemia History of hypertension History of atrial fibrillation on Eliquis Admit to hospitalist service for further management Cardiology consult for CHF management Pulmonology consult for possible thoracentesis Hold anticoagulation for now patient's chart, labs, images were reviewed and discussed with RN Fluid and sodium restriction Lovenox for DVT prophylaxis Protonix GI prophylaxis ADA diet CODE STATUS full Discussed with RN and SW Disposition inpatient management as above DPOA: Shana Suazo History of Present Illness History of Present Illness 76-year-old male with multiple comorbidities who comes in with shortness of breath and chest pain. Shortness of breath has been going on for for few days.Patient's room air sat while I was in the room was 92% but he is quite tachypneic and has to stop frequently during the [id number] session to catch his breath. Denies any fevers, abdominal pain, diarrhea, dysuria or syncope. 01/31/2022 No acute events overnight. Patient seen examined bedside. Saturating 99% on 2 L nasal cannula. Patient had thoracentesis done this morning with 800 cc of fluid removed. Will await for fluid analysis. Patient's chart, labs, images were reviewed and discussed with RN 02/01: Afebrile. S/P bilateral thoracentesis yesterday. Patient was moved down to the ICU after having apneic event. Code stroke was was called and neurology consulted. No concerns for CVA, per neurology. Patient will be taken to the [facility] today to have been intra-aortic balloon pump placed. Discussed with RN. 02/02: Patient seen in ICU. He has no complaints of chest pain, appears to be in good spirits. He is scheduled for high risk PCI on Friday; discussed with son at bedside. He remains on heparin gtt and Levophed. 02/03: Afebrile. Currently resting calmly in bed without complaints. He is off Levophed. Plan is for high risk PCI on Friday. Discussed with RN. 02/04: Patient with no complaints today, denies chest pain. Remains in good spirits. Cardiology to perform high risk PCI today. Discussed with RN. 02/05/2022 No acute events overnight. Patient seen examined bedside. AF and VSS while on IABP. Tolerated procedure well. Plan for IABP removal today. Optimization of cardiac medication with cardiology. Patient's chart, labs, images were reviewed and discussed with RN 02/06/2022 No acute events overnight. Patient seen examined bedside. AFVSS. IABP removed without any major complications. Tolerating diet. Will have PT OT reassess patient for home needs. Patient's chart, labs, images were reviewed and discussed with RN Vitals/I&O Vitals/I&O: Vital Signs Date Time Temp Pulse Resp B/P (MAP) Pulse Ox O2 Delivery O2 Flow Rate FiO2 02/06/22 04:00 97.9 91 20 93/57 (69) 98 Room Air 97.9 I & O 02/05/22 02/05/22 02/06/22 14:59 22:59 06:59 Intake Total 270 ml 480 ml 320 ml Output Total 255 ml 475 ml 325 ml Balance 15 ml 5 ml -5 ml Physical Exam General: Alert, Oriented X3, Cooperative, No acute distress Heart: Regular rate, Other (sinus tachycardia ) Lungs: Other (Decreased at the bases.) Abdomen: Soft, No tenderness Extremities: No clubbing, No edema Skin: No rashes, No significant lesion Labs Labs: Laboratory Tests Test 02/06/22 05:02 White Blood Count 9.4 x10^3/uL (4.0-11.0) Red Blood Count 3.27 x10^6/uL (4.30-5.70) Hemoglobin 8.7 g/dL (13.0-17.5) Hematocrit 26.7 % (39.0-53.0) Mean Corpuscular Volume 82 fL (79-100) Mean Corpuscular Hemoglobin 27 pg (25-35) Mean Corpuscular Hemoglobin Concent 33 g/dL (31-37) Red Cell Distribution Width 16.1 % (11.5-14.5) Platelet Count 164 x10^3/uL (140-400) Assessment and Plan Assessmemt and Plan Problems Medical Problems: (1) Bilateral pleural effusion Status: Acute (2) Congestive heart failure (CHF) Status: Acute (3) Shortness of breath Status: Acute Comment Review of Relevant I have reviewed the following items rai (where applicable) has been applied. Medications: Current Medications Medications (Trade) Dose Ordered Sig/Ifeanyi Route PRN Reason Start Time Stop Time Status Last Admin Dose Admin Potassium Bicarbonate (Potassium Effervescent Tablet) 20 meq 1X ONCE PEG 02/05/22 11:00 02/05/22 11:01 DC 02/05/22 10:45 Justifications for Admission Other Justification CHF exacerbation HENOK DE LA CRUZ MD Feb 06, 2022 10:53
[2022-02-06] MEDS: CLOPIDOGREL BISULFATE 75 MG TABLET PO SCH (11:04)
[2022-02-06] MEDS: METOPROLOL SUCC 24HR ER 25 MG TAB.ER.24H. PO SCH (11:05)
[2022-02-06] MEDS: TAMSULOSIN 0.4 MG CAP.ER.24H. PO SCH ×2 (11:05→20:59)
[2022-02-06] MEDS: FLUTICASONE 50MCG/NASAL SPRAY 16GM BOTTLE. NS SCH ×2 (11:05→20:58)
[2022-02-06] MEDS: LACTOBACILLUS RHAMNOSUS GG 1 CAPSULE. PO SCH ×2 (11:05→20:59)
[2022-02-06] MEDS: DICLOFENAC SODIUM 1% TOPICAL GEL 100GM TUBE. TP SCH ×2 (11:06→21:02)
[2022-02-06 12:00] VITALS: BP 98/60
--- NOTE | 2022-02-06 13:22 | PDOC ---
EMILIE BENJAMIN NURSES DIRECTOR 02/06/22 1322: CARDIO Progress Notes Date and Time Date of Service 02/06/22 Time of Evaluation 1310 Subjective Subjective: No Chest Pain, No Palpitations, No Dizziness Vitals Vitals Vital Signs Date Time Temp Pulse Resp B/P (MAP) Pulse Ox O2 Delivery O2 Flow Rate FiO2 02/06/22 12:00 97.8 96 20 98/60 (73) 99 Room Air 97.8 Weight Weight [ ] Input and Output Intake and Output Intake and Output 02/06/22 07:00 Intake Total 1070 ml Output Total 1055 ml Balance 15 ml Intake Oral 970 ml IV Total 100 ml Output Urine Total 1055 ml # Bowel Movements 1 Laboratory Labs Laboratory Tests Test 02/06/22 05:02 White Blood Count 9.4 x10^3/uL (4.0-11.0) Red Blood Count 3.27 x10^6/uL (4.30-5.70) Hemoglobin 8.7 g/dL (13.0-17.5) Hematocrit 26.7 % (39.0-53.0) Mean Corpuscular Volume 82 fL (79-100) Mean Corpuscular Hemoglobin 27 pg (25-35) Mean Corpuscular Hemoglobin Concent 33 g/dL (31-37) Red Cell Distribution Width 16.1 % (11.5-14.5) Platelet Count 164 x10^3/uL (140-400) Microbiology Micro Microbiology 01/31/22 Gram Stain - Final, Complete 01/31/22 Aerobic and Anaerobic Culture - Final, Complete Physical Exam HEENT: Neck Supple W Full Motion Chest: Symmetric LUNGS: Other (diminished bases) Heart: RRR (ST) Abdomen: Soft N/T Extremities: No Edema Neurology: alert, oriented, follow commands Assessment Assessment 1. Acute on chronic respiratory failure with a/c CHF, PNA, and bilateral pleural effusion. improved s/p thoracentesis with 800cc off bilaterally. 2. Chest pain, mixed features; AMI ruled out. 3. Acute on chronic systolic CHF; s/p IV Lasix 4. Ischemic cardiomyopathy, cardiogenic shock; improved. s/p IABP removal. LVEF 15-20%. 5. PAFIB with RVR; on metoprolol for rate control. Eliquis held for PCI 6. 3V CAD s/p successful high risk orbital atherectomy/PCI/ELADIO to LAD and RCA, and successful PCI/ELADIO second OM branch of LCx 7. Hypertension; low end 8. Hyperlipidemia; statin 9. Diabetes, II 10. Peripheral vascular disease. Patient denies claudication symptoms. 11. H/o CVA 12. ELVIS; cardiorenal. improved Recommendations Secondary prevention Continue Plavix. Add ASA Will discuss resumption of Eliquis with primary oracle manager. Risk stratification modification Cardiac rehab referral Continue Toprol for rate control Lasix therapy No ACEi/ARB with low end blood pressure Supportive care Justicifation of Admission Dx: Justifications for Admission: Justification of Admission Dx: Yes ROSMERY VICKERS MD 02/06/22 5957: CARDIO Progress Notes Assessment Assessment Patient seen and examined. Agree with HAIR DESIGNER's assessment and plan. Non-STEMI s/p high risk multivessel PCI/ELADIO to LAD and RCA and PCI/ELADIO to OM/LCx, presently chest pain-free Cardiogenic shock, acute on chronic systolic heart failure, better compensated and off pressors and IABP Agree with resuming Eliquis. Continue low-dose aspirin for 1 month then stop. Continue Plavix. Cardiac rehabilitation referral. EMILIE BENJAMIN APRN Feb 06, 2022 13:22 ROSMERY VICKERS MD Feb 06, 2022 16:57
[2022-02-06 16:00] VITALS: BP 85/53
[2022-02-06] MEDS: ASPIRIN ENTERIC COATED 81 MG TABLET.DR. PO SCH (17:07)
[2022-02-06] MEDS ORDERED: CALCIUM CARBONATE 500 MG TAB.CHEW PO PRN (19:00)
[2022-02-06 20:10] VITALS: BP 103/65
[2022-02-06] MEDS: ATORVASTATIN CALCIUM 20 MG TABLET PO SCH (20:59)
[2022-02-07 00:30] VITALS: BP 83/59
[2022-02-07 08:00] VITALS: BP 86/58
[2022-02-07] MEDS ORDERED: APIXABAN 5 MG TABLET. PO SCH (09:00)
--- NOTE | 2022-02-07 09:29 | PDOC ---
PULMONARY PROGRESS NOTES DATE: 02/07/22 TIME: 09:29 Subjective No overnight events patient had intra-aortic balloon pump discontinued yesterday Not more short of air patient off of oxygen supplementation No new complaints Status post cardiac cath. Severe three-vessel coronary artery disease and severe cardiomyopathy with an EF of 15%. Status post intra-aortic balloon pump. Status post bilateral thoracentesis at 01/31/2022 Vitals Vital Signs Date Time Temp Pulse Resp B/P (MAP) Pulse Ox O2 Delivery O2 Flow Rate FiO2 02/07/22 08:00 98.7 91 16 86/58 (67) 98 Room Air 98.7 ROS: No Nausea, No Chest Pain, No Abdominal Pain, No Increase Cough General: Alert, No acute distress Lungs: Other (Decreased at the bases.) Cardiovascular: S1, S2 Abdomen: Soft, Non-tender Extremities: No Edema Skin: Warm Labs Laboratory Tests Test 02/06/22 05:02 White Blood Count 9.4 x10^3/uL (4.0-11.0) Red Blood Count 3.27 x10^6/uL (4.30-5.70) Hemoglobin 8.7 g/dL (13.0-17.5) Hematocrit 26.7 % (39.0-53.0) Mean Corpuscular Volume 82 fL (79-100) Mean Corpuscular Hemoglobin 27 pg (25-35) Mean Corpuscular Hemoglobin Concent 33 g/dL (31-37) Red Cell Distribution Width 16.1 % (11.5-14.5) Platelet Count 164 x10^3/uL (140-400) Medications Active Scripts Medications Dose Route/Sig Max Daily Dose Days Date Category Flomax (Tamsulosin Hcl) 0.4 Mg Cap.er.24h 1 Cap PO BID 01/30/22 Reported Furosemide 40 Mg Tablet 1 Tab PO DAILY 30 11/26/21 Rx Metoprolol Succinate ( Xl ) (Metoprolol Succinate) 25 Mg Tab.er.24h 25 Mg PO DAILY 30 11/26/21 Rx Eliquis (Apixaban) 5 Mg Tablet 5 Mg PO BID 30 11/26/21 Rx Refresh Lacri-Lube Ointment (Mineral Oil/Petrolatum,White) 3.5 Gm Oint...g. 3.5 Gm OU DAILY 11/23/21 Reported Atorvastatin Calcium 20 Mg Tablet 2 Tab PO HS 11/23/21 Reported Omeprazole 20 Mg Capsule.dr 1 Cap PO DAILY 11/23/21 Reported Lubricating Plus (Carboxymethylcellulose Sodium) 1 Each Droperette 1 OU DAILY 11/23/21 Reported Fluticasone Propionate Nasal Winston (Fluticasone Propionate) 16 Gm Winston.susp 1 Sprays NS BID 11/23/21 Reported Proair Hfa Inhaler (Albuterol Sulfate) 8.5 Gm Hfa.aer.ad 1 Puff INH PRN Q6HRS PRN 05/13/18 Reported Aspirin 325 Mg Tablet 1 Tab PO DAILY 05/22/15 Reported Comments Chest x-ray reviewed 02/02/2022. Evidence of interstitial edema. Chest x-ray reviewed 02/01/2022. Diffuse bilateral interstitial infiltrates Impression . 1. Acute hypoxic respiratory failure secondary to acute on chronic systolic heart failure with bilateral pleural effusions. Status post thoracentesis 01/31/2022 2. Low-grade fever. Influenza and Covid negative. Possible pneumonia 3. Abnormal CT chest with bilateral pleural effusion, which has been persistent and moderate. Status post bilateral thoracentesis 01/31/2022 4. 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 5. Hypotensin secondary to cardiogenic shock 6. Encephalopathy, multifactorial 7. Status post cardiac cath. Severe three-vessel coronary artery disease and severe cardiomyopathy. Status post intra-aortic balloon pump. 8. Cardiogenic shock. Cardiac cath report. Conclusion 1. Cardiogenic shock with acute on chronic systolic and diastolic heart failure 2. Severe three-vessel coronary artery disease 3. Successful placement of a 7.5 [place] 40 cc Intermedic balloon pump for cardiac shock Recommendations 1. Continue medication optimization. Given the patient's renal failure and significant cardiomyopathy with three-vessel coronary artery disease further intervention was deferred today in an effort to discuss the risks and benefits of high risk PCI with the patient's family and the patient's primary community development planner Dr. Mckeon Signed by : Melquiades Bertrand, Electronically Approved : 02/01/2022 17:49:28 Plan . Updated 02/07 Patient to discharge home today respiratory status compensated Off of oxygen supplementation All cultures negative, pleural fluid Will discontinue antibiotics Follow cardiology input SHAHANA ROLLE MD Feb 07, 2022 09:29
[2022-02-07] MEDS: CLOPIDOGREL BISULFATE 75 MG TABLET PO SCH (09:55)
[2022-02-07] MEDS: ASPIRIN ENTERIC COATED 81 MG TABLET.DR. PO SCH (09:55)
[2022-02-07] MEDS: FUROSEMIDE 40 MG TABLET. PO SCH (09:56)
[2022-02-07] MEDS: DICLOFENAC SODIUM 1% TOPICAL GEL 100GM TUBE. TP SCH (09:56)
[2022-02-07] MEDS: TAMSULOSIN 0.4 MG CAP.ER.24H. PO SCH (09:56)
[2022-02-07] MEDS: LACTOBACILLUS RHAMNOSUS GG 1 CAPSULE. PO SCH (09:56)
[2022-02-07] MEDS: FLUTICASONE 50MCG/NASAL SPRAY 16GM BOTTLE. NS SCH (09:57)
[2022-02-07 10:00] VITALS: BP 92/67
[2022-02-07 10:05] VITALS: BP 103/64
--- NOTE | 2022-02-07 10:15 | PDOC ---
EMILIE BENJAMIN ANIMAL CONTROL SUPERVISOR 02/07/22 1015: CARDIO Progress Notes Date and Time Date of Service 02/07/22 Time of Evaluation 1015 Subjective Subjective: No Chest Pain, No Palpitations, No Dizziness Vitals Vitals Vital Signs Date Time Temp Pulse Resp B/P (MAP) Pulse Ox O2 Delivery O2 Flow Rate FiO2 02/07/22 08:00 98.7 91 16 86/58 (67) 98 Room Air 98.7 Weight Weight [ ] Input and Output Intake and Output Intake and Output 02/07/22 07:00 Intake Total 1180 ml Output Total 672 ml Balance 508 ml Intake Oral 1180 ml Output Urine Total 672 ml # Bowel Movements 1 Microbiology Micro Microbiology 01/31/22 Gram Stain - Final, Complete 01/31/22 Aerobic and Anaerobic Culture - Final, Complete Physical Exam HEENT: Neck Supple W Full Motion Chest: Symmetric LUNGS: Clear to Auscultation Heart: RRR (SR) Abdomen: Soft N/T Extremities: No Edema Neurology: alert, oriented, follow commands Assessment Assessment 1. Acute on chronic respiratory failure with a/c CHF, PNA, and bilateral pleural effusion. s/p thoracentesis with 800cc off bilaterally. 2. Chest pain, mixed features; AMI ruled out. 3. Acute on chronic systolic CHF; s/p IV Lasix 4. Ischemic cardiomyopathy, cardiogenic shock; improved. s/p IABP removal. LVEF 15-20%. 5. PAFIB with RVR; on metoprolol for rate control. Eliquis held for PCI 6. 3V CAD s/p successful high risk orbital atherectomy/PCI/ELADIO to LAD and RCA, and successful PCI/ELADIO second OM branch of LCx 7. Hypertension; low end 8. Hyperlipidemia; statin 9. Diabetes, II 10. Peripheral vascular disease. Patient denies claudication symptoms. 11. H/o CVA 12. ELVIS; cardiorenal. improved Recommendations Secondary prevention Continue Plavix. ASA 81 mg x1 month only as patient is on Eliquis Risk stratification modification Cardiac rehab referral Continue Toprol for rate control No ACEi/ARB with low end blood pressure Okay to discharge from a CV standpoint and follow up with primary corporate communications associate as scheduled Justicifation of Admission Dx: Justifications for Admission: Justification of Admission Dx: Yes ROSMERY VICKERS MD 02/08/22 0627: CARDIO Progress Notes Assessment Assessment Patient seen and examined. Agree with WEB DEVELOPMENT MANAGER's assessment and plan. Non-STEMI s/p high risk multivessel PCI/ELADIO to LAD and RCA and PCI/ELADIO to OM/LCx, presently chest pain-free Cardiogenic shock, acute on chronic systolic heart failure, better compensated and off pressors and IABP Agree with resuming Eliquis. Continue low-dose aspirin for 1 month then stop. Continue Plavix. Cardiac rehabilitation referral. F/U with EMILIE Minor APRN Feb 07, 2022 10:15 ROSMERY VICKERS MD Feb 08, 2022 06:27
[2022-02-07] MEDS ORDERED: CLOP75TA PO (10:24)
[2022-02-07] MEDS ORDERED: APIX5TAB PO (10:24)
[2022-02-07] MEDS ORDERED: ASPI-886 PO (10:24)
[2022-02-07] MEDS ORDERED: ATOR20TA58 PO (10:24)
[2022-02-07] MEDS ORDERED: METO-239 PO (10:24)
--- NOTE | 2022-02-07 10:28 | DISCH ---
DISCHARGE INSTRUCTIONS Condition on Discharge Condition on Discharge: Stable Activity After Discharge Activity Instructions for Disc: Activity as tolerated Driving Instructions after Dis: Do not drive today Weight Bearing Status after Di: As tolerated Diet after Discharge Diet after Discharge: Cardiac Diet Texture: No Mixed Consistencies Checks after Discharge Checks after discharge: Check blood press - daily, Check your Temp as needed Community/Resources/Services Services at Discharge: Outpatient Therapy (Cardiac Rehab) Follow-Up Follow up with: PCP within 2 weeks of discharge Follow Up With: Cardiology as scheduled and as needed Treatment/Equipment after DC Adaptive Equipment Issued: None HENOK DE LA CRUZ MD Feb 07, 2022 10:28
[2022-02-07] MEDS: METOPROLOL SUCC 24HR ER 25 MG TAB.ER.24H. PO SCH (10:36)
--- NOTE | 2022-02-07 11:03 | NUR ---
SS following up with discharge planning. SS reviewed pt chart. Pt is currently on room air. COVID19 negative. PT/OT recommended home independent. Discharge order on the chart for home with self care.
[2022-02-07 12:30] VITALS: BP 116/68
--- NOTE | 2022-02-07 13:00 | NUR ---
Pt discharged via wheelchair to private vehicle. a/o x4, reviewed all new medication and continued medication. Reviewed follow up appointments. Post cath instructions. site all clean, dry and intact.
== END 2022-02-07 12:55 | disposition home or self-care (01) | DRG 853 ==
LOC: ER 17:53 → 6 SOUTH 21:00 → 1 WEST ICU 02-01 00:10
PROVIDERS: ADMIT Internal Medicine; ATTEND Internal Medicine
PROC: 0W9B3ZZ Drainage of Left Pleural Cavity, Percutaneous Approach (ICD-10-PCS; 2022-01-31)
PROC: B2111ZZ Fluoroscopy of Multiple Coronary Arteries using Low Osmolar Contrast (ICD-10-PCS; 2022-02-01)
PROC: B548ZZA Ultrasonography of Superior Vena Cava, Guidance (ICD-10-PCS; 2022-02-01)
PROC: 4A023N7 Measurement of Cardiac Sampling and Pressure, Left Heart, Percutaneous Approach (ICD-10-PCS; 2022-02-01)
PROC: B2111ZZ Fluoroscopy of Multiple Coronary Arteries using Low Osmolar Contrast (ICD-10-PCS; 2022-02-01)
PROC: 4A023N7 Measurement of Cardiac Sampling and Pressure, Left Heart, Percutaneous Approach (ICD-10-PCS; 2022-02-01)
PROC: B211YZZ Fluoroscopy of Multiple Coronary Arteries using Other Contrast (ICD-10-PCS; 2022-02-01)
PROC: 5A09357 Assistance with Respiratory Ventilation, Less than 24 Consecutive Hours, Continuous Positive Airway Pressure (ICD-10-PCS; 2022-02-01)
PROC: 02H633Z Insertion of Infusion Device into Right Atrium, Percutaneous Approach (ICD-10-PCS; principal; 2022-02-04)
PROC: 027236Z Dilation of Coronary Artery, Three Arteries with Three Drug-eluting Intraluminal Devices, Percutaneous Approach (ICD-10-PCS; 2022-02-04)
PROC: 02C13Z7 Extirpation of Matter from Coronary Artery, Two Arteries, Orbital Atherectomy Technique, Percutaneous Approach (ICD-10-PCS; 2022-02-04)
PROC: 5A02210 Assistance with Cardiac Output using Balloon Pump, Continuous (ICD-10-PCS; 2022-02-04)
PROC: B2111ZZ Fluoroscopy of Multiple Coronary Arteries using Low Osmolar Contrast (ICD-10-PCS; 2022-02-04)
PROC: 4A023N7 Measurement of Cardiac Sampling and Pressure, Left Heart, Percutaneous Approach (ICD-10-PCS; 2022-02-04)
DX: A41.9 Sepsis, unspecified organism (principal); J96.21 Acute and chronic respiratory failure with hypoxia; J15.6 Pneumonia due to other Gram-negative bacteria; I21.4 Non-ST elevation (NSTEMI) myocardial infarction; I50.43 Acute on chronic combined systolic (congestive) and diastolic (congestive) heart failure; R57.0 Cardiogenic shock; G93.40 Encephalopathy, unspecified; J44.0 Chronic obstructive pulmonary disease with (acute) lower respiratory infection; J98.11 Atelectasis; N17.9 Acute kidney failure, unspecified; I47.2 Ventricular tachycardia; E11.51 Type 2 diabetes mellitus with diabetic peripheral angiopathy without gangrene; E78.00 Pure hypercholesterolemia, unspecified; E78.5 Hyperlipidemia, unspecified; F43.10 Post-traumatic stress disorder, unspecified; I11.0 Hypertensive heart disease with heart failure; I25.10 Atherosclerotic heart disease of native coronary artery without angina pectoris; I25.5 Ischemic cardiomyopathy; I48.0 Paroxysmal atrial fibrillation; M19.90 Unspecified osteoarthritis, unspecified site; M94.0 Chondrocostal junction syndrome [Tietze]; N40.0 Benign prostatic hyperplasia without lower urinary tract symptoms; Z20.822 Contact with and (suspected) exposure to COVID-19; Z79.01 Long term (current) use of anticoagulants; Z79.02 Long term (current) use of antithrombotics/antiplatelets; Z82.49 Family history of ischemic heart disease and other diseases of the circulatory system; Z86.73 Personal history of transient ischemic attack (TIA), and cerebral infarction without residual deficits; Z86.74 Personal history of sudden cardiac arrest; Z87.891 Personal history of nicotine dependence; Z95.5 Presence of coronary angioplasty implant and graft; F41.9 Anxiety disorder, unspecified; K21.9 Gastro-esophageal reflux disease without esophagitis
CPT/HCPCS: 32555; 33210; 33967; 33968; 36415; 36556; 36600; 70450; 71045; 71275; 76937; 80048; 80053; 82805; 82962; 83605; 83615; 83735; 83880; 84100; 84145; 84157; 84484; 85025; 85027; 85610; 85730; 87075; 87428; 92928; 92933; 93005; 93458; 94640; 94660; 94760; 99152; 99153; C1874; C1892; C1894; J0583; J0696; J1644; J1940; J2250; J2270; J2543; J3010; J3490; J7060; Q9967; 99285-25; G0378; Q0163